=== PATIENT | female | born 1945 | race Caucasian/White ===

== ENCOUNTER 2018-03-18 22:15 | Inpatient (IN) | payer MEDICARE, OTHER ==
[2018-03-18] MEDS ORDERED: SODIUM BICARB 8.4% 50 ML SYR (1 MEQ/ML) ONE (22:18)
[2018-03-18] MEDS ORDERED: AMIODARONE 50 MG/ML 3 ML VIAL IV ONE (22:18)
[2018-03-18] MEDS ORDERED: DEXTROSE 5% IN WATER 50 ML BAG ONE (22:18)
[2018-03-18] MEDS ORDERED: EPINEPHrine 10 ML SYRINGE (0.1 MG/ML) ONE (22:18)
[2018-03-18] MEDS ORDERED: MAGNESIUM SULFATE SYG 4.06 MEQ/ML SYRINGE ONE (22:18)
[2018-03-18 22:55] LABS: ALT 36 U/L (9-52); AST 35 U/L (14-36); Acetaminophen <10.0 ug/mL; Albumin 3.2 g/dL (3.5-5.0); Alkaline Phosphatase 68 U/L (38-126); Anion Gap 7 mmol/L; Blood Urea Nitrogen 51 mg/dL (7-17); Calcium 10.9 mg/dL (8.4-10.2); Carbon Dioxide 36 mmol/L (22-30); Chloride 93 mmol/L (98-107); Glucose 268 mg/dL (74-99); Magnesium 2.2 mg/dL (1.6-2.3); Potassium 4.9 mmol/L (3.5-5.1); Sodium 136 mmol/L (137-145); Total Bilirubin 0.4 mg/dL (0.2-1.3); Total Protein 6.3 g/dL (6.3-8.2)
[2018-03-18 23:00] LABS: INR 0.9 (<1.2); Prothrombin Time 9.4 sec (9.0-12.0)
[2018-03-18 23:05] LABS: Glucose,Whole Blood 305 mg/dL (75-99)
[2018-03-18 23:11] LABS: Creatine Kinase MB 1.3 ng/mL (0.0-2.4)
[2018-03-18 23:12] LABS: Troponin I 0.04 ng/mL (0.000-0.034)
[2018-03-18 23:18] LABS: Partial Thromboplastin Time 18.2 sec (22.0-30.0)
--- NOTE | 2018-03-18 23:19 | ED ---
General Adult HPI - General Stated complaint: FREDIS Time Seen by Provider: 03/18/18 23:07 Source: EMS Mode of arrival: EMS - History of Present Illness Initial comments: Eloise is a 73-year-old female is brought to the ED via EMS for respiratory distress from a skilled nursing. Upon arrival history is limited by patient's respiratory distress and subsequent cardiac arrest. Juan Ramon did arrive at bedside and provided further history. Sister reports that approximately a month ago the patient was admitted to an outside facility she's been treated for pneumonia UTI sepsis she was intubated for 4 days a month ago. She was subsequently discharged from the hospital and spent 10 days in a skilled nursing before decompensating and again returning to [facility] for readmission with persistent pneumonia difficulty breathing and arrhythmias. Sr. is uncertain what arrhythmias but does know the patient's home medications were changed. Patient was discharged from [facility] earlier today and arrived at detention facility at approximately 2 PM this afternoon. Per EMS they were dispatched to the skilled nursing for evaluation of difficulty breathing. They arrived to find the patient in respiratory distress with oxygen saturation the 60s, they placed her on a nonrebreather mask and reports that her oxygen increased to the mid 90s, patient appeared more alert and oriented, they chose not to start CPAP and patient was transported here. Patient did have a [facility] 30 minute transport time. They report that upon arrival when wheeling and the patient began to decompensate. - Related Data Home Medications Medication Instructions Recorded Confirmed Acetaminophen Tab [Tylenol Tab] 650 mg PO Q6H PRN 03/18/18 03/18/18 Arformoterol Tartrate [Brovana] 15 mcg INHALATION RT-BID 03/18/18 03/18/18 Aspirin [Children's Aspirin] 81 mg PO HS 03/18/18 03/18/18 Atorvastatin [Lipitor] 20 mg PO HS 03/18/18 03/18/18 Calcium Carbonate/Vitamin D3 1 tab PO HS 03/18/18 03/18/18 [Calcium 600-Vit D3 400 Caplet] DULoxetine HCL [Cymbalta] 20 mg PO DAILY 03/18/18 03/18/18 Docusate Oral Soln [Colace Oral 100 mg PO BID 03/18/18 03/18/18 Soln] Donepezil Hcl 23mg 23 mg PO DAILY 03/18/18 03/18/18 Ferrous Sulfate 308 mg PO DAILY 03/18/18 03/18/18 Folic Acid 0.8 mg PO HS 03/18/18 03/18/18 Insulin Aspart [NovoLOG See Protocol SQ ACHS 03/18/18 03/18/18 (formulary)] Insulin Detemir [Levemir] 10 unit SQ BID 03/18/18 03/18/18 Ipratropium-Albuterol Nebulize 3 ml INHALATION RT-QID 03/18/18 03/18/18 [Duoneb 0.5 mg-3 mg/3 ml Soln] Lactulose 10 gm PO BID 03/18/18 03/18/18 Loratadine [Claritin] 10 mg PO DAILY 03/18/18 03/18/18 Magnesium Oxide 400 mg PO HS 03/18/18 03/18/18 Metoprolol Tartrate [Lopressor] 25 mg PO BID 03/18/18 03/18/18 Montelukast [Singulair] 10 mg PO HS 03/18/18 03/18/18 Multivitamins, Thera [Multivitamin 1 tab PO HS 03/18/18 03/18/18 (formulary)] Pantoprazole Sodium [Protonix] 40 mg PO DAILY 03/18/18 03/18/18 Rosuvastatin [Crestor] 10 mg PO HS 03/18/18 03/18/18 Vit C/E/Zn/Coppr/Lutein/Zeaxan 1 cap PO BID 03/18/18 03/18/18 [Preservision Areds 2 Softgel] guaiFENesin [Mucinex] 1,200 mg PO BID 03/18/18 03/18/18 Allergies Allergy/AdvReac Type Severity Reaction Status Date / Time clopidogrel [From Plavix] Allergy Unknown Verified 03/18/18 22:41 Review of Systems ROS Statement: Those systems with pertinent positive or pertinent negative responses have been documented in the HPI. ROS Other: All systems not noted in ROS Statement are negative. Limitations: ROS unobtainable due to patients medical condition Past Medical History Past Medical History: Atrial Fibrillation, Pneumonia Additional Past Medical History / Comment(s): Intubated ICU admission for sepsis pneumonia January 2018 Smoking Status: Unknown if ever smoked Course Vital Signs 03/18/18 03/18/18 03/18/18 22:16 23:03 23:06 Temperature 97.8 F Pulse Rate 70 64 Respiratory 30 H 16 Rate Blood Pressure 155/64 110/23 O2 Sat by Pulse 66 L 100 100 Oximetry 03/18/18 03/18/18 03/18/18 23:10 23:16 23:19 Temperature Pulse Rate 62 55 L 52 L Respiratory 16 16 16 Rate Blood Pressure 131/56 63/38 69/34 O2 Sat by Pulse 99 100 100 Oximetry 03/18/18 03/18/18 03/18/18 23:28 23:32 23:35 Temperature Pulse Rate 52 L 59 L 63 Respiratory 16 Rate Blood Pressure 146/95 145/123 154/116 O2 Sat by Pulse 100 100 Oximetry 03/18/18 03/18/18 03/18/18 23:40 23:44 23:50 Temperature Pulse Rate 40 L 46 L 45 L Respiratory 16 16 16 Rate Blood Pressure 78/32 73/45 77/28 O2 Sat by Pulse 100 100 100 Oximetry 03/18/18 03/18/18 03/19/18 23:55 23:59 00:05 Temperature Pulse Rate 46 L 48 L 48 L Respiratory 16 16 16 Rate Blood Pressure 92/48 106/71 70/45 O2 Sat by Pulse 99 100 Oximetry 03/19/18 03/19/18 03/19/18 00:10 00:19 00:31 Temperature Pulse Rate 51 L 55 L Respiratory 16 16 Rate Blood Pressure 57/34 86/56 141/80 O2 Sat by Pulse 100 Oximetry 03/19/18 03/19/18 03/19/18 00:40 01:00 01:25 Temperature Pulse Rate 57 L 59 L Respiratory 16 16 16 Rate Blood Pressure 83/32 86/40 101/45 O2 Sat by Pulse 100 Oximetry 03/19/18 03/19/18 03/19/18 01:35 01:40 01:45 Temperature Pulse Rate 50 L 50 L Respiratory 16 16 16 Rate Blood Pressure 84/33 119/76 108/62 O2 Sat by Pulse 100 100 100 Oximetry 03/19/18 03/19/18 03/19/18 02:25 02:30 02:40 Temperature Pulse Rate 66 73 80 Respiratory 16 13 17 Rate Blood Pressure 110/87 O2 Sat by Pulse 100 100 100 Oximetry 03/19/18 03/19/18 02:50 03:00 Temperature Pulse Rate 71 76 Respiratory 15 16 Rate Blood Pressure 118/47 O2 Sat by Pulse Oximetry Procedures - Central Line Placement Right IJ Consent Obtained: verbal consent Time Out Performed: Yes Patient Placed on Monitor/Pulse Ox: Yes Prep: mask, gown, gloves Central Line Prep: Chlorhexidine scrub Local Anesthesia Used: Lidocaine 1% Ultrasound Used for Placement: Yes Central Line Lumen Inserted: triple Bloods Obtained for Lab: Yes Central Line Position: good blood return, all ports aspirated, flushed, capped, sutured in place with 2-0 silk Dressing Applied: Tegaderm Patient Tolerated Procedure: well Complications: none - Intubation Laryngoscope: Lisset Size: 4 ET Tube Size: 7.5 ET Tube Uncuffed: No Tube Placement Confirmation: visualized tube passing through cords, equal breath sounds bilaterally, no breath sounds over epigastrium Intubation Complications: none Medical Decision Making - Medical Decision Making The patient was seen and evaluated immediately upon arrival to the emergency department Patient was noted to have oxygen saturation in the 60s, was bradycardia to the 20s and appeared whitehead and diaphoretic Decision was made to immediately intubate, patient subsequently lost pulses and CPR was initiated Patient was intubated without complication and oxygen saturations improved ACS protocols were followed, please refer to the code sheet for medications and defibrillation's During the code patient did appear to be in V. fib and torsades. During CPR the patient would open her eyes and move her extremities however with CPR was stopped for pulse checks the patient would become unresponsive. Decision was made to pursue persistent CPR as the patient did appear to be neurologically intact. After approximately 40-45 minutes of CPR we had return of spontaneous circulation. Patient was awake appeared alert and following commands after return of spontaneous circulation Patient with recurrent episodes of hypotension and Levothroid was initiated, a right IJ central line was placed, repeat labs were obtained upon placement of the central line as there is concern that the first set of labs were debrided by IV fluid i infusion Patient care was discussed with the family, at this time they're agreeable to continuing ventilator, IV medications but would not want any further CPR Patient care was discussed with the supervising appraiser Dr. Fowler who accepts the patient to the ICU Admission orders placed - Lab Data Result diagrams: 03/19/18 00:00 03/18/18 22:20 Lab Results 11/20/18 11/20/18 11/20/18 Range/Units 22:20 22:20 22:20 WBC (3.8-10.6) k/uL RBC (3.80-5.40) m/uL Hgb (11.4-16.0) gm/dL Hct (34.0-46.0) % MCV (80.0-100.0) fL MCH (25.0-35.0) pg MCHC (31.0-37.0) g/dL RDW (11.5-15.5) % Plt Count (150-450) k/uL Neutrophils % Neutrophils % (Manual) % Band Neutrophils % % Lymphocytes % Lymphocytes % (Manual) % Monocytes % Monocytes % (Manual) % Eosinophils % Basophils % Metamyelocytes % % Myelocytes % % Neutrophils # Neutrophils # (Manual) (1.3-7.7) k/uL Lymphocytes # Lymphocytes # (Manual) (1.0-4.8) k/uL Monocytes # Monocytes # (Manual) (0-1.0) k/uL Eosinophils # Basophils # Metamyelocytes # (Man) (0) k/uL Myelocytes # (Manual) (0) k/uL Nucleated RBCs (0-0) /100 WBC Manual Slide Review Polychromasia Hypochromasia Poikilocytosis Poikilocytosis (manual PT (9.0-12.0) sec INR (<1.2) APTT (22.0-30.0) sec Sodium 136 L (137-145) mmol/L Potassium 4.9 (3.5-5.1) mmol/L Chloride 93 L (98-107) mmol/L Carbon Dioxide 36 H (22-30) mmol/L Anion Gap 7 mmol/L BUN 51 H (7-17) mg/dL Creatinine 2.39 H (0.52-1.04) mg/dL Est GFR (CKD-EPI)AfAm 22 (>60 ml/min/1.73 sqM) Est GFR (CKD-EPI)NonAf 19 (>60 ml/min/1.73 sqM) Glucose 268 H (74-99) mg/dL POC Glucose (mg/dL) (75-99) mg/dL POC Glu [employer] ID Plasma Lactic Acid Scar (0.7-2.0) mmol/L Calcium 10.9 H (8.4-10.2) mg/dL Magnesium 2.2 (1.6-2.3) mg/dL Total Bilirubin 0.4 (0.2-1.3) mg/dL AST 35 (14-36) U/L ALT 36 (9-52) U/L Alkaline Phosphatase 68 (38-126) U/L Total Creatine Kinase 25 L (30-135) U/L CK-MB (CK-2) 1.3 (0.0-2.4) ng/mL CK-MB (CK-2) Rel Index 5.2 Troponin I 0.040 H* (0.000-0.034) ng/mL NT-Pro-B Natriuret Pep pg/mL Total Protein 6.3 (6.3-8.2) g/dL Albumin 3.2 L (3.5-5.0) g/dL Urine Color Urine Appearance (Clear) Urine pH (5.0-8.0) Ur Specific Webster (1.001-1.035) Urine Protein (Negative) Urine Glucose (UA) (Negative) Urine Ketones (Negative) Urine Blood (Negative) Urine Nitrite (Negative) Urine Bilirubin (Negative) Urine Urobilinogen (<2.0) mg/dL Ur Leukocyte Esterase (Negative) Urine RBC (0-5) /hpf Urine WBC (0-5) /hpf Urine WBC Clumps (None) /hpf Urine Mucus (None) /hpf Urine Yeast (Budding) (None) /hpf Acetaminophen <10.0 ug/mL Acetone, Qual Negative (Negative) Blood Type A Positive Blood Type Confirm Blood Type Recheck CABO Indicated Antibody Screen NEGATIVE Spec Expiration Date 03/21/2018231903/18/18 03/18/18 03/18/18 Range/Units 22:20 22:20 22:45 WBC (3.8-10.6) k/uL RBC (3.80-5.40) m/uL Hgb (11.4-16.0) gm/dL Hct (34.0-46.0) % MCV (80.0-100.0) fL MCH (25.0-35.0) pg MCHC (31.0-37.0) g/dL RDW (11.5-15.5) % Plt Count (150-450) k/uL Neutrophils % Neutrophils % (Manual) % Band Neutrophils % % Lymphocytes % Lymphocytes % (Manual) % Monocytes % Monocytes % (Manual) % Eosinophils % Basophils % Metamyelocytes % % Myelocytes % % Neutrophils # Neutrophils # (Manual) (1.3-7.7) k/uL Lymphocytes # Lymphocytes # (Manual) (1.0-4.8) k/uL Monocytes # Monocytes # (Manual) (0-1.0) k/uL Eosinophils # Basophils # Metamyelocytes # (Man) (0) k/uL Myelocytes # (Manual) (0) k/uL Nucleated RBCs (0-0) /100 WBC Manual Slide Review Polychromasia Hypochromasia Poikilocytosis Poikilocytosis (manual PT 9.4 (9.0-12.0) sec INR 0.9 (<1.2) APTT 18.2 L (22.0-30.0) sec Sodium (137-145) mmol/L Potassium (3.5-5.1) mmol/L Chloride (98-107) mmol/L Carbon Dioxide (22-30) mmol/L Anion Gap mmol/L BUN (7-17) mg/dL Creatinine (0.52-1.04) mg/dL Est GFR (CKD-EPI)AfAm (>60 ml/min/1.73 sqM) Est GFR (CKD-EPI)NonAf (>60 ml/min/1.73 sqM) Glucose (74-99) mg/dL POC Glucose (mg/dL) 305 H (75-99) mg/dL POC Glu [employer] ID Eunice Morillo Plasma Lactic Acid Scar 1.6 (0.7-2.0) mmol/L Calcium (8.4-10.2) mg/dL Magnesium (1.6-2.3) mg/dL Total Bilirubin (0.2-1.3) mg/dL AST (14-36) U/L ALT (9-52) U/L Alkaline Phosphatase (38-126) U/L Total Creatine Kinase (30-135) U/L CK-MB (CK-2) (0.0-2.4) ng/mL CK-MB (CK-2) Rel Index Troponin I (0.000-0.034) ng/mL NT-Pro-B Natriuret Pep pg/mL Total Protein (6.3-8.2) g/dL Albumin (3.5-5.0) g/dL Urine Color Urine Appearance (Clear) Urine pH (5.0-8.0) Ur Specific Webster (1.001-1.035) Urine Protein (Negative) Urine Glucose (UA) (Negative) Urine Ketones (Negative) Urine Blood (Negative) Urine Nitrite (Negative) Urine Bilirubin (Negative) Urine Urobilinogen (<2.0) mg/dL Ur Leukocyte Esterase (Negative) Urine RBC (0-5) /hpf Urine WBC (0-5) /hpf Urine WBC Clumps (None) /hpf Urine Mucus (None) /hpf Urine Yeast (Budding) (None) /hpf Acetaminophen ug/mL Acetone, Qual (Negative) Blood Type Blood Type Confirm Blood Type Recheck Antibody Screen Spec Expiration Date 03/19/18 03/19/18 03/19/18 Range/Units 00:00 00:00 00:00 WBC 13.0 H (3.8-10.6) k/uL RBC 2.81 L (3.80-5.40) m/uL Hgb 8.4 L (11.4-16.0) gm/dL Hct 26.8 L (34.0-46.0) % MCV 95.5 (80.0-100.0) fL MCH 29.8 (25.0-35.0) pg MCHC 31.2 (31.0-37.0) g/dL RDW 15.6 H (11.5-15.5) % Plt Count 439 (150-450) k/uL Neutrophils % Not Reportable Neutrophils % (Manual) 71 % Band Neutrophils % 9 % Lymphocytes % Not Reportable Lymphocytes % (Manual) 12 % Monocytes % Not Reportable Monocytes % (Manual) 1 % Eosinophils % Not Reportable Basophils % Not Reportable Metamyelocytes % 2 % Myelocytes % 6 % Neutrophils # Not Reportable Neutrophils # (Manual) 10.40 H (1.3-7.7) k/uL Lymphocytes # Not Reportable Lymphocytes # (Manual) 1.56 (1.0-4.8) k/uL Monocytes # Not Reportable Monocytes # (Manual) 0.13 (0-1.0) k/uL Eosinophils # Not Reportable Basophils # Not Reportable Metamyelocytes # (Man) 0.26 H (0) k/uL Myelocytes # (Manual) 0.78 H (0) k/uL Nucleated RBCs 0 (0-0) /100 WBC Manual Slide Review Performed Polychromasia Present Hypochromasia Marked Poikilocytosis Slight Poikilocytosis (manual Present PT (9.0-12.0) sec INR (<1.2) APTT (22.0-30.0) sec Sodium (137-145) mmol/L Potassium (3.5-5.1) mmol/L Chloride (98-107) mmol/L Carbon Dioxide (22-30) mmol/L Anion Gap mmol/L BUN (7-17) mg/dL Creatinine (0.52-1.04) mg/dL Est GFR (CKD-EPI)AfAm (>60 ml/min/1.73 sqM) Est GFR (CKD-EPI)NonAf (>60 ml/min/1.73 sqM) Glucose (74-99) mg/dL POC Glucose (mg/dL) (75-99) mg/dL POC Glu [employer] ID Plasma Lactic Acid Scar (0.7-2.0) mmol/L Calcium (8.4-10.2) mg/dL Magnesium (1.6-2.3) mg/dL Total Bilirubin (0.2-1.3) mg/dL AST (14-36) U/L ALT (9-52) U/L Alkaline Phosphatase (38-126) U/L Total Creatine Kinase (30-135) U/L CK-MB (CK-2) (0.0-2.4) ng/mL CK-MB (CK-2) Rel Index Troponin I (0.000-0.034) ng/mL NT-Pro-B Natriuret Pep 1950 pg/mL Total Protein (6.3-8.2) g/dL Albumin (3.5-5.0) g/dL Urine Color Urine Appearance (Clear) Urine pH (5.0-8.0) Ur Specific Webster (1.001-1.035) Urine Protein (Negative) Urine Glucose (UA) (Negative) Urine Ketones (Negative) Urine Blood (Negative) Urine Nitrite (Negative) Urine Bilirubin (Negative) Urine Urobilinogen (<2.0) mg/dL Ur Leukocyte Esterase (Negative) Urine RBC (0-5) /hpf Urine WBC (0-5) /hpf Urine WBC Clumps (None) /hpf Urine Mucus (None) /hpf Urine Yeast (Budding) (None) /hpf Acetaminophen ug/mL Acetone, Qual (Negative) Blood Type Blood Type Confirm A Positive Blood Type Recheck Antibody Screen Spec Expiration Date 03/19/18 Range/Units 00:00 WBC (3.8-10.6) k/uL RBC (3.80-5.40) m/uL Hgb (11.4-16.0) gm/dL Hct (34.0-46.0) % MCV (80.0-100.0) fL MCH (25.0-35.0) pg MCHC (31.0-37.0) g/dL RDW (11.5-15.5) % Plt Count (150-450) k/uL Neutrophils % Neutrophils % (Manual) % Band Neutrophils % % Lymphocytes % Lymphocytes % (Manual) % Monocytes % Monocytes % (Manual) % Eosinophils % Basophils % Metamyelocytes % % Myelocytes % % Neutrophils # Neutrophils # (Manual) (1.3-7.7) k/uL Lymphocytes # Lymphocytes # (Manual) (1.0-4.8) k/uL Monocytes # Monocytes # (Manual) (0-1.0) k/uL Eosinophils # Basophils # Metamyelocytes # (Man) (0) k/uL Myelocytes # (Manual) (0) k/uL Nucleated RBCs (0-0) /100 WBC Manual Slide Review Polychromasia Hypochromasia Poikilocytosis Poikilocytosis (manual PT (9.0-12.0) sec INR (<1.2) APTT (22.0-30.0) sec Sodium (137-145) mmol/L Potassium (3.5-5.1) mmol/L Chloride (98-107) mmol/L Carbon Dioxide (22-30) mmol/L Anion Gap mmol/L BUN (7-17) mg/dL Creatinine (0.52-1.04) mg/dL Est GFR (CKD-EPI)AfAm (>60 ml/min/1.73 sqM) Est GFR (CKD-EPI)NonAf (>60 ml/min/1.73 sqM) Glucose (74-99) mg/dL POC Glucose (mg/dL) (75-99) mg/dL POC Glu [employer] ID Plasma Lactic Acid Scar (0.7-2.0) mmol/L Calcium (8.4-10.2) mg/dL Magnesium (1.6-2.3) mg/dL Total Bilirubin (0.2-1.3) mg/dL AST (14-36) U/L ALT (9-52) U/L Alkaline Phosphatase (38-126) U/L Total Creatine Kinase (30-135) U/L CK-MB (CK-2) (0.0-2.4) ng/mL CK-MB (CK-2) Rel Index Troponin I (0.000-0.034) ng/mL NT-Pro-B Natriuret Pep pg/mL Total Protein (6.3-8.2) g/dL Albumin (3.5-5.0) g/dL Urine Color Yellow Urine Appearance Turbid H (Clear) Urine pH 6.0 (5.0-8.0) Ur Specific Webster 1.015 (1.001-1.035) Urine Protein 2+ H (Negative) Urine Glucose (UA) Negative (Negative) Urine Ketones Negative (Negative) Urine Blood Large H (Negative) Urine Nitrite Negative (Negative) Urine Bilirubin Negative (Negative) Urine Urobilinogen <2.0 (<2.0) mg/dL Ur Leukocyte Esterase Large H (Negative) Urine RBC >182 H (0-5) /hpf Urine WBC >182 H (0-5) /hpf Urine WBC Clumps Many H (None) /hpf Urine Mucus Few H (None) /hpf Urine Yeast (Budding) Many H (None) /hpf Acetaminophen ug/mL Acetone, Qual (Negative) Blood Type Blood Type Confirm Blood Type Recheck Antibody Screen Spec Expiration Date Critical Care Time Critical Care Time: Yes Total Critical Care Time: 75 Critical Care Time: Critical Care time 75min Critical care time was exclusive of separately billable procedures and treating other patients and teaching time Critical care was necessary to treat or prevent imminent or life-threatening deterioration. Critical care was time spent personally by me on the following activities: development of treatment plan with patient or surrogate, discussions with consultants, discussions with primary provider, evaluation of patient's response to treatment, examination of patient, obtaining history from patient or surrogate, ordering and performing treatments and interventions, ordering and review of laboratory studies, ordering and review of radiographic studies, pulse oximetry, re-evaluation of patient's condition and review of old charts. Disposition Clinical Impression: Cardiac arrest, Hypoxia, UTI (urinary tract infection), Chest wall hematoma, No CPR or defibrillation, use all others Disposition: ADMITTED IP TO THIS HOSP Condition: Serious
[2018-03-18] MEDS ORDERED: MIDAZOLAM 1 MG/ML 5 ML VIAL IV PRN (23:36)
[2018-03-18] MEDS: NOREPINEPHRINE 16 MG in SODIUM CHLORIDE 0.9% 250 ML IV SCH (23:45)
[2018-03-19] MEDS ORDERED: NALOXONE 0.4 MG/ML 1 ML VIAL IV PRN (00:05)
--- NOTE | 2018-03-19 00:19 | XR ---
EXAMINATION TYPE: XR chest 1V DATE OF EXAM: 03/18/2018 COMPARISON: NONE HISTORY: Concern for pneumothorax. TECHNIQUE: Single frontal view of the chest is obtained. FINDINGS: There is nasogastric tube. There are chest leads. There is a large amount of soft tissue a ir over the left chest wall. There is an approximate 25% pneumothorax at the left lung base. Trachea is midline. There is also a small right-sided pneumothorax of less than 10% at the costophrenic angle . There is evidence of atelectasis in the left lower lobe. There is possible left lower lobe infiltra te also. I see no heart failure. Thoracic aorta is atheromatous. IMPRESSION: Bilateral pneumothorax and larger on the left side. Cardiomegaly. Extensive soft tissue air.
[2018-03-19] MEDS ORDERED: VANCOMYCIN IV PER PHARMACY 1 EACH MISC MISCELLANE PRN (00:41)
[2018-03-19] MEDS ORDERED: PIPERACILLIN-TAZOBACTAM 3.375 GM in SODIUM CHLORIDE 0.9% 100 ML IVPB STA (00:41)
[2018-03-19] MEDS ORDERED: NOREPINEPHRINE 16 MG in SODIUM CHLORIDE 0.9% 250 ML IV SCH (00:45)
[2018-03-19 00:54] LABS: Appearance,Urine Turbid (Clear); Bilirubin,Urine Negative (Negative); Blood,Urine Large (Negative); Budding Yeast,Urine Many /hpf; Color,Urine Yellow; Glucose,Urine (UA) Negative (Negative); HCT 26.8 % (34.0-46.0); HGB 8.4 gm/dL (11.4-16.0); Ketones,Urine Negative (Negative); Leukocyte Esterase,Urine Large (Negative); MCH 29.8 pg (25.0-35.0); MCHC 31.2 g/dL (31.0-37.0); MCV 95.5 fL (80.0-100.0); Mean Platelet Volume 7.5; Mucus,Urine Few /hpf; Nitrite,Urine Negative (Negative); Platelet Count 439 k/uL (150-450); Protein,Urine 2+ (Negative); RBC 2.81 m/uL (3.80-5.40); RBC,Urine >182 /hpf (0-5); RDW 15.6 % (11.5-15.5); Specific Gravity,Urine 1.015 (1.001-1.035); Urobilinogen,Urine <2.0 mg/dL (<2.0)
[2018-03-19 01:02] LABS: Hypochromasia Marked; Poikilocytosis Slight
--- NOTE | 2018-03-19 01:06 | XR ---
EXAMINATION TYPE: XR chest 1V portable DATE OF EXAM: 03/19/2018 COMPARISON: 03/18/2018 HISTORY: Central line placement TECHNIQUE: Single frontal view of the chest is obtained. FINDINGS: Endotracheal tube is 3.8 cm from the riri. Right jugular catheter has tip in the midsupe rior vena cava. Nasogastric tube appears in good position. There is soft tissue air over the left [address] wall. There is small right side pneumothorax at the lower lateral lung field. This is less than 10 %. There is coarse infiltrate in the left lower lobe. I do not see an definite pneumothorax on the left side. IMPRESSION: Small right side pneumothorax is slightly increased. There appears to be a left sided pneumothorax at the costophrenic angle on previous exam that is not evident on this exam. There is coarse infiltrate left lower lobe unchanged.
[2018-03-19] MEDS ORDERED: VANCOMYCIN 1,500 MG in SODIUM CHLORIDE 0.9% 250 ML IVPB STA (01:13)
[2018-03-19 01:21] LABS: Band Neutrophils % 9 %; Lymphocytes # (M) 1.56 k/uL (1.0-4.8); Metamyelocytes # (M) 0.26 k/uL (0); Metamyelocytes % 2 %; Monocytes # (M) 0.13 k/uL (0-1.0); Myelocytes # (M) 0.78 k/uL (0); Myelocytes % 6 %; Neutrophils % (M) 71 %; Nucleated Red Blood Cells 0 /100 WBC (0-0); Total Cells Counted 200
[2018-03-19 01:22] LABS: Poikilocytosis (M) Present; Polychromasia Present
[2018-03-19 02:16] LABS: Glucose,Whole Blood 418 mg/dL (75-99)
[2018-03-19] MEDS ORDERED: SODIUM CHLORIDE 0.9% 1,000 ML IV ONE ×2 (02:24→02:25)
[2018-03-19] MEDS: SODIUM CHLORIDE 0.9% 1,000 ML IV SCH ×2 (02:40→13:28)
[2018-03-19 03:19] LABS: ABG Base Excess -1.6 mmol/L; ABG HCO3 26 mmol/L (21-25); ABG PCO2 59 mmHg (35-45); ABG PH 7.25 (7.35-7.45); ABG PO2 354 mmHg (83-108); ABG TCO2 27 mmol/L (19-24)
[2018-03-19] MEDS ORDERED: ARTIFICIAL TEARS-HYPROMELLOSE DROPS 15 ML BTL BOTH EYES PRN (03:39)
[2018-03-19 04:02] LABS: HCT 29.7 % (34.0-46.0); Hypochromasia Marked; MCH 29.5 pg (25.0-35.0); MCHC 30.5 g/dL (31.0-37.0); MCV 96.7 fL (80.0-100.0); Magnesium 4.9 mg/dL (1.6-2.3); Mean Platelet Volume 7.3; Phosphorus 7.9 mg/dL (2.5-4.5); Platelet Count 543 k/uL (150-450); Poikilocytosis Slight; Potassium 5.9 mmol/L (3.5-5.1); RBC 3.07 m/uL (3.80-5.40); RDW 15.4 % (11.5-15.5); WBC 14.8 k/uL (3.8-10.6)
[2018-03-19] MEDS: PROPOFOL 1,000 MG in EMPTY BAG 1 BAG IV SCH ×3 (04:16→18:52)
--- NOTE | 2018-03-19 04:37 | XR ---
EXAMINATION TYPE: XR chest 1V DATE OF EXAM: 03/19/2018 COMPARISON: Today HISTORY: Short of breath TECHNIQUE: Single frontal view of the chest is obtained. FINDINGS: There is a very large right-sided pneumothorax probably more than 80%. There is soft tissu e air over the left chest wall. Right jugular catheter has tip in the superior vena cava. There is na sogastric tube. Endotracheal tube is difficult to visualized and the tip is probably 6.5 cm from the riri. I see no definite pneumothorax on the left side. IMPRESSION: There is a large right-sided pneumothorax and the heart is shifted slightly to the left side that suggests some element of tension. This exam was discussed with the patient's nurse at 4:35 AM. Pneumothorax is significantly increased compared to the exam 4 hours ago.
[2018-03-19 04:40] LABS: Creatine Kinase MB 7.9 ng/mL (0.0-2.4)
[2018-03-19 04:41] LABS: Troponin I 0.319 ng/mL (0.000-0.034)
[2018-03-19 04:46] LABS: Partial Thromboplastin Time 21.6 sec (22.0-30.0)
[2018-03-19 05:55] LABS: Band Neutrophils % 12 %; Lymphocytes # (M) 0.59 k/uL (1.0-4.8); Metamyelocytes # (M) 0.59 k/uL (0); Metamyelocytes % 4 %; Monocytes # (M) 0.59 k/uL (0-1.0); Neutrophils % (M) 76 %; Nucleated Red Blood Cells 0 /100 WBC (0-0); Total Cells Counted 100
--- NOTE | 2018-03-19 06:29 | XR ---
EXAMINATION TYPE: XR chest 1V portable DATE OF EXAM: 03/19/2018 COMPARISON: Today HISTORY: Right pneumothorax TECHNIQUE: Single frontal view of the chest is obtained. FINDINGS: There is a right chest tube in good position over the right upper lung field. There is brett arent complete clearing of the right side pneumothorax. There is some patchy infiltrate in the right mid and lower lung field. There is mild infiltrate in the left lower lung field. There is no heart fa ilure. Nasogastric tube is noted. There is right jugular catheter with the tip in the superior vena c jonah. Endotracheal tube is almost 5 cm from the riri. IMPRESSION: Right chest tube is in good position with clearing of the right-sided pneumothorax.
[2018-03-19 07:20] LABS: Glucose,Whole Blood 434 mg/dL (75-99)
[2018-03-19] MEDS ORDERED: INSULIN ASPART 100 UNIT/ML 1 ML 10 ML VIAL SQ SCH ×2 (07:30→12:00)
[2018-03-19] MEDS ORDERED: PIPERACILLIN-TAZOBACTAM 3.375 GM in SODIUM CHLORIDE 0.9% 100 ML IVPB SCH (08:00)
[2018-03-19] MEDS ORDERED: SODIUM CHLORIDE 0.9% 500 ML 500 ML IV ONE (08:24)
[2018-03-19] MEDS ORDERED: INSULIN REGULAR 100 UNIT/ML VIAL IV ONE (08:25)
[2018-03-19] MEDS: PANTOPRAZOLE 40 MG/10 ML VIAL IV SCH (08:33)
[2018-03-19] MEDS ORDERED: ENOXAPARIN 40 MG/0.4 ML SYRINGE SQ SCH (09:00)
[2018-03-19] MEDS ORDERED: INSULIN REGULAR BOLUS (FROM DRIP BAG) IV PRN (09:04)
[2018-03-19] MEDS: INSULIN REGULAR 100 UNIT in SODIUM CHLORIDE 0.9% 100 ML IV SCH ×2 (10:25→22:22)
[2018-03-19 10:26] LABS: Glucose,Whole Blood 336 mg/dL (75-99)
--- NOTE | 2018-03-19 10:43 | P.CNPUL ---
History of Present Illness Consult date: 03/19/18 Requesting physician: Mae Rodriguez Reason for consult: other (Acute hypoxic respiratory failure requiring intubation and mechanical ventilation.) Chief complaint: Respiratory distress and cardiac arrest History of present illness: This is a 73-year-old female with history of multiple medical problems, about a month ago, patient was admitted to an outside facility with pneumonia urinary tract infection and sepsis. Apparently patient was intubated and she was on mechanical ventilation for 4 days. She was eventually discharged from the hospital, and spent 10 days in a retirement. However her condition worsened again, and she returned to [facility] for readmission with persistent pneumonia and difficulty breathing as well as symptoms of arrhythmia/ palpitations. Patient was evaluated again at [facility], and she was discharged yesterday back to correction facility. Patient was discharged about 2 PM, however EMS was dispatched last night to the retirement for evaluation of difficulty breathing. Arrived to find the patient in respiratory distress with O2 saturation in the 60s. Patient was placed on a nonrebreather, her O2 saturation was noted to be in the mid 90s at the time. Patient appeared alert and oriented according to EMS. Patient was brought in and shortly after arrival the patient decompensated, she was noted to be bradycardic, hypotensive , and she was intubated immediately. Then the patient coded, and she was resuscitated as per ACLS protocol. The code and CPR lasted for about 45 minutes until she had spontaneous return of circulation. Patient was kept on mechanical ventilation, and transferred to the ICU. Apparently after the prolonged code, family was approached, and change the CODE STATUS to DO NOT RESUSCITATE and not to resuscitate again if the patient codes again. She was sent to the ICU on mechanical ventilation, and presently she is on tidal volume of 450 assist-control rate of 20 FiO2 of 40% and PEEP of 5. Peak airway pressure is 33, and plateau pressure 21. Patient has a right IJ central line noted placed by the ER physician. Apparently when the patient arrived to the ICU, she was noted to have extensive right-sided pneumothorax. This was actually seen earlier while the patient was in the ER, but for some reason a chest tube was not done in the ER. I reviewed the chest x-ray around 4 AM in the morning, and I called the ER physician Dr. Dunlap, she came back to the ICU and she placed a right sided chest tube as the patient was going into what seems to be a tension pneumothorax. She was requiring more norepinephrine. Chest x-ray following a right-sided chest tube placement showed complete reexpansion of the right lung. The pneumothoraces were felt to be related most likely to broken ribs from CPR. Review of Systems ROS unobtainable: due to endotracheal tube Past Medical History Past Medical History: Atrial Fibrillation, Pneumonia Additional Past Medical History / Comment(s): Intubated ICU admission for sepsis pneumonia January 2018 Last Myocardial Infarction Date:: 2007 History of Any Multi-Drug Resistant Organisms: None Reported Past Surgical History: No Surgical Hx Reported Past Anesthesia/Blood Transfusion Reactions: No Reported Reaction Smoking Status: Unknown if ever smoked Medications and Allergies Home Medications Medication Instructions Recorded Confirmed Type Acetaminophen Tab [Tylenol Tab] 650 mg PO Q6H PRN 03/18/18 03/18/18 History Arformoterol Tartrate [Brovana] 15 mcg INHALATION RT-BID 03/18/18 03/18/18 History Aspirin [Children's Aspirin] 81 mg PO HS 03/18/18 03/18/18 History Atorvastatin [Lipitor] 20 mg PO HS 03/18/18 03/18/18 History Calcium Carbonate/Vitamin D3 1 tab PO HS 03/18/18 03/18/18 History [Calcium 600-Vit D3 400 Caplet] DULoxetine HCL [Cymbalta] 20 mg PO DAILY 03/18/18 03/18/18 History Docusate Oral Soln [Colace Oral 100 mg PO BID 03/18/18 03/18/18 History Soln] Donepezil Hcl 23mg 23 mg PO DAILY 03/18/18 03/18/18 History Ferrous Sulfate 308 mg PO DAILY 03/18/18 03/18/18 History Folic Acid 0.8 mg PO HS 03/18/18 03/18/18 History Insulin Aspart [NovoLOG See Protocol SQ ACHS 03/18/18 03/18/18 History (formulary)] Insulin Detemir [Levemir] 10 unit SQ BID 03/18/18 03/18/18 History Ipratropium-Albuterol Nebulize 3 ml INHALATION RT-QID 03/18/18 03/18/18 History [Duoneb 0.5 mg-3 mg/3 ml Soln] Lactulose 10 gm PO BID 03/18/18 03/18/18 History Loratadine [Claritin] 10 mg PO DAILY 03/18/18 03/18/18 History Magnesium Oxide 400 mg PO HS 03/18/18 03/18/18 History Metoprolol Tartrate [Lopressor] 25 mg PO BID 03/18/18 03/18/18 History Montelukast [Singulair] 10 mg PO HS 03/18/18 03/18/18 History Multivitamins, Thera [Multivitamin 1 tab PO HS 03/18/18 03/18/18 History (formulary)] Pantoprazole Sodium [Protonix] 40 mg PO DAILY 03/18/18 03/18/18 History Rosuvastatin [Crestor] 10 mg PO HS 03/18/18 03/18/18 History Vit C/E/Zn/Coppr/Lutein/Zeaxan 1 cap PO BID 03/18/18 03/18/18 History [Preservision Areds 2 Softgel] guaiFENesin [Mucinex] 1,200 mg PO BID 03/18/18 03/18/18 History Allergies Allergy/AdvReac Type Severity Reaction Status Date / Time clopidogrel [From Plavix] Allergy Unknown Verified 03/18/18 22:41 Physical Exam Vitals: Vital Signs Temp Pulse Resp BP Pulse Ox 03/19/18 07:00 79 20 115/54 100 03/19/18 06:45 70 20 113/49 99 03/19/18 06:30 64 16 92/43 99 03/19/18 06:15 70 16 117/47 03/19/18 06:00 69 16 120/60 100 03/19/18 05:45 74 122/61 100 03/19/18 05:30 70 128/54 100 03/19/18 05:15 72 10 L 120/74 85 L 03/19/18 05:00 75 16 129/42 100 03/19/18 04:45 72 16 130/50 100 03/19/18 04:30 66 21 121/49 100 03/19/18 04:15 63 35 H 81/49 87 L 03/19/18 04:00 62 16 83/46 93 L 03/19/18 03:53 30 H 03/19/18 03:45 66 20 92 L 03/19/18 03:30 70 16 118/47 98 03/19/18 03:15 76 16 118/47 03/19/18 03:00 76 16 118/47 03/19/18 02:50 71 15 03/19/18 02:40 80 17 100 03/19/18 02:30 73 13 110/87 100 03/19/18 02:25 66 16 100 03/19/18 01:45 50 L 16 108/62 100 03/19/18 01:40 50 L 16 119/76 100 03/19/18 01:35 16 84/33 100 03/19/18 01:25 16 101/45 03/19/18 01:00 59 L 16 86/40 100 03/19/18 00:58 96.3 F L 03/19/18 00:40 57 L 16 83/32 03/19/18 00:31 55 L 16 141/80 03/19/18 00:19 51 L 16 86/56 100 03/19/18 00:10 57/34 03/19/18 00:05 48 L 16 70/45 100 03/18/18 23:59 48 L 16 106/71 99 03/18/18 23:55 46 L 16 92/48 03/18/18 23:50 45 L 16 77/28 100 03/18/18 23:44 46 L 16 73/45 100 03/18/18 23:40 40 L 16 78/32 100 03/18/18 23:35 63 16 154/116 100 03/18/18 23:32 59 L 145/123 03/18/18 23:28 52 L 146/95 100 03/18/18 23:19 52 L 16 69/34 100 03/18/18 23:16 55 L 16 63/38 100 03/18/18 23:10 62 16 131/56 99 03/18/18 23:06 64 16 110/23 100 03/18/18 23:03 70 155/64 100 03/18/18 22:16 97.8 F 30 H 66 L Intake and Output 03/18/18 03/19/18 03/19/18 22:59 06:59 14:59 Intake Total 744.372 131.671 Output Total 30 0 Balance 714.372 131.671 Intake: IV 740 80 Piperacillin-Tazobactam 3 100 .375 gm In Sodium Chloride 0.9% 100 ml @ 25 mls/hr IVPB ONCE STA Rx# :[id number] Sodium Chloride 0.9% 1, 390 80 000 ml @ 80 mls/hr IV . [id number] LEN Rx#:[id number] Vancomycin 1,500 mg In 250 Sodium Chloride 0.9% 250 ml @ 125 mls/hr IVPB ONCE STA Rx#:[id number] Intake, IV Titration 4.372 51.671 Amount Norepinephrine 16 mg In 4.372 Sodium Chloride 0.9% 250 ml @ 5 mls/hr IV .Q24H LEN Rx#:[id number] Propofol 1,000 mg In 51.671 Empty Bag 1 bag @ Titrate IV .Q0M LEN Rx#: [id number] Output: Chest Tube Drainage 10 Right Lateral Chest 10 Urine 20 0 Other: Voiding Method Indwelling Catheter Weight 99.79 kg 92.2 kg 92.2 kg Physical Exam: Revealed a 73-year-old female, unresponsive to any stimuli, on mechanical ventilation, in no distress. Head: Atraumatic, normocephalic. Pupils are sluggishly reactive to light. HEENT:[Neck is supple.] [No neck masses.] [No thyromegaly.] [No JVD.] Pupils are sluggishly reactive to light, no icterus. Endotracheal tube and orogastric tube noted to be intact. Chest: [Crackles and rhonchi noted bilaterally,] multiple bruises and areas of ecchymosis noted on the anterior chest wall bilaterally. Right-sided chest tube is noted just over the fourth intercostal space on the right side. Anterior and lateral subcu emphysema is palpable. Cardiac Exam: [Normal S1 and S2, no S3 gallop, no murmur.] Abdomen: [Soft, nontender, no megaly, no rebound, no guarding, normal bowel sounds.] Extremities: Multiple areas of bruises and ecchymosis noted in both upper and lower extremities.] Neurological Exam: Patient is unresponsive to any stimuli. Pupils are sluggishly reactive. Psychiatric: Cannot be assessed. Skin: Multiple areas of bruises and ecchymosis noted on the chest wall and ion upper and lower extremities. Results - Laboratory Findings CBC and BMP: 03/19/18 03:31 03/19/18 03:31 ABG ABG pH 7.25 (7.35-7.45) L 03/19/18 03:10 ABG pCO2 59 mmHg (35-45) H 03/19/18 03:10 ABG pO2 354 mmHg (83-108) H 03/19/18 03:10 ABG O2 Saturation 100.0 % (94-97) H 03/19/18 03:10 PT/INR, D-dimer PT 10.0 sec (9.0-12.0) 03/19/18 03:31 INR 1.0 (<1.2) 03/19/18 03:31 Abnormal lab findings: Abnormal Labs 03/18/18 03/18/18 03/18/18 22:20 22:20 22:20 WBC RBC Hgb Hct MCHC RDW Plt Count Neutrophils # (Manual) Lymphocytes # (Manual) Metamyelocytes # (Man) Myelocytes # (Manual) APTT 18.2 L ABG pH ABG pCO2 ABG pO2 ABG HCO3 ABG Total CO2 ABG O2 Saturation Sodium 136 L Potassium Chloride 93 L Carbon Dioxide 36 H BUN 51 H Creatinine 2.39 H Glucose 268 H POC Glucose (mg/dL) Calcium 10.9 H Phosphorus Magnesium Total Creatine Kinase 25 L CK-MB (CK-2) Troponin I 0.040 H* Albumin 3.2 L Urine Appearance Urine Protein Urine Blood Ur Leukocyte Esterase Urine RBC Urine WBC Urine WBC Clumps Urine Mucus Urine Yeast (Budding) 03/18/18 03/19/18 03/19/18 22:45 00:00 00:00 WBC 13.0 H RBC 2.81 L Hgb 8.4 L Hct 26.8 L MCHC RDW 15.6 H Plt Count Neutrophils # (Manual) 10.40 H Lymphocytes # (Manual) Metamyelocytes # (Man) 0.26 H Myelocytes # (Manual) 0.78 H APTT ABG pH ABG pCO2 ABG pO2 ABG HCO3 ABG Total CO2 ABG O2 Saturation Sodium Potassium Chloride Carbon Dioxide BUN Creatinine Glucose POC Glucose (mg/dL) 305 H Calcium Phosphorus Magnesium Total Creatine Kinase CK-MB (CK-2) Troponin I Albumin Urine Appearance Turbid H Urine Protein 2+ H Urine Blood Large H Ur Leukocyte Esterase Large H Urine RBC >182 H Urine WBC >182 H Urine WBC Clumps Many H Urine Mucus Few H Urine Yeast (Budding) Many H 03/19/18 03/19/1803/19/18 02:04 03:10 03:31 WBC 14.8 H RBC 3.07 L Hgb 9.0 L Hct 29.7 L MCHC 30.5 L RDW Plt Count 543 H Neutrophils # (Manual) 13.00 H Lymphocytes # (Manual) 0.59 L Metamyelocytes # (Man) 0.59 H Myelocytes # (Manual) APTT ABG pH 7.25 L ABG pCO2 59 H ABG pO2 354 H ABG HCO3 26 H ABG Total CO2 27 H ABG O2 Saturation 100.0 H Sodium Potassium Chloride Carbon Dioxide BUN Creatinine Glucose POC Glucose (mg/dL) 418 H Calcium Phosphorus Magnesium Total Creatine Kinase CK-MB (CK-2) Troponin I Albumin Urine Appearance Urine Protein Urine Blood Ur Leukocyte Esterase Urine RBC Urine WBC Urine WBC Clumps Urine Mucus Urine Yeast (Budding) 03/19/18 03/19/18 03/19/18 03:31 03:31 03:31 WBC RBC Hgb Hct MCHC RDW Plt Count Neutrophils # (Manual) Lymphocytes # (Manual) Metamyelocytes # (Man) Myelocytes # (Manual) APTT 21.6 L ABG pH ABG pCO2 ABG pO2 ABG HCO3 ABG Total CO2 ABG O2 Saturation Sodium 135 L Potassium 5.9 H Chloride 97 L Carbon Dioxide BUN 51 H Creatinine 2.47 H Glucose 422 H POC Glucose (mg/dL) Calcium Phosphorus 7.9 H Magnesium 4.9 H Total Creatine Kinase 290 H CK-MB (CK-2) 7.9 H Troponin I 0.319 H* Albumin Urine Appearance Urine Protein Urine Blood Ur Leukocyte Esterase Urine RBC Urine WBC Urine WBC Clumps Urine Mucus Urine Yeast (Budding) 03/19/18 07:08 WBC RBC Hgb Hct MCHC RDW Plt Count Neutrophils # (Manual) Lymphocytes # (Manual) Metamyelocytes # (Man) Myelocytes # (Manual) APTT ABG pH ABG pCO2 ABG pO2 ABG HCO3 ABG Total CO2 ABG O2 Saturation Sodium Potassium Chloride Carbon Dioxide BUN Creatinine Glucose POC Glucose (mg/dL) 434 H Calcium Phosphorus Magnesium Total Creatine Kinase CK-MB (CK-2) Troponin I Albumin Urine Appearance Urine Protein Urine Blood Ur Leukocyte Esterase Urine RBC Urine WBC Urine WBC Clumps Urine Mucus Urine Yeast (Budding) - Diagnostic Findings Chest x-ray: image reviewed (Chest x-ray was reviewed, right-sided chest tube is noted to be in position. Clearing of the right-sided pneumothorax is noted.) Assessment and Plan Assessment: Impression: 1 acute hypoxic respiratory failure and cardiac arrest requiring prolonged CPR in the emergency room department. 2 multiple rib fractures and right sided pneumothorax requiring right-sided chest tube placement. Rib fractures are iatrogenic in nature. 3 recent hospitalization for pneumonia and sepsis, however no clear-cut evidence of pneumonia on the initial chest x-ray done on this admission. 4 right-sided pneumothorax, secondary to rib fractures/iatrogenic. Requiring right-sided chest tube placement. 5 strongly suspect anoxic brain injury considering the prolonged CPR until recovery of spontaneous circulation. Hence neurological consultation will be appropriate. Recommendation: Continue present supportive care measures, continue ventilatory support, continue GI and DVT prophylaxis, empiric antibiotics, bronchodilators, pressors, nutritional support, and we'll continue to follow. Patient again is critically ill, and prognosis is extremely poor and guarded. Patient will be seen by cardiology on consultation. Time with Patient: Greater than 30
[2018-03-19 11:10] LABS: Glucose,Whole Blood 356 mg/dL (75-99)
[2018-03-19] MEDS ORDERED: FUROSEMIDE 10 MG/ML 10 ML VIAL IV STA (11:11)
--- NOTE | 2018-03-19 11:17 | CONS ---
CONSULTATION The history obtained from the chart as well as from the nurse. Patient is currently intubated and no further history is available from the patient. Patient's medical records reviewed. This patient is a 73-year-old female who was admitted at [facility] for about a month ago, patient was intubated. Patient was treated for pneumonia and sepsis. Patient was subsequently in the long-term. Patient developed respiratory distress and hypoxia and so she was brought by EMS. Patient was in acute respiratory distress and patient was intubated in the emergency room. Subsequently, patient developed a cardiac arrest. Patient had recurrent episodes of torsade and VFib and patient was cardioverted and a prolonged CPR was done. EKG did not show any acute ST-segment changes suggestive of acute myocardial infarction. Patient subsequently in the ICU developed a tension pneumothorax and the chest tube was placed in. Patient currently is intubated. He has no urine output and she was on Levophed. HOME MEDICATIONS: Include Lipitor, Brovana, Cymbalta, Levemir, Claritin, Lopressor, Protonix, Crestor, and Mucinex. PHYSICAL EXAMINATION: At present reveals a 73-year-old female who is intubated, does not respond to any commands. Heart rate is 70 per minute, blood pressure is 115/54 mmHg. HEENT examination is negative. HEART: First and second heart sounds are heard. LUNGS: Reveal bilateral diminished air entry. ABDOMEN: Soft. EXTREMITIES: Peripheral pulsations are 1+. EKG shows probably junctional rhythm with intraventricular conduction delay. There is no evidence of any ST-segment elevation to suggest acute myocardial infarction. Patient's blood gases at present shows pH of 7.25, pCO2 is 59, and PO2 is 354. Potassium is 5.9, creatinine is 2.47. Patient's two sets of troponins are 0.040 and 0.319. BNP level is 1950. IMPRESSION: This patient is primarily admitted with acute respiratory distress and had a cardiorespiratory arrest secondary to acute respiratory failure. Patient did subsequently have an episode of ventricular fibrillation. EKG is not suggestive of any acute ST-segment elevation myocardial infarction. Patient has a mild elevation in the troponin. It is due to the myocardial injury, probably secondary to hypoxia and it is not suggestive of any type 1 myocardial infarction. Patient's prognosis remains poor. She has no urine output and only supportive treatment is recommended. MMODL / IJN: [id number] /
[2018-03-19] MEDS: IPRATROPIUM-ALBUTEROL 3 ML NEB INHALATION SCH ×3 (11:30→19:46)
--- NOTE | 2018-03-19 11:39 | P.HPIM ---
History of Present Illness This is a pleasant 73 years old female with past medical history of congestive heart failure and atrial fibrillation. Patient was transferred from senior living where she was therefore 10 days, recently discharged from the hospital for sepsis, pneumonia and UTI. This time EMS were called for difficulty breathing and they found her oxygen saturation was 60, she was placed on non-rebreather and her oxygen went up to mid 90s Patient is currently intubated and cannot provide information which were obtained from the medical staff, medical records, and sister at bedside who is her guardian. As per sister patient has been admitted to [facility] twice in the last 36 days for pneumonia and UTI with sepsis. Each time ascending to rehab, first time for 10 days and then for 16 days. As per sister they have been contacted earlier and they wanted everything to be done. But now with a want to change her CODE STATUS to DO NOT RESUSCITATE. On admission she was saturating is 6% on room air and she was breathing at respiratory rate of 30 minutes. Her blood pressure was 155/64, later on it dropped to 63/38. And she was bradycardic in the 40s and 50s. Leukocytosis at 14.8 K, hemoglobin 9, platelets 543. Sodium 135, potassium 5.9, creatinine 2.4 , sugar was signed between 300-400. Troponin is elevated at 0.04 and 0.319. LFT unremarkable.UA was suggestive of infection. Chest x-ray shows bilateral pneumothorax with larger on the left side, follow-up chest x-ray showing large right-side pneumothorax, getting worse Review of Systems n/a Past Medical History Past Medical History: Atrial Fibrillation, Pneumonia Additional Past Medical History / Comment(s): Intubated ICU admission for sepsis pneumonia January 2018 Last Myocardial Infarction Date:: 2007 History of Any Multi-Drug Resistant Organisms: None Reported Past Surgical History: No Surgical Hx Reported Past Anesthesia/Blood Transfusion Reactions: No Reported Reaction Smoking Status: Unknown if ever smoked Medications and Allergies Home Medications Medication Instructions Recorded Confirmed Type Acetaminophen Tab [Tylenol Tab] 650 mg PO Q6H PRN 03/18/18 03/18/18 History Arformoterol Tartrate [Brovana] 15 mcg INHALATION RT-BID 03/18/18 03/18/18 History Atorvastatin [Lipitor] 20 mg PO HS 03/18/18 03/18/18 History Calcium Carbonate/Vitamin D3 1 tab PO HS 03/18/18 03/18/18 History [Calcium 600-Vit D3 400 Caplet] DULoxetine HCL [Cymbalta] 20 mg PO DAILY 03/18/18 03/18/18 History Docusate Oral Soln [Colace Oral 100 mg PO BID 03/18/18 03/18/18 History Soln] Donepezil Hcl 23mg 23 mg PO DAILY 03/18/18 03/18/18 History Insulin Aspart [NovoLOG See Protocol SQ ACHS 03/18/18 03/18/18 History (formulary)] Insulin Detemir [Levemir] 10 unit SQ BID 03/18/18 03/18/18 History Ipratropium-Albuterol Nebulize 3 ml INHALATION RT-QID 03/18/18 03/18/18 History [Duoneb 0.5 mg-3 mg/3 ml Soln] Loratadine [Claritin] 10 mg PO DAILY 03/18/18 03/18/18 History Metoprolol Tartrate [Lopressor] 25 mg PO BID 03/18/18 03/18/18 History Montelukast [Singulair] 10 mg PO HS 03/18/18 03/18/18 History Multivitamins, Thera [Multivitamin 1 tab PO HS 03/18/18 03/18/18 History (formulary)] Pantoprazole Sodium [Protonix] 40 mg PO DAILY 03/18/18 03/18/18 History RX: Aspirin [Children's Aspirin] 81 mg PO HS 03/18/18 03/18/18 History RX: Ferrous Sulfate 308 mg PO DAILY 03/18/18 03/18/18 History RX: Folic Acid 0.8 mg PO HS 03/18/18 03/18/18 History RX: Lactulose 10 gm PO BID 03/18/18 03/18/18 History RX: Magnesium Oxide 400 mg PO HS 03/18/18 03/18/18 History Rosuvastatin [Crestor] 10 mg PO HS 03/18/18 03/18/18 History Vit C/E/Zn/Coppr/Lutein/Zeaxan 1 cap PO BID 03/18/18 03/18/18 History [Preservision Areds 2 Softgel] guaiFENesin [Mucinex] 1,200 mg PO BID 03/18/18 03/18/18 History Allergies Allergy/AdvReac Type Severity Reaction Status Date / Time clopidogrel [From Plavix] Allergy Unknown Verified 03/18/18 22:41 Physical Exam Vitals: Vital Signs Temp Pulse Resp BP Pulse Ox 03/19/18 10:45 67 39 H 134/48 82 L 03/19/18 10:30 67 20 106/57 98 03/19/18 10:15 64 25 H 120/97 97 03/19/18 10:00 67 35 H 122/48 97 03/19/18 09:45 67 20 125/51 97 03/19/18 09:30 68 20 115/55 97 03/19/18 09:15 72 33 H 119/48 97 03/19/18 09:00 71 7 L 112/47 98 03/19/18 08:45 70 20 106/56 100 03/19/18 08:30 67 20 101/44 100 03/19/18 08:15 71 20 117/56 95 03/19/18 08:00 99.1 F 71 20 118/49 99 03/19/18 07:45 70 20 100/56 99 03/19/18 07:30 71 20 115/52 99 03/19/18 07:15 70 20 113/61 99 03/19/18 07:00 79 20 115/54 100 03/19/18 06:45 70 20 113/49 99 03/19/18 06:30 64 16 92/43 99 03/19/18 06:15 70 16 117/47 03/19/18 06:00 69 16 120/60 100 03/19/18 05:45 74 122/61 100 03/19/18 05:30 70 128/54 100 03/19/18 05:15 72 10 L 120/74 85 L 03/19/18 05:00 75 16 129/42 100 03/19/18 04:45 72 16 130/50 100 03/19/18 04:30 66 21 121/49 100 03/19/18 04:15 63 35 H 81/49 87 L 03/19/18 04:00 62 16 83/46 93 L 03/19/18 03:53 30 H 03/19/18 03:45 66 20 92 L 03/19/18 03:30 70 16 118/47 98 03/19/18 03:15 76 16 118/47 03/19/18 03:00 76 16 118/47 03/19/18 02:50 71 15 03/19/18 02:40 80 17 100 03/19/18 02:30 73 13 110/87 100 03/19/18 02:25 66 16 100 03/19/18 01:45 50 L 16 108/62 100 03/19/18 01:40 50 L 16 119/76 100 03/19/18 01:35 16 84/33 100 03/19/18 01:25 16 101/45 03/19/18 01:00 59 L 16 86/40 100 03/19/18 00:58 96.3 F L 03/19/18 00:40 57 L 16 83/32 03/19/18 00:31 55 L 16 141/80 03/19/18 00:19 51 L 16 86/56 100 03/19/18 00:10 57/34 03/19/18 00:05 48 L 16 70/45 100 03/18/18 23:59 48 L 16 106/71 99 03/18/18 23:55 46 L 16 92/48 03/18/18 23:50 45 L 16 77/28 100 03/18/18 23:44 46 L 16 73/45 100 03/18/18 23:40 40 L 16 78/32 100 03/18/18 23:35 63 16 154/116 100 03/18/18 23:32 59 L 145/123 03/18/18 23:28 52 L 146/95 100 03/18/18 23:19 52 L 16 69/34 100 03/18/18 23:16 55 L 16 63/38 100 03/18/18 23:10 62 16 131/56 99 03/18/18 23:06 64 16 110/23 100 03/18/18 23:03 70 155/64 100 03/18/18 22:16 97.8 F 30 H 66 L Intake and Output 03/18/18 03/19/18 03/19/18 22:59 06:59 14:59 Intake Total 744.372 136.519 Output Total 30 0 Balance 714.372 136.519 Intake: IV 740 80 Piperacillin-Tazobactam 3 100 .375 gm In Sodium Chloride 0.9% 100 ml @ 25 mls/hr IVPB ONCE STA Rx# :[id number] Sodium Chloride 0.9% 1, 390 80 000 ml @ 80 mls/hr IV . [id number] LEN Rx#:[id number] Vancomycin 1,500 mg In 250 Sodium Chloride 0.9% 250 ml @ 125 mls/hr IVPB ONCE STA Rx#:[id number] Intake, IV Titration 4.372 56.519 Amount Insulin Regular 100 unit 4.848 In Sodium Chloride 0.9% 100 ml @ Per Protocol IV .Q0M LEN Rx#:[id number] Norepinephrine 16 mg In 4.372 Sodium Chloride 0.9% 250 ml @ 5 mls/hr IV .Q24H LEN Rx#:[id number] Propofol 1,000 mg In 51.671 Empty Bag 1 bag @ Titrate IV .Q0M LEN Rx#: [id number] Output: Chest Tube Drainage 10 Right Lateral Chest 10 Urine 20 0 Other: Voiding Method Indwelling Catheter Weight 99.79 kg 92.2 kg 92.2 kg -GENERAL: The patient is intubated, not in any acute distress. HEENT: Pupils are round and equally reacting to light. EOMI. No scleral icterus. No conjunctival pallor. Normocephalic, atraumatic. No pharyngeal erythema. No thyromegaly. CARDIOVASCULAR: S1 and S2 present. No murmurs, rubs, or gallops. -PULMONARY: Chest is clear to auscultation, decreased breath sounds bilaterally ABDOMEN: Soft, nontender, nondistended, normoactive bowel sounds. No palpable organomegaly. MUSCULOSKELETAL: No joint swelling or deformity. EXTREMITIES: No cyanosis, clubbing, or pedal edema. NEUROLOGICAL: Gross neurological examination did not reveal any focal deficits. SKIN: No rashes. Results CBC & Chem 7: 03/19/18 03:31 03/19/18 03:31 Labs: Abnormal Lab Results - Last 24 Hours (Table) 03/18/18 03/18/18 03/18/18 Range/Units 22:20 22:20 22:20 WBC (3.8-10.6) k/uL RBC (3.80-5.40) m/uL Hgb (11.4-16.0) gm/dL Hct (34.0-46.0) % MCHC (31.0-37.0) g/dL RDW (11.5-15.5) % Plt Count (150-450) k/uL Neutrophils # (Manual) (1.3-7.7) k/uL Lymphocytes # (Manual) (1.0-4.8) k/uL Metamyelocytes # (Man) (0) k/uL Myelocytes # (Manual) (0) k/uL APTT 18.2 L (22.0-30.0) sec ABG pH (7.35-7.45) ABG pCO2 (35-45) mmHg ABG pO2 (83-108) mmHg ABG HCO3 (21-25) mmol/L ABG Total CO2 (19-24) mmol/L ABG O2 Saturation (94-97) % Sodium 136 L (137-145) mmol/L Potassium (3.5-5.1) mmol/L Chloride 93 L (98-107) mmol/L Carbon Dioxide 36 H (22-30) mmol/L BUN 51 H (7-17) mg/dL Creatinine 2.39 H (0.52-1.04) mg/dL Glucose 268 H (74-99) mg/dL POC Glucose (mg/dL) (75-99) mg/dL Calcium 10.9 H (8.4-10.2) mg/dL Phosphorus (2.5-4.5) mg/dL Magnesium (1.6-2.3) mg/dL Total Creatine Kinase 25 L (30-135) U/L CK-MB (CK-2) (0.0-2.4) ng/mL Troponin I 0.040 H* (0.000-0.034) ng/mL Albumin 3.2 L (3.5-5.0) g/dL Urine Appearance (Clear) Urine Protein (Negative) Urine Blood (Negative) Ur Leukocyte Esterase (Negative) Urine RBC (0-5) /hpf Urine WBC (0-5) /hpf Urine WBC Clumps (None) /hpf Urine Mucus (None) /hpf Urine Yeast (Budding) (None) /hpf 03/18/18 03/19/18 03/19/18 Range/Units 22:45 00:00 00:00 WBC 13.0 H (3.8-10.6) k/uL RBC 2.81 L (3.80-5.40) m/uL Hgb 8.4 L (11.4-16.0) gm/dL Hct 26.8 L (34.0-46.0) % MCHC (31.0-37.0) g/dL RDW 15.6 H (11.5-15.5) % Plt Count (150-450) k/uL Neutrophils # (Manual) 10.40 H (1.3-7.7) k/uL Lymphocytes # (Manual) (1.0-4.8) k/uL Metamyelocytes # (Man) 0.26 H (0) k/uL Myelocytes # (Manual) 0.78 H (0) k/uL APTT (22.0-30.0) sec ABG pH (7.35-7.45) ABG pCO2 (35-45) mmHg ABG pO2 (83-108) mmHg ABG HCO3 (21-25) mmol/L ABG Total CO2 (19-24) mmol/L ABG O2 Saturation (94-97) % Sodium (137-145) mmol/L Potassium (3.5-5.1) mmol/L Chloride (98-107) mmol/L Carbon Dioxide (22-30) mmol/L BUN (7-17) mg/dL Creatinine (0.52-1.04) mg/dL Glucose (74-99) mg/dL POC Glucose (mg/dL) 305 H (75-99) mg/dL Calcium (8.4-10.2) mg/dL Phosphorus (2.5-4.5) mg/dL Magnesium (1.6-2.3) mg/dL Total Creatine Kinase (30-135) U/L CK-MB (CK-2) (0.0-2.4) ng/mL Troponin I (0.000-0.034) ng/mL Albumin (3.5-5.0) g/dL Urine Appearance Turbid H (Clear) Urine Protein 2+ H (Negative) Urine Blood Large H (Negative) Ur Leukocyte Esterase Large H (Negative) Urine RBC >182 H (0-5) /hpf Urine WBC >182 H (0-5) /hpf Urine WBC Clumps Many H (None) /hpf Urine Mucus Few H (None) /hpf Urine Yeast (Budding) Many H (None) /hpf 03/19/18 03/19/18 03/19/18 Range/Units 02:04 03:10 03:31 WBC 14.8 H (3.8-10.6) k/uL RBC 3.07 L (3.80-5.40) m/uL Hgb 9.0 L (11.4-16.0) gm/dL Hct 29.7 L (34.0-46.0) % MCHC 30.5 L (31.0-37.0) g/dL RDW (11.5-15.5) % Plt Count 543 H (150-450) k/uL Neutrophils # (Manual) 13.00 H (1.3-7.7) k/uL Lymphocytes # (Manual) 0.59 L (1.0-4.8) k/uL Metamyelocytes # (Man) 0.59 H (0) k/uL Myelocytes # (Manual) (0) k/uL APTT (22.0-30.0) sec ABG pH 7.25 L (7.35-7.45) ABG pCO2 59 H (35-45) mmHg ABG pO2 354 H (83-108) mmHg ABG HCO3 26 H (21-25) mmol/L ABG Total CO2 27 H (19-24) mmol/L ABG O2 Saturation 100.0 H (94-97) % Sodium (137-145) mmol/L Potassium (3.5-5.1) mmol/L Chloride (98-107) mmol/L Carbon Dioxide (22-30) mmol/L BUN (7-17) mg/dL Creatinine (0.52-1.04) mg/dL Glucose (74-99) mg/dL POC Glucose (mg/dL) 418 H (75-99) mg/dL Calcium (8.4-10.2) mg/dL Phosphorus (2.5-4.5) mg/dL Magnesium (1.6-2.3) mg/dL Total Creatine Kinase (30-135) U/L CK-MB (CK-2) (0.0-2.4) ng/mL Troponin I (0.000-0.034) ng/mL Albumin (3.5-5.0) g/dL Urine Appearance (Clear) Urine Protein (Negative) Urine Blood (Negative) Ur Leukocyte Esterase (Negative) Urine RBC (0-5) /hpf Urine WBC (0-5) /hpf Urine WBC Clumps (None) /hpf Urine Mucus (None) /hpf Urine Yeast (Budding) (None) /hpf 03/19/18 03/19/18 03/19/18 Range/Units 03:31 03:31 03:31 WBC (3.8-10.6) k/uL RBC (3.80-5.40) m/uL Hgb (11.4-16.0) gm/dL Hct (34.0-46.0) % MCHC (31.0-37.0) g/dL RDW (11.5-15.5) % Plt Count (150-450) k/uL Neutrophils # (Manual) (1.3-7.7) k/uL Lymphocytes # (Manual) (1.0-4.8) k/uL Metamyelocytes # (Man) (0) k/uL Myelocytes # (Manual) (0) k/uL APTT 21.6 L (22.0-30.0) sec ABG pH (7.35-7.45) ABG pCO2 (35-45) mmHg ABG pO2 (83-108) mmHg ABG HCO3 (21-25) mmol/L ABG Total CO2 (19-24) mmol/L ABG O2 Saturation (94-97) % Sodium 135 L (137-145) mmol/L Potassium 5.9 H (3.5-5.1) mmol/L Chloride 97 L (98-107) mmol/L Carbon Dioxide (22-30) mmol/L BUN 51 H (7-17) mg/dL Creatinine 2.47 H (0.52-1.04) mg/dL Glucose 422 H (74-99) mg/dL POC Glucose (mg/dL) (75-99) mg/dL Calcium (8.4-10.2) mg/dL Phosphorus 7.9 H (2.5-4.5) mg/dL Magnesium 4.9 H (1.6-2.3) mg/dL Total Creatine Kinase 290 H (30-135) U/L CK-MB (CK-2) 7.9 H (0.0-2.4) ng/mL Troponin I 0.319 H* (0.000-0.034) ng/mL Albumin (3.5-5.0) g/dL Urine Appearance (Clear) Urine Protein (Negative) Urine Blood (Negative) Ur Leukocyte Esterase (Negative) Urine RBC (0-5) /hpf Urine WBC (0-5) /hpf Urine WBC Clumps (None) /hpf Urine Mucus (None) /hpf Urine Yeast (Budding) (None) /hpf 03/19/18 03/19/18 Range/Units 07:08 10:15 WBC (3.8-10.6) k/uL RBC (3.80-5.40) m/uL Hgb (11.4-16.0) gm/dL Hct (34.0-46.0) % MCHC (31.0-37.0) g/dL RDW (11.5-15.5) % Plt Count (150-450) k/uL Neutrophils # (Manual) (1.3-7.7) k/uL Lymphocytes # (Manual) (1.0-4.8) k/uL Metamyelocytes # (Man) (0) k/uL Myelocytes # (Manual) (0) k/uL APTT (22.0-30.0) sec ABG pH (7.35-7.45) ABG pCO2 (35-45) mmHg ABG pO2 (83-108) mmHg ABG HCO3 (21-25) mmol/L ABG Total CO2 (19-24) mmol/L ABG O2 Saturation (94-97) % Sodium (137-145) mmol/L Potassium (3.5-5.1) mmol/L Chloride (98-107) mmol/L Carbon Dioxide (22-30) mmol/L BUN (7-17) mg/dL Creatinine (0.52-1.04) mg/dL Glucose (74-99) mg/dL POC Glucose (mg/dL) 434 H 336 H (75-99) mg/dL Calcium (8.4-10.2) mg/dL Phosphorus (2.5-4.5) mg/dL Magnesium (1.6-2.3) mg/dL Total Creatine Kinase (30-135) U/L CK-MB (CK-2) (0.0-2.4) ng/mL Troponin I (0.000-0.034) ng/mL Albumin (3.5-5.0) g/dL Urine Appearance (Clear) Urine Protein (Negative) Urine Blood (Negative) Ur Leukocyte Esterase (Negative) Urine RBC (0-5) /hpf Urine WBC (0-5) /hpf Urine WBC Clumps (None) /hpf Urine Mucus (None) /hpf Urine Yeast (Budding) (None) /hpf Microbiology - Last 24 Hours (Table) 03/19/18 03:17 Sputum Culture - Preliminary Sputum 03/19/18 00:00 Urine Culture - Preliminary Urine,Voided Thrombosis Risk Factor Assmnt - Choose All That Apply Each Risk Factor Represents 2 Points: Age 61-74 years, Central venous access, Patient confined to bed Thrombosis Risk Factor Assessment Total Risk Factor Score: 6 Thrombosis Risk Factor Assessment Level: High Risk Assessment and Plan Assessment: Status post cardiac arrest and CPR as per ACL protocol Septic shock, secondary to possible pneumonia and UTI Bilateral pneumothorax more on the right side with multiple rib fractures. Status post chest tube Possible anoxic brain injury Plan: This is a 73 years old female who presents because of cardiopulmonary arrest and septic shock, mostly secondary to UTI with possible pneumonia. Pulmonary/ critical care team are following the patient. Cardiology and neurology consult. Continue with antibiotics, IV fluids. Continue pressors as per ICU team. Vent management as per pulmonary and ICU team.Labs and medication were reviewed. Continue same treatment. Continue with symptomatic treatment. Resume home medication. Monitor lytes and vitals. DVT and GI prophylaxis. Further recommendations of the clinical course of the patient DVT prophylaxis: Subcutaneous heparin GI Prophylaxis: Pepcid Prognosis is guarded and very poor
[2018-03-19 12:14] LABS: Glucose,Whole Blood 285 mg/dL (75-99)
--- NOTE | 2018-03-19 12:33 | ECHOF ---
Referral Reason:Assess heart function MEASUREMENTS -------- HEIGHT: 165.1 cm WEIGHT: 92.1 kg BP: 122/48 RVIDd: 1.8 cm (< 3.3) IVSd: 1.2 cm (0.6 - 1.1) LVIDd: 4.6 cm (3.9 - 5.3) LVPWd: 1.2 cm (0.6 - 1.1) IVSs: 1.9 cm LVIDs: 2.6 cm LVPWs: 1.7 cm LA Diam: 3.5 cm (2.7 - 3.8) AV maxP.54 mmHg AV meanP.16 mmHg RAP: 5.00 mmHg RVSP: 25.10 mmHg FINDINGS -------- Undetermined rhythm. This was a technically difficult study with suboptimal views. The left ventricular size is normal. There is borderline concentric left ventricular hypertrophy. Overall left ventricular systolic function is normal with, an EF between 60 - 65 %. The right ventricle is normal in size. The left atrial size is normal. The right atrium is normal in size. Aortic valve is trileaflet and is mildly thickened. Peak/mean gradient across the Aortic Valve is 2 2.54mmHg / 11.16mmHg. The mitral valve is normal. Mild tricuspid regurgitation present. Right ventricular systolic pressure is normal at < 35 mmHg. The pulmonic valve was not well visualized. IVC Not well visulized. There is no pericardial effusion. CONCLUSIONS -------- 1. Undetermined rhythm. 2. This was a technically difficult study with suboptimal views. 3. The left ventricular size is normal. 4. There is borderline concentric left ventricular hypertrophy. 5. Overall left ventricular systolic function is normal with, an EF between 60 - 65 %. 6. The right ventricle is normal in size. 7. The left atrial size is normal. 8. The right atrium is normal in size. 9. Aortic valve is trileaflet and is mildly thickened. 10. Peak/mean gradient across the Aortic Valve is 22.54mmHg / 11.16mmHg. 11. The mitral valve is normal. 12. Mild tricuspid regurgitation present. 13. Right ventricular systolic pressure is normal at < 35 mmHg. 14. The pulmonic valve was not well visualized. 15. IVC Not well visulized. 16. There is no pericardial effusion. MEDICAL BILLING REPRESENTATIVE: Roshni Kohler RDCS
[2018-03-19 13:37] LABS: Glucose,Whole Blood 238 mg/dL (75-99)
[2018-03-19 14:11] LABS: Glucose,Whole Blood 217 mg/dL (75-99)
[2018-03-19] MEDS ORDERED: FAMOTIDINE 20 MG/2 ML VIAL IV SCH ×2 (15:00→21:00)
[2018-03-19 15:24] LABS: Glucose,Whole Blood 202 mg/dL (75-99)
[2018-03-19] MEDS: NOREPINEPHRINE 16 MG in SODIUM CHLORIDE 0.9% 250 ML IV SCH (15:37)
[2018-03-19 16:18] LABS: Hemoglobin A1C 6.2 % (4.0-6.0)
[2018-03-19 16:21] LABS: Glucose,Whole Blood 196 mg/dL (75-99)
[2018-03-19 17:22] LABS: Glucose,Whole Blood 166 mg/dL (75-99)
[2018-03-19 18:06] LABS: Glucose,Whole Blood 175 mg/dL (75-99)
[2018-03-19 19:12] LABS: Glucose,Whole Blood 167 mg/dL (75-99)
[2018-03-19] MEDS ORDERED: FUROSEMIDE 10 MG/ML 10 ML VIAL IV ONE (20:00)
[2018-03-19 20:12] LABS: Glucose,Whole Blood 170 mg/dL (75-99)
[2018-03-19] MEDS: PIPERACILLIN-TAZOBACTAM 3.375 GM in SODIUM CHLORIDE 0.9% 100 ML IVPB SCH (20:57)
[2018-03-19] MEDS: HEPARIN SODIUM,PORCINE 5,000 UNIT/ML 1 ML VIAL SQ SCH (20:57)
[2018-03-19] MEDS: CHLORHEXIDINE GLUCONATE 15 ML CUP MUCOUS MEM SCH (20:58)
[2018-03-19 21:04] LABS: Glucose,Whole Blood 152 mg/dL (75-99)
[2018-03-19 22:27] LABS: Glucose,Whole Blood 165 mg/dL (75-99)
--- NOTE | 2018-03-19 22:31 | CT ---
EXAMINATION TYPE: CT brain wo con DATE OF EXAM: 03/19/2018 COMPARISON: None HISTORY: ams CT DLP: 1095.4 mGycm Automated exposure control for dose reduction was used. FINDINGS: There is cerebral cortical atrophy. There is patchy hypodensity in the periventricular white matter. There is no mass effect nor midline shift. There is no sign of intracranial hemorrhage. The calvarium is intact. IMPRESSION: CEREBRAL ATROPHY AND CHRONIC SMALL VESSEL ISCHEMIA. NO ACUTE INTRACRANIAL ABNORMALITY.
--- NOTE | 2018-03-19 23:17 | CONS ---
CONSULTATION DATE OF CONSULTATION: 03/19/2018 CHIEF COMPLAINT: Respiratory failure and possible anoxic brain injury. HISTORY OF PRESENT ILLNESS: Mrs. Hathaway is a 73-year-old female who is being evaluated by the neurology service per the request of Dr. Fowler for possible anoxic brain injury. At the time of my evaluation, the patient is intubated and sedated, and the history was obtained from the chart and from the nursing staff. The patient was recently treated at another facility for pneumonia and sepsis and had been intubated for several days and was then found to be improved and extubated and transferred to an inpatient rehab facility. The patient then had difficulty breathing and was taken to [facility], where she was again treated for pneumonia. According to the chart, she was discharged yesterday back to the [facility] for [facility]. A few hours later, the patient became very short of breath. EMS was called and she was found to be having oxygen saturation in the 60s. She was placed on a non-rebreather and transferred to [facility] Emergency Room. According to the chart, on the non-rebreather the patient was saturating in the 90s. In the emergency room, the patient coded and had cardiopulmonary arrest. CPR was done for approximately 45 minutes. She was intubated and admitted to the intensive care unit, where she now has a DO NOT RESUSCITATE order on board. According to the nursing staff, the patient was still following simple commands in the intensive care unit. A chest x-ray was done which showed evidence of a pneumothorax and multiple rib fractures felt to be secondary to CPR. She does have a chest tube placed and a repeat chest x-ray showed complete re-expansion of the right lung. No seizure-like activity has been witnessed. Her CBC showed leukocytosis at 13.0 and significant anemia with a hemoglobin of 8.4 and hematocrit of 26%. Her comprehensive metabolic profile showed elevated bicarb at 36 and hyperglycemia at 266. Her cardiac enzymes showed elevated troponin at 0.9. Her urinalysis showed greater than 182 WBCs with large leukocyte esterase and negative nitrites. The patient has been started on antibiotic therapy. At the time of my evaluation, she continues to be intubated and sedated with propofol. PAST MEDICAL HISTORY: 1. Atrial fibrillation. 2. Recurrent pneumonia. 3. Recurrent urinary tract infection. 4. Recent sepsis. SOCIAL HISTORY: Unknown. FAMILY HISTORY: Unknown. HOME MEDICATIONS: Reviewed in the chart. ALLERGIES: PLAVIX. REVIEW OF SYSTEMS: Unable to obtain, as the patient is intubated and sedated. PHYSICAL EXAMINATION: Vital signs show a temperature of 98.9, pulse 81, respiration 23, blood pressure 112/56. GENERAL APPEARANCE: The patient is an obese female who is intubated and sedated. HEENT: Normocephalic, atraumatic. Endotracheal tube is intact. No obvious facial asymmetry is seen. NECK: Supple with no masses felt. CARDIOVASCULAR: Regular rate and rhythm. ABDOMEN: Nondistended. Extremities showed no edema or clubbing. Multiple bruising is seen. NEUROLOGICAL EXAM: The patient is sedated. She does grimace and withdraw from painful stimuli in all 4 extremities. Plantar reflex showed silent toes bilaterally. No ankle clonus is seen. Brainstem reflexes are intact. Mild tremor is noticed in the right upper extremity. No seizure-like activity is seen. No obvious facial asymmetry is noticed on cranial nerve testing. IMPRESSION: 1. Altered mental status. 2. Possible anoxic brain injury. 3. Cardiopulmonary arrest. 4. Pneumothorax secondary to rib fractures from cardiopulmonary resuscitation. 5. Urinary tract infection. RECOMMENDATIONS: The patient's neurological examination is limited at this time, as the patient is sedated. She did withdraw her extremities to painful stimuli and her brainstem reflexes are intact. The patient is likely encephalopathic due to her recent hypoxia, but I do not believe she suffered any severe anoxic brain injury. This will be addressed again once she is off of sedation. I will order a CT scan of the brain and EEG. The patient does have a chest tube due to her pneumothorax. Prognosis is guarded. I will continue to follow with you. Further recommendations to follow. Thank you for allowing me to participate in the care of your patient. If you have any questions, please feel free to contact me. MMODL / IJN: [id number] /
[2018-03-19 23:28] LABS: Glucose,Whole Blood 147 mg/dL (75-99)
[2018-03-20 00:23] LABS: Glucose,Whole Blood 172 mg/dL (75-99)
[2018-03-20] MEDS: IPRATROPIUM-ALBUTEROL 3 ML NEB INHALATION SCH ×7 (00:31→23:06)
[2018-03-20 01:19] LABS: Glucose,Whole Blood 156 mg/dL (75-99)
[2018-03-20 02:39] LABS: Glucose,Whole Blood 155 mg/dL (75-99)
[2018-03-20] MEDS: HYDROmorphone 1 MG/ML 1 ML SYRINGE IVP PRN ×3 (03:05→14:36)
[2018-03-20] MEDS: NOREPINEPHRINE 16 MG in SODIUM CHLORIDE 0.9% 250 ML IV SCH ×2 (03:13→11:15)
[2018-03-20] MEDS: PROPOFOL 1,000 MG in EMPTY BAG 1 BAG IV SCH (03:14)
[2018-03-20 03:24] LABS: Glucose,Whole Blood 149 mg/dL (75-99)
[2018-03-20 04:19] LABS: Glucose,Whole Blood 150 mg/dL (75-99)
[2018-03-20 05:10] LABS: Glucose,Whole Blood 146 mg/dL (75-99)
[2018-03-20 05:41] LABS: Calcium 7.1 mg/dL (8.4-10.2); Phosphorus 3.8 mg/dL (2.5-4.5); Potassium 3.5 mmol/L (3.5-5.1)
[2018-03-20 05:55] LABS: Basophils # (A) 0.1 k/uL (0-0.2); Basophils % (A) 0 %; Eosinophils % (A) 0 %; Hypochromasia Slight; Lymphocytes # (A) 0.6 k/uL (1.0-4.8); Lymphocytes % (A) 4 %; MCH 31.9 pg (25.0-35.0); MCHC 34.2 g/dL (31.0-37.0); MCV 93.3 fL (80.0-100.0); Mean Platelet Volume 6.9; Monocytes # (A) 0.9 k/uL (0-1.0); Monocytes % (A) 6 %; Neutrophils # (A) 13.3 k/uL (1.3-7.7); Neutrophils % (A) 87 %; Platelet Count 330 k/uL (150-450); Poikilocytosis Slight; RBC 2.13 m/uL (3.80-5.40); RDW 15.9 % (11.5-15.5); WBC 15.3 k/uL (3.8-10.6)
[2018-03-20] MEDS ORDERED: VANCOMYCIN 1,750 MG in SODIUM CHLORIDE 0.9% 500 ML 500 ML IVPB ONE (06:00)
[2018-03-20 06:02] LABS: HCT 19.8 % (34.0-46.0); HGB 6.8 gm/dL (11.4-16.0)
[2018-03-20 06:08] LABS: ABG Base Excess -0.9 mmol/L; ABG HCO3 25 mmol/L (21-25); ABG Oxygen Saturation 98.5 % (94-97); ABG PCO2 44 mmHg (35-45); ABG PH 7.36 (7.35-7.45); ABG PO2 103 mmHg (83-108); ABG TCO2 26 mmol/L (19-24)
[2018-03-20 06:44] LABS: Glucose,Whole Blood 145 mg/dL (75-99)
[2018-03-20 07:09] LABS: Glucose,Whole Blood 160 mg/dL (75-99)
--- NOTE | 2018-03-20 07:14 | XR ---
EXAMINATION TYPE: XR chest 1V DATE OF EXAM: 03/20/2018 COMPARISON: 03/19/2018 HISTORY: SOB, Follow Up FINDINGS: Indwelling tubes and catheters are unchanged. No change in left basilar opacities. There is also persistent opacity right upper lobe. No sizable p neumothorax appreciated. Stable appearance of the cardio-mediastinal structures at this time. Pleural effusion unchanged. IMPRESSION: 1. Stable portable chest. Clinical correlation and follow up until resolution is recommended.
--- NOTE | 2018-03-20 07:39 | OP ---
OPERATIVE REPORT OPERATION: Placement of a right radial arterial line. PREOPERATIVE DIAGNOSIS: Acute hypoxic respiratory failure. POSTOPERATIVE DIAGNOSIS: Acute hypoxic respiratory failure. ANESTHESIA: None deployed. PROCEDURE: The patient was placed in a supine position, the right wrist was prepared in a sterile fashion and drapes were applied. The right radial artery was palpated, cannulated, and a guidewire was placed. A Cook catheter was inserted over the guidewire, and the guidewire was removed. Good blood flow and good waveform were noted. The line was secured using 3.0 silk sutures. MMODL / IJN: [id number] /
[2018-03-20 08:29] LABS: Glucose,Whole Blood 177 mg/dL (75-99)
[2018-03-20] MEDS: PIPERACILLIN-TAZOBACTAM 3.375 GM in SODIUM CHLORIDE 0.9% 100 ML IVPB SCH ×2 (08:54→21:35)
[2018-03-20] MEDS: HEPARIN SODIUM,PORCINE 5,000 UNIT/ML 1 ML VIAL SQ SCH (08:55)
[2018-03-20] MEDS: CHLORHEXIDINE GLUCONATE 15 ML CUP MUCOUS MEM SCH ×2 (08:55→21:35)
[2018-03-20] MEDS: PANTOPRAZOLE 40 MG/10 ML VIAL IV SCH (08:55)
[2018-03-20 09:18] LABS: Glucose,Whole Blood 186 mg/dL (75-99)
[2018-03-20 10:18] LABS: Glucose,Whole Blood 187 mg/dL (75-99)
--- NOTE | 2018-03-20 10:25 | P.PN ---
Subjective Progress Note Date: 03/20/18 Principal diagnosis: Acute hypoxic respiratory failure requiring intubation and mechanical ventilation secondary to cardiac arrest This is a 73-year-old female with history of multiple medical problems, about a month ago, patient was admitted to an outside facility with pneumonia urinary tract infection and sepsis. Apparently patient was intubated and she was on mechanical ventilation for 4 days. She was eventually discharged from the hospital, and spent 10 days in a fci. However her condition worsened again, and she returned to [facility] for readmission with persistent pneumonia and difficulty breathing as well as symptoms of arrhythmia/ palpitations. Patient was evaluated again at [facility], and she was discharged yesterday back to [facility]. Patient was discharged about 2 PM, however EMS was dispatched last night to the fci for evaluation of difficulty breathing. Arrived to find the patient in respiratory distress with O2 saturation in the 60s. Patient was placed on a nonrebreather, her O2 saturation was noted to be in the mid 90s at the time. Patient appeared alert and oriented according to EMS. Patient was brought in and shortly after arrival the patient decompensated, she was noted to be bradycardic, hypotensive , and she was intubated immediately. Then the patient coded, and she was resuscitated as per ACLS protocol. The code and CPR lasted for about 45 minutes until she had spontaneous return of circulation. Patient was kept on mechanical ventilation, and transferred to the ICU. Apparently after the prolonged code, family was approached, and change the CODE STATUS to DO NOT RESUSCITATE and not to resuscitate again if the patient codes again. She was sent to the ICU on mechanical ventilation, and presently she is on tidal volume of 450 assist-control rate of 20 FiO2 of 40% and PEEP of 5. Peak airway pressure is 33, and plateau pressure 21. Patient has a right IJ central line noted placed by the ER physician. Apparently when the patient arrived to the ICU, she was noted to have extensive right-sided pneumothorax. This was actually seen earlier while the patient was in the ER, but for some reason a chest tube was not done in the ER. I reviewed the chest x-ray around 4 AM in the morning, and I called the ER physician Dr. Dunlap, she came back to the ICU and she placed a right sided chest tube as the patient was going into what seems to be a tension pneumothorax. She was requiring more norepinephrine. Chest x-ray following a right-sided chest tube placement showed complete reexpansion of the right lung. The pneumothoraces were felt to be related most likely to broken ribs from CPR. Reevaluated today on 03/20/2018, patient remains on mechanical ventilation, her ventilator settings are tidal volume of 450 assist-control rate of 20 FiO2 40% PEEP of 5. Patient remains on propofol 50 mcg/kg/m, levo fed 33 mcg/m, and insulin 4 units per hour. Patient does not follow any instructions, but seems to open eyes, and responded slightly to pain. I plan to hold propofol, and assess mental status fully off propofol. Chest x-ray was reviewed, her right lung is fully expanded, chest tube remains in place, and no evidence of air leak noted. Labs showed low hemoglobin of 6.8, hence I recommended a unit of packed RBCs to be given. Blood pressure is marginal. However the patient is not requiring norepinephrine at this point yet. ABG showed a pO2 of 103 pCO2 of 44 pH of 7.36. No changes were made in her present ventilator settings. Nutrition-jansen, patient remains on nutritional support via enteral feeding. Urinalysis showed evidence of pyuria and bacteriuria. Patient is empirically on Zosyn. Objective - Vital Signs Vital signs: Vital Signs Temp 98.9 F 03/19/18 16:00 Pulse 88 03/20/18 08:34 Resp 23 03/20/18 07:00 BP 142/56 03/20/18 07:00 Pulse Ox 98 03/20/18 07:00 Intake & Output 03/19/18 03/20/18 03/20/18 18:59 06:59 18:59 Intake Total 0428.111 4253.895 95.235 Output Total 150 440 45 Balance 1441.193 945.895 50.235 Weight 92.2 kg 93.8 kg Intake: IV 1140 1030 80 Piperacillin-Tazobactam 3 100 150 .375 gm In Sodium Chloride 0.9% 100 ml @ 25 mls/hr IVPB ONCE STA Rx# :[id number] Sodium Chloride 0.9% 1, 1040 880 80 000 ml @ 80 mls/hr IV . [id number] [facility] Rx#:[id number] Intake, IV Titration 451.193 355.895 15.235 Amount Insulin Regular 100 unit 52.710 57.476 15.235 In Sodium Chloride 0.9% 100 ml @ Per Protocol IV .Q0M [facility] Rx#:[id number] Norepinephrine 16 mg In 246.812 139.75 Sodium Chloride 0.9% 250 ml @ 5 mls/hr IV .Q24H [facility] Rx#:[id number] Propofol 1,000 mg In 151.671 158.669 Empty Bag 1 bag @ Titrate IV .Q0M [facility] Rx#: [id number] Output: Chest Tube Drainage 20 Right Lateral Chest 20 Urine 130 440 45 Other: Voiding Method Indwelling Catheter Indwelling Catheter # Bowel Movements 3 ABP, PAP, CO, CI - Last Documented Arterial Blood Pressure 150/50 - Exam Physical Exam: Revealed a 73-year-old female, opens eyes to deep painful stimuli , no purposeful movement noted. Head: Atraumatic, normocephalic. HEENT:[Neck is supple.] [No neck masses.] [No thyromegaly.] [No JVD.] Pupils are sluggishly reactive to light, no icterus. Endotracheal tube and orogastric tube noted to be intact. Chest: [Crackles and rhonchi noted bilaterally,] multiple bruises and areas of ecchymosis noted on the anterior chest wall bilaterally. Right-sided chest tube is noted just over the fourth intercostal space on the right side. Anterior and lateral subcu emphysema is palpable. No evidence of air leak was noted Cardiac Exam: [Normal S1 and S2, no S3 gallop, no murmur.] Abdomen: [Soft, nontender, no megaly, no rebound, no guarding, normal bowel sounds.] Extremities: Multiple areas of bruises and ecchymosis noted in both upper and lower extremities.] Neurological Exam: Patient is withdrawing to pain, and opens eyes to painful stimuli. Psychiatric: Cannot be assessed. Skin: Multiple areas of bruises and ecchymosis noted on the chest wall and ion upper and lower extremities. - Labs CBC & Chem 7: 03/20/18 04:55 03/20/18 04:55 Labs: Abnormal Lab Results - Last 24 Hours (Table) 03/18/18 03/19/18 03/19/18 Range/Units 22:20 00:00 10:15 WBC (3.8-10.6) k/uL RBC (3.80-5.40) m/uL Hgb (11.4-16.0) gm/dL Hct (34.0-46.0) % RDW (11.5-15.5) % Neutrophils # (1.3-7.7) k/uL Lymphocytes # (1.0-4.8) k/uL ABG Total CO2 (19-24) mmol/L ABG O2 Saturation (94-97) % Chloride (98-107) mmol/L Carbon Dioxide (22-30) mmol/L BUN (7-17) mg/dL Creatinine (0.52-1.04) mg/dL Glucose (74-99) mg/dL POC Glucose (mg/dL) 336 H (75-99) mg/dL Hemoglobin A1c 6.2 H (4.0-6.0) % Calcium (8.4-10.2) mg/dL Magnesium (1.6-2.3) mg/dL Troponin I (0.000-0.034) ng/mL Crossmatch See Detail 03/19/18 03/19/18 03/19/18 Range/Units 10:32 10:58 12:03 WBC (3.8-10.6) k/uL RBC (3.80-5.40) m/uL Hgb (11.4-16.0) gm/dL Hct (34.0-46.0) % RDW (11.5-15.5) % Neutrophils # (1.3-7.7) k/uL Lymphocytes # (1.0-4.8) k/uL ABG Total CO2 (19-24) mmol/L ABG O2 Saturation (94-97) % Chloride (98-107) mmol/L Carbon Dioxide (22-30) mmol/L BUN (7-17) mg/dL Creatinine (0.52-1.04) mg/dL Glucose (74-99) mg/dL POC Glucose (mg/dL) 356 H 285 H (75-99) mg/dL Hemoglobin A1c (4.0-6.0) % Calcium (8.4-10.2) mg/dL Magnesium (1.6-2.3) mg/dL Troponin I 0.932 H* (0.000-0.034) ng/mL Crossmatch 03/19/18 03/19/18 03/19/18 Range/Units 13:25 14:00 15:13 WBC (3.8-10.6) k/uL RBC (3.80-5.40) m/uL Hgb (11.4-16.0) gm/dL Hct (34.0-46.0) % RDW (11.5-15.5) % Neutrophils # (1.3-7.7) k/uL Lymphocytes # (1.0-4.8) k/uL ABG Total CO2 (19-24) mmol/L ABG O2 Saturation (94-97) % Chloride (98-107) mmol/L Carbon Dioxide (22-30) mmol/L BUN (7-17) mg/dL Creatinine (0.52-1.04) mg/dL Glucose (74-99) mg/dL POC Glucose (mg/dL) 238 H 217 H 202 H (75-99) mg/dL Hemoglobin A1c (4.0-6.0) % Calcium (8.4-10.2) mg/dL Magnesium (1.6-2.3) mg/dL Troponin I (0.000-0.034) ng/mL Crossmatch 03/19/18 03/19/18 03/19/18 Range/Units 16:09 17:11 17:55 WBC (3.8-10.6) k/uL RBC (3.80-5.40) m/uL Hgb (11.4-16.0) gm/dL Hct (34.0-46.0) % RDW (11.5-15.5) % Neutrophils # (1.3-7.7) k/uL Lymphocytes # (1.0-4.8) k/uL ABG Total CO2 (19-24) mmol/L ABG O2 Saturation (94-97) % Chloride (98-107) mmol/L Carbon Dioxide (22-30) mmol/L BUN (7-17) mg/dL Creatinine (0.52-1.04) mg/dL Glucose (74-99) mg/dL POC Glucose (mg/dL) 196 H 166 H 175 H (75-99) mg/dL Hemoglobin A1c (4.0-6.0) % Calcium (8.4-10.2) mg/dL Magnesium (1.6-2.3) mg/dL Troponin I (0.000-0.034) ng/mL Crossmatch 03/19/18 03/19/18 03/19/18 Range/Units 19:00 20:00 20:52 WBC (3.8-10.6) k/uL RBC (3.80-5.40) m/uL Hgb (11.4-16.0) gm/dL Hct (34.0-46.0) % RDW (11.5-15.5) % Neutrophils # (1.3-7.7) k/uL Lymphocytes # (1.0-4.8) k/uL ABG Total CO2 (19-24) mmol/L ABG O2 Saturation (94-97) % Chloride (98-107) mmol/L Carbon Dioxide (22-30) mmol/L BUN (7-17) mg/dL Creatinine (0.52-1.04) mg/dL Glucose (74-99) mg/dL POC Glucose (mg/dL) 167 H 170 H 152 H (75-99) mg/dL Hemoglobin A1c (4.0-6.0) % Calcium (8.4-10.2) mg/dL Magnesium (1.6-2.3) mg/dL Troponin I (0.000-0.034) ng/mL Crossmatch 03/19/18 03/19/18 03/20/18 Range/Units 22:16 23:17 00:11 WBC (3.8-10.6) k/uL RBC (3.80-5.40) m/uL Hgb (11.4-16.0) gm/dL Hct (34.0-46.0) % RDW (11.5-15.5) % Neutrophils # (1.3-7.7) k/uL Lymphocytes # (1.0-4.8) k/uL ABG Total CO2 (19-24) mmol/L ABG O2 Saturation (94-97) % Chloride (98-107) mmol/L Carbon Dioxide (22-30) mmol/L BUN (7-17) mg/dL Creatinine (0.52-1.04) mg/dL Glucose (74-99) mg/dL POC Glucose (mg/dL) 165 H 147 H 172 H (75-99) mg/dL Hemoglobin A1c (4.0-6.0) % Calcium (8.4-10.2) mg/dL Magnesium (1.6-2.3) mg/dL Troponin I (0.000-0.034) ng/mL Crossmatch 03/20/18 03/20/18 03/20/18 Range/Units 01:07 02:27 03:12 WBC (3.8-10.6) k/uL RBC (3.80-5.40) m/uL Hgb (11.4-16.0) gm/dL Hct (34.0-46.0) % RDW (11.5-15.5) % Neutrophils # (1.3-7.7) k/uL Lymphocytes # (1.0-4.8) k/uL ABG Total CO2 (19-24) mmol/L ABG O2 Saturation (94-97) % Chloride (98-107) mmol/L Carbon Dioxide (22-30) mmol/L BUN (7-17) mg/dL Creatinine (0.52-1.04) mg/dL Glucose (74-99) mg/dL POC Glucose (mg/dL) 156 H 155 H 149 H (75-99) mg/dL Hemoglobin A1c (4.0-6.0) % Calcium (8.4-10.2) mg/dL Magnesium (1.6-2.3) mg/dL Troponin I (0.000-0.034) ng/mL Crossmatch 03/20/18 03/20/18 03/20/18 Range/Units 04:06 04:55 04:55 WBC 15.3 H (3.8-10.6) k/uL RBC 2.13 L (3.80-5.40) m/uL Hgb 6.8 L* D (11.4-16.0) gm/dL Hct 19.8 L* (34.0-46.0) % RDW 15.9 H (11.5-15.5) % Neutrophils # 13.3 H (1.3-7.7) k/uL Lymphocytes # 0.6 L (1.0-4.8) k/uL ABG Total CO2 (19-24) mmol/L ABG O2 Saturation (94-97) % Chloride 112 H (98-107) mmol/L Carbon Dioxide 21 L (22-30) mmol/L BUN 49 H (7-17) mg/dL Creatinine 2.76 H (0.52-1.04) mg/dL Glucose 112 H (74-99) mg/dL POC Glucose (mg/dL) 150 H (75-99) mg/dL Hemoglobin A1c (4.0-6.0) % Calcium 7.1 L (8.4-10.2) mg/dL Magnesium 3.0 H (1.6-2.3) mg/dL Troponin I (0.000-0.034) ng/mL Crossmatch 03/20/18 03/20/18 03/20/18 Range/Units 04:57 06:05 06:32 WBC (3.8-10.6) k/uL RBC (3.80-5.40) m/uL Hgb (11.4-16.0) gm/dL Hct (34.0-46.0) % RDW (11.5-15.5) % Neutrophils # (1.3-7.7) k/uL Lymphocytes # (1.0-4.8) k/uL ABG Total CO2 26 H (19-24) mmol/L ABG O2 Saturation 98.5 H (94-97) % Chloride (98-107) mmol/L Carbon Dioxide (22-30) mmol/L BUN (7-17) mg/dL Creatinine (0.52-1.04) mg/dL Glucose (74-99) mg/dL POC Glucose (mg/dL) 146 H 145 H (75-99) mg/dL Hemoglobin A1c (4.0-6.0) % Calcium (8.4-10.2) mg/dL Magnesium (1.6-2.3) mg/dL Troponin I (0.000-0.034) ng/mL Crossmatch 03/20/18 03/20/18 03/20/18 Range/Units 06:57 08:18 09:07 WBC (3.8-10.6) k/uL RBC (3.80-5.40) m/uL Hgb (11.4-16.0) gm/dL Hct (34.0-46.0) % RDW (11.5-15.5) % Neutrophils # (1.3-7.7) k/uL Lymphocytes # (1.0-4.8) k/uL ABG Total CO2 (19-24) mmol/L ABG O2 Saturation (94-97) % Chloride (98-107) mmol/L Carbon Dioxide (22-30) mmol/L BUN (7-17) mg/dL Creatinine (0.52-1.04) mg/dL Glucose (74-99) mg/dL POC Glucose (mg/dL) 160 H 177 H 186 H (75-99) mg/dL Hemoglobin A1c (4.0-6.0) % Calcium (8.4-10.2) mg/dL Magnesium (1.6-2.3) mg/dL Troponin I (0.000-0.034) ng/mL Crossmatch Microbiology - Last 24 Hours (Table) 03/19/18 03:31 Blood Culture - Preliminary Blood No Growth after 24 hours 03/19/18 00:34 Blood Culture Gram Stain - Preliminary Blood 03/19/18 00:34 Blood Culture - Final Blood 03/19/18 03:17 Gram Stain - Preliminary Sputum Sputum Culture - Preliminary 03/19/18 00:00 Urine Culture - Preliminary Urine,Voided Assessment and Plan Assessment: Impression: 1 acute hypoxic respiratory failure and cardiac arrest requiring prolonged CPR in the emergency room department. 2 multiple rib fractures and right sided pneumothorax requiring right-sided chest tube placement. Rib fractures are iatrogenic in nature. 3 recent hospitalization for pneumonia and sepsis, however no clear-cut evidence of pneumonia on the initial chest x-ray done on this admission. Chest x-ray is showing left basilar atelectasis. And patchy opacity at the site of the tube insertion which was not present on presentation. 4 right-sided pneumothorax, secondary to rib fractures/iatrogenic. Requiring right-sided chest tube placement. 5 strongly suspect anoxic brain injury considering the prolonged CPR until recovery of spontaneous circulation. Hence neurological consultation will be appropriate. Recommendation: Continue ventilatory support, nutritional support, insulin, hold propofol and assess mental status on a daily basis, this will be done today. Continue empiric antibiotics, all cultures remain negative so far. Continue to monitor chest tube, may consider removing it in the next 2-3 days. No plans to do any form of weaning today, and we'll continue to follow closely in the ICU. Continue GI and DVT prophylaxis. Prognosis is relatively guarded, my major concern is the possibility of anoxic brain injury. Patient remains critically ill. Critical care time is 33 minutes Time with Patient: Greater than 30
--- NOTE | 2018-03-20 11:21 | CONS ---
CONSULTATION REASON FOR CONSULT: Renal failure. HISTORY OF PRESENT ILLNESS: Patient is a 73-year-old female who was admitted on March 18 from rehab where patient was for about a day. She was recently discharged from [facility]. She was at the snf for about 1 day and was brought to the ER with respiratory distress. The patient did have a cardiac arrest. She is currently on the vent. She was significantly hypotensive and maintained on large doses of Levophed and vasopressin. Serum creatinine was 2.39 on March 26 and is 2.76 today. We do not have any previous labs for comparison. The patient's urine output was minimal initially. However, it seems to have picked up now to about 40-45 mL an hour. The patient did receive 1 dose of IV Lasix. Hemoglobin this morning was noted to be 6.8 g/dL. There is no active bleeding noted at this time. Blood cultures did come back for gram-positive cocci. The patient is maintained on vancomycin and Zosyn. PAST MEDICAL HISTORY: Significant for recent hospitalization at [facility] with pneumonia and urinary tract infection and sepsis. Patient also has underlying atrial fibrillation, type 2 diabetes and gastroesophageal reflux disease. PAST SURGICAL HISTORY: None reported. MEDICATIONS: Prior to admission included aspirin, Lipitor, iron, insulin, lactulose, Claritin, Lopressor, Singulair, Protonix, Crestor, Mucinex, magnesium. ALLERGIES: INCLUDE PLAVIX. Type of reaction not known. REVIEW OF SYSTEMS: As per HPI. Other system review is significant for cardiac arrest. No active GI bleed noted. No fever is noted at this time. PHYSICAL EXAMINATION: Patient is currently awake. Her sedation has just been discontinued. She remains on the vent. Blood pressure was 142/56, heart rate 86 per minute. She is afebrile. Examination of the heart S1, S2. Examination of the lungs bilateral breath sounds are heard. Abdomen is soft, obese. Examination of lower extremities shows chronic skin changes. Edema 1+ bilaterally. [employer] exam cannot be performed in detail. LAB: Shows hemoglobin 6.8 this morning. White cell count 15.3, sodium 140, potassium 3.5, chloride 112, CO2 is 21, BUN 49, serum creatinine 2.76, magnesium 3.0, phosphorus 3.8. UA shows 2+ protein, WBCs more than 182 with WBC clumps and yeast. C diff toxin is negative. ASSESSMENT: 1. Acute kidney injury secondary to hypotension hypoperfusion, acute tubular necrosis initially oliguric, currently nonoliguric. 2. Sepsis and septic shock with blood cultures growing gram-positive cocci. Patient is maintained on vancomycin and Zosyn, which we will continue. 3. Rule out chronic kidney disease. Previous labs not available for comparison. 4. Status post cardiac arrest, currently on the ventilator, the patient is awake. 5. Urinary tract infection. Urine culture is pending. 6. Right-sided pneumothorax secondary to rib fractures, status post cardiac arrest, currently with chest tube. 7. Anemia with no active bleeding noted. Patient is being transfused packed RBCs. Check stool for occult blood. PLAN: Continue IV fluids. Follow up on the blood cultures to decide need for vancomycin given the renal failure. Avoid any other nephrotoxic agents. Repeat labs in a.m. MMODL / ANTONIETTAN: [id number] /
[2018-03-20 11:22] LABS: Glucose,Whole Blood 199 mg/dL (75-99)
[2018-03-20 12:06] LABS: Glucose,Whole Blood 191 mg/dL (75-99)
--- NOTE | 2018-03-20 12:12 | PN ---
PROGRESS NOTE Mrs. Hathaway is a 73-year-old female who was admitted with progressive dyspnea and had a cardiac arrest requiring CPR. She remains intubated on propofol. She has no further episode of tachycardia. She had a chest tube placed because of a tension pneumothorax. Hemodynamically, she is in sinus mechanism. She had no episode of malignant arrhythmia. She continues to be at this time on subcu heparin, insulin, ipratropium, norepinephrine. She had an echocardiogram that revealed a preserved systolic function. PHYSICAL EXAMINATION: Blood pressure 111/40 with a heart in the 80s. LUNGS: Clear anteriorly. HEART: Regular rhythm S1, S2. No S3. No gallop appreciated. ABDOMEN: Soft. Positive bowel sounds. EXTREMITIES: No edema. LAB DATA: Lab data revealed a hemoglobin of 6.8, white blood cell of 15.3. Her BUN and creatinine 49 and 2.76, which has worsened since admission. IMPRESSION: 1. Status post cardiac arrest with hypotension requiring Levophed. 2. Tension pneumothorax status post chest tube placement. 3. Recent pneumonia. 4. Probable anoxic encephalopathy. RECOMMENDATION: From the cardiac standpoint, we will continue supportive care her. At this time, there is no active cardiac issues. Depending on her progress further recommendation will be made. MMODL / IJN: [id number] /
--- NOTE | 2018-03-20 12:42 | P.PN ---
Subjective This is a pleasant 73 years old female with past medical history of congestive heart failure and atrial fibrillation. Patient was transferred from senior living where she was therefore 10 days, recently discharged from the hospital for sepsis, pneumonia and UTI. This time EMS were called for difficulty breathing and they found her oxygen saturation was 60, she was placed on non-rebreather and her oxygen went up to mid 90s Patient is currently intubated and cannot provide information which were obtained from the medical staff, medical records, and sister at bedside who is her guardian. As per sister patient has been admitted to [facility] twice in the last 36 days for pneumonia and UTI with sepsis. Each time ascending to rehab, first time for 10 days and then for 16 days. As per sister they have been contacted earlier and they wanted everything to be done. But now with a want to change her CODE STATUS to DO NOT RESUSCITATE. On admission she was saturating is 6% on room air and she was breathing at respiratory rate of 30 minutes. Her blood pressure was 155/64, later on it dropped to 63/38. And she was bradycardic in the 40s and 50s. Leukocytosis at 14.8 K, hemoglobin 9, platelets 543. Sodium 135, potassium 5.9, creatinine 2.4 , sugar was signed between 300-400. Troponin is elevated at 0.04 and 0.319. LFT unremarkable.UA was suggestive of infection. Chest x-ray shows bilateral pneumothorax with larger on the left side, follow-up chest x-ray showing large right-side pneumothorax, getting worse 03/20/2018 Patient remains intubated in the ICU. Her sugar looks controlled however her hemoglobin this morning dropped to 6.8, she's getting 1 unit of blood transfusion. Heparin was put on hold. Check FOBT Creatinine 2.7. Rest of electrolytes are controlled. Critical care team for the patient's and decrease in the sedation. Nephrology and cardiology are following the patient is on IV fluids and Zosyn and vancomycin is on hold and check in the level Objective - Vital Signs Vital signs: Vital Signs Temp 97.9 F 03/20/18 10:59 Pulse 87 03/20/18 11:27 Resp 20 03/20/18 10:59 BP 111/43 03/20/18 10:59 Pulse Ox 100 03/20/18 10:59 Intake & Output 03/19/18 03/20/1803/20/18 18:59 06:59 18:59 Intake Total 8972.675 1708.895 255.555 Output Total 150 440 45 Balance 1441.193 945.895 210.555 Weight 92.2 kg 93.8 kg Intake: IV 1140 1030 80 Piperacillin-Tazobactam 3 100 150 .375 gm In Sodium Chloride 0.9% 100 ml @ 25 mls/hr IVPB ONCE STA Rx# :[id number] Sodium Chloride 0.9% 1, 1040 880 80 000 ml @ 80 mls/hr IV . [id number] [facility] Rx#:[id number] Intake, IV Titration 451.193 355.895 175.555 Amount Insulin Regular 100 unit 52.710 57.476 22.451 In Sodium Chloride 0.9% 100 ml @ Per Protocol IV .Q0M [facility] Rx#:[id number] Norepinephrine 16 mg In 246.812 139.75 153.104 Sodium Chloride 0.9% 250 ml @ 5 mls/hr IV .Q24H [facility] Rx#:[id number] Propofol 1,000 mg In 151.671 158.669 Empty Bag 1 bag @ Titrate IV .Q0M [facility] Rx#: [id number] Blood Product 0 Rc As-3 Unit 0 [id number] Output: Chest Tube Drainage 20 Right Lateral Chest 20 Urine 130 440 45 Other: Voiding Method Indwelling Catheter Indwelling Catheter # Bowel Movements 3 ABP, PAP, CO, CI - Last Documented Arterial Blood Pressure 150/50 - Exam -GENERAL: The patient is intubated, not in any acute distress. HEENT: Pupils are round and equally reacting to light. EOMI. No scleral icterus. No conjunctival pallor. Normocephalic, atraumatic. No pharyngeal erythema. No thyromegaly. CARDIOVASCULAR: S1 and S2 present. No murmurs, rubs, or gallops. -PULMONARY: Chest is clear to auscultation, decreased breath sounds bilaterally ABDOMEN: Soft, nontender, nondistended, normoactive bowel sounds. No palpable organomegaly. MUSCULOSKELETAL: No joint swelling or deformity. EXTREMITIES: No cyanosis, clubbing, or pedal edema. NEUROLOGICAL: Gross neurological examination did not reveal any focal deficits. SKIN: No rashes. - Labs CBC & Chem 7: 03/20/18 04:55 11/22/18 04:55 Labs: Abnormal Lab Results - Last 24 Hours (Table) 03/18/18 03/19/18 03/19/18 Range/Units 22:20 00:00 13:25 WBC (3.8-10.6) k/uL RBC (3.80-5.40) m/uL Hgb (11.4-16.0) gm/dL Hct (34.0-46.0) % RDW (11.5-15.5) % Neutrophils # (1.3-7.7) k/uL Lymphocytes # (1.0-4.8) k/uL ABG Total CO2 (19-24) mmol/L ABG O2 Saturation (94-97) % Chloride (98-107) mmol/L Carbon Dioxide (22-30) mmol/L BUN (7-17) mg/dL Creatinine (0.52-1.04) mg/dL Glucose (74-99) mg/dL POC Glucose (mg/dL) 238 H (75-99) mg/dL Hemoglobin A1c 6.2 H (4.0-6.0) % Calcium (8.4-10.2) mg/dL Magnesium (1.6-2.3) mg/dL Crossmatch See Detail 03/19/18 03/19/18 03/19/18 Range/Units 14:00 15:13 16:09 WBC (3.8-10.6) k/uL RBC (3.80-5.40) m/uL Hgb (11.4-16.0) gm/dL Hct (34.0-46.0) % RDW (11.5-15.5) % Neutrophils # (1.3-7.7) k/uL Lymphocytes # (1.0-4.8) k/uL ABG Total CO2 (19-24) mmol/L ABG O2 Saturation (94-97) % Chloride (98-107) mmol/L Carbon Dioxide (22-30) mmol/L BUN (7-17) mg/dL Creatinine (0.52-1.04) mg/dL Glucose (74-99) mg/dL POC Glucose (mg/dL) 217 H 202 H 196 H (75-99) mg/dL Hemoglobin A1c (4.0-6.0) % Calcium (8.4-10.2) mg/dL Magnesium (1.6-2.3) mg/dL Crossmatch 03/19/18 03/19/18 03/19/18 Range/Units 17:11 17:55 19:00 WBC (3.8-10.6) k/uL RBC (3.80-5.40) m/uL Hgb (11.4-16.0) gm/dL Hct (34.0-46.0) % RDW (11.5-15.5) % Neutrophils # (1.3-7.7) k/uL Lymphocytes # (1.0-4.8) k/uL ABG Total CO2 (19-24) mmol/L ABG O2 Saturation (94-97) % Chloride (98-107) mmol/L Carbon Dioxide (22-30) mmol/L BUN (7-17) mg/dL Creatinine (0.52-1.04) mg/dL Glucose (74-99) mg/dL POC Glucose (mg/dL) 166 H 175 H 167 H (75-99) mg/dL Hemoglobin A1c (4.0-6.0) % Calcium (8.4-10.2) mg/dL Magnesium (1.6-2.3) mg/dL Crossmatch 03/19/18 03/19/18 03/19/18 Range/Units 20:00 20:52 22:16 WBC (3.8-10.6) k/uL RBC (3.80-5.40) m/uL Hgb (11.4-16.0) gm/dL Hct (34.0-46.0) % RDW (11.5-15.5) % Neutrophils # (1.3-7.7) k/uL Lymphocytes # (1.0-4.8) k/uL ABG Total CO2 (19-24) mmol/L ABG O2 Saturation (94-97) % Chloride (98-107) mmol/L Carbon Dioxide (22-30) mmol/L BUN (7-17) mg/dL Creatinine (0.52-1.04) mg/dL Glucose (74-99) mg/dL POC Glucose (mg/dL) 170 H 152 H 165 H (75-99) mg/dL Hemoglobin A1c (4.0-6.0) % Calcium (8.4-10.2) mg/dL Magnesium (1.6-2.3) mg/dL Crossmatch 03/19/18 03/20/18 03/20/18 Range/Units 23:17 00:11 01:07 WBC (3.8-10.6) k/uL RBC (3.80-5.40) m/uL Hgb (11.4-16.0) gm/dL Hct (34.0-46.0) % RDW (11.5-15.5) % Neutrophils # (1.3-7.7) k/uL Lymphocytes # (1.0-4.8) k/uL ABG Total CO2 (19-24) mmol/L ABG O2 Saturation (94-97) % Chloride (98-107) mmol/L Carbon Dioxide (22-30) mmol/L BUN (7-17) mg/dL Creatinine (0.52-1.04) mg/dL Glucose (74-99) mg/dL POC Glucose (mg/dL) 147 H 172 H 156 H (75-99) mg/dL Hemoglobin A1c (4.0-6.0) % Calcium (8.4-10.2) mg/dL Magnesium (1.6-2.3) mg/dL Crossmatch 03/20/18 03/20/18 03/20/18 Range/Units 02:27 03:12 04:06 WBC (3.8-10.6) k/uL RBC (3.80-5.40) m/uL Hgb (11.4-16.0) gm/dL Hct (34.0-46.0) % RDW (11.5-15.5) % Neutrophils # (1.3-7.7) k/uL Lymphocytes # (1.0-4.8) k/uL ABG Total CO2 (19-24) mmol/L ABG O2 Saturation (94-97) % Chloride (98-107) mmol/L Carbon Dioxide (22-30) mmol/L BUN (7-17) mg/dL Creatinine (0.52-1.04) mg/dL Glucose (74-99) mg/dL POC Glucose (mg/dL) 155 H 149 H 150 H (75-99) mg/dL Hemoglobin A1c (4.0-6.0) % Calcium (8.4-10.2) mg/dL Magnesium (1.6-2.3) mg/dL Crossmatch 03/20/18 03/20/18 03/20/18 Range/Units 04:55 04:55 04:57 WBC 15.3 H (3.8-10.6) k/uL RBC 2.13 L (3.80-5.40) m/uL Hgb 6.8 L* D (11.4-16.0) gm/dL Hct 19.8 L* (34.0-46.0) % RDW 15.9 H (11.5-15.5) % Neutrophils # 13.3 H (1.3-7.7) k/uL Lymphocytes # 0.6 L (1.0-4.8) k/uL ABG Total CO2 (19-24) mmol/L ABG O2 Saturation (94-97) % Chloride 112 H (98-107) mmol/L Carbon Dioxide 21 L (22-30) mmol/L BUN 49 H (7-17) mg/dL Creatinine 2.76 H (0.52-1.04) mg/dL Glucose 112 H (74-99) mg/dL POC Glucose (mg/dL) 146 H (75-99) mg/dL Hemoglobin A1c (4.0-6.0) % Calcium 7.1 L (8.4-10.2) mg/dL Magnesium 3.0 H (1.6-2.3) mg/dL Crossmatch 03/20/18 03/20/18 03/20/18 Range/Units 06:05 06:32 06:57 WBC (3.8-10.6) k/uL RBC (3.80-5.40) m/uL Hgb (11.4-16.0) gm/dL Hct (34.0-46.0) % RDW (11.5-15.5) % Neutrophils # (1.3-7.7) k/uL Lymphocytes # (1.0-4.8) k/uL ABG Total CO2 26 H (19-24) mmol/L ABG O2 Saturation 98.5 H (94-97) % Chloride (98-107) mmol/L Carbon Dioxide (22-30) mmol/L BUN (7-17) mg/dL Creatinine (0.52-1.04) mg/dL Glucose (74-99) mg/dL POC Glucose (mg/dL) 145 H 160 H (75-99) mg/dL Hemoglobin A1c (4.0-6.0) % Calcium (8.4-10.2) mg/dL Magnesium (1.6-2.3) mg/dL Crossmatch 03/20/18 03/20/18 03/20/18 Range/Units 08:18 09:07 10:07 WBC (3.8-10.6) k/uL RBC (3.80-5.40) m/uL Hgb (11.4-16.0) gm/dL Hct (34.0-46.0) % RDW (11.5-15.5) % Neutrophils # (1.3-7.7) k/uL Lymphocytes # (1.0-4.8) k/uL ABG Total CO2 (19-24) mmol/L ABG O2 Saturation (94-97) % Chloride (98-107) mmol/L Carbon Dioxide (22-30) mmol/L BUN (7-17) mg/dL Creatinine (0.52-1.04) mg/dL Glucose (74-99) mg/dL POC Glucose (mg/dL) 177 H 186 H 187 H (75-99) mg/dL Hemoglobin A1c (4.0-6.0) % Calcium (8.4-10.2) mg/dL Magnesium (1.6-2.3) mg/dL Crossmatch 03/20/18 03/20/18 Range/Units 11:12 11:53 WBC (3.8-10.6) k/uL RBC (3.80-5.40) m/uL Hgb (11.4-16.0) gm/dL Hct (34.0-46.0) % RDW (11.5-15.5) % Neutrophils # (1.3-7.7) k/uL Lymphocytes # (1.0-4.8) k/uL ABG Total CO2 (19-24) mmol/L ABG O2 Saturation (94-97) % Chloride (98-107) mmol/L Carbon Dioxide (22-30) mmol/L BUN (7-17) mg/dL Creatinine (0.52-1.04) mg/dL Glucose (74-99) mg/dL POC Glucose (mg/dL) 199 H 191 H (75-99) mg/dL Hemoglobin A1c (4.0-6.0) % Calcium (8.4-10.2) mg/dL Magnesium (1.6-2.3) mg/dL Crossmatch Microbiology - Last 24 Hours (Table) 03/19/18 00:34 Blood Culture Gram Stain - Preliminary Blood 03/19/18 03:31 Blood Culture - Preliminary Blood No Growth after 24 hours 03/19/18 00:34 Blood Culture - Final Blood 03/19/18 03:17 Gram Stain - Preliminary Sputum Sputum Culture - Preliminary 03/19/18 00:00 Urine Culture - Preliminary Urine,Voided Assessment and Plan Assessment: Status post cardiac arrest and CPR as per ACL protocol Septic shock, secondary to possible pneumonia and UTI Bilateral pneumothorax more on the right side with multiple rib fractures. Status post chest tube Possible anoxic brain injury Plan: This is a 73 years old female who presents because of cardiopulmonary arrest and septic shock, mostly secondary to UTI with possible pneumonia. Pulmonary/ critical care team are following the patient. Cardiology and neurology consult. Continue with antibiotics, IV fluids. Continue pressors as per ICU team. Vent management as per pulmonary and ICU team.Labs and medication were reviewed. Continue same treatment. Continue with symptomatic treatment. Resume home medication. Monitor lytes and vitals. DVT and GI prophylaxis. Further recommendations of the clinical course of the patient DVT prophylaxis: Subcutaneous heparin GI Prophylaxis: Pepcid Prognosis is guarded and very poor
[2018-03-20 13:27] LABS: Glucose,Whole Blood 182 mg/dL (75-99)
--- NOTE | 2018-03-20 13:27 | P.PN ---
Subjective Progress Note Date: 03/20/18 Principal diagnosis: respiratory failure, possible anoxic brain injury Neurology is following on a 73-year-old female possible anoxic brain injury. Patient is currently in ICU on a ventilator. At time of my evaluation, patient was off propofol. Patient was previously treated at another facility for pneumonia and sepsis and had been intubated for several days and then was found to be improved, extubated and transferred to an inpatient rehabilitation facility. Patient had difficulty breathing, was transferred to [facility], treated for pneumonia again. Patient was then again discharged back to skilled nursing for further rehabilitation. Patient then became short of breath. EMS was called and patient was found to have decreased oxygen saturation in the 60s. Patient was placed on portable oxygen and transferred to the emergency room. Patient coded in the emergency room and resuscitative efforts were conducted for approximately 45 minutes. she was intubated and brought to the ICU. Patient is currently a DNR. Chest x-ray revealed pneumothorax and multiple rib fractures secondary to CPR. Patient does have chest tube placed with repeat chest x-ray showing complete reexpansion of the right lung. No seizure-like activity was witnessed. On contact today, patient is in ICU, on a ventilator with propofol turned off prior to provider examining the patient. Patient was in no acute distress. Objective - Vital Signs Vital signs: Vital Signs Temp 97.9 F 03/20/18 10:59 Pulse 87 03/20/18 11:27 Resp 20 03/20/18 10:59 BP 111/43 03/20/18 10:59 Pulse Ox 100 03/20/18 10:59 Intake & Output 03/19/18 03/20/18 03/20/18 18:59 06:59 18:59 Intake Total 8822.747 5663.895 296.713 Output Total 150 440 45 Balance 1441.193 945.895 251.713 Weight 92.2 kg 93.8 kg Intake: IV 1140 1030 80 Piperacillin-Tazobactam 3 100 150 .375 gm In Sodium Chloride 0.9% 100 ml @ 25 mls/hr IVPB ONCE STA Rx# :[id number] Sodium Chloride 0.9% 1, 1040 880 80 000 ml @ 80 mls/hr IV . [id number] [facility] Rx#:[id number] Intake, IV Titration 451.193 355.895 216.713 Amount Insulin Regular 100 unit 52.710 57.476 31.522 In Sodium Chloride 0.9% 100 ml @ Per Protocol IV .Q0M L[facility] Rx#:[id number] Norepinephrine 16 mg In 246.812 139.75 185.191 Sodium Chloride 0.9% 250 ml @ 5 mls/hr IV .Q24H L[facility] Rx#:[id number] Propofol 1,000 mg In 151.671 158.669 Empty Bag 1 bag @ Titrate IV .Q0M LEN Rx#: [id number] Blood Product 0 Rc As-3 Unit 0 [id number] Output: Chest Tube Drainage 20 Right Lateral Chest 20 Urine 130 440 45 Other: Voiding Method Indwelling Catheter Indwelling Catheter # Bowel Movements 3 ABP, PAP, CO, CI - Last Documented Arterial Blood Pressure 150/50 - Exam General appearance: opens eyes to sound, no acute distress Head: Atraumatic, normocephalic, normal inspection Eyes: opens eyes Ear, nose and throat: Normal exam, mucous membranes moist Neck: Normal inspection, absent tenderness, lymphadenopathy. Respiratory: on mechanical ventilator Cardiovascular: telemetry monitoring GI/abdominal: No guarding Extremities: slight movement of all 4 extremities; left greater than right Neurological: Full assessment unable to be completed no seizure activity noted on physical exam Strength: Left upper and lower extremities 1+/5, did follow verbal command to squeeze hand and push down with foot and attempted to move left leg slightly Right upper and lower extremities - able to slightly move hand but no getter filler strength and no movement of right foot or leg Sensation: Winced to painful stimuli Psychological: Mood and Affect appropriate for setting - Labs CBC & Chem 7: 03/20/18 04:55 03/20/18 04:55 Labs: Abnormal Lab Results - Last 24 Hours (Table) 03/18/18 03/19/18 03/19/18 Range/Units 22:20 00:00 13:25 WBC (3.8-10.6) k/uL RBC (3.80-5.40) m/uL Hgb (11.4-16.0) gm/dL Hct (34.0-46.0) % RDW (11.5-15.5) % Neutrophils # (1.3-7.7) k/uL Lymphocytes # (1.0-4.8) k/uL ABG Total CO2 (19-24) mmol/L ABG O2 Saturation (94-97) % Chloride (98-107) mmol/L Carbon Dioxide (22-30) mmol/L BUN (7-17) mg/dL Creatinine (0.52-1.04) mg/dL Glucose (74-99) mg/dL POC Glucose (mg/dL) 238 H (75-99) mg/dL Hemoglobin A1c 6.2 H (4.0-6.0) % Calcium (8.4-10.2) mg/dL Magnesium (1.6-2.3) mg/dL Crossmatch See Detail 03/19/18 03/19/18 03/19/18 Range/Units 14:00 15:13 16:09 WBC (3.8-10.6) k/uL RBC (3.80-5.40) m/uL Hgb (11.4-16.0) gm/dL Hct (34.0-46.0) % RDW (11.5-15.5) % Neutrophils # (1.3-7.7) k/uL Lymphocytes # (1.0-4.8) k/uL ABG Total CO2 (19-24) mmol/L ABG O2 Saturation (94-97) % Chloride (98-107) mmol/L Carbon Dioxide (22-30) mmol/L BUN (7-17) mg/dL Creatinine (0.52-1.04) mg/dL Glucose (74-99) mg/dL POC Glucose (mg/dL) 217 H 202 H 196 H (75-99) mg/dL Hemoglobin A1c (4.0-6.0) % Calcium (8.4-10.2) mg/dL Magnesium (1.6-2.3) mg/dL Crossmatch 03/19/18 03/19/18 03/19/18 Range/Units 17:11 17:55 19:00 WBC (3.8-10.6) k/uL RBC (3.80-5.40) m/uL Hgb (11.4-16.0) gm/dL Hct (34.0-46.0) % RDW (11.5-15.5) % Neutrophils # (1.3-7.7) k/uL Lymphocytes # (1.0-4.8) k/uL ABG Total CO2 (19-24) mmol/L ABG O2 Saturation (94-97) % Chloride (98-107) mmol/L Carbon Dioxide (22-30) mmol/L BUN (7-17) mg/dL Creatinine (0.52-1.04) mg/dL Glucose (74-99) mg/dL POC Glucose (mg/dL) 166 H 175 H 167 H (75-99) mg/dL Hemoglobin A1c (4.0-6.0) % Calcium (8.4-10.2) mg/dL Magnesium (1.6-2.3) mg/dL Crossmatch 03/19/18 03/19/18 03/19/18 Range/Units 20:00 20:52 22:16 WBC (3.8-10.6) k/uL RBC (3.80-5.40) m/uL Hgb (11.4-16.0) gm/dL Hct (34.0-46.0) % RDW (11.5-15.5) % Neutrophils # (1.3-7.7) k/uL Lymphocytes # (1.0-4.8) k/uL ABG Total CO2 (19-24) mmol/L ABG O2 Saturation (94-97) % Chloride (98-107) mmol/L Carbon Dioxide (22-30) mmol/L BUN (7-17) mg/dL Creatinine (0.52-1.04) mg/dL Glucose (74-99) mg/dL POC Glucose (mg/dL) 170 H 152 H 165 H (75-99) mg/dL Hemoglobin A1c (4.0-6.0) % Calcium (8.4-10.2) mg/dL Magnesium (1.6-2.3) mg/dL Crossmatch 03/19/18 03/20/18 03/20/18 Range/Units 23:17 00:11 01:07 WBC (3.8-10.6) k/uL RBC (3.80-5.40) m/uL Hgb (11.4-16.0) gm/dL Hct (34.0-46.0) % RDW (11.5-15.5) % Neutrophils # (1.3-7.7) k/uL Lymphocytes # (1.0-4.8) k/uL ABG Total CO2 (19-24) mmol/L ABG O2 Saturation (94-97) % Chloride (98-107) mmol/L Carbon Dioxide (22-30) mmol/L BUN (7-17) mg/dL Creatinine (0.52-1.04) mg/dL Glucose (74-99) mg/dL POC Glucose (mg/dL) 147 H 172 H 156 H (75-99) mg/dL Hemoglobin A1c (4.0-6.0) % Calcium (8.4-10.2) mg/dL Magnesium (1.6-2.3) mg/dL Crossmatch 03/20/18 03/20/18 03/20/18 Range/Units 02:27 03:12 04:06 WBC (3.8-10.6) k/uL RBC (3.80-5.40) m/uL Hgb (11.4-16.0) gm/dL Hct (34.0-46.0) % RDW (11.5-15.5) % Neutrophils # (1.3-7.7) k/uL Lymphocytes # (1.0-4.8) k/uL ABG Total CO2 (19-24) mmol/L ABG O2 Saturation (94-97) % Chloride (98-107) mmol/L Carbon Dioxide (22-30) mmol/L BUN (7-17) mg/dL Creatinine (0.52-1.04) mg/dL Glucose (74-99) mg/dL POC Glucose (mg/dL) 155 H 149 H 150 H (75-99) mg/dL Hemoglobin A1c (4.0-6.0) % Calcium (8.4-10.2) mg/dL Magnesium (1.6-2.3) mg/dL Crossmatch 03/20/18 03/20/18 03/20/18 Range/Units 04:55 04:55 04:57 WBC 15.3 H (3.8-10.6) k/uL RBC 2.13 L (3.80-5.40) m/uL Hgb 6.8 L* D (11.4-16.0) gm/dL Hct 19.8 L* (34.0-46.0) % RDW 15.9 H (11.5-15.5) % Neutrophils # 13.3 H (1.3-7.7) k/uL Lymphocytes # 0.6 L (1.0-4.8) k/uL ABG Total CO2 (19-24) mmol/L ABG O2 Saturation (94-97) % Chloride 112 H (98-107) mmol/L Carbon Dioxide 21 L (22-30) mmol/L BUN 49 H (7-17) mg/dL Creatinine 2.76 H (0.52-1.04) mg/dL Glucose 112 H (74-99) mg/dL POC Glucose (mg/dL) 146 H (75-99) mg/dL Hemoglobin A1c (4.0-6.0) % Calcium 7.1 L (8.4-10.2) mg/dL Magnesium 3.0 H (1.6-2.3) mg/dL Crossmatch 03/20/18 03/20/18 03/20/18 Range/Units 06:05 06:32 06:57 WBC (3.8-10.6) k/uL RBC (3.80-5.40) m/uL Hgb (11.4-16.0) gm/dL Hct (34.0-46.0) % RDW (11.5-15.5) % Neutrophils # (1.3-7.7) k/uL Lymphocytes # (1.0-4.8) k/uL ABG Total CO2 26 H (19-24) mmol/L ABG O2 Saturation 98.5 H (94-97) % Chloride (98-107) mmol/L Carbon Dioxide (22-30) mmol/L BUN (7-17) mg/dL Creatinine (0.52-1.04) mg/dL Glucose (74-99) mg/dL POC Glucose (mg/dL) 145 H 160 H (75-99) mg/dL Hemoglobin A1c (4.0-6.0) % Calcium (8.4-10.2) mg/dL Magnesium (1.6-2.3) mg/dL Crossmatch 03/20/18 03/20/18 03/20/18 Range/Units 08:18 09:07 10:07 WBC (3.8-10.6) k/uL RBC (3.80-5.40) m/uL Hgb (11.4-16.0) gm/dL Hct (34.0-46.0) % RDW (11.5-15.5) % Neutrophils # (1.3-7.7) k/uL Lymphocytes # (1.0-4.8) k/uL ABG Total CO2 (19-24) mmol/L ABG O2 Saturation (94-97) % Chloride (98-107) mmol/L Carbon Dioxide (22-30) mmol/L BUN (7-17) mg/dL Creatinine (0.52-1.04) mg/dL Glucose (74-99) mg/dL POC Glucose (mg/dL) 177 H 186 H 187 H (75-99) mg/dL Hemoglobin A1c (4.0-6.0) % Calcium (8.4-10.2) mg/dL Magnesium (1.6-2.3) mg/dL Crossmatch 03/20/18 03/20/18 Range/Units 11:12 11:53 WBC (3.8-10.6) k/uL RBC (3.80-5.40) m/uL Hgb (11.4-16.0) gm/dL Hct (34.0-46.0) % RDW (11.5-15.5) % Neutrophils # (1.3-7.7) k/uL Lymphocytes # (1.0-4.8) k/uL ABG Total CO2 (19-24) mmol/L ABG O2 Saturation (94-97) % Chloride (98-107) mmol/L Carbon Dioxide (22-30) mmol/L BUN (7-17) mg/dL Creatinine (0.52-1.04) mg/dL Glucose (74-99) mg/dL POC Glucose (mg/dL) 199 H 191 H (75-99) mg/dL Hemoglobin A1c (4.0-6.0) % Calcium (8.4-10.2) mg/dL Magnesium (1.6-2.3) mg/dL Crossmatch Microbiology - Last 24 Hours (Table) 03/19/18 00:34 Blood Culture Gram Stain - Preliminary Blood 03/19/18 03:31 Blood Culture - Preliminary Blood No Growth after 24 hours 03/19/18 00:34 Blood Culture - Final Blood 03/19/18 03:17 Gram Stain - Preliminary Sputum Sputum Culture - Preliminary 03/19/18 00:00 Urine Culture - Preliminary Urine,Voided Assessment and Plan (1) Cardiac arrest Current Visit: Yes Status: Acute Code(s): I46.9 - CARDIAC ARREST, CAUSE UNSPECIFIED SNOMED Code(s): 370305260 (2) Hypoxia Current Visit: Yes Status: Acute Code(s): R09.02 - HYPOXEMIA SNOMED Code(s ): 043438303 (3) UTI (urinary tract infection) Current Visit: Yes Status: Acute Code(s): N39.0 - URINARY TRACT INFECTION, SITE NOT SPECIFIED SNOMED Code(s): 12706782 Plan: Patient's current status does appear to be multifactorial in etiology. Patient does have complicated medical history including significant history of infectious process and prolonged CPR with possible anoxic brain injury. As previously noted, patient does appear to be likely encephalopathic as well. EEG has been ordered. CT of the brain noted no acute process, other notations included chronic small vessel ischemic disease. At this time, continue to correct any underlying correctable etiology, continue with bacterial/sepsis management, continue neurological checks as implemented. Notify neurology with any new neurological deficits or status changes. Neurology we will continue to follow provide updates as needed or warranted. Further recommendations to follow. I have discussed the plan of care with the physician prior to implementation and he agrees with the plan as implemented.
[2018-03-20] MEDS: SODIUM CHLORIDE 0.9% 1,000 ML IV SCH ×2 (14:16)
[2018-03-20 14:21] LABS: Glucose,Whole Blood 188 mg/dL (75-99)
[2018-03-20 15:15] LABS: Glucose,Whole Blood 179 mg/dL (75-99)
[2018-03-20] MEDS ORDERED: Potassium Replacement Protocol 1 EACH MISC MISCELLANE PRN (15:54)
[2018-03-20 16:10] LABS: Glucose,Whole Blood 157 mg/dL (75-99)
[2018-03-20] MEDS: POTASSIUM BICARBONATE/CIT AC 20 MEQ TABLET.EFF NG-TUBE SCH ×2 (16:19→18:22)
[2018-03-20 17:30] LABS: Glucose,Whole Blood 131 mg/dL (75-99)
[2018-03-20 18:19] LABS: Glucose,Whole Blood 147 mg/dL (75-99)
[2018-03-20] MEDS: INSULIN REGULAR 100 UNIT in SODIUM CHLORIDE 0.9% 100 ML IV SCH (18:24)
[2018-03-20 19:20] LABS: Glucose,Whole Blood 160 mg/dL (75-99)
[2018-03-20 20:17] LABS: Glucose,Whole Blood 153 mg/dL (75-99)
[2018-03-20 21:14] LABS: Glucose,Whole Blood 137 mg/dL (75-99)
[2018-03-20 22:17] LABS: Glucose,Whole Blood 133 mg/dL (75-99)
[2018-03-20 23:12] LABS: Glucose,Whole Blood 189 mg/dL (75-99)
[2018-03-21] MEDS: HYDROmorphone 1 MG/ML 1 ML SYRINGE IVP PRN ×2 (00:01→04:34)
[2018-03-21 00:20] LABS: Glucose,Whole Blood 190 mg/dL (75-99)
[2018-03-21 00:27] LABS: Anisocytosis Slight; HCT 20.5 % (34.0-46.0); Hypochromasia Slight; MCH 29.5 pg (25.0-35.0); MCHC 31.9 g/dL (31.0-37.0); MCV 92.5 fL (80.0-100.0); Mean Platelet Volume 7.7; Platelet Count 255 k/uL (150-450); Poikilocytosis Moderate; RBC 2.22 m/uL (3.80-5.40); RDW 16.5 % (11.5-15.5); WBC 13.4 k/uL (3.8-10.6)
[2018-03-21 00:35] LABS: HGB 6.6 gm/dL (11.4-16.0)
[2018-03-21 01:14] LABS: Glucose,Whole Blood 187 mg/dL (75-99)
[2018-03-21] MEDS: SODIUM CHLORIDE 0.9% 1,000 ML IV SCH ×2 (02:12→18:18)
[2018-03-21 02:19] LABS: Glucose,Whole Blood 167 mg/dL (75-99)
[2018-03-21 03:13] LABS: Glucose,Whole Blood 161 mg/dL (75-99)
[2018-03-21] MEDS: IPRATROPIUM-ALBUTEROL 3 ML NEB INHALATION SCH ×6 (03:18→23:42)
[2018-03-21 04:18] LABS: Glucose,Whole Blood 141 mg/dL (75-99)
[2018-03-21 05:22] LABS: Glucose,Whole Blood 126 mg/dL (75-99)
[2018-03-21 05:29] LABS: Anisocytosis Slight; Basophils % (A) 0 %; Eosinophils % (A) 0 %; HCT 21.6 % (34.0-46.0); HGB 7.2 gm/dL (11.4-16.0); Hypochromasia Slight; Lymphocytes # (A) 0.5 k/uL (1.0-4.8); Lymphocytes % (A) 4 %; MCHC 33.2 g/dL (31.0-37.0); MCV 90.3 fL (80.0-100.0); Mean Platelet Volume 7.9; Monocytes # (A) 0.6 k/uL (0-1.0); Monocytes % (A) 5 %; Neutrophils # (A) 11.7 k/uL (1.3-7.7); Neutrophils % (A) 90 %; Platelet Count 221 k/uL (150-450); Poikilocytosis Slight; RBC 2.39 m/uL (3.80-5.40)
[2018-03-21 05:32] LABS: Magnesium 2.4 mg/dL (1.6-2.3); Phosphorus 3.4 mg/dL (2.5-4.5); Potassium 3.4 mmol/L (3.5-5.1)
[2018-03-21 05:37] LABS: Vancomycin,Random 20.9 ug/mL
[2018-03-21 06:16] LABS: Glucose,Whole Blood 131 mg/dL (75-99)
[2018-03-21] MEDS: NOREPINEPHRINE 16 MG in SODIUM CHLORIDE 0.9% 250 ML IV SCH (06:16)
[2018-03-21] MEDS ORDERED: Potassium Replacement Protocol 1 EACH MISC MISCELLANE PRN (06:59)
[2018-03-21 07:29] LABS: Glucose,Whole Blood 157 mg/dL (75-99)
[2018-03-21] MEDS ORDERED: CALCIUM GLUCONATE 1,000 MG in SODIUM CHLORIDE 0.9% 100 ML IVPB ONE (07:30)
--- NOTE | 2018-03-21 07:32 | XR ---
EXAMINATION TYPE: XR chest 1V DATE OF EXAM: 03/21/2018 COMPARISON: Prior chest x-ray 03/20/2018 HISTORY: Chest tube TECHNIQUE: Single frontal view of the chest is obtained. FINDINGS: Endotracheal tube and NG tube are overlying appropriate positions, right jugular central v enous catheter and right-sided chest tube remain in place. Airspace disease present at the left lung base, right upper lobe. No evident pneumothorax. Patient is rotated. IMPRESSION: Findings are similar to prior exam. Correlate for pneumonia.
[2018-03-21 07:37] LABS: ABG Base Excess -3.2 mmol/L; ABG HCO3 24 mmol/L (21-25); ABG PCO2 50 mmHg (35-45); ABG PH 7.28 (7.35-7.45); ABG PO2 111 mmHg (83-108); ABG TCO2 25 mmol/L (19-24)
[2018-03-21 08:12] LABS: Glucose,Whole Blood 143 mg/dL (75-99)
[2018-03-21 09:31] LABS: Glucose,Whole Blood 145 mg/dL (75-99)
[2018-03-21] MEDS: POTASSIUM BICARBONATE/CIT AC 20 MEQ TABLET.EFF NG-TUBE SCH ×2 (09:50→11:24)
[2018-03-21] MEDS: CHLORHEXIDINE GLUCONATE 15 ML CUP MUCOUS MEM SCH ×2 (09:50→22:06)
[2018-03-21] MEDS: PANTOPRAZOLE 40 MG/10 ML VIAL IV SCH (09:50)
[2018-03-21] MEDS: PIPERACILLIN-TAZOBACTAM 3.375 GM in SODIUM CHLORIDE 0.9% 100 ML IVPB SCH ×2 (09:58→22:06)
[2018-03-21] MEDS ORDERED: VANCOMYCIN 1,500 MG in SODIUM CHLORIDE 0.9% 250 ML IVPB ONE (10:00)
[2018-03-21 10:21] LABS: Glucose,Whole Blood 139 mg/dL (75-99)
[2018-03-21 11:31] LABS: Glucose,Whole Blood 151 mg/dL (75-99)
[2018-03-21 12:20] LABS: Glucose,Whole Blood 189 mg/dL (75-99)
--- NOTE | 2018-03-21 12:28 | PN ---
PROGRESS NOTE Mrs. Hathaway is a 73-year-old female who presented with a cardiopulmonary arrest and had a tension pneumothorax. She is intubated and sedated. She has been evaluated by the Neurology team. She is undergoing workup for anoxic encephalopathy. She has no evidence of ventricular tachycardia. She is on no pressors at this time. PHYSICAL EXAMINATION: Blood pressure 140/50 with a heart rate in the 70s. LUNGS: Clear. Heart: Regular rate and rhythm, S1, S2. No S3 with no gallop with a systolic murmur. ABDOMEN: Soft. Positive bowel sounds. No organomegaly EXTREMITIES: With no significant edema. LAB DATA: Revealed BUN and creatinine 43 and 2.68. Potassium is 3.4. Hemoglobin of 7.2. Her calcium is 6. IMPRESSION: 1. Cardiopulmonary arrest with anoxic encephalopathy. Workup in progress to see the severity. 2. Rib fracture with pneumothorax. 3. Recent pneumonia. 4. Renal failure. RECOMMENDATIONS: We will continue supportive care. Prognosis remains guarded in view of the neurological status. We will await the results of the EEG. Continue to follow the renal function. At this time, there is no active cardiac issues. MMODL / IJN: [id number] /
--- NOTE | 2018-03-21 12:36 | P.PN ---
Subjective Progress Note Date: 03/21/18 Principal diagnosis: Acute hypoxic respiratory failure requiring intubation and mechanical ventilation secondary to cardiac arrest This is a 73-year-old female with history of multiple medical problems, about a month ago, patient was admitted to an outside facility with pneumonia urinary tract infection and sepsis. Apparently patient was intubated and she was on mechanical ventilation for 4 days. She was eventually discharged from the hospital, and spent 10 days in a [place] [facility] [place]. However her condition worsened again, and she returned to [facility] for readmission with persistent pneumonia and difficulty breathing as well as symptoms of arrhythmia/ palpitations. Patient was evaluated again at [facility], and she was discharged yesterday back to long term facility. Patient was discharged about 2 PM, however EMS was dispatched last night to the [place] [facility] for evaluation of difficulty breathing. Arrived to find the patient in respiratory distress with O2 saturation in the 60s. Patient was placed on a nonrebreather, her O2 saturation was noted to be in the mid 90s at the time. Patient appeared alert and oriented according to EMS. Patient was brought in and shortly after arrival the patient decompensated, she was noted to be bradycardic, hypotensive , and she was intubated immediately. Then the patient coded, and she was resuscitated as per ACLS protocol. The code and CPR lasted for about 45 minutes until she had spontaneous return of circulation. Patient was kept on mechanical ventilation, and transferred to the ICU. Apparently after the prolonged code, family was approached, and change the CODE STATUS to DO NOT RESUSCITATE and not to resuscitate again if the patient codes again. She was sent to the ICU on mechanical ventilation, and presently she is on tidal volume of 450 assist-control rate of 20 FiO2 of 40% and PEEP of 5. Peak airway pressure is 33, and plateau pressure 21. Patient has a right IJ central line noted placed by the ER physician. Apparently when the patient arrived to the ICU, she was noted to have extensive right-sided pneumothorax. This was actually seen earlier while the patient was in the ER, but for some reason a chest tube was not done in the ER. I reviewed the chest x-ray around 4 AM in the morning, and I called the ER physician Dr. Dunlap, she came back to the ICU and she placed a right sided chest tube as the patient was going into what seems to be a tension pneumothorax. She was requiring more norepinephrine. Chest x-ray following a right-sided chest tube placement showed complete reexpansion of the right lung. The pneumothoraces were felt to be related most likely to broken ribs from CPR. Reevaluated today on 03/20/2018, patient remains on mechanical ventilation, her ventilator settings are tidal volume of 450 assist-control rate of 20 FiO2 40% PEEP of 5. Patient remains on propofol 50 mcg/kg/m, levo fed 33 mcg/m, and insulin 4 units per hour. Patient does not follow any instructions, but seems to open eyes, and responded slightly to pain. I plan to hold propofol, and assess mental status fully off propofol. Chest x-ray was reviewed, her right lung is fully expanded, chest tube remains in place, and no evidence of air leak noted. Labs showed low hemoglobin of 6.8, hence I recommended a unit of packed RBCs to be given. Blood pressure is marginal. However the patient is not requiring norepinephrine at this point yet. ABG showed a pO2 of 103 pCO2 of 44 pH of 7.36. No changes were made in her present ventilator settings. Nutrition-jansen, patient remains on nutritional support via enteral feeding. Urinalysis showed evidence of pyuria and bacteriuria. Patient is empirically on Zosyn. Reevaluated today on 03/21/2018, remains on mechanical ventilation, and ventilator settings are tidal volume of 400 assist control rate of 26 FiO2 of 40 % and PEEP of 5. Peak airway pressure is noted to be in the high 30s, and plateau pressure is 30. Patient is off propofol this morning, she is arousable , follows simple instructions like wiggling her toes, squeezing hands, this is the best I have seen her in the last 24 hours. However the patient remains tachypneic, tachycardic, and did not tolerate well a short trial of pressure support and CPAP. Her respiratory rate was up in the 30s, and the patient was noted to have some respiratory distress. Then I decided to keep her back on assist control mode of mechanical ventilation, and I recommended restarting her propofol. Labs today were noted to be abnormal, hemoglobin is 6.6 hence the patient will receive another unit of packed RBCs today. Patient had received 2 units of packed RBCs since admission. Repeat hemoglobin after unit the blood was 7.2. ABG earlier today showed a pO2 of 111 pCO2 of 50 pH of 7.28, and this was actually on assist control mode of mechanical ventilation, off propofol, her basic metabolic profile showed low potassium of 3.4 being corrected, her BUN is about the same 43 creatinine is actually better compared to yesterday 2.68 and it was 2.76 yesterday. Chest x-ray continues to show opacity in the right upper lobe, and adequate placement of tubes including endotracheal tube, nasogastric tube, and right-sided chest tube. Questionable atelectasis at the left base. The area in the right upper lobe is actually more consistent with pulmonary contusion from CPR, because it was not present prior to chest tube placement. Objective - Vital Signs Vital signs: Vital Signs Temp 99.1 F 03/21/18 12:00 Pulse 67 03/21/18 12:00 Resp 27 H 03/21/18 12:00 BP 98/49 03/21/18 12:00 Pulse Ox 96 03/21/18 12:00 Intake & Output 03/20/18 03/21/18 03/21/18 18:59 06:59 18:59 Intake Total 2127.869 4422.243 5459.635 Output Total 690 995 305 Balance 1437.869 905.791 766.635 Weight 98.6 kg 98.6 kg Intake: IV 1060 1060 180 Piperacillin-Tazobactam 3 100 100 .375 gm In Sodium Chloride 0.9% 100 ml @ 25 mls/hr IVPB Q12HR [facility] Rx #:[id number] Sodium Chloride 0.9% 1, 960 960 180 000 ml @ 80 mls/hr IV . [id number] [facility] Rx#:[id number] Intake, IV Titration 317.869 210.791 541.635 Amount Calcium Gluconate 1,000 100 mg In Sodium Chloride 0.9 % 100 ml @ 100 mls/hr IVPB ONCE ONE Rx#: [id number] Insulin Regular 100 unit 66.189 64.523 14.393 In Sodium Chloride 0.9% 100 ml @ Per Protocol IV .Q0M [facility] Rx#:[id number] Norepinephrine 16 mg In 251.680 146.268 27.242 Sodium Chloride 0.9% 250 ml @ 5 mls/hr IV .Q24H [facility] Rx#:[id number] Piperacillin-Tazobactam 3 100 .375 gm In Sodium Chloride 0.9% 100 ml @ 25 mls/hr IVPB Q12HR [facility] Rx #:[id number] Propofol 1,000 mg In 50 Empty Bag 1 bag @ Titrate IV .Q0M [facility] Rx#: [id number] Vancomycin 1,500 mg In 250 Sodium Chloride 0.9% 250 ml @ 125 mls/hr IVPB ONCE ONE Rx#:[id number] Tube Feeding 380 240 40 Blood Product 310 360 310 Rc As-3 Unit 310 [id number] Rc As-3 Unit 0 310 [id number] Other 60 30 Output: Chest Tube Drainage 10 Right Lateral Chest 10 Urine 680 995 305 Other: Voiding Method Indwelling Catheter Indwelling Catheter ABP, PAP, CO, CI - Last Documented Arterial Blood Pressure 140/54 - Exam Physical Exam: Revealed a 73-year-old female, opens eyes to deep painful stimuli , no purposeful movement noted. Head: Atraumatic, normocephalic. HEENT:[Neck is supple.] [No neck masses.] [No thyromegaly.] [No JVD.] Pupils are sluggishly reactive to light, no icterus. Endotracheal tube and orogastric tube noted to be intact. Chest: [Crackles and rhonchi noted bilaterally,] multiple bruises and areas of ecchymosis noted on the anterior chest wall bilaterally. Right-sided chest tube is noted just over the fourth intercostal space on the right side. Cardiac Exam: [Normal S1 and S2, no S3 gallop, no murmur.] Abdomen: [Soft, nontender, no megaly, no rebound, no guarding, normal bowel sounds.] Extremities: Multiple areas of bruises and ecchymosis noted in both upper and lower extremities.] Neurological Exam: Patient is withdrawing to pain, and opens eyes to painful stimuli. Psychiatric: Cannot be assessed. Skin: Unchanged bruises and ecchymosis over the anterior chest wall. - Labs CBC & Chem 7: 03/21/18 05:05 03/21/18 05:05 Labs: Abnormal Lab Results - Last 24 Hours (Table) 03/18/18 03/20/18 03/20/18 Range/Units 22:20 13:15 14:10 WBC (3.8-10.6) k/uL RBC (3.80-5.40) m/uL Hgb (11.4-16.0) gm/dL Hct (34.0-46.0) % RDW (11.5-15.5) % Neutrophils # (1.3-7.7) k/uL Lymphocytes # (1.0-4.8) k/uL ABG pH (7.35-7.45) ABG pCO2 (35-45) mmHg ABG pO2 (83-108) mmHg ABG Total CO2 (19-24) mmol/L ABG O2 Saturation (94-97) % Potassium (3.5-5.1) mmol/L Chloride (98-107) mmol/L Carbon Dioxide (22-30) mmol/L BUN (7-17) mg/dL Creatinine (0.52-1.04) mg/dL POC Glucose (mg/dL) 182 H 188 H (75-99) mg/dL Calcium (8.4-10.2) mg/dL Magnesium (1.6-2.3) mg/dL Crossmatch See Detail 03/20/18 03/20/18 03/20/18 Range/Units 15:03 15:58 17:19 WBC (3.8-10.6) k/uL RBC (3.80-5.40) m/uL Hgb (11.4-16.0) gm/dL Hct (34.0-46.0) % RDW (11.5-15.5) % Neutrophils # (1.3-7.7) k/uL Lymphocytes # (1.0-4.8) k/uL ABG pH (7.35-7.45) ABG pCO2 (35-45) mmHg ABG pO2 (83-108) mmHg ABG Total CO2 (19-24) mmol/L ABG O2 Saturation (94-97) % Potassium (3.5-5.1) mmol/L Chloride (98-107) mmol/L Carbon Dioxide (22-30) mmol/L BUN (7-17) mg/dL Creatinine (0.52-1.04) mg/dL POC Glucose (mg/dL) 179 H 157 H 131 H (75-99) mg/dL Calcium (8.4-10.2) mg/dL Magnesium (1.6-2.3) mg/dL Crossmatch 03/20/18 03/20/18 03/20/18 Range/Units 18:06 19:08 20:05 WBC (3.8-10.6) k/uL RBC (3.80-5.40) m/uL Hgb (11.4-16.0) gm/dL Hct (34.0-46.0) % RDW (11.5-15.5) % Neutrophils # (1.3-7.7) k/uL Lymphocytes # (1.0-4.8) k/uL ABG pH (7.35-7.45) ABG pCO2 (35-45) mmHg ABG pO2 (83-108) mmHg ABG Total CO2 (19-24) mmol/L ABG O2 Saturation (94-97) % Potassium (3.5-5.1) mmol/L Chloride (98-107) mmol/L Carbon Dioxide (22-30) mmol/L BUN (7-17) mg/dL Creatinine (0.52-1.04) mg/dL POC Glucose (mg/dL) 147 H 160 H 153 H (75-99) mg/dL Calcium (8.4-10.2) mg/dL Magnesium (1.6-2.3) mg/dL Crossmatch 03/20/18 03/20/18 03/20/18 Range/Units 21:02 22:05 22:59 WBC (3.8-10.6) k/uL RBC (3.80-5.40) m/uL Hgb (11.4-16.0) gm/dL Hct (34.0-46.0) % RDW (11.5-15.5) % Neutrophils # (1.3-7.7) k/uL Lymphocytes # (1.0-4.8) k/uL ABG pH (7.35-7.45) ABG pCO2 (35-45) mmHg ABG pO2 (83-108) mmHg ABG Total CO2 (19-24) mmol/L ABG O2 Saturation (94-97) % Potassium (3.5-5.1) mmol/L Chloride (98-107) mmol/L Carbon Dioxide (22-30) mmol/L BUN (7-17) mg/dL Creatinine (0.52-1.04) mg/dL POC Glucose (mg/dL) 137 H 133 H 189 H (75-99) mg/dL Calcium (8.4-10.2) mg/dL Magnesium (1.6-2.3) mg/dL Crossmatch 03/21/18 03/21/18 03/21/18 Range/Units 00:08 00:10 01:02 WBC 13.4 H (3.8-10.6) k/uL RBC 2.22 L (3.80-5.40) m/uL Hgb 6.6 L* (11.4-16.0) gm/dL Hct 20.5 L (34.0-46.0) % RDW 16.5 H (11.5-15.5) % Neutrophils # (1.3-7.7) k/uL Lymphocytes # (1.0-4.8) k/uL ABG pH (7.35-7.45) ABG pCO2 (35-45) mmHg ABG pO2 (83-108) mmHg ABG Total CO2 (19-24) mmol/L ABG O2 Saturation (94-97) % Potassium (3.5-5.1) mmol/L Chloride (98-107) mmol/L Carbon Dioxide (22-30) mmol/L BUN (7-17) mg/dL Creatinine (0.52-1.04) mg/dL POC Glucose (mg/dL) 190 H 187 H (75-99) mg/dL Calcium (8.4-10.2) mg/dL Magnesium (1.6-2.3) mg/dL Crossmatch 03/21/18 03/21/18 03/21/18 Range/Units 02:08 03:02 04:07 WBC (3.8-10.6) k/uL RBC (3.80-5.40) m/uL Hgb (11.4-16.0) gm/dL Hct (34.0-46.0) % RDW (11.5-15.5) % Neutrophils # (1.3-7.7) k/uL Lymphocytes # (1.0-4.8) k/uL ABG pH (7.35-7.45) ABG pCO2 (35-45) mmHg ABG pO2 (83-108) mmHg ABG Total CO2 (19-24) mmol/L ABG O2 Saturation (94-97) % Potassium (3.5-5.1) mmol/L Chloride (98-107) mmol/L Carbon Dioxide (22-30) mmol/L BUN (7-17) mg/dL Creatinine (0.52-1.04) mg/dL POC Glucose (mg/dL) 167 H 161 H 141 H (75-99) mg/dL Calcium (8.4-10.2) mg/dL Magnesium (1.6-2.3) mg/dL Crossmatch 03/21/18 03/21/18 03/21/18 Range/Units 05:05 05:05 05:11 WBC 13.0 H (3.8-10.6) k/uL RBC 2.39 L (3.80-5.40) m/uL Hgb 7.2 L (11.4-16.0) gm/dL Hct 21.6 L (34.0-46.0) % RDW 17.0 H (11.5-15.5) % Neutrophils # 11.7 H (1.3-7.7) k/uL Lymphocytes # 0.5 L (1.0-4.8) k/uL ABG pH (7.35-7.45) ABG pCO2 (35-45) mmHg ABG pO2 (83-108) mmHg ABG Total CO2 (19-24) mmol/L ABG O2 Saturation (94-97) % Potassium 3.4 L (3.5-5.1) mmol/L Chloride 118 H (98-107) mmol/L Carbon Dioxide 20 L (22-30) mmol/L BUN 43 H (7-17) mg/dL Creatinine 2.68 H (0.52-1.04) mg/dL POC Glucose (mg/dL) 126 H (75-99) mg/dL Calcium 6.0 L* (8.4-10.2) mg/dL Magnesium 2.4 H (1.6-2.3) mg/dL Crossmatch 03/21/18 03/21/18 03/21/18 Range/Units 06:05 07:17 07:27 WBC (3.8-10.6) k/uL RBC (3.80-5.40) m/uL Hgb (11.4-16.0) gm/dL Hct (34.0-46.0) % RDW (11.5-15.5) % Neutrophils # (1.3-7.7) k/uL Lymphocytes # (1.0-4.8) k/uL ABG pH 7.28 L (7.35-7.45) ABG pCO2 50 H (35-45) mmHg ABG pO2 111 H (83-108) mmHg ABG Total CO2 25 H (19-24) mmol/L ABG O2 Saturation 99.0 H (94-97) % Potassium (3.5-5.1) mmol/L Chloride (98-107) mmol/L Carbon Dioxide (22-30) mmol/L BUN (7-17) mg/dL Creatinine (0.52-1.04) mg/dL POC Glucose (mg/dL) 131 H 157 H (75-99) mg/dL Calcium (8.4-10.2) mg/dL Magnesium (1.6-2.3) mg/dL Crossmatch 03/21/18 03/21/18 03/21/18 Range/Units 08:00 09:19 10:09 WBC (3.8-10.6) k/uL RBC (3.80-5.40) m/uL Hgb (11.4-16.0) gm/dL Hct (34.0-46.0) % RDW (11.5-15.5) % Neutrophils # (1.3-7.7) k/uL Lymphocytes # (1.0-4.8) k/uL ABG pH (7.35-7.45) ABG pCO2 (35-45) mmHg ABG pO2 (83-108) mmHg ABG Total CO2 (19-24) mmol/L ABG O2 Saturation (94-97) % Potassium (3.5-5.1) mmol/L Chloride (98-107) mmol/L Carbon Dioxide (22-30) mmol/L BUN (7-17) mg/dL Creatinine (0.52-1.04) mg/dL POC Glucose (mg/dL) 143 H 145 H 139 H (75-99) mg/dL Calcium (8.4-10.2) mg/dL Magnesium (1.6-2.3) mg/dL Crossmatch 03/21/18 03/21/18 Range/Units 11:20 12:09 WBC (3.8-10.6) k/uL RBC (3.80-5.40) m/uL Hgb (11.4-16.0) gm/dL Hct (34.0-46.0) % RDW (11.5-15.5) % Neutrophils # (1.3-7.7) k/uL Lymphocytes # (1.0-4.8) k/uL ABG pH (7.35-7.45) ABG pCO2 (35-45) mmHg ABG pO2 (83-108) mmHg ABG Total CO2 (19-24) mmol/L ABG O2 Saturation (94-97) % Potassium (3.5-5.1) mmol/L Chloride (98-107) mmol/L Carbon Dioxide (22-30) mmol/L BUN (7-17) mg/dL Creatinine (0.52-1.04) mg/dL POC Glucose (mg/dL) 151 H 189 H (75-99) mg/dL Calcium (8.4-10.2) mg/dL Magnesium (1.6-2.3) mg/dL Crossmatch Microbiology - Last 24 Hours (Table) 03/19/18 00:00 Urine Culture - Final Urine,Voided Vibha albicans Klebsiella pneumoniae 03/19/18 03:17 Gram Stain - Final Sputum Sputum Culture - Final 03/19/18 03:31 Blood Culture - Preliminary Blood No Growth after 48 hours 03/19/18 00:34 Blood Culture Gram Stain - Preliminary Blood Assessment and Plan Assessment: Impression: 1 acute hypoxic respiratory failure and cardiac arrest requiring prolonged CPR in the emergency room department. 2 multiple rib fractures and right sided pneumothorax requiring right-sided chest tube placement. Rib fractures are iatrogenic in nature. 3 recent hospitalization for pneumonia and sepsis, however no clear-cut evidence of pneumonia on the initial chest x-ray done on this admission. Chest x-ray is showing left basilar atelectasis. And patchy opacity at the site of the tube insertion which was not present on presentation. 4 right-sided pneumothorax, secondary to rib fractures/iatrogenic. Requiring right-sided chest tube placement. 5 strongly suspect anoxic brain injury considering the prolonged CPR until recovery of spontaneous circulation. Mental status seems to be improving today , however it is not quite back to normal. Patient seems to be more appropriate , following simple instructions, especially wiggling toes and squeezing hands, closing eyes, Recommendation: Continue ventilatory support, nutritional support, insulin, hold propofol and assess mental status on a daily basis, this was done today, and the patient seems to be a bit more appropriate compared to previous examination findings.. Continue empiric antibiotics, all cultures remain negative so far. Continue to monitor chest tube, placed off suction.. Continue GI and DVT prophylaxis. Prognosis is relatively guarded, my major concern is the possibility of anoxic brain injury. Patient remains critically ill. Critical care time is 35 minutes. Time with Patient: Greater than 30
--- NOTE | 2018-03-21 12:52 | PN ---
PROGRESS NOTE The patient is seen for followup for acute kidney injury. She remains on the vent. Urine output is slightly better. The Levophed is also decreasing. The patient is status post cardiac arrest and has sepsis with urinary tract infection with urine culture growing Klebsiella pneumoniae and Vibha. PHYSICAL EXAMINATION: On examination, patient remains on the vent. Blood pressure was 116/50, heart rate 74 per minute. She is afebrile. EXAMINATION OF THE HEART: S1, S2. EXAMINATION OF THE LUNGS: Bilateral breath sounds are heard. Abdomen is soft, nontender. Examination of lower extremities shows no significant edema. MEDIA LIAISON OFFICER exam cannot be assessed. LABS: Labs how sodium of a 142, potassium 3.4, chloride 118, CO2 is 20, BUN 43, serum creatinine 2.68. ASSESSMENT: 1. Acute kidney injury, acute tubular necrosis, nonoliguric secondary to hypotension, sepsis and cardiac arrest. 2. Status post cardiac arrest. 3. Right pneumothorax after cardiac arrest iatrogenic, currently with chest tube. 4. Hypokalemia. Will replace. 5. Urinary tract infection with urine culture growing Klebsiella pneumoniae. PLAN: Continue IV fluids. Continue to wean down Levophed. Continue antibiotics. Repeat labs in a.m. MMODL / IJN: [id number] /
[2018-03-21 13:19] LABS: Glucose,Whole Blood 195 mg/dL (75-99)
[2018-03-21 14:18] LABS: Glucose,Whole Blood 184 mg/dL (75-99)
[2018-03-21 15:48] LABS: Glucose,Whole Blood 173 mg/dL (75-99)
--- NOTE | 2018-03-21 15:48 | P.PN ---
Subjective This is a pleasant 73 years old female with past medical history of congestive heart failure and atrial fibrillation. Patient was transferred from residential where she was therefore 10 days, recently discharged from the hospital for sepsis, pneumonia and UTI. This time EMS were called for difficulty breathing and they found her oxygen saturation was 60, she was placed on non-rebreather and her oxygen went up to mid 90s Patient is currently intubated and cannot provide information which were obtained from the medical staff, medical records, and sister at bedside who is her guardian. As per sister patient has been admitted to [facility] twice in the last 36 days for pneumonia and UTI with sepsis. Each time ascending to rehab, first time for 10 days and then for 16 days. As per sister they have been contacted earlier and they wanted everything to be done. But now with a want to change her CODE STATUS to DO NOT RESUSCITATE. On admission she was saturating is 6% on room air and she was breathing at respiratory rate of 30 minutes. Her blood pressure was 155/64, later on it dropped to 63/38. And she was bradycardic in the 40s and 50s. Leukocytosis at 14.8 K, hemoglobin 9, platelets 543. Sodium 135, potassium 5.9, creatinine 2.4 , sugar was signed between 300-400. Troponin is elevated at 0.04 and 0.319. LFT unremarkable.UA was suggestive of infection. Chest x-ray shows bilateral pneumothorax with larger on the left side, follow-up chest x-ray showing large right-side pneumothorax, getting worse 03/20/2018 Patient remains intubated in the ICU. Her sugar looks controlled however her hemoglobin this morning dropped to 6.8, she's getting 1 unit of blood transfusion. Heparin was put on hold. Check FOBT Creatinine 2.7. Rest of electrolytes are controlled. Critical care team for the patient's and decrease in the sedation. Nephrology and cardiology are following the patient is on IV fluids and Zosyn and vancomycin is on hold and check in the level 03/21/2018 Patient remains intubated in the ICU. She felt breathing trial today when they decreased her sedation. Has 2 units of blood transfusion for her acute anemia, her hemoglobin was low this morning at 6.6 occult blood in the stool is pending. Blood pressure 109/48, breathing rate at 26. A febrile telemetry somewhat low at 6.0. Calcium gluconate is a provided by the critical care team. Cardiology team evaluated the patient, they recommended continue with supportive care. EEG is pending my review of systems : n/a Medications are reviewed Objective - Vital Signs Vital signs: Vital Signs Temp 99.1 F 03/21/18 12:00 Pulse 68 03/21/18 15:00 Resp 26 H 03/21/18 15:00 BP 109/48 03/21/18 15:00 Pulse Ox 97 03/21/18 15:00 Intake & Output 03/20/18 03/21/18 03/21/18 18:59 06:59 18:59 Intake Total 2127.869 7057.277 7492.635 Output Total 690 995 440 Balance 1437.869 905.791 807.635 Weight 98.6 kg 98.6 kg Intake: IV 1060 1060 240 Piperacillin-Tazobactam 3 100 100 .375 gm In Sodium Chloride 0.9% 100 ml @ 25 mls/hr IVPB Q12HR LEN Rx #:[id number] Sodium Chloride 0.9% 1, 960 960 240 000 ml @ 80 mls/hr IV . [id number] LEN Rx#:[id number] Intake, IV Titration 317.869 210.791 577.635 Amount Calcium Gluconate 1,000 100 mg In Sodium Chloride 0.9 % 100 ml @ 100 mls/hr IVPB ONCE ONE Rx#: [id number] Insulin Regular 100 unit 66.189 64.523 14.393 In Sodium Chloride 0.9% 100 ml @ Per Protocol IV .Q0M LEN Rx#:[id number] Norepinephrine 16 mg In 251.680 146.268 27.242 Sodium Chloride 0.9% 250 ml @ 5 mls/hr IV .Q24H LEN Rx#:[id number] Piperacillin-Tazobactam 3 100 .375 gm In Sodium Chloride 0.9% 100 ml @ 25 mls/hr IVPB Q12HR LEN Rx #:[id number] Propofol 1,000 mg In 86 Empty Bag 1 bag @ Titrate IV .Q0M LEN Rx#: [id number] Vancomycin 1,500 mg In 250 Sodium Chloride 0.9% 250 ml @ 125 mls/hr IVPB ONCE ONE Rx#:[id number] Tube Feeding 380 240 120 Blood Product 310 360 310 As-3 Unit 310 [id number] As-3 Unit 0 310 [id number] Other 60 30 Output: Chest Tube Drainage 10 Right Lateral Chest 10 Urine 680 995 440 Other: Voiding Method Indwelling Catheter Indwelling Catheter Indwelling Catheter ABP, PAP, CO, CI - Last Documented Arterial Blood Pressure 143/51 - Exam -GENERAL: The patient is intubated, not in any acute distress. HEENT: Pupils are round and equally reacting to light. EOMI. No scleral icterus. No conjunctival pallor. Normocephalic, atraumatic. No pharyngeal erythema. No thyromegaly. CARDIOVASCULAR: S1 and S2 present. No murmurs, rubs, or gallops. -PULMONARY: Chest is clear to auscultation, decreased breath sounds bilaterally ABDOMEN: Soft, nontender, nondistended, normoactive bowel sounds. No palpable organomegaly. MUSCULOSKELETAL: No joint swelling or deformity. EXTREMITIES: No cyanosis, clubbing, or pedal edema. NEUROLOGICAL: Gross neurological examination did not reveal any focal deficits. SKIN: No rashes. - Labs CBC & Chem 7: 03/21/18 05:05 03/21/18 05:05 Labs: Abnormal Lab Results - Last 24 Hours (Table) 03/18/18 03/20/18 03/20/18 Range/Units 22:20 15:58 17:19 WBC (3.8-10.6) k/uL RBC (3.80-5.40) m/uL Hgb (11.4-16.0) gm/dL Hct (34.0-46.0) % RDW (11.5-15.5) % Neutrophils # (1.3-7.7) k/uL Lymphocytes # (1.0-4.8) k/uL ABG pH (7.35-7.45) ABG pCO2 (35-45) mmHg ABG pO2 (83-108) mmHg ABG Total CO2 (19-24) mmol/L ABG O2 Saturation (94-97) % Potassium (3.5-5.1) mmol/L Chloride (98-107) mmol/L Carbon Dioxide (22-30) mmol/L BUN (7-17) mg/dL Creatinine (0.52-1.04) mg/dL POC Glucose (mg/dL) 157 H 131 H (75-99) mg/dL Calcium (8.4-10.2) mg/dL Magnesium (1.6-2.3) mg/dL Stool Occult Blood (Negative) Crossmatch See Detail 03/20/18 03/20/18 03/20/18 Range/Units 18:06 19:08 20:05 WBC (3.8-10.6) k/uL RBC (3.80-5.40) m/uL Hgb (11.4-16.0) gm/dL Hct (34.0-46.0) % RDW (11.5-15.5) % Neutrophils # (1.3-7.7) k/uL Lymphocytes # (1.0-4.8) k/uL ABG pH (7.35-7.45) ABG pCO2 (35-45) mmHg ABG pO2 (83-108) mmHg ABG Total CO2 (19-24) mmol/L ABG O2 Saturation (94-97) % Potassium (3.5-5.1) mmol/L Chloride (98-107) mmol/L Carbon Dioxide (22-30) mmol/L BUN (7-17) mg/dL Creatinine (0.52-1.04) mg/dL POC Glucose (mg/dL) 147 H 160 H 153 H (75-99) mg/dL Calcium (8.4-10.2) mg/dL Magnesium (1.6-2.3) mg/dL Stool Occult Blood (Negative) Crossmatch 03/20/18 03/20/18 03/20/18 Range/Units 21:02 22:05 22:59 WBC (3.8-10.6) k/uL RBC (3.80-5.40) m/uL Hgb (11.4-16.0) gm/dL Hct (34.0-46.0) % RDW (11.5-15.5) % Neutrophils # (1.3-7.7) k/uL Lymphocytes # (1.0-4.8) k/uL ABG pH (7.35-7.45) ABG pCO2 (35-45) mmHg ABG pO2 (83-108) mmHg ABG Total CO2 (19-24) mmol/L ABG O2 Saturation (94-97) % Potassium (3.5-5.1) mmol/L Chloride (98-107) mmol/L Carbon Dioxide (22-30) mmol/L BUN (7-17) mg/dL Creatinine (0.52-1.04) mg/dL POC Glucose (mg/dL) 137 H 133 H 189 H (75-99) mg/dL Calcium (8.4-10.2) mg/dL Magnesium (1.6-2.3) mg/dL Stool Occult Blood (Negative) Crossmatch 03/21/18 03/21/18 03/21/18 Range/Units 00:08 00:10 01:02 WBC 13.4 H (3.8-10.6) k/uL RBC 2.22 L (3.80-5.40) m/uL Hgb 6.6 L* (11.4-16.0) gm/dL Hct 20.5 L (34.0-46.0) % RDW 16.5 H (11.5-15.5) % Neutrophils # (1.3-7.7) k/uL Lymphocytes # (1.0-4.8) k/uL ABG pH (7.35-7.45) ABG pCO2 (35-45) mmHg ABG pO2 (83-108) mmHg ABG Total CO2 (19-24) mmol/L ABG O2 Saturation (94-97) % Potassium (3.5-5.1) mmol/L Chloride (98-107) mmol/L Carbon Dioxide (22-30) mmol/L BUN (7-17) mg/dL Creatinine (0.52-1.04) mg/dL POC Glucose (mg/dL) 190 H 187 H (75-99) mg/dL Calcium (8.4-10.2) mg/dL Magnesium (1.6-2.3) mg/dL Stool Occult Blood (Negative) Crossmatch 03/21/18 03/21/18 03/21/18 Range/Units 02:08 03:02 04:07 WBC (3.8-10.6) k/uL RBC (3.80-5.40) m/uL Hgb (11.4-16.0) gm/dL Hct (34.0-46.0) % RDW (11.5-15.5) % Neutrophils # (1.3-7.7) k/uL Lymphocytes # (1.0-4.8) k/uL ABG pH (7.35-7.45) ABG pCO2 (35-45) mmHg ABG pO2 (83-108) mmHg ABG Total CO2 (19-24) mmol/L ABG O2 Saturation (94-97) % Potassium (3.5-5.1) mmol/L Chloride (98-107) mmol/L Carbon Dioxide (22-30) mmol/L BUN (7-17) mg/dL Creatinine (0.52-1.04) mg/dL POC Glucose (mg/dL) 167 H 161 H 141 H (75-99) mg/dL Calcium (8.4-10.2) mg/dL Magnesium (1.6-2.3) mg/dL Stool Occult Blood (Negative) Crossmatch 03/21/18 03/21/18 03/21/18 Range/Units 05:05 05:05 05:11 WBC 13.0 H (3.8-10.6) k/uL RBC 2.39 L (3.80-5.40) m/uL Hgb 7.2 L (11.4-16.0) gm/dL Hct 21.6 L (34.0-46.0) % RDW 17.0 H (11.5-15.5) % Neutrophils # 11.7 H (1.3-7.7) k/uL Lymphocytes # 0.5 L (1.0-4.8) k/uL ABG pH (7.35-7.45) ABG pCO2 (35-45) mmHg ABG pO2 (83-108) mmHg ABG Total CO2 (19-24) mmol/L ABG O2 Saturation (94-97) % Potassium 3.4 L (3.5-5.1) mmol/L Chloride 118 H (98-107) mmol/L Carbon Dioxide 20 L (22-30) mmol/L BUN 43 H (7-17) mg/dL Creatinine 2.68 H (0.52-1.04) mg/dL POC Glucose (mg/dL) 126 H (75-99) mg/dL Calcium 6.0 L* (8.4-10.2) mg/dL Magnesium 2.4 H (1.6-2.3) mg/dL Stool Occult Blood (Negative) Crossmatch 03/21/18 03/21/18 03/21/18 Range/Units 06:05 07:17 07:27 WBC (3.8-10.6) k/uL RBC (3.80-5.40) m/uL Hgb (11.4-16.0) gm/dL Hct (34.0-46.0) % RDW (11.5-15.5) % Neutrophils # (1.3-7.7) k/uL Lymphocytes # (1.0-4.8) k/uL ABG pH 7.28 L (7.35-7.45) ABG pCO2 50 H (35-45) mmHg ABG pO2 111 H (83-108) mmHg ABG Total CO2 25 H (19-24) mmol/L ABG O2 Saturation 99.0 H (94-97) % Potassium (3.5-5.1) mmol/L Chloride (98-107) mmol/L Carbon Dioxide (22-30) mmol/L BUN (7-17) mg/dL Creatinine (0.52-1.04) mg/dL POC Glucose (mg/dL) 131 H 157 H (75-99) mg/dL Calcium (8.4-10.2) mg/dL Magnesium (1.6-2.3) mg/dL Stool Occult Blood (Negative) Crossmatch 03/21/18 03/21/18 03/21/18 Range/Units 08:00 09:19 10:09 WBC (3.8-10.6) k/uL RBC (3.80-5.40) m/uL Hgb (11.4-16.0) gm/dL Hct (34.0-46.0) % RDW (11.5-15.5) % Neutrophils # (1.3-7.7) k/uL Lymphocytes # (1.0-4.8) k/uL ABG pH (7.35-7.45) ABG pCO2 (35-45) mmHg ABG pO2 (83-108) mmHg ABG Total CO2 (19-24) mmol/L ABG O2 Saturation (94-97) % Potassium (3.5-5.1) mmol/L Chloride (98-107) mmol/L Carbon Dioxide (22-30) mmol/L BUN (7-17) mg/dL Creatinine (0.52-1.04) mg/dL POC Glucose (mg/dL) 143 H 145 H 139 H (75-99) mg/dL Calcium (8.4-10.2) mg/dL Magnesium (1.6-2.3) mg/dL Stool Occult Blood (Negative) Crossmatch 03/21/18 03/21/18 03/21/18 Range/Units 11:20 12:09 12:30 WBC (3.8-10.6) k/uL RBC (3.80-5.40) m/uL Hgb (11.4-16.0) gm/dL Hct (34.0-46.0) % RDW (11.5-15.5) % Neutrophils # (1.3-7.7) k/uL Lymphocytes # (1.0-4.8) k/uL ABG pH (7.35-7.45) ABG pCO2 (35-45) mmHg ABG pO2 (83-108) mmHg ABG Total CO2 (19-24) mmol/L ABG O2 Saturation (94-97) % Potassium (3.5-5.1) mmol/L Chloride (98-107) mmol/L Carbon Dioxide (22-30) mmol/L BUN (7-17) mg/dL Creatinine (0.52-1.04) mg/dL POC Glucose (mg/dL) 151 H 189 H (75-99) mg/dL Calcium (8.4-10.2) mg/dL Magnesium (1.6-2.3) mg/dL Stool Occult Blood Positive H (Negative) Crossmatch 03/21/18 03/21/18 Range/Units 13:07 14:07 WBC (3.8-10.6) k/uL RBC (3.80-5.40) m/uL Hgb (11.4-16.0) gm/dL Hct (34.0-46.0) % RDW (11.5-15.5) % Neutrophils # (1.3-7.7) k/uL Lymphocytes # (1.0-4.8) k/uL ABG pH (7.35-7.45) ABG pCO2 (35-45) mmHg ABG pO2 (83-108) mmHg ABG Total CO2 (19-24) mmol/L ABG O2 Saturation (94-97) % Potassium (3.5-5.1) mmol/L Chloride (98-107) mmol/L Carbon Dioxide (22-30) mmol/L BUN (7-17) mg/dL Creatinine (0.52-1.04) mg/dL POC Glucose (mg/dL) 195 H 184 H (75-99) mg/dL Calcium (8.4-10.2) mg/dL Magnesium (1.6-2.3) mg/dL Stool Occult Blood (Negative) Crossmatch Microbiology - Last 24 Hours (Table) 03/19/18 00:34 Blood Culture Gram Stain - Final Blood Blood Culture - Final Coagulase Negative Staph 03/19/18 00:00 Urine Culture - Final Urine,Voided Vibha albicans Klebsiella pneumoniae 03/19/18 03:17 Gram Stain - Final Sputum Sputum Culture - Final 03/19/18 03:31 Blood Culture - Preliminary Blood No Growth after 48 hours Assessment and Plan Assessment: Status post cardiac arrest and CPR as per ACL protocol Septic shock, secondary to possible pneumonia and UTI Bilateral pneumothorax more on the right side with multiple rib fractures. Status post chest tube Acute kidney injury Possible anoxic brain injury Hypocalcemia Severe anemia and 80 blood transfusion. Plan: This is a 73 years old female who presents because of cardiopulmonary arrest and septic shock, mostly secondary to UTI with possible pneumonia, low hemoglobin. Pulmonary/critical care team are following the patient. Cardiology and neurology consult. Continue with antibiotics, IV fluids. Continue pressors as per ICU team. Vent management as per pulmonary and ICU team.Labs and medication were reviewed. Continue same treatment. Continue with symptomatic treatment. Resume home medication. Monitor lytes and vitals. DVT and GI prophylaxis. Further recommendations of the clinical course of the patient DVT prophylaxis: Subcutaneous heparin GI Prophylaxis: Pepcid Prognosis is guarded and very poor
[2018-03-21] MEDS: PROPOFOL 1,000 MG in EMPTY BAG 1 BAG IV SCH (16:09)
[2018-03-21 16:16] LABS: Anisocytosis Slight; HCT 21.1 % (34.0-46.0); Hypochromasia Slight; MCH 29.4 pg (25.0-35.0); MCHC 33.1 g/dL (31.0-37.0); MCV 88.6 fL (80.0-100.0); Mean Platelet Volume 7.5; Platelet Count 211 k/uL (150-450); Poikilocytosis Moderate; RBC 2.38 m/uL (3.80-5.40); RDW 17.6 % (11.5-15.5); WBC 14.1 k/uL (3.8-10.6)
[2018-03-21 16:26] LABS: Glucose,Whole Blood 151 mg/dL (75-99)
[2018-03-21 17:24] LABS: Glucose,Whole Blood 151 mg/dL (75-99)
[2018-03-21 18:12] LABS: Glucose,Whole Blood 175 mg/dL (75-99)
--- NOTE | 2018-03-21 19:23 | CT ---
EXAMINATION TYPE: CT brain wo con DATE OF EXAM: 03/21/2018 HISTORY: Altered mental status CT DLP: 1192.4 mGycm. Automated Exposure Control for Dose Reduction was Utilized. TECHNIQUE: CT scan of the head is performed without contrast. COMPARISON: CT Brain dated 2 days ago. FINDINGS: There is no acute intracranial hemorrhage or midline shift identified. There is diffuse v entricular and sulcal prominence consistent with diffuse age-related cerebral atrophy. There is low- attenuation in the periventricular white matter consistent with chronic small vessel ischemic change. There is new area of low attenuation in the high right parietal region near axial image 67 consisten t with evolving acute infarct The globes are intact and the visualized sinuses are clear. There is partial visualization of endotracheal and orogastric tubes on localizer. IMPRESSION: No acute intracranial hemorrhage or midline shift. There is mild to moderate diffuse ag e-related cerebral atrophy and moderate to advanced chronic small vessel ischemic change redemonstrat ed. There is now visualization of evolving acute infarct high right parietal region noted.
[2018-03-21 19:30] LABS: Glucose,Whole Blood 171 mg/dL (75-99)
[2018-03-21 20:17] LABS: Glucose,Whole Blood 164 mg/dL (75-99)
[2018-03-21 21:14] LABS: Glucose,Whole Blood 162 mg/dL (75-99)
[2018-03-21] MEDS: ASPIRIN 325 MG TAB PO SCH (22:06)
[2018-03-21 22:18] LABS: Glucose,Whole Blood 160 mg/dL (75-99)
[2018-03-21] MEDS: INSULIN REGULAR 100 UNIT in SODIUM CHLORIDE 0.9% 100 ML IV SCH (22:21)
[2018-03-21 23:13] LABS: Glucose,Whole Blood 154 mg/dL (75-99)
[2018-03-22 00:16] LABS: Glucose,Whole Blood 164 mg/dL (75-99)
[2018-03-22 01:18] LABS: Anisocytosis Slight; HCT 20.6 % (34.0-46.0); Hypochromasia Slight; MCH 30.3 pg (25.0-35.0); MCHC 32.9 g/dL (31.0-37.0); MCV 92.2 fL (80.0-100.0); Mean Platelet Volume 7.8; Platelet Count 211 k/uL (150-450); Poikilocytosis Slight; RBC 2.24 m/uL (3.80-5.40); RDW 17.8 % (11.5-15.5); WBC 12.8 k/uL (3.8-10.6)
[2018-03-22 01:20] LABS: HGB 6.8 gm/dL (11.4-16.0)
[2018-03-22 02:24] LABS: Glucose,Whole Blood 162 mg/dL (75-99)
[2018-03-22] MEDS: PROPOFOL 1,000 MG in EMPTY BAG 1 BAG IV SCH ×3 (02:57→16:24)
[2018-03-22] MEDS: SODIUM CHLORIDE 0.9% 1,000 ML IV SCH ×2 (02:58→16:24)
[2018-03-22] MEDS: IPRATROPIUM-ALBUTEROL 3 ML NEB INHALATION SCH ×6 (04:09→23:11)
[2018-03-22 04:19] LABS: Glucose,Whole Blood 139 mg/dL (75-99)
[2018-03-22 05:18] LABS: Glucose,Whole Blood 131 mg/dL (75-99)
[2018-03-22 05:40] LABS: Anisocytosis Slight; Basophils % (A) 0 %; Eosinophils # (A) 0.1 k/uL (0-0.7); Eosinophils % (A) 1 %; HCT 21.6 % (34.0-46.0); Hypochromasia Slight; Lymphocytes # (A) 0.7 k/uL (1.0-4.8); Lymphocytes % (A) 5 %; MCH 29.1 pg (25.0-35.0); MCHC 32.6 g/dL (31.0-37.0); MCV 89.3 fL (80.0-100.0); Mean Platelet Volume 7.4; Monocytes # (A) 0.6 k/uL (0-1.0); Monocytes % (A) 5 %; Neutrophils # (A) 10.9 k/uL (1.3-7.7); Neutrophils % (A) 87 %; Platelet Count 213 k/uL (150-450); Poikilocytosis Slight; RBC 2.42 m/uL (3.80-5.40); RDW 17.6 % (11.5-15.5); WBC 12.6 k/uL (3.8-10.6)
[2018-03-22 05:59] LABS: Calcium 7.5 mg/dL (8.4-10.2); Magnesium 2.5 mg/dL (1.6-2.3); Phosphorus 3.7 mg/dL (2.5-4.5)
[2018-03-22 06:19] LABS: Glucose,Whole Blood 109 mg/dL (75-99)
--- NOTE | 2018-03-22 07:43 | XR ---
EXAMINATION TYPE: XR chest 1V DATE OF EXAM: 03/22/2018 CLINICAL HISTORY: Difficulty breathing progress study. TECHNIQUE: Single AP portable semiupright view of the chest is obtained. COMPARISON: Chest x-ray from one day earlier and older studies. FINDINGS: An endotracheal tube, orogastric tube, right apical chest tube, and right internal jugular central venous catheter are all stable in appearance. There is persistent cardiomegaly with atherosclerotic thoracic aorta. Reticular interstitial opacitie s bilaterally remain present with patchy right suprahilar infiltrate again seen. Improved aeration le ft lung base noted. No large pleural effusion or pneumothorax is present bilaterally. Osseous structu res are intact. IMPRESSION: No sizable pneumothorax with right-sided chest tube in place. There is cardiomegaly and c hronic parenchymal change with persistent right suprahilar acute infiltrate felt stable. There is per sistent but improving left basilar infiltrate noted.
[2018-03-22 07:57] LABS: ABG Base Excess -1.6 mmol/L; ABG HCO3 24 mmol/L (21-25); ABG Oxygen Saturation 99.6 % (94-97); ABG PCO2 46 mmHg (35-45); ABG PH 7.33 (7.35-7.45); ABG PO2 107 mmHg (83-108); ABG TCO2 26 mmol/L (19-24)
[2018-03-22 08:23] LABS: Glucose,Whole Blood 125 mg/dL (75-99)
--- NOTE | 2018-03-22 09:02 | PN ---
PROGRESS NOTE Mrs. Hathaway is a 73-year-old female who remains intubated, sedated, came in and presented to the hospital with cardiopulmonary arrest and had a tension pneumothorax. Her CT scan shows evidence of cerebrovascular accident. She has been followed by the Neurology Service. She has been evaluated by Dr. Fowler regarding her issue with intubation and the long-term treatment. The patient is NO CODE at this time. She continues to be at this time on vancomycin, Piperacillin, and Protonix. PHYSICAL EXAMINATION: Blood pressure running in the 140s to 150s with a heart rate in the 60s. LUNGS: Clear anteriorly. Heart S1, S2. No S3 with a systolic murmur. ABDOMEN: Soft. Positive bowel sounds. No organomegaly. EXTREMITIES: No edema. LAB DATA: Lab data revealed a BUN and creatinine 52 and 3.29, hemoglobin of 7. IMPRESSION: 1. Cardiac arrest with respiratory failure. 2. Cerebrovascular accident by CT scan. 3. Rib fracture with right-sided pneumothorax. 4. Anemia. 5. Anoxic encephalopathy. 6. Prior history of pneumonia. 7. Renal failure. RECOMMENDATION: From the cardiac standpoint, we will continue supportive care. Unfortunately, prognosis is quite poor. We will see on as needed basis. Please feel free to call us for any questions. MMODL / IJN: [id number] /
[2018-03-22] MEDS: CHLORHEXIDINE GLUCONATE 15 ML CUP MUCOUS MEM SCH ×2 (09:28→20:46)
[2018-03-22] MEDS: ASPIRIN 325 MG TAB PO SCH (09:28)
[2018-03-22] MEDS: PIPERACILLIN-TAZOBACTAM 3.375 GM in SODIUM CHLORIDE 0.9% 100 ML IVPB SCH ×2 (09:29→20:45)
[2018-03-22] MEDS: PANTOPRAZOLE 40 MG/10 ML VIAL IV SCH (09:29)
[2018-03-22 09:32] LABS: Glucose,Whole Blood 179 mg/dL (75-99)
[2018-03-22 10:19] LABS: Glucose,Whole Blood 193 mg/dL (75-99)
--- NOTE | 2018-03-22 10:50 | EEG ---
ELECTROENCEPHALOGRAM REPORT DATE OF SERVICE: 03/20/2018 REASON FOR TESTING: Altered mental status, anoxic brain injury. DESCRIPTION OF THE PROCEDURE: This EEG was performed using a 21 channel digital electroencephalograph, following international 10-20 system. DESCRIPTION OF THE RECORDING: From the beginning of the tracing, and with the patient's eyes closed, the background rhythm was mostly consisting of 5 to 6 Hz theta frequency in the posterior occipital leads. Occasional slowing into the delta range is seen. Photic stimulation was performed with no driving response seen. No pathological waves were elicited. Hyperventilation was not performed. Rare phase reversals are seen. No epileptiform discharges were noticed. Her EKG lead showed an irregularly irregular rhythm with a normal rate. INTERPRETATION: This EEG is abnormal due to the presence of generalized slowing of the background rhythm, mostly in the theta range and occasionally into the delta range. This is consistent with moderate encephalopathy. Rare phase reversals are also notice, which could be consistent with a reduced seizure threshold. No obvious epileptiform activity is seen. Of note, her EKG lead showed an irregularly irregular rhythm with a normal rate. Clinical correlation is recommended. MMODL / IJN: [id number] /
--- NOTE | 2018-03-22 11:16 | P.PN ---
Subjective Progress Note Date: 03/22/18 Principal diagnosis: Acute hypoxic respiratory failure requiring intubation and mechanical ventilation secondary to cardiac arrest This is a 73-year-old female with history of multiple medical problems, about a month ago, patient was admitted to an outside facility with pneumonia urinary tract infection and sepsis. Apparently patient was intubated and she was on mechanical ventilation for 4 days. She was eventually discharged from the hospital, and spent 10 days in a long term. However her condition worsened again, and she returned to [facility] for readmission with persistent pneumonia and difficulty breathing as well as symptoms of arrhythmia/ palpitations. Patient was evaluated again at [facility], and she was discharged yesterday back to alf facility. Patient was discharged about 2 PM, however EMS was dispatched last night to the long term for evaluation of difficulty breathing. Arrived to find the patient in respiratory distress with O2 saturation in the 60s. Patient was placed on a nonrebreather, her O2 saturation was noted to be in the mid 90s at the time. Patient appeared alert and oriented according to EMS. Patient was brought in and shortly after arrival the patient decompensated, she was noted to be bradycardic, hypotensive , and she was intubated immediately. Then the patient coded, and she was resuscitated as per ACLS protocol. The code and CPR lasted for about 45 minutes until she had spontaneous return of circulation. Patient was kept on mechanical ventilation, and transferred to the ICU. Apparently after the prolonged code, family was approached, and change the CODE STATUS to DO NOT RESUSCITATE and not to resuscitate again if the patient codes again. She was sent to the ICU on mechanical ventilation, and presently she is on tidal volume of 450 assist-control rate of 20 FiO2 of 40% and PEEP of 5. Peak airway pressure is 33, and plateau pressure 21. Patient has a right IJ central line noted placed by the ER physician. Apparently when the patient arrived to the ICU, she was noted to have extensive right-sided pneumothorax. This was actually seen earlier while the patient was in the ER, but for some reason a chest tube was not done in the ER. I reviewed the chest x-ray around 4 AM in the morning, and I called the ER physician Dr. Dunlap, she came back to the ICU and she placed a right sided chest tube as the patient was going into what seems to be a tension pneumothorax. She was requiring more norepinephrine. Chest x-ray following a right-sided chest tube placement showed complete reexpansion of the right lung. The pneumothoraces were felt to be related most likely to broken ribs from CPR. Reevaluated today on 03/20/2018, patient remains on mechanical ventilation, her ventilator settings are tidal volume of 450 assist-control rate of 20 FiO2 40% PEEP of 5. Patient remains on propofol 50 mcg/kg/m, levo fed 33 mcg/m, and insulin 4 units per hour. Patient does not follow any instructions, but seems to open eyes, and responded slightly to pain. I plan to hold propofol, and assess mental status fully off propofol. Chest x-ray was reviewed, her right lung is fully expanded, chest tube remains in place, and no evidence of air leak noted. Labs showed low hemoglobin of 6.8, hence I recommended a unit of packed RBCs to be given. Blood pressure is marginal. However the patient is not requiring norepinephrine at this point yet. ABG showed a pO2 of 103 pCO2 of 44 pH of 7.36. No changes were made in her present ventilator settings. Nutrition-jansen, patient remains on nutritional support via enteral feeding. Urinalysis showed evidence of pyuria and bacteriuria. Patient is empirically on Zosyn. Reevaluated today on 03/21/2018, remains on mechanical ventilation, and ventilator settings are tidal volume of 400 assist control rate of 26 FiO2 of 40 % and PEEP of 5. Peak airway pressure is noted to be in the high 30s, and plateau pressure is 30. Patient is off propofol this morning, she is arousable , follows simple instructions like wiggling her toes, squeezing hands, this is the best I have seen her in the last 24 hours. However the patient remains tachypneic, tachycardic, and did not tolerate well a short trial of pressure support and CPAP. Her respiratory rate was up in the 30s, and the patient was noted to have some respiratory distress. Then I decided to keep her back on assist control mode of mechanical ventilation, and I recommended restarting her propofol. Labs today were noted to be abnormal, hemoglobin is 6.6 hence the patient will receive another unit of packed RBCs today. Patient had received 2 units of packed RBCs since admission. Repeat hemoglobin after unit the blood was 7.2. ABG earlier today showed a pO2 of 111 pCO2 of 50 pH of 7.28, and this was actually on assist control mode of mechanical ventilation, off propofol, her basic metabolic profile showed low potassium of 3.4 being corrected, her BUN is about the same 43 creatinine is actually better compared to yesterday 2.68 and it was 2.76 yesterday. Chest x-ray continues to show opacity in the right upper lobe, and adequate placement of tubes including endotracheal tube, nasogastric tube, and right-sided chest tube. Questionable atelectasis at the left base. The area in the right upper lobe is actually more consistent with pulmonary contusion from CPR, because it was not present prior to chest tube placement. Reevaluated today on 03/18/2018, patient remains on mechanical ventilation, tidal volume is 420, assist control rate 26 FiO2 40% and PEEP of 5. CT of the brain showed a new evolving acute right parietal infarct. Patient remains on propofol, she is also on a small dose of levo fed to maintain a mean arterial pressure above 65. Patient opens eyes to deep painful stimuli, grimaces with deep painful stimuli, but she does not follow any simple instructions. Family is at bedside, and updated on her overall clinical neurological picture. Labs were reviewed hemoglobin is 6.8 again today, WBC count is 12.8 GI consultation was initiated since the patient is requiring so far 2 units of packed RBCs were given. ABG showed a pO2 of 107 pCO2 of 46 pH of 7.33 hence the tidal volume was increased from 400-420. Renal functioning is becoming worse BUN is 52 creatinine 3.29. Objective - Vital Signs Vital signs: Vital Signs Temp 99.0 F 03/22/18 08:00 Pulse 56 L 03/22/18 11:00 Resp 26 H 03/22/18 11:00 BP 115/51 03/22/18 11:00 Pulse Ox 99 03/22/18 11:00 Intake & Output 03/21/18 03/22/18 03/22/18 18:59 06:59 18:59 Intake Total 0691.722 2944.965 554.579 Output Total 630 680 180 Balance 979.666 3135.965 374.579 Weight 98.6 kg 99.1 kg Intake: IV 300 1025 265 Piperacillin-Tazobactam 3 125 25 .375 gm In Sodium Chloride 0.9% 100 ml @ 25 mls/hr IVPB Q12HR PENDING SALE TO [facility] Rx #:[id number] Sodium Chloride 0.9% 1, 300 900 240 000 ml @ 80 mls/hr IV . [id number] LEN Rx#:[id number] Intake, IV Titration 599.719 283.965 39.579 Amount Calcium Gluconate 1,000 100 mg In Sodium Chloride 0.9 % 100 ml @ 100 mls/hr IVPB ONCE ONE Rx#: [id number] Insulin Regular 100 unit 36.477 16.532 1.625 In Sodium Chloride 0.9% 100 ml @ Per Protocol IV .Q0M LEN Rx#:[id number] Norepinephrine 16 mg In 27.242 93.948 11.439 Sodium Chloride 0.9% 250 ml @ 5 mls/hr IV .Q24H [facility] Rx#:[id number] Piperacillin-Tazobactam 3 100 .375 gm In Sodium Chloride 0.9% 100 ml @ 25 mls/hr IVPB Q12HR [facility] Rx #:[id number] Propofol 1,000 mg In 86 173.485 26.515 Empty Bag 1 bag @ Titrate IV .Q0M LEN Rx#: [id number] Vancomycin 1,500 mg In 250 Sodium Chloride 0.9% 250 ml @ 125 mls/hr IVPB ONCE ONE Rx#:[id number] Tube Feeding 160 440 160 Blood Product 310 Rc As-3 Unit 310 [id number] Other 90 90 Output: Chest Tube Drainage 55 Right Lateral Chest 55 Urine 630 625 180 Other: Voiding Method Indwelling Catheter Indwelling Catheter # Bowel Movements 1 1 ABP, PAP, CO, CI - Last Documented Arterial Blood Pressure 100/38 - Exam Physical Exam: Revealed a 73-year-old female, opens eyes to deep painful stimuli , no purposeful movement noted. Head: Atraumatic, normocephalic. HEENT:[Neck is supple.] [No neck masses.] [No thyromegaly.] [No JVD.] Pupils are sluggishly reactive to light, no icterus. Endotracheal tube and orogastric tube noted to be intact. Chest: [Crackles and rhonchi noted bilaterally,] multiple bruises and areas of ecchymosis noted on the anterior chest wall bilaterally. Right-sided chest tube is noted just over the fourth intercostal space on the right side. The chest tube was put on water seal. Cardiac Exam: [Normal S1 and S2, no S3 gallop, no murmur.] Abdomen: [Soft, nontender, no megaly, no rebound, no guarding, normal bowel sounds.] Extremities: Multiple areas of bruises and ecchymosis noted in both upper and lower extremities.] Neurological Exam: Patient is withdrawing to pain, and opens eyes to painful stimuli. He grimaces with painful stimuli, but does not follow any purposeful instructions. Psychiatric: Cannot be assessed. Skin: Areas of ecchymosis on the chest wall and upper extremities. - Labs CBC & Chem 7: 03/22/18 05:08 03/22/18 05:08 Labs: Abnormal Lab Results - Last 24 Hours (Table) 03/21/18 03/21/18 03/21/18 Range/Units 11:20 12:09 12:30 WBC (3.8-10.6) k/uL RBC (3.80-5.40) m/uL Hgb (11.4-16.0) gm/dL Hct (34.0-46.0) % RDW (11.5-15.5) % Neutrophils # (1.3-7.7) k/uL Lymphocytes # (1.0-4.8) k/uL ABG pH (7.35-7.45) ABG pCO2 (35-45) mmHg ABG Total CO2 (19-24) mmol/L ABG O2 Saturation (94-97) % Chloride (98-107) mmol/L BUN (7-17) mg/dL Creatinine (0.52-1.04) mg/dL Glucose (74-99) mg/dL POC Glucose (mg/dL) 151 H 189 H (75-99) mg/dL Calcium (8.4-10.2) mg/dL Magnesium (1.6-2.3) mg/dL Stool Occult Blood Positive H (Negative) 03/21/18 03/21/18 03/21/18 Range/Units 13:07 14:07 15:36 WBC (3.8-10.6) k/uL RBC (3.80-5.40) m/uL Hgb (11.4-16.0) gm/dL Hct (34.0-46.0) % RDW (11.5-15.5) % Neutrophils # (1.3-7.7) k/uL Lymphocytes # (1.0-4.8) k/uL ABG pH (7.35-7.45) ABG pCO2 (35-45) mmHg ABG Total CO2 (19-24) mmol/L ABG O2 Saturation (94-97) % Chloride (98-107) mmol/L BUN (7-17) mg/dL Creatinine (0.52-1.04) mg/dL Glucose (74-99) mg/dL POC Glucose (mg/dL) 195 H 184 H 173 H (75-99) mg/dL Calcium (8.4-10.2) mg/dL Magnesium (1.6-2.3) mg/dL Stool Occult Blood (Negative) 03/21/18 03/21/18 03/21/18 Range/Units 15:52 16:14 17:13 WBC 14.1 H (3.8-10.6) k/uL RBC 2.38 L (3.80-5.40) m/uL Hgb 7.0 L (11.4-16.0) gm/dL Hct 21.1 L (34.0-46.0) % RDW 17.6 H (11.5-15.5) % Neutrophils # (1.3-7.7) k/uL Lymphocytes # (1.0-4.8) k/uL ABG pH (7.35-7.45) ABG pCO2 (35-45) mmHg ABG Total CO2 (19-24) mmol/L ABG O2 Saturation (94-97) % Chloride (98-107) mmol/L BUN (7-17) mg/dL Creatinine (0.52-1.04) mg/dL Glucose (74-99) mg/dL POC Glucose (mg/dL) 151 H 151 H (75-99) mg/dL Calcium (8.4-10.2) mg/dL Magnesium (1.6-2.3) mg/dL Stool Occult Blood (Negative) 03/21/18 03/21/18 03/21/18 Range/Units 18:01 19:09 20:06 WBC (3.8-10.6) k/uL RBC (3.80-5.40) m/uL Hgb (11.4-16.0) gm/dL Hct (34.0-46.0) % RDW (11.5-15.5) % Neutrophils # (1.3-7.7) k/uL Lymphocytes # (1.0-4.8) k/uL ABG pH (7.35-7.45) ABG pCO2 (35-45) mmHg ABG Total CO2 (19-24) mmol/L ABG O2 Saturation (94-97) % Chloride (98-107) mmol/L BUN (7-17) mg/dL Creatinine (0.52-1.04) mg/dL Glucose (74-99) mg/dL POC Glucose (mg/dL) 175 H 171 H 164 H (75-99) mg/dL Calcium (8.4-10.2) mg/dL Magnesium (1.6-2.3) mg/dL Stool Occult Blood (Negative) 03/21/18 03/21/18 03/21/18 Range/Units 21:02 22:06 23:01 WBC (3.8-10.6) k/uL RBC (3.80-5.40) m/uL Hgb (11.4-16.0) gm/dL Hct (34.0-46.0) % RDW (11.5-15.5) % Neutrophils # (1.3-7.7) k/uL Lymphocytes # (1.0-4.8) k/uL ABG pH (7.35-7.45) ABG pCO2 (35-45) mmHg ABG Total CO2 (19-24) mmol/L ABG O2 Saturation (94-97) % Chloride (98-107) mmol/L BUN (7-17) mg/dL Creatinine (0.52-1.04) mg/dL Glucose (74-99) mg/dL POC Glucose (mg/dL) 162 H 160 H 154 H (75-99) mg/dL Calcium (8.4-10.2) mg/dL Magnesium (1.6-2.3) mg/dL Stool Occult Blood (Negative) 03/22/18 03/22/18 03/22/18 Range/Units 00:04 01:06 02:13 WBC 12.8 H (3.8-10.6) k/uL RBC 2.24 L (3.80-5.40) m/uL Hgb 6.8 L* (11.4-16.0) gm/dL Hct 20.6 L (34.0-46.0) % RDW 17.8 H (11.5-15.5) % Neutrophils # (1.3-7.7) k/uL Lymphocytes # (1.0-4.8) k/uL ABG pH (7.35-7.45) ABG pCO2 (35-45) mmHg ABG Total CO2 (19-24) mmol/L ABG O2 Saturation (94-97) % Chloride (98-107) mmol/L BUN (7-17) mg/dL Creatinine (0.52-1.04) mg/dL Glucose (74-99) mg/dL POC Glucose (mg/dL) 164 H 162 H (75-99) mg/dL Calcium (8.4-10.2) mg/dL Magnesium (1.6-2.3) mg/dL Stool Occult Blood (Negative) 03/22/18 03/22/18 03/22/18 Range/Units 04:08 05:06 05:08 WBC 12.6 H (3.8-10.6) k/uL RBC 2.42 L (3.80-5.40) m/uL Hgb 7.0 L (11.4-16.0) gm/dL Hct 21.6 L (34.0-46.0) % RDW 17.6 H (11.5-15.5) % Neutrophils # 10.9 H (1.3-7.7) k/uL Lymphocytes # 0.7 L (1.0-4.8) k/uL ABG pH (7.35-7.45) ABG pCO2 (35-45) mmHg ABG Total CO2 (19-24) mmol/L ABG O2 Saturation (94-97) % Chloride (98-107) mmol/L BUN (7-17) mg/dL Creatinine (0.52-1.04) mg/dL Glucose (74-99) mg/dL POC Glucose (mg/dL) 139 H 131 H (75-99) mg/dL Calcium (8.4-10.2) mg/dL Magnesium (1.6-2.3) mg/dL Stool Occult Blood (Negative) 03/22/18 03/22/18 03/22/18 Range/Units 05:08 06:08 07:54 WBC (3.8-10.6) k/uL RBC (3.80-5.40) m/uL Hgb (11.4-16.0) gm/dL Hct (34.0-46.0) % RDW (11.5-15.5) % Neutrophils # (1.3-7.7) k/uL Lymphocytes # (1.0-4.8) k/uL ABG pH 7.33 L (7.35-7.45) ABG pCO2 46 H (35-45) mmHg ABG Total CO2 26 H (19-24) mmol/L ABG O2 Saturation 99.6 H (94-97) % Chloride 112 H (98-107) mmol/L BUN 52 H (7-17) mg/dL Creatinine 3.29 H (0.52-1.04) mg/dL Glucose 114 H (74-99) mg/dL POC Glucose (mg/dL) 109 H (75-99) mg/dL Calcium 7.5 L (8.4-10.2) mg/dL Magnesium 2.5 H (1.6-2.3) mg/dL Stool Occult Blood (Negative) 03/22/18 03/22/18 03/22/18 Range/Units 08:12 09:20 10:07 WBC (3.8-10.6) k/uL RBC (3.80-5.40) m/uL Hgb (11.4-16.0) gm/dL Hct (34.0-46.0) % RDW (11.5-15.5) % Neutrophils # (1.3-7.7) k/uL Lymphocytes # (1.0-4.8) k/uL ABG pH (7.35-7.45) ABG pCO2 (35-45) mmHg ABG Total CO2 (19-24) mmol/L ABG O2 Saturation (94-97) % Chloride (98-107) mmol/L BUN (7-17) mg/dL Creatinine (0.52-1.04) mg/dL Glucose (74-99) mg/dL POC Glucose (mg/dL) 125 H 179 H 193 H (75-99) mg/dL Calcium (8.4-10.2) mg/dL Magnesium (1.6-2.3) mg/dL Stool Occult Blood (Negative) Microbiology - Last 24 Hours (Table) 03/19/18 03:31 Blood Culture - Preliminary Blood No Growth after 72 hours 03/19/18 00:34 Blood Culture Gram Stain - Final Blood Blood Culture - Final Coagulase Negative Staph 03/19/18 00:00 Urine Culture - Final Urine,Voided Vibha albicans Klebsiella pneumoniae 03/19/18 03:17 Gram Stain - Final Sputum Sputum Culture - Final Assessment and Plan Assessment: Impression: 1 acute hypoxic respiratory failure and cardiac arrest requiring prolonged CPR in the emergency room department. 2 multiple rib fractures and right sided pneumothorax requiring right-sided chest tube placement. Rib fractures are iatrogenic in nature. 3 recent hospitalization for pneumonia and sepsis, however no clear-cut evidence of pneumonia on the initial chest x-ray done on this admission. Chest x-ray is showing left basilar atelectasis. And patchy opacity at the site of the tube insertion which was not present on presentation. 4 right-sided pneumothorax, secondary to rib fractures/iatrogenic. Requiring right-sided chest tube placement. 5 strongly suspect anoxic brain injury considering the prolonged CPR until recovery of spontaneous circulation. Mental status seems to be improving today , however it is not quite back to normal. Patient seems to be more appropriate , following simple instructions, especially wiggling toes and squeezing hands, closing eyes, [address] of the brain suggestive of evolving CVA, infarct. Recommendation: Continue ventilatory support, nutritional support, insulin, I had a long discussion with family at bedside/sister and her , made aware of the poor prognostic picture and the poor neurological situation, the sister will likely decide for comfort care measures, and she will be given more time to think about it. May consider terminal weaning and comfort care measures later today or possibly in a.m. Critical care time is 34 minutes Time with Patient: Greater than 30
[2018-03-22 11:38] LABS: Glucose,Whole Blood 173 mg/dL (75-99)
--- NOTE | 2018-03-22 12:04 | P.PN ---
Subjective Progress Note Date: 03/22/18 Seen and examined for the follow-up of acute kidney injury. Currently off levo fed. But still on the ventilator. She has loose watery diarrhea. Urine cultures growing Klebsiella and Vibha. 1300 ML's of urine output in the last 24 hours. Objective - Vital Signs Vital signs: Vital Signs Temp 99.0 F 03/22/18 08:00 Pulse 55 L 03/22/18 11:14 Resp 26 H 03/22/18 11:00 BP 115/51 03/22/18 11:00 Pulse Ox 99 03/22/18 11:00 Intake & Output 03/21/18 03/22/18 03/22/18 18:59 06:59 18:59 Intake Total 4613.327 8857.965 744.446 Output Total 630 680 230 Balance 554.491 0113.965 514.446 Weight 98.6 kg 99.1 kg Intake: IV 300 1025 370 Piperacillin-Tazobactam 3 125 50 .375 gm In Sodium Chloride 0.9% 100 ml @ 25 mls/hr IVPB Q12HR [facility] Rx #:[id number] Sodium Chloride 0.9% 1, 300 900 320 000 ml @ 80 mls/hr IV . [id number] [facility] Rx#:[id number] Intake, IV Titration 599.719 283.965 44.446 Amount Calcium Gluconate 1,000 100 mg In Sodium Chloride 0.9 % 100 ml @ 100 mls/hr IVPB ONCE ONE Rx#: [id number] Insulin Regular 100 unit 36.477 16.532 6.492 In Sodium Chloride 0.9% 100 ml @ Per Protocol IV .Q0M [facility] Rx#:[id number] Norepinephrine 16 mg In 27.242 93.948 11.439 Sodium Chloride 0.9% 250 ml @ 5 mls/hr IV .Q24H [facility] Rx#:[id number] Piperacillin-Tazobactam 3 100 .375 gm In Sodium Chloride 0.9% 100 ml @ 25 mls/hr IVPB Q12HR [facility] Rx #:[id number] Propofol 1,000 mg In 86 173.485 26.515 Empty Bag 1 bag @ Titrate IV .Q0M [facility] Rx#: [id number] Vancomycin 1,500 mg In 250 Sodium Chloride 0.9% 250 ml @ 125 mls/hr IVPB ONCE ONE Rx#:[id number] Tube Feeding 160 440 240 Blood Product 310 Rc As-3 Unit 310 [id number] Other 90 90 Output: Chest Tube Drainage 55 Right Lateral Chest 55 Urine 630 625 230 Other: Voiding Method Indwelling Catheter Indwelling Catheter Indwelling Catheter # Bowel Movements 1 1 ABP, PAP, CO, CI - Last Documented Arterial Blood Pressure 100/38 - Exam Intubated and sedated S1-S2 heard Edema - Labs CBC & Chem 7: 03/22/18 05:08 03/22/18 05:08 Labs: Abnormal Lab Results - Last 24 Hours (Table) 03/21/18 03/21/18 03/21/18 Range/Units 12:09 12:30 13:07 WBC (3.8-10.6) k/uL RBC (3.80-5.40) m/uL Hgb (11.4-16.0) gm/dL Hct (34.0-46.0) % RDW (11.5-15.5) % Neutrophils # (1.3-7.7) k/uL Lymphocytes # (1.0-4.8) k/uL ABG pH (7.35-7.45) ABG pCO2 (35-45) mmHg ABG Total CO2 (19-24) mmol/L ABG O2 Saturation (94-97) % Chloride (98-107) mmol/L BUN (7-17) mg/dL Creatinine (0.52-1.04) mg/dL Glucose (74-99) mg/dL POC Glucose (mg/dL) 189 H 195 H (75-99) mg/dL Calcium (8.4-10.2) mg/dL Magnesium (1.6-2.3) mg/dL Stool Occult Blood Positive H (Negative) 03/21/18 03/21/18 03/21/18 Range/Units 14:07 15:36 15:52 WBC 14.1 H (3.8-10.6) k/uL RBC 2.38 L (3.80-5.40) m/uL Hgb 7.0 L (11.4-16.0) gm/dL Hct 21.1 L (34.0-46.0) % RDW 17.6 H (11.5-15.5) % Neutrophils # (1.3-7.7) k/uL Lymphocytes # (1.0-4.8) k/uL ABG pH (7.35-7.45) ABG pCO2 (35-45) mmHg ABG Total CO2 (19-24) mmol/L ABG O2 Saturation (94-97) % Chloride (98-107) mmol/L BUN (7-17) mg/dL Creatinine (0.52-1.04) mg/dL Glucose (74-99) mg/dL POC Glucose (mg/dL) 184 H 173 H (75-99) mg/dL Calcium (8.4-10.2) mg/dL Magnesium (1.6-2.3) mg/dL Stool Occult Blood (Negative) 03/21/18 03/21/18 03/21/18 Range/Units 16:14 17:13 18:01 WBC (3.8-10.6) k/uL RBC (3.80-5.40) m/uL Hgb (11.4-16.0) gm/dL Hct (34.0-46.0) % RDW (11.5-15.5) % Neutrophils # (1.3-7.7) k/uL Lymphocytes # (1.0-4.8) k/uL ABG pH (7.35-7.45) ABG pCO2 (35-45) mmHg ABG Total CO2 (19-24) mmol/L ABG O2 Saturation (94-97) % Chloride (98-107) mmol/L BUN (7-17) mg/dL Creatinine (0.52-1.04) mg/dL Glucose (74-99) mg/dL POC Glucose (mg/dL) 151 H 151 H 175 H (75-99) mg/dL Calcium (8.4-10.2) mg/dL Magnesium (1.6-2.3) mg/dL Stool Occult Blood (Negative) 03/21/18 03/21/18 03/21/18 Range/Units 19:09 20:06 21:02 WBC (3.8-10.6) k/uL RBC (3.80-5.40) m/uL Hgb (11.4-16.0) gm/dL Hct (34.0-46.0) % RDW (11.5-15.5) % Neutrophils # (1.3-7.7) k/uL Lymphocytes # (1.0-4.8) k/uL ABG pH (7.35-7.45) ABG pCO2 (35-45) mmHg ABG Total CO2 (19-24) mmol/L ABG O2 Saturation (94-97) % Chloride (98-107) mmol/L BUN (7-17) mg/dL Creatinine (0.52-1.04) mg/dL Glucose (74-99) mg/dL POC Glucose (mg/dL) 171 H 164 H 162 H (75-99) mg/dL Calcium (8.4-10.2) mg/dL Magnesium (1.6-2.3) mg/dL Stool Occult Blood (Negative) 03/21/18 03/21/18 03/22/18 Range/Units 22:06 23:01 00:04 WBC (3.8-10.6) k/uL RBC (3.80-5.40) m/uL Hgb (11.4-16.0) gm/dL Hct (34.0-46.0) % RDW (11.5-15.5) % Neutrophils # (1.3-7.7) k/uL Lymphocytes # (1.0-4.8) k/uL ABG pH (7.35-7.45) ABG pCO2 (35-45) mmHg ABG Total CO2 (19-24) mmol/L ABG O2 Saturation (94-97) % Chloride (98-107) mmol/L BUN (7-17) mg/dL Creatinine (0.52-1.04) mg/dL Glucose (74-99) mg/dL POC Glucose (mg/dL) 160 H 154 H 164 H (75-99) mg/dL Calcium (8.4-10.2) mg/dL Magnesium (1.6-2.3) mg/dL Stool Occult Blood (Negative) 03/22/18 03/22/18 03/22/18 Range/Units 01:06 02:13 04:08 WBC 12.8 H (3.8-10.6) k/uL RBC 2.24 L (3.80-5.40) m/uL Hgb 6.8 L* (11.4-16.0) gm/dL Hct 20.6 L (34.0-46.0) % RDW 17.8 H (11.5-15.5) % Neutrophils # (1.3-7.7) k/uL Lymphocytes # (1.0-4.8) k/uL ABG pH (7.35-7.45) ABG pCO2 (35-45) mmHg ABG Total CO2 (19-24) mmol/L ABG O2 Saturation (94-97) % Chloride (98-107) mmol/L BUN (7-17) mg/dL Creatinine (0.52-1.04) mg/dL Glucose (74-99) mg/dL POC Glucose (mg/dL) 162 H 139 H (75-99) mg/dL Calcium (8.4-10.2) mg/dL Magnesium (1.6-2.3) mg/dL Stool Occult Blood (Negative) 03/22/18 03/22/18 03/22/18 Range/Units 05:06 05:08 05:08 WBC 12.6 H (3.8-10.6) k/uL RBC 2.42 L (3.80-5.40) m/uL Hgb 7.0 L (11.4-16.0) gm/dL Hct 21.6 L (34.0-46.0) % RDW 17.6 H (11.5-15.5) % Neutrophils # 10.9 H (1.3-7.7) k/uL Lymphocytes # 0.7 L (1.0-4.8) k/uL ABG pH (7.35-7.45) ABG pCO2 (35-45) mmHg ABG Total CO2 (19-24) mmol/L ABG O2 Saturation (94-97) % Chloride 112 H (98-107) mmol/L BUN 52 H (7-17) mg/dL Creatinine 3.29 H (0.52-1.04) mg/dL Glucose 114 H (74-99) mg/dL POC Glucose (mg/dL) 131 H (75-99) mg/dL Calcium 7.5 L (8.4-10.2) mg/dL Magnesium 2.5 H (1.6-2.3) mg/dL Stool Occult Blood (Negative) 1103/22/18 03/22/18 Range/Units 06:08 07:54 08:12 WBC (3.8-10.6) k/uL RBC (3.80-5.40) m/uL Hgb (11.4-16.0) gm/dL Hct (34.0-46.0) % RDW (11.5-15.5) % Neutrophils # (1.3-7.7) k/uL Lymphocytes # (1.0-4.8) k/uL ABG pH 7.33 L (7.35-7.45) ABG pCO2 46 H (35-45) mmHg ABG Total CO2 26 H (19-24) mmol/L ABG O2 Saturation 99.6 H (94-97) % Chloride (98-107) mmol/L BUN (7-17) mg/dL Creatinine (0.52-1.04) mg/dL Glucose (74-99) mg/dL POC Glucose (mg/dL) 109 H 125 H (75-99) mg/dL Calcium (8.4-10.2) mg/dL Magnesium (1.6-2.3) mg/dL Stool Occult Blood (Negative) 03/22/18 03/22/18 03/22/18 Range/Units 09:20 10:07 11:12 WBC (3.8-10.6) k/uL RBC (3.80-5.40) m/uL Hgb (11.4-16.0) gm/dL Hct (34.0-46.0) % RDW (11.5-15.5) % Neutrophils # (1.3-7.7) k/uL Lymphocytes # (1.0-4.8) k/uL ABG pH (7.35-7.45) ABG pCO2 (35-45) mmHg ABG Total CO2 (19-24) mmol/L ABG O2 Saturation (94-97) % Chloride (98-107) mmol/L BUN (7-17) mg/dL Creatinine (0.52-1.04) mg/dL Glucose (74-99) mg/dL POC Glucose (mg/dL) 179 H 193 H 173 H (75-99) mg/dL Calcium (8.4-10.2) mg/dL Magnesium (1.6-2.3) mg/dL Stool Occult Blood (Negative) Microbiology - Last 24 Hours (Table) 03/19/18 03:31 Blood Culture - Preliminary Blood No Growth after 72 hours 03/19/18 00:34 Blood Culture Gram Stain - Final Blood Blood Culture - Final Coagulase Negative Staph 03/19/18 00:00 Urine Culture - Final Urine,Voided Vibha albicans Klebsiella pneumoniae 03/19/18 03:17 Gram Stain - Final Sputum Sputum Culture - Final Assessment and Plan Assessment: #1 nonoliguric acute kidney injury secondary to hemodynamic ATN. #2 status post cardiopulmonary arrest #3 vent dependent respiratory failure #4 diarrhea #5 urinary tract infection with Klebsiella #6 metabolic alkalosis #7 shock resolved currently off Levophed Plan: #1 renal function continued to worsen. Vanco trough level noted maintain trough level less than 20. #2 if renal function continued to worsen might need dialysis.. #3 continue with maintenance IV fluids for now #4 labs in the morning
[2018-03-22 12:23] LABS: Glucose,Whole Blood 155 mg/dL (75-99)
[2018-03-22 13:23] LABS: Glucose,Whole Blood 154 mg/dL (75-99)
[2018-03-22 15:22] LABS: Glucose,Whole Blood 166 mg/dL (75-99)
--- NOTE | 2018-03-22 15:24 | P.PN ---
Subjective Principal diagnosis: respiratory failure, possible anoxic brain injury Neurology is following on a 73-year-old female possible anoxic brain injury. Patient is currently in ICU on a ventilator. At time of my evaluation, patient was off propofol. Patient was previously treated at another facility for pneumonia and sepsis and had been intubated for several days and then was found to be improved, extubated and transferred to an inpatient rehabilitation facility. Patient had difficulty breathing, was transferred to [facility], treated for pneumonia again. Patient was then again discharged back to custodial for further rehabilitation. Patient then became short of breath. EMS was called and patient was found to have decreased oxygen saturation in the 60s. Patient was placed on portable oxygen and transferred to the emergency room. Patient coded in the emergency room and resuscitative efforts were conducted for approximately 45 minutes. she was intubated and brought to the ICU. Patient is currently a DNR. Chest x-ray revealed pneumothorax and multiple rib fractures secondary to CPR. Patient does have chest tube placed with repeat chest x-ray showing complete reexpansion of the right lung. No seizure-like activity was witnessed. 03.22.18: On contact today, patient is in ICU, on a ventilator with propofol turned off prior to provider examining the patient. Patient was in no acute distress. patient did have updated CT of the brain on 03/21/18 which noted no acute intracranial hemorrhage or midline shift. There is mild to moderate diffuse age -related cerebral atrophy and moderate to advanced chronic small vessel ischemic changes redemonstrated. There is now visualized of evolving acute infarct high right parietal region noted. EEG results were also noted to include moderate encephalopathy. Family is requesting updated status for possible consideration for comfort care. Objective - Vital Signs Vital signs: Vital Signs Temp 99.3 F 03/22/18 12:00 Pulse 55 L 03/22/18 14:00 Resp 26 H 03/22/18 14:00 BP 95/39 03/22/18 12:00 Pulse Ox 98 03/22/18 14:00 Intake & Output 03/21/18 03/22/18 03/22/18 18:59 06:59 18:59 Intake Total 5206.718 1036.965 1163.736 Output Total 630 680 295 Balance 458.926 6257.965 868.736 Weight 98.6 kg 99.1 kg Intake: IV 300 1025 580 Piperacillin-Tazobactam 3 125 100 .375 gm In Sodium Chloride 0.9% 100 ml @ 25 mls/hr IVPB Q12HR [facility] Rx #:[id number] Sodium Chloride 0.9% 1, 300 900 480 000 ml @ 80 mls/hr IV . [id number] [facility] Rx#:[id number] Intake, IV Titration 599.719 283.965 63.736 Amount Calcium Gluconate 1,000 100 mg In Sodium Chloride 0.9 % 100 ml @ 100 mls/hr IVPB ONCE ONE Rx#: [id number] Insulin Regular 100 unit 36.477 16.532 9.042 In Sodium Chloride 0.9% 100 ml @ Per Protocol IV .Q0M [facility] Rx#:[id number] Norepinephrine 16 mg In 27.242 93.948 11.439 Sodium Chloride 0.9% 250 ml @ 5 mls/hr IV .Q24H [facility] Rx#:[id number] Piperacillin-Tazobactam 3 100 .375 gm In Sodium Chloride 0.9% 100 ml @ 25 mls/hr IVPB Q12HR [facility] Rx #:[id number] Propofol 1,000 mg In 86 173.485 43.255 Empty Bag 1 bag @ Titrate IV .Q0M [facility] Rx#: [id number] Vancomycin 1,500 mg In 250 Sodium Chloride 0.9% 250 ml @ 125 mls/hr IVPB ONCE ONE Rx#:[id number] Tube Feeding 160 440 400 Blood Product 310 Rc As-3 Unit 310 [id number] Other 90 120 Output: Chest Tube Drainage 55 Right Lateral Chest 55 Urine 630 625 295 Other: Voiding Method Indwelling Catheter Indwelling Catheter Indwelling Catheter # Bowel Movements 1 1 ABP, PAP, CO, CI - Last Documented Arterial Blood Pressure 104/38 - Exam General appearance: opens eyes to sound intermittently but not consistently, no acute distress Head: Atraumatic, normocephalic, normal inspection Eyes: opens eyes to sound intermittently Ear, nose and throat: Normal exam, mucous membranes moist Neck: Normal inspection, absent tenderness, lymphadenopathy. Respiratory: on mechanical ventilator Cardiovascular: telemetry monitoring GI/abdominal: No guarding Extremities: slight movement of all 4 extremities; left greater than right Neurological: Full assessment unable to be completed no seizure activity noted on physical exam Strength: 03/22/18 left upper and lower extremities: Patient moves spontaneously but not on command and no longer squeezes hand or to press his foot on command as on Right upper and lower extremities: Patient moves spontaneously but unable to determine if purposeful no wrapping checker strength and no movement of right leg or foot. 03/21/18 Left upper and lower extremities 1+/5, did follow verbal command to squeeze hand and push down with foot and attempted to move left leg slightly Right upper and lower extremities - able to slightly move hand but no wrapping checker strength and no movement of right foot or leg Sensation: Winced to painful stimuli Psychological: Mood and Affect appropriate for setting - Labs CBC & Chem 7: 03/22/18 05:08 03/22/18 05:08 Labs: Abnormal Lab Results - Last 24 Hours (Table) 03/21/18 03/21/18 03/21/18 Range/Units 15:36 15:52 16:14 WBC 14.1 H (3.8-10.6) k/uL RBC 2.38 L (3.80-5.40) m/uL Hgb 7.0 L (11.4-16.0) gm/dL Hct 21.1 L (34.0-46.0) % RDW 17.6 H (11.5-15.5) % Neutrophils # (1.3-7.7) k/uL Lymphocytes # (1.0-4.8) k/uL ABG pH (7.35-7.45) ABG pCO2 (35-45) mmHg ABG Total CO2 (19-24) mmol/L ABG O2 Saturation (94-97) % Chloride (98-107) mmol/L BUN (7-17) mg/dL Creatinine (0.52-1.04) mg/dL Glucose (74-99) mg/dL POC Glucose (mg/dL) 173 H 151 H (75-99) mg/dL Calcium (8.4-10.2) mg/dL Magnesium (1.6-2.3) mg/dL 03/21/18 03/21/18 03/21/18 Range/Units 17:13 18:01 19:09 WBC (3.8-10.6) k/uL RBC (3.80-5.40) m/uL Hgb (11.4-16.0) gm/dL Hct (34.0-46.0) % RDW (11.5-15.5) % Neutrophils # (1.3-7.7) k/uL Lymphocytes # (1.0-4.8) k/uL ABG pH (7.35-7.45) ABG pCO2 (35-45) mmHg ABG Total CO2 (19-24) mmol/L ABG O2 Saturation (94-97) % Chloride (98-107) mmol/L BUN (7-17) mg/dL Creatinine (0.52-1.04) mg/dL Glucose (74-99) mg/dL POC Glucose (mg/dL) 151 H 175 H 171 H (75-99) mg/dL Calcium (8.4-10.2) mg/dL Magnesium (1.6-2.3) mg/dL 03/21/18 03/21/18 03/21/18 Range/Units 20:06 21:02 22:06 WBC (3.8-10.6) k/uL RBC (3.80-5.40) m/uL Hgb (11.4-16.0) gm/dL Hct (34.0-46.0) % RDW (11.5-15.5) % Neutrophils # (1.3-7.7) k/uL Lymphocytes # (1.0-4.8) k/uL ABG pH (7.35-7.45) ABG pCO2 (35-45) mmHg ABG Total CO2 (19-24) mmol/L ABG O2 Saturation (94-97) % Chloride (98-107) mmol/L BUN (7-17) mg/dL Creatinine (0.52-1.04) mg/dL Glucose (74-99) mg/dL POC Glucose (mg/dL) 164 H 162 H 160 H (75-99) mg/dL Calcium (8.4-10.2) mg/dL Magnesium (1.6-2.3) mg/dL 03/21/18 03/22/18 03/22/18 Range/Units 23:01 00:04 01:06 WBC 12.8 H (3.8-10.6) k/uL RBC 2.24 L (3.80-5.40) m/uL Hgb 6.8 L* (11.4-16.0) gm/dL Hct 20.6 L (34.0-46.0) % RDW 17.8 H (11.5-15.5) % Neutrophils # (1.3-7.7) k/uL Lymphocytes # (1.0-4.8) k/uL ABG pH (7.35-7.45) ABG pCO2 (35-45) mmHg ABG Total CO2 (19-24) mmol/L ABG O2 Saturation (94-97) % Chloride (98-107) mmol/L BUN (7-17) mg/dL Creatinine (0.52-1.04) mg/dL Glucose (74-99) mg/dL POC Glucose (mg/dL) 154 H 164 H (75-99) mg/dL Calcium (8.4-10.2) mg/dL Magnesium (1.6-2.3) mg/dL 03/22/18 03/22/18 03/22/18 Range/Units 02:13 04:08 05:06 WBC (3.8-10.6) k/uL RBC (3.80-5.40) m/uL Hgb (11.4-16.0) gm/dL Hct (34.0-46.0) % RDW (11.5-15.5) % Neutrophils # (1.3-7.7) k/uL Lymphocytes # (1.0-4.8) k/uL ABG pH (7.35-7.45) ABG pCO2 (35-45) mmHg ABG Total CO2 (19-24) mmol/L ABG O2 Saturation (94-97) % Chloride (98-107) mmol/L BUN (7-17) mg/dL Creatinine (0.52-1.04) mg/dL Glucose (74-99) mg/dL POC Glucose (mg/dL) 162 H 139 H 131 H (75-99) mg/dL Calcium (8.4-10.2) mg/dL Magnesium (1.6-2.3) mg/dL 03/22/18 03/22/18 03/22/18 Range/Units 05:08 05:08 06:08 WBC 12.6 H (3.8-10.6) k/uL RBC 2.42 L (3.80-5.40) m/uL Hgb 7.0 L (11.4-16.0) gm/dL Hct 21.6 L (34.0-46.0) % RDW 17.6 H (11.5-15.5) % Neutrophils # 10.9 H (1.3-7.7) k/uL Lymphocytes # 0.7 L (1.0-4.8) k/uL ABG pH (7.35-7.45) ABG pCO2 (35-45) mmHg ABG Total CO2 (19-24) mmol/L ABG O2 Saturation (94-97) % Chloride 112 H (98-107) mmol/L BUN 52 H (7-17) mg/dL Creatinine 3.29 H (0.52-1.04) mg/dL Glucose 114 H (74-99) mg/dL POC Glucose (mg/dL) 109 H (75-99) mg/dL Calcium 7.5 L (8.4-10.2) mg/dL Magnesium 2.5 H (1.6-2.3) mg/dL 03/22/18 03/22/18 03/22/18 Range/Units 07:54 08:12 09:20 WBC (3.8-10.6) k/uL RBC (3.80-5.40) m/uL Hgb (11.4-16.0) gm/dL Hct (34.0-46.0) % RDW (11.5-15.5) % Neutrophils # (1.3-7.7) k/uL Lymphocytes # (1.0-4.8) k/uL ABG pH 7.33 L (7.35-7.45) ABG pCO2 46 H (35-45) mmHg ABG Total CO2 26 H (19-24) mmol/L ABG O2 Saturation 99.6 H (94-97) % Chloride (98-107) mmol/L BUN (7-17) mg/dL Creatinine (0.52-1.04) mg/dL Glucose (74-99) mg/dL POC Glucose (mg/dL) 125 H 179 H (75-99) mg/dL Calcium (8.4-10.2) mg/dL Magnesium (1.6-2.3) mg/dL 03/22/18 03/22/18 03/22/18 Range/Units 10:07 11:12 12:12 WBC (3.8-10.6) k/uL RBC (3.80-5.40) m/uL Hgb (11.4-16.0) gm/dL Hct (34.0-46.0) % RDW (11.5-15.5) % Neutrophils # (1.3-7.7) k/uL Lymphocytes # (1.0-4.8) k/uL ABG pH (7.35-7.45) ABG pCO2 (35-45) mmHg ABG Total CO2 (19-24) mmol/L ABG O2 Saturation (94-97) % Chloride (98-107) mmol/L BUN (7-17) mg/dL Creatinine (0.52-1.04) mg/dL Glucose (74-99) mg/dL POC Glucose (mg/dL) 193 H 173 H 155 H (75-99) mg/dL Calcium (8.4-10.2) mg/dL Magnesium (1.6-2.3) mg/dL 03/22/18 Range/Units 13:10 WBC (3.8-10.6) k/uL RBC (3.80-5.40) m/uL Hgb (11.4-16.0) gm/dL Hct (34.0-46.0) % RDW (11.5-15.5) % Neutrophils # (1.3-7.7) k/uL Lymphocytes # (1.0-4.8) k/uL ABG pH (7.35-7.45) ABG pCO2 (35-45) mmHg ABG Total CO2 (19-24) mmol/L ABG O2 Saturation (94-97) % Chloride (98-107) mmol/L BUN (7-17) mg/dL Creatinine (0.52-1.04) mg/dL Glucose (74-99) mg/dL POC Glucose (mg/dL) 154 H (75-99) mg/dL Calcium (8.4-10.2) mg/dL Magnesium (1.6-2.3) mg/dL Microbiology - Last 24 Hours (Table) 03/19/18 03:31 Blood Culture - Preliminary Blood No Growth after 72 hours 03/19/18 00:34 Blood Culture Gram Stain - Final Blood Blood Culture - Final Coagulase Negative Staph Assessment and Plan (1) Cardiac arrest Current Visit: Yes Status: Acute Code(s): I46.9 - CARDIAC ARREST, CAUSE UNSPECIFIED SNOMED Code(s): 281180772 (2) Hypoxia Current Visit: Yes Status: Acute Code(s): R09.02 - HYPOXEMIA SNOMED Code(s ): 626449301 (3) UTI (urinary tract infection) Current Visit: Yes Status: Acute Code(s): N39.0 - URINARY TRACT INFECTION, SITE NOT SPECIFIED SNOMED Code(s): 36460386 Plan: Patient's current status does appear to be multifactorial in etiology. Patient does have complicated medical history including significant history of infectious process and prolonged CPR with possible anoxic brain injury. EEG moderate encephalopathy. CT of the brain notes new evolving acute infarct. At this time, continue to correct any underlying correctable etiology, continue with bacterial/sepsis management, continue neurological checks as implemented. Patient's current status is grim given her multitude of comorbidities, significant downtime with resuscitative efforts, noted CT changes and no acute infarct, lack of improvement with regard to physical exam findings. Had discussion with family members related to comfort care and long-term prognosis. Family will advise museum educator on final determination once out of town family members are consult did. Neurology we will continue to follow on an as-needed basis. I have discussed the plan of care with the physician prior to implementation and he agrees with the plan as implemented.
[2018-03-22 17:09] LABS: Glucose,Whole Blood 166 mg/dL (75-99)
--- NOTE | 2018-03-22 17:47 | P.PN ---
Subjective This is a pleasant 73 years old female with past medical history of congestive heart failure and atrial fibrillation. Patient was transferred from longterm where she was therefore 10 days, recently discharged from the hospital for sepsis, pneumonia and UTI. This time EMS were called for difficulty breathing and they found her oxygen saturation was 60, she was placed on non-rebreather and her oxygen went up to mid 90s Patient is currently intubated and cannot provide information which were obtained from the medical staff, medical records, and sister at bedside who is her guardian. As per sister patient has been admitted to [facility] twice in the last 36 days for pneumonia and UTI with sepsis. Each time ascending to rehab, first time for 10 days and then for 16 days. As per sister they have been contacted earlier and they wanted everything to be done. But now with a want to change her CODE STATUS to DO NOT RESUSCITATE. On admission she was saturating is 6% on room air and she was breathing at respiratory rate of 30 minutes. Her blood pressure was 155/64, later on it dropped to 63/38. And she was bradycardic in the 40s and 50s. Leukocytosis at 14.8 K, hemoglobin 9, platelets 543. Sodium 135, potassium 5.9, creatinine 2.4 , sugar was signed between 300-400. Troponin is elevated at 0.04 and 0.319. LFT unremarkable.UA was suggestive of infection. Chest x-ray shows bilateral pneumothorax with larger on the left side, follow-up chest x-ray showing large right-side pneumothorax, getting worse 03/20/2018 Patient remains intubated in the ICU. Her sugar looks controlled however her hemoglobin this morning dropped to 6.8, she's getting 1 unit of blood transfusion. Heparin was put on hold. Check FOBT Creatinine 2.7. Rest of electrolytes are controlled. Critical care team for the patient's and decrease in the sedation. Nephrology and cardiology are following the patient is on IV fluids and Zosyn and vancomycin is on hold and check in the level 03/21/2018 Patient remains intubated in the ICU. She felt breathing trial today when they decreased her sedation. Has 2 units of blood transfusion for her acute anemia, her hemoglobin was low this morning at 6.6 occult blood in the stool is pending. Blood pressure 109/48, breathing rate at 26. A febrile telemetry somewhat low at 6.0. Calcium gluconate is a provided by the critical care team. Cardiology team evaluated the patient, they recommended continue with supportive care. EEG is pending 03/22/2018 Patient is seen and examined in the ICU today, intubated and sedated. No weaning trial today. She status post blood transfusion. Repeat hemoglobin is 7.0. She is on insulin drip, long-acting insulin was started. Also she has elevated creatinine at 3.29. Repeat calcium is improving at 7.5, magnesium 2.5 phosphorus 3.7. Blood culture is positive for staph while urine cultures positive for Klebsiella and leonela. Patient remains on Zosyn and got dose of vancomycin yesterday. C. diff is negative creatinine prognosis is poor. my review of systems : n/a Medications are reviewed Objective - Vital Signs Vital signs: Vital Signs Temp 98.8 F 03/22/18 16:00 Pulse 56 L 03/22/18 17:00 Resp 26 H 03/22/18 17:00 BP 93/42 03/22/18 16:00 Pulse Ox 98 03/22/18 17:00 Intake & Output 03/21/18 03/22/18 03/22/18 18:59 06:59 18:59 Intake Total 3125.476 3065.965 1831.427 Output Total 630 680 445 Balance 675.209 1203.965 1386.427 Weight 98.6 kg 99.1 kg Intake: IV 300 1025 900 Piperacillin-Tazobactam 3 125 100 .375 gm In Sodium Chloride 0.9% 100 ml @ 25 mls/hr IVPB Q12HR [facility] Rx #:[id number] Sodium Chloride 0.9% 1, 300 900 800 000 ml @ 80 mls/hr IV . [id number] [facility] Rx#:[id number] Intake, IV Titration 599.719 283.965 141.427 Amount Calcium Gluconate 1,000 100 mg In Sodium Chloride 0.9 % 100 ml @ 100 mls/hr IVPB ONCE ONE Rx#: [id number] Insulin Regular 100 unit 36.477 16.532 9.042 In Sodium Chloride 0.9% 100 ml @ Per Protocol IV .Q0M [facility] Rx#:[id number] Norepinephrine 16 mg In 27.242 93.948 11.439 Sodium Chloride 0.9% 250 ml @ 5 mls/hr IV .Q24H [facility] Rx#:[id number] Piperacillin-Tazobactam 3 100 .375 gm In Sodium Chloride 0.9% 100 ml @ 25 mls/hr IVPB Q12HR [facility] Rx #:[id number] Propofol 1,000 mg In 86 173.485 120.946 Empty Bag 1 bag @ Titrate IV .Q0M [facility] Rx#: [id number] Vancomycin 1,500 mg In 250 Sodium Chloride 0.9% 250 ml @ 125 mls/hr IVPB ONCE ONE Rx#:[id number] Tube Feeding 160 440 640 Blood Product 310 Rc As-3 Unit 310 [id number] Other 90 150 Output: Chest Tube Drainage 55 20 Right Lateral Chest 55 20 Urine 630 625 425 Other: Voiding Method Indwelling Catheter Indwelling Catheter Indwelling Catheter # Bowel Movements 1 1 ABP, PAP, CO, CI - Last Documented Arterial Blood Pressure 134/48 - Exam -GENERAL: The patient is intubated, not in any acute distress. HEENT: Pupils are round and equally reacting to light. EOMI. No scleral icterus. No conjunctival pallor. Normocephalic, atraumatic. No pharyngeal erythema. No thyromegaly. CARDIOVASCULAR: S1 and S2 present. No murmurs, rubs, or gallops. -PULMONARY: Chest is clear to auscultation, decreased breath sounds bilaterally ABDOMEN: Soft, nontender, nondistended, normoactive bowel sounds. No palpable organomegaly. MUSCULOSKELETAL: No joint swelling or deformity. EXTREMITIES: No cyanosis, clubbing, or pedal edema. NEUROLOGICAL: Gross neurological examination did not reveal any focal deficits. SKIN: No rashes. - Labs CBC & Chem 7: 03/22/18 05:08 03/22/18 05:08 Labs: Abnormal Lab Results - Last 24 Hours (Table) 03/21/18 03/21/18 03/21/18 Range/Units 18:01 19:09 20:06 WBC (3.8-10.6) k/uL RBC (3.80-5.40) m/uL Hgb (11.4-16.0) gm/dL Hct (34.0-46.0) % RDW (11.5-15.5) % Neutrophils # (1.3-7.7) k/uL Lymphocytes # (1.0-4.8) k/uL ABG pH (7.35-7.45) ABG pCO2 (35-45) mmHg ABG Total CO2 (19-24) mmol/L ABG O2 Saturation (94-97) % Chloride (98-107) mmol/L BUN (7-17) mg/dL Creatinine (0.52-1.04) mg/dL Glucose (74-99) mg/dL POC Glucose (mg/dL) 175 H 171 H 164 H (75-99) mg/dL Calcium (8.4-10.2) mg/dL Magnesium (1.6-2.3) mg/dL 03/21/18 03/21/18 03/21/18 Range/Units 21:02 22:06 23:01 WBC (3.8-10.6) k/uL RBC (3.80-5.40) m/uL Hgb (11.4-16.0) gm/dL Hct (34.0-46.0) % RDW (11.5-15.5) % Neutrophils # (1.3-7.7) k/uL Lymphocytes # (1.0-4.8) k/uL ABG pH (7.35-7.45) ABG pCO2 (35-45) mmHg ABG Total CO2 (19-24) mmol/L ABG O2 Saturation (94-97) % Chloride (98-107) mmol/L BUN (7-17) mg/dL Creatinine (0.52-1.04) mg/dL Glucose (74-99) mg/dL POC Glucose (mg/dL) 162 H 160 H 154 H (75-99) mg/dL Calcium (8.4-10.2) mg/dL Magnesium (1.6-2.3) mg/dL 03/22/18 03/22/18 03/22/18 Range/Units 00:04 01:06 02:13 WBC 12.8 H (3.8-10.6) k/uL RBC 2.24 L (3.80-5.40) m/uL Hgb 6.8 L* (11.4-16.0) gm/dL Hct 20.6 L (34.0-46.0) % RDW 17.8 H (11.5-15.5) % Neutrophils # (1.3-7.7) k/uL Lymphocytes # (1.0-4.8) k/uL ABG pH (7.35-7.45) ABG pCO2 (35-45) mmHg ABG Total CO2 (19-24) mmol/L ABG O2 Saturation (94-97) % Chloride (98-107) mmol/L BUN (7-17) mg/dL Creatinine (0.52-1.04) mg/dL Glucose (74-99) mg/dL POC Glucose (mg/dL) 164 H 162 H (75-99) mg/dL Calcium (8.4-10.2) mg/dL Magnesium (1.6-2.3) mg/dL 03/22/18 03/22/18 03/22/18 Range/Units 04:08 05:06 05:08 WBC 12.6 H (3.8-10.6) k/uL RBC 2.42 L (3.80-5.40) m/uL Hgb 7.0 L (11.4-16.0) gm/dL Hct 21.6 L (34.0-46.0) % RDW 17.6 H (11.5-15.5) % Neutrophils # 10.9 H (1.3-7.7) k/uL Lymphocytes # 0.7 L (1.0-4.8) k/uL ABG pH (7.35-7.45) ABG pCO2 (35-45) mmHg ABG Total CO2 (19-24) mmol/L ABG O2 Saturation (94-97) % Chloride (98-107) mmol/L BUN (7-17) mg/dL Creatinine (0.52-1.04) mg/dL Glucose (74-99) mg/dL POC Glucose (mg/dL) 139 H 131 H (75-99) mg/dL Calcium (8.4-10.2) mg/dL Magnesium (1.6-2.3) mg/dL 03/22/18 03/22/18 03/22/18 Range/Units 05:08 06:08 07:54 WBC (3.8-10.6) k/uL RBC (3.80-5.40) m/uL Hgb (11.4-16.0) gm/dL Hct (34.0-46.0) % RDW (11.5-15.5) % Neutrophils # (1.3-7.7) k/uL Lymphocytes # (1.0-4.8) k/uL ABG pH 7.33 L (7.35-7.45) ABG pCO2 46 H (35-45) mmHg ABG Total CO2 26 H (19-24) mmol/L ABG O2 Saturation 99.6 H (94-97) % Chloride 112 H (98-107) mmol/L BUN 52 H (7-17) mg/dL Creatinine 3.29 H (0.52-1.04) mg/dL Glucose 114 H (74-99) mg/dL POC Glucose (mg/dL) 109 H (75-99) mg/dL Calcium 7.5 L (8.4-10.2) mg/dL Magnesium 2.5 H (1.6-2.3) mg/dL 03/22/18 03/22/18 03/22/18 Range/Units 08:12 09:20 10:07 WBC (3.8-10.6) k/uL RBC (3.80-5.40) m/uL Hgb (11.4-16.0) gm/dL Hct (34.0-46.0) % RDW (11.5-15.5) % Neutrophils # (1.3-7.7) k/uL Lymphocytes # (1.0-4.8) k/uL ABG pH (7.35-7.45) ABG pCO2 (35-45) mmHg ABG Total CO2 (19-24) mmol/L ABG O2 Saturation (94-97) % Chloride (98-107) mmol/L BUN (7-17) mg/dL Creatinine (0.52-1.04) mg/dL Glucose (74-99) mg/dL POC Glucose (mg/dL) 125 H 179 H 193 H (75-99) mg/dL Calcium (8.4-10.2) mg/dL Magnesium (1.6-2.3) mg/dL 03/22/18 03/22/18 03/22/18 Range/Units 11:12 12:12 13:10 WBC (3.8-10.6) k/uL RBC (3.80-5.40) m/uL Hgb (11.4-16.0) gm/dL Hct (34.0-46.0) % RDW (11.5-15.5) % Neutrophils # (1.3-7.7) k/uL Lymphocytes # (1.0-4.8) k/uL ABG pH (7.35-7.45) ABG pCO2 (35-45) mmHg ABG Total CO2 (19-24) mmol/L ABG O2 Saturation (94-97) % Chloride (98-107) mmol/L BUN (7-17) mg/dL Creatinine (0.52-1.04) mg/dL Glucose (74-99) mg/dL POC Glucose (mg/dL) 173 H 155 H 154 H (75-99) mg/dL Calcium (8.4-10.2) mg/dL Magnesium (1.6-2.3) mg/dL 03/22/18 03/22/18 Range/Units 15:11 16:58 WBC (3.8-10.6) k/uL RBC (3.80-5.40) m/uL Hgb (11.4-16.0) gm/dL Hct (34.0-46.0) % RDW (11.5-15.5) % Neutrophils # (1.3-7.7) k/uL Lymphocytes # (1.0-4.8) k/uL ABG pH (7.35-7.45) ABG pCO2 (35-45) mmHg ABG Total CO2 (19-24) mmol/L ABG O2 Saturation (94-97) % Chloride (98-107) mmol/L BUN (7-17) mg/dL Creatinine (0.52-1.04) mg/dL Glucose (74-99) mg/dL POC Glucose (mg/dL) 166 H 166 H (75-99) mg/dL Calcium (8.4-10.2) mg/dL Magnesium (1.6-2.3) mg/dL Microbiology - Last 24 Hours (Table) 03/19/18 03:31 Blood Culture - Preliminary Blood No Growth after 72 hours Assessment and Plan Assessment: Status post cardiac arrest and CPR as per ACL protocol Septic shock, secondary to possible pneumonia and UTI Bilateral pneumothorax more on the right side with multiple rib fractures. Status post chest tube Acute kidney injury Possible anoxic brain injury Hypocalcemia Severe anemia and 80 blood transfusion. Plan: This is a 73 years old female who presents because of cardiopulmonary arrest and septic shock, mostly secondary to UTI with possible pneumonia, low hemoglobin. Pulmonary/critical care team are following the patient. Cardiology and neurology consult. Continue with antibiotics, IV fluids. Continue pressors as per ICU team. Vent management as per pulmonary and ICU team.Labs and medication were reviewed. Continue same treatment. Continue with symptomatic treatment. Resume home medication. Monitor lytes and vitals. DVT and GI prophylaxis. Further recommendations of the clinical course of the patient DVT prophylaxis: Subcutaneous heparin GI Prophylaxis: Pepcid Prognosis is guarded and very poor
[2018-03-22] MEDS: INSULIN DETEMIR 100 UNIT/ML 10 ML VIAL SQ SCH (18:14)
[2018-03-22] MEDS: INSULIN ASPART 100 UNIT/ML 1 ML 10 ML VIAL SQ SCH (18:15)
[2018-03-22 18:22] LABS: Glucose,Whole Blood 167 mg/dL (75-99)
[2018-03-22 23:58] LABS: Glucose,Whole Blood 193 mg/dL (75-99)
[2018-03-23] MEDS: INSULIN ASPART 100 UNIT/ML 1 ML 10 ML VIAL SQ SCH ×4 (01:03→17:15)
[2018-03-23] MEDS: IPRATROPIUM-ALBUTEROL 3 ML NEB INHALATION SCH ×6 (04:07→23:55)
[2018-03-23 05:17] LABS: Anisocytosis Slight; Basophils % (A) 0 %; Eosinophils # (A) 0.1 k/uL (0-0.7); Eosinophils % (A) 1 %; Hypochromasia Slight; Lymphocytes # (A) 0.5 k/uL (1.0-4.8); Lymphocytes % (A) 7 %; MCH 29.3 pg (25.0-35.0); MCV 91.7 fL (80.0-100.0); Mean Platelet Volume 7.7; Monocytes # (A) 0.4 k/uL (0-1.0); Monocytes % (A) 5 %; Neutrophils # (A) 6.4 k/uL (1.3-7.7); Neutrophils % (A) 84 %; Platelet Count 174 k/uL (150-450); Poikilocytosis Slight; RBC 2.15 m/uL (3.80-5.40); RDW 17.5 % (11.5-15.5); WBC 7.6 k/uL (3.8-10.6)
[2018-03-23 05:27] LABS: Calcium 7.4 mg/dL (8.4-10.2); Magnesium 2.3 mg/dL (1.6-2.3); Potassium 3.6 mmol/L (3.5-5.1)
[2018-03-23 05:32] LABS: Vancomycin,Random 26.6 ug/mL
[2018-03-23 05:41] LABS: HCT 19.7 % (34.0-46.0); HGB 6.3 gm/dL (11.4-16.0)
[2018-03-23] MEDS: SODIUM CHLORIDE 0.9% 1,000 ML IV SCH ×2 (05:51→09:35)
[2018-03-23 06:13] LABS: Anisocytosis Slight; Basophils % (A) 0 %; Eosinophils # (A) 0.1 k/uL (0-0.7); Eosinophils % (A) 1 %; Hypochromasia Moderate; Lymphocytes # (A) 0.5 k/uL (1.0-4.8); Lymphocytes % (A) 7 %; MCH 29.5 pg (25.0-35.0); MCHC 32.1 g/dL (31.0-37.0); MCV 91.9 fL (80.0-100.0); Mean Platelet Volume 7.8; Monocytes # (A) 0.4 k/uL (0-1.0); Monocytes % (A) 6 %; Neutrophils # (A) 6.6 k/uL (1.3-7.7); Neutrophils % (A) 85 %; Platelet Count 165 k/uL (150-450); Poikilocytosis Slight; RBC 2.15 m/uL (3.80-5.40); RDW 17.9 % (11.5-15.5); WBC 7.8 k/uL (3.8-10.6)
[2018-03-23 06:17] LABS: HCT 19.7 % (34.0-46.0); HGB 6.3 gm/dL (11.4-16.0)
[2018-03-23 06:26] LABS: Glucose,Whole Blood 132 mg/dL (75-99)
[2018-03-23 06:27] LABS: Potassium 3.6 mmol/L (3.5-5.1)
[2018-03-23 06:28] LABS: Calcium 7.3 mg/dL (8.4-10.2); Magnesium 2.2 mg/dL (1.6-2.3)
--- NOTE | 2018-03-23 07:27 | XR ---
EXAMINATION TYPE: XR chest 1V DATE OF EXAM: 03/23/2018 COMPARISON: 03/22/2018 HISTORY: SOB, Follow Up FINDINGS: Right-sided chest tube is unchanged in position. Endotracheal tube and right IJ central venous line u nchanged in position. NG tube has been removed. Preceding infiltrate right upper lobe. Scattered basilar infiltrates persist. No evidence for sizable pneumothorax. Subcutaneous air persists. Stable appearance of the cardio-mediastinal structures at this time. IMPRESSION: 1. No change in right upper lobe chest tube. Suggestion of increasing right upper lobe infiltrate. Co ntinued progress studies are advised.
[2018-03-23 07:41] LABS: ABG Base Excess -2.2 mmol/L; ABG HCO3 24 mmol/L (21-25); ABG Oxygen Saturation 99.3 % (94-97); ABG PCO2 45 mmHg (35-45); ABG PH 7.33 (7.35-7.45); ABG PO2 124 mmHg (83-108); ABG TCO2 25 mmol/L (19-24)
[2018-03-23] MEDS: PIPERACILLIN-TAZOBACTAM 3.375 GM in SODIUM CHLORIDE 0.9% 100 ML IVPB SCH ×2 (08:05→21:21)
[2018-03-23] MEDS: PROPOFOL 1,000 MG in EMPTY BAG 1 BAG IV SCH ×3 (08:05→18:50)
[2018-03-23] MEDS: CHLORHEXIDINE GLUCONATE 15 ML CUP MUCOUS MEM SCH ×2 (08:05→21:21)
[2018-03-23] MEDS: PANTOPRAZOLE 40 MG/10 ML VIAL IV SCH (08:05)
--- NOTE | 2018-03-23 09:51 | PN ---
PROGRESS NOTE Mrs. Hathaway is a 73-year-old female who presented with cardiopulmonary arrest and had a tension pneumothorax. A CT scan revealed evidence of a cerebrovascular accident. She remains intubated. Hemodynamically she is stable. There is no evidence of tachycardia or bradycardia. Her CODE STATUS is being discussed with the family by Dr. Fowler. Her urine output has been stable. She continues to be on her vancomycin and Zosyn. She is also on insulin. PHYSICAL EXAMINATION: Blood pressure 135/40 with a heart rate in the 50s. LUNGS: Clear anteriorly. HEART: Regular rate and rhythm S1, S2. No S3. No gallop appreciated. ABDOMEN: Soft. Positive bowel sounds. Extremities: LINDA wrapping in place. IMPRESSION: 1. Cerebrovascular accident by CT scan. 2. Cardiac arrest with respiratory failure. 3. Rib fracture right-sided pneumothorax. 4. Anemia. 5. Renal failure. RECOMMENDATIONS: Her renal function has been stable with a creatinine of 3.12. Today her hemoglobin is down to 6.3. From the cardiac standpoint, there is no active issue at this time. Awaiting the family decision regarding code status. We will see her on as needed basis. Please feel free to call us for any questions. MMODL / IJN: [id number] /
[2018-03-23] MEDS ORDERED: POTASSIUM BICARBONATE/CIT AC 20 MEQ TABLET.EFF PO ONE (11:29)
[2018-03-23 11:31] LABS: Glucose,Whole Blood 107 mg/dL (75-99)
--- NOTE | 2018-03-23 12:28 | P.PN ---
Subjective Progress Note Date: 03/23/18 Seen and examined for the follow-up of acute kidney injury. still on the ventilator. She has loose watery diarrhea. Urine cultures growing Klebsiella and Vibha. 1300 ML's of urine output in the last 24 hours. No previous renal function to compare. Objective - Vital Signs Vital signs: Vital Signs Temp 98.6 F 03/23/18 12:24 Pulse 54 L 03/23/18 12:24 Resp 26 H 03/23/18 12:24 BP 123/41 03/23/18 12:24 Pulse Ox 100 03/23/18 12:24 Intake & Output 03/22/18 03/23/18 03/23/18 18:59 06:59 18:59 Intake Total 8312.025 2401.902 1199.931 Output Total 480 570 190 Balance 6541.214 3546.902 1009.931 Weight 98.9 kg Intake: IV 980 1060 500 Piperacillin-Tazobactam 3 100 100 100 .375 gm In Sodium Chloride 0.9% 100 ml @ 25 mls/hr IVPB Q12HR [facility] Rx #:[id number] Sodium Chloride 0.9% 1, 880 960 400 000 ml @ 80 mls/hr IV . [id number] [facility] Rx#:[id number] Intake, IV Titration 141.427 59.902 79.931 Amount Insulin Regular 100 unit 9.042 In Sodium Chloride 0.9% 100 ml @ Per Protocol IV .Q0M [facility] Rx#:[id number] Norepinephrine 16 mg In 11.439 Sodium Chloride 0.9% 250 ml @ 5 mls/hr IV .Q24H [facility] Rx#:[id number] Propofol 1,000 mg In 120.946 59.902 79.931 Empty Bag 1 bag @ Titrate IV .Q0M [facility] Rx#: [id number] Tube Feeding 680 600 280 Blood Product 310 Rc As-1 Unit 310 [id number] Other 150 90 30 Output: Chest Tube Drainage 20 10 Right Lateral Chest 20 10 Urine 460 560 190 Other: Voiding Method Indwelling Catheter Indwelling Catheter Indwelling Catheter ABP, PAP, CO, CI - Last Documented Arterial Blood Pressure 119/42 - Exam Intubated and sedated S1-S2 heard Edema - Labs CBC & Chem 7: 03/23/18 05:50 03/23/18 05:50 Labs: Abnormal Lab Results - Last 24 Hours (Table) 03/22/18 03/22/18 03/22/18 Range/Units 05:08 13:10 15:11 RBC (3.80-5.40) m/uL Hgb (11.4-16.0) gm/dL Hct (34.0-46.0) % RDW (11.5-15.5) % Lymphocytes # (1.0-4.8) k/uL ABG pH (7.35-7.45) ABG pO2 (83-108) mmHg ABG Total CO2 (19-24) mmol/L ABG O2 Saturation (94-97) % Chloride (98-107) mmol/L BUN (7-17) mg/dL Creatinine (0.52-1.04) mg/dL Glucose (74-99) mg/dL POC Glucose (mg/dL) 154 H 166 H (75-99) mg/dL Calcium (8.4-10.2) mg/dL Crossmatch See Detail 03/22/18 03/22/18 03/22/18 Range/Units 16:58 18:10 23:45 RBC (3.80-5.40) m/uL Hgb (11.4-16.0) gm/dL Hct (34.0-46.0) % RDW (11.5-15.5) % Lymphocytes # (1.0-4.8) k/uL ABG pH (7.35-7.45) ABG pO2 (83-108) mmHg ABG Total CO2 (19-24) mmol/L ABG O2 Saturation (94-97) % Chloride (98-107) mmol/L BUN (7-17) mg/dL Creatinine (0.52-1.04) mg/dL Glucose (74-99) mg/dL POC Glucose (mg/dL) 166 H 167 H 193 H (75-99) mg/dL Calcium (8.4-10.2) mg/dL Crossmatch 03/23/18 03/23/18 03/23/18 Range/Units 05:00 05:00 05:50 RBC 2.15 L (3.80-5.40) m/uL Hgb 6.3 L* (11.4-16.0) gm/dL Hct 19.7 L* (34.0-46.0) % RDW 17.5 H (11.5-15.5) % Lymphocytes # 0.5 L (1.0-4.8) k/uL ABG pH (7.35-7.45) ABG pO2 (83-108) mmHg ABG Total CO2 (19-24) mmol/L ABG O2 Saturation (94-97) % Chloride 114 H 115 H (98-107) mmol/L BUN 53 H 52 H (7-17) mg/dL Creatinine 3.17 H 3.12 H (0.52-1.04) mg/dL Glucose 128 H 121 H (74-99) mg/dL POC Glucose (mg/dL) (75-99) mg/dL Calcium 7.4 L 7.3 L (8.4-10.2) mg/dL Crossmatch 03/23/18 03/23/18 03/23/18 Range/Units 05:50 06:15 07:38 RBC 2.15 L (3.80-5.40) m/uL Hgb 6.3 L* (11.4-16.0) gm/dL Hct 19.7 L* (34.0-46.0) % RDW 17.9 H (11.5-15.5) % Lymphocytes # 0.5 L (1.0-4.8) k/uL ABG pH 7.33 L (7.35-7.45) ABG pO2 124 H (83-108) mmHg ABG Total CO2 25 H (19-24) mmol/L ABG O2 Saturation 99.3 H (94-97) % Chloride (98-107) mmol/L BUN (7-17) mg/dL Creatinine (0.52-1.04) mg/dL Glucose (74-99) mg/dL POC Glucose (mg/dL) 132 H (75-99) mg/dL Calcium (8.4-10.2) mg/dL Crossmatch 03/23/18 Range/Units 11:20 RBC (3.80-5.40) m/uL Hgb (11.4-16.0) gm/dL Hct (34.0-46.0) % RDW (11.5-15.5) % Lymphocytes # (1.0-4.8) k/uL ABG pH (7.35-7.45) ABG pO2 (83-108) mmHg ABG Total CO2 (19-24) mmol/L ABG O2 Saturation (94-97) % Chloride (98-107) mmol/L BUN (7-17) mg/dL Creatinine (0.52-1.04) mg/dL Glucose (74-99) mg/dL POC Glucose (mg/dL) 107 H (75-99) mg/dL Calcium (8.4-10.2) mg/dL Crossmatch Microbiology - Last 24 Hours (Table) 03/19/18 03:31 Blood Culture - Preliminary Blood No Growth after 96 hours Assessment and Plan Assessment: #1 nonoliguric acute kidney injury secondary to hemodynamic ATN. #2 status post cardiopulmonary arrest #3 vent dependent respiratory failure #4 diarrhea #5 urinary tract infection with Klebsiella #6 metabolic alkalosis #7 shock resolved currently off Levophed #8 anemia status post blood transfusion. Plan: #1 renal function stable compared to yesterday. Vanco trough level noted maintain trough level less than 20. #2 if renal function continued to worsen might need dialysis. 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 #4 labs in the morning #5 agree with transfusion maintain hemoglobin more than 8.
--- NOTE | 2018-03-23 13:56 | P.PN ---
Subjective Progress Note Date: 03/23/18 Principal diagnosis: Acute hypoxic respiratory failure requiring intubation and mechanical ventilation secondary to cardiac arrest This is a 73-year-old female with history of multiple medical problems, about a month ago, patient was admitted to an outside facility with pneumonia urinary tract infection and sepsis. Apparently patient was intubated and she was on mechanical ventilation for 4 days. She was eventually discharged from the hospital, and [facility] 10 [facility] a [facility]. However her condition worsened again, and she returned to [facility] for readmission with persistent pneumonia and difficulty breathing as well as symptoms of arrhythmia/ palpitations. Patient was evaluated again at [facility], and she was discharged yesterday back to shelter facility. Patient was discharged about 2 PM, however EMS was dispatched last night to the penitentiary for evaluation of difficulty breathing. Arrived to find the patient in respiratory distress with O2 saturation in the 60s. Patient was placed on a nonrebreather, her O2 saturation was noted to be in the mid 90s at the time. Patient appeared alert and oriented according to EMS. Patient was brought in and shortly after arrival the patient decompensated, she was noted to be bradycardic, hypotensive , and she was intubated immediately. Then the patient coded, and she was resuscitated as per ACLS protocol. The code and CPR lasted for about 45 minutes until she had spontaneous return of circulation. Patient was kept on mechanical ventilation, and transferred to the ICU. Apparently after the prolonged code, family was approached, and change the CODE STATUS to DO NOT RESUSCITATE and not to resuscitate again if the patient codes again. She was sent to the ICU on mechanical ventilation, and presently she is on tidal volume of 450 assist-control rate of 20 FiO2 of 40% and PEEP of 5. Peak airway pressure is 33, and plateau pressure 21. Patient has a right IJ central line noted placed by the ER physician. Apparently when the patient arrived to the ICU, she was noted to have extensive right-sided pneumothorax. This was actually seen earlier while the patient was in the ER, but for some reason a chest tube was not done in the ER. I reviewed the chest x-ray around 4 AM in the morning, and I called the ER physician Dr. Dunlap, she came back to the ICU and she placed a right sided chest tube as the patient was going into what seems to be a tension pneumothorax. She was requiring more norepinephrine. Chest x-ray following a right-sided chest tube placement showed complete reexpansion of the right lung. The pneumothoraces were felt to be related most likely to broken ribs from CPR. Reevaluated today on 03/20/2018, patient remains on mechanical ventilation, her ventilator settings are tidal volume of 450 assist-control rate of 20 FiO2 40% PEEP of 5. Patient remains on propofol 50 mcg/kg/m, levo fed 33 mcg/m, and insulin 4 units per hour. Patient does not follow any instructions, but seems to open eyes, and responded slightly to pain. I plan to hold propofol, and assess mental status fully off propofol. Chest x-ray was reviewed, her right lung is fully expanded, chest tube remains in place, and no evidence of air leak noted. Labs showed low hemoglobin of 6.8, hence I recommended a unit of packed RBCs to be given. Blood pressure is marginal. However the patient is not requiring norepinephrine at this point yet. ABG showed a pO2 of 103 pCO2 of 44 pH of 7.36. No changes were made in her present ventilator settings. Nutrition-jansen, patient remains on nutritional support via enteral feeding. Urinalysis showed evidence of pyuria and bacteriuria. Patient is empirically on Zosyn. Reevaluated today on 03/21/2018, remains on mechanical ventilation, and ventilator settings are tidal volume of 400 assist control rate of 26 FiO2 of 40 % and PEEP of 5. Peak airway pressure is noted to be in the high 30s, and plateau pressure is 30. Patient is off propofol this morning, she is arousable , follows simple instructions like wiggling her toes, squeezing hands, this is the best I have seen her in the last 24 hours. However the patient remains tachypneic, tachycardic, and did not tolerate well a short trial of pressure support and CPAP. Her respiratory rate was up in the 30s, and the patient was noted to have some respiratory distress. Then I decided to keep her back on assist control mode of mechanical ventilation, and I recommended restarting her propofol. Labs today were noted to be abnormal, hemoglobin is 6.6 hence the patient will receive another unit of packed RBCs today. Patient had received 2 units of packed RBCs since admission. Repeat hemoglobin after unit the blood was 7.2. ABG earlier today showed a pO2 of 111 pCO2 of 50 pH of 7.28, and this was actually on assist control mode of mechanical ventilation, off propofol, her basic metabolic profile showed low potassium of 3.4 being corrected, her BUN is about the same 43 creatinine is actually better compared to yesterday 2.68 and it was 2.76 yesterday. Chest x-ray continues to show opacity in the right upper lobe, and adequate placement of tubes including endotracheal tube, nasogastric tube, and right-sided chest tube. Questionable atelectasis at the left base. The area in the right upper lobe is actually more consistent with pulmonary contusion from CPR, because it was not present prior to chest tube placement. Reevaluated today on 03/22/2018, patient remains on mechanical ventilation, tidal volume is 420, assist control rate 26 FiO2 40% and PEEP of 5. CT of the brain showed a new evolving acute right parietal infarct. Patient remains on propofol, she is also on a small dose of levo fed to maintain a mean arterial pressure above 65. Patient opens eyes to deep painful stimuli, grimaces with deep painful stimuli, but she does not follow any simple instructions. Family is at bedside, and updated on her overall clinical neurological picture. Labs were reviewed hemoglobin is 6.8 again today, WBC count is 12.8 GI consultation was initiated since the patient is requiring so far 2 units of packed RBCs were given. ABG showed a pO2 of 107 pCO2 of 46 pH of 7.33 hence the tidal volume was increased from 400-420. Renal functioning is becoming worse BUN is 52 creatinine 3.29. Reevaluated today on 03/23/2018, patient remains on mechanical ventilation, ventilator settings are tidal volume of 420 assist control rate of 26 FiO2 40% and PEEP of 5. Patient is off levo fed, she is arousable, follows simple instructions, mostly opening eyes, squeezing hands, and wiggling toes. However when the patient was given a very short pressure support trial of 12 with CPAP, she was noted to struggle to breathe, hence placed back on assist control mode of mechanical ventilation. Her family yesterday was updated on her condition, and they are yet to decide on comfort care measures. And this is basically her sister. In the meantime we are continuing supportive care measures, CODE STATUS remains DO NOT RESUSCITATE. I am going to address with the family the issue of extubation and not to reintubate if extubated. Clearly today the patient is not even anywhere near ready for extubation. Labs including ABG, CBC , electrolytes and renal profile were all reviewed, and I have decided to give the patient a unit of packed RBCs since her hemoglobin is 6.3 today. GI was consulted patient did have positive Hemoccult stools upon presentation. Her urine was negative for Klebsiella pneumoniae and her blood was contaminated with coagulase-negative staph. Patient is still on Zosyn and vancomycin since admission. Objective - Vital Signs Vital signs: Vital Signs Temp 98.6 F 03/23/18 12:24 Pulse 55 L 03/23/18 13:00 Resp 26 H 03/23/18 13:00 BP 123/41 03/23/18 12:24 Pulse Ox 99 03/23/18 13:00 Intake & Output 03/22/18 03/23/18 03/23/18 18:59 06:59 18:59 Intake Total 4469.977 5905.902 1839.931 Output Total 480 570 270 Balance 0985.249 6490.902 1569.931 Weight 98.9 kg Intake: IV 980 1060 660 Piperacillin-Tazobactam 3 100 100 100 .375 gm In Sodium Chloride 0.9% 100 ml @ 25 mls/hr IVPB Q12HR [facility] Rx #:[id number] Sodium Chloride 0.9% 1, 880 960 560 000 ml @ 80 mls/hr IV . [id number] [facility] Rx#:[id number] Intake, IV Titration 141.427 59.902 79.931 Amount Insulin Regular 100 unit 9.042 In Sodium Chloride 0.9% 100 ml @ Per Protocol IV .Q0M [facility] Rx#:[id number] Norepinephrine 16 mg In 11.439 Sodium Chloride 0.9% 250 ml @ 5 mls/hr IV .Q24H [facility] Rx#:[id number] Propofol 1,000 mg In 120.946 59.902 79.931 Empty Bag 1 bag @ Titrate IV .Q0M [facility] Rx#: [id number] Tube Feeding 680 600 360 Blood Product 620 Rc As-1 Unit 310 [id number] Other 150 90 120 Output: Chest Tube Drainage 20 10 Right Lateral Chest 20 10 Urine 460 560 270 Other: Voiding Method Indwelling Catheter Indwelling Catheter Indwelling Catheter ABP, PAP, CO, CI - Last Documented Arterial Blood Pressure 102/40 - Exam Physical Exam: Revealed a 73-year-old female, opens eyes following very simple instructions today. Head: Atraumatic, normocephalic. HEENT:[Neck is supple.] [No neck masses.] [No thyromegaly.] [No JVD.] Pupils are sluggishly reactive to light, no icterus. Endotracheal tube and orogastric tube noted to be intact. Chest: [Crackles and rhonchi noted bilaterally,] multiple bruises and areas of ecchymosis noted on the anterior chest wall bilaterally. Right-sided chest tube is noted just over the fourth intercostal space on the right side. The chest tube is off suction for now, however continues to have helped small tiny early noted today. And it is not quite ready to be removed yet. Cardiac Exam: [Normal S1 and S2, no S3 gallop, no murmur.] Abdomen: [Soft, nontender, no megaly, no rebound, no guarding, normal bowel sounds.] Extremities: Multiple areas of bruises and ecchymosis noted in both upper and lower extremities.] Neurological Exam: Patient is opening eyes, and following very simple instructions like squeezing hands and wiggling toes. Psychiatric: Cannot be assessed. Skin: Areas of ecchymosis on the chest wall and upper extremities. - Labs CBC & Chem 7: 03/23/18 05:50 03/23/18 05:50 Labs: Abnormal Lab Results - Last 24 Hours (Table) 03/22/18 03/22/18 03/22/18 Range/Units 05:08 15:11 16:58 RBC (3.80-5.40) m/uL Hgb (11.4-16.0) gm/dL Hct (34.0-46.0) % RDW (11.5-15.5) % Lymphocytes # (1.0-4.8) k/uL ABG pH (7.35-7.45) ABG pO2 (83-108) mmHg ABG Total CO2 (19-24) mmol/L ABG O2 Saturation (94-97) % Chloride (98-107) mmol/L BUN (7-17) mg/dL Creatinine (0.52-1.04) mg/dL Glucose (74-99) mg/dL POC Glucose (mg/dL) 166 H 166 H (75-99) mg/dL Calcium (8.4-10.2) mg/dL Crossmatch See Detail 03/22/18 03/22/18 03/23/18 Range/Units 18:10 23:45 05:00 RBC 2.15 L (3.80-5.40) m/uL Hgb 6.3 L* (11.4-16.0) gm/dL Hct 19.7 L* (34.0-46.0) % RDW 17.5 H (11.5-15.5) % Lymphocytes # 0.5 L (1.0-4.8) k/uL ABG pH (7.35-7.45) ABG pO2 (83-108) mmHg ABG Total CO2 (19-24) mmol/L ABG O2 Saturation (94-97) % Chloride (98-107) mmol/L BUN (7-17) mg/dL Creatinine (0.52-1.04) mg/dL Glucose (74-99) mg/dL POC Glucose (mg/dL) 167 H 193 H (75-99) mg/dL Calcium (8.4-10.2) mg/dL Crossmatch 03/23/18 03/23/18 03/23/18 Range/Units 05:00 05:50 05:50 RBC 2.15 L (3.80-5.40) m/uL Hgb 6.3 L* (11.4-16.0) gm/dL Hct 19.7 L* (34.0-46.0) % RDW 17.9 H (11.5-15.5) % Lymphocytes # 0.5 L (1.0-4.8) k/uL ABG pH (7.35-7.45) ABG pO2 (83-108) mmHg ABG Total CO2 (19-24) mmol/L ABG O2 Saturation (94-97) % Chloride 114 H 115 H (98-107) mmol/L BUN 53 H 52 H (7-17) mg/dL Creatinine 3.17 H 3.12 H (0.52-1.04) mg/dL Glucose 128 H 121 H (74-99) mg/dL POC Glucose (mg/dL) (75-99) mg/dL Calcium 7.4 L 7.3 L (8.4-10.2) mg/dL Crossmatch 03/23/18 03/23/18 03/23/18 Range/Units 06:15 07:38 11:20 RBC (3.80-5.40) m/uL Hgb (11.4-16.0) gm/dL Hct (34.0-46.0) % RDW (11.5-15.5) % Lymphocytes # (1.0-4.8) k/uL ABG pH 7.33 L (7.35-7.45) ABG pO2 124 H (83-108) mmHg ABG Total CO2 25 H (19-24) mmol/L ABG O2 Saturation 99.3 H (94-97) % Chloride (98-107) mmol/L BUN (7-17) mg/dL Creatinine (0.52-1.04) mg/dL Glucose (74-99) mg/dL POC Glucose (mg/dL) 132 H 107 H (75-99) mg/dL Calcium (8.4-10.2) mg/dL Crossmatch Microbiology - Last 24 Hours (Table) 03/19/18 03:31 Blood Culture - Preliminary Blood No Growth after 96 hours Assessment and Plan Assessment: Impression: 1 acute hypoxic respiratory failure and cardiac arrest requiring prolonged CPR in the emergency room department. 2 multiple rib fractures and right sided pneumothorax requiring right-sided chest tube placement. Rib fractures are iatrogenic in nature. Chest tube remains in place, it is off suction, noted to have a small tiny early Intermittently. 3 recent hospitalization for pneumonia and sepsis, however no clear-cut evidence of pneumonia on the initial chest x-ray done on this admission. Chest x-ray is showing left basilar atelectasis. And patchy opacity at the site of the tube insertion which was not present on presentation. Strongly doubt pneumonia on this presentation. 4 right-sided pneumothorax, secondary to rib fractures/iatrogenic. Requiring right-sided chest tube placement. 5 strongly suspect anoxic brain injury considering the prolonged CPR until recovery of spontaneous circulation. Mental status seems to be improving today , however it is not quite back to normal. Patient seems to be more appropriate , following simple instructions, especially wiggling toes and squeezing hands, closing eyes, [address] of the brain suggestive of evolving CVA, infarct. 7 acute urinary tract infection secondary to Klebsiella pneumonia. Recommendation: Continue ventilatory support, nutritional support, insulin, GI and DVT prophylaxis, antibiotics, yet to hear from the family regarding possibly comfort care measures. Prognosis remains extremely poor and guarded, we'll continue to follow. Critical care time is 35 minutes attempted a short trial of pressure support and CPAP, but the patient is not ready. And this was not tolerated. Time with Patient: Greater than 30
[2018-03-23 14:38] LABS: Anisocytosis Slight; HCT 21.4 % (34.0-46.0); HGB 7.1 gm/dL (11.4-16.0); Hypochromasia Slight; MCHC 33.4 g/dL (31.0-37.0); MCV 89.7 fL (80.0-100.0); Platelet Count 166 k/uL (150-450); Poikilocytosis Slight; RBC 2.38 m/uL (3.80-5.40); RDW 17.7 % (11.5-15.5); WBC 6.9 k/uL (3.8-10.6)
--- NOTE | 2018-03-23 16:14 | P.PN ---
Subjective This is a pleasant 73 years old female with past medical history of congestive heart failure and atrial fibrillation. Patient was transferred from skilled nursing where she was therefore 10 days, recently discharged from the hospital for sepsis, pneumonia and UTI. This time EMS were called for difficulty breathing and they found her oxygen saturation was 60, she was placed on non-rebreather and her oxygen went up to mid 90s Patient is currently intubated and cannot provide information which were obtained from the medical staff, medical records, and sister at bedside who is her guardian. As per sister patient has been admitted to [facility] twice in the last 36 days for pneumonia and UTI with sepsis. Each time ascending to rehab, first time for 10 days and then for 16 days. As per sister they have been contacted earlier and they wanted everything to be done. But now with a want to change her CODE STATUS to DO NOT RESUSCITATE. On admission she was saturating is 6% on room air and she was breathing at respiratory rate of 30 minutes. Her blood pressure was 155/64, later on it dropped to 63/38. And she was bradycardic in the 40s and 50s. Leukocytosis at 14.8 K, hemoglobin 9, platelets 543. Sodium 135, potassium 5.9, creatinine 2.4 , sugar was signed between 300-400. Troponin is elevated at 0.04 and 0.319. LFT unremarkable.UA was suggestive of infection. Chest x-ray shows bilateral pneumothorax with larger on the left side, follow-up chest x-ray showing large right-side pneumothorax, getting worse 03/20/2018 Patient remains intubated in the ICU. Her sugar looks controlled however her hemoglobin this morning dropped to 6.8, she's getting 1 unit of blood transfusion. Heparin was put on hold. Check FOBT Creatinine 2.7. Rest of electrolytes are controlled. Critical care team for the patient's and decrease in the sedation. Nephrology and cardiology are following the patient is on IV fluids and Zosyn and vancomycin is on hold and check in the level 03/21/2018 Patient remains intubated in the ICU. She felt breathing trial today when they decreased her sedation. Has 2 units of blood transfusion for her acute anemia, her hemoglobin was low this morning at 6.6 occult blood in the stool is pending. Blood pressure 109/48, breathing rate at 26. A febrile telemetry somewhat low at 6.0. Calcium gluconate is a provided by the critical care team. Cardiology team evaluated the patient, they recommended continue with supportive care. EEG is pending 03/22/2018 Patient is seen and examined in the ICU today, intubated and sedated. No weaning trial today. She status post blood transfusion. Repeat hemoglobin is 7.0. She is on insulin drip, long-acting insulin was started. Also she has elevated creatinine at 3.29. Repeat calcium is improving at 7.5, magnesium 2.5 phosphorus 3.7. Blood culture is positive for staph while urine cultures positive for Klebsiella and leonela. Patient remains on Zosyn and got dose of vancomycin yesterday. C. diff is negative creatinine prognosis is poor. 03/23/2018 Patient still intubated in the ICU. The sedation holiday has been tried today, patient couldn't move her left hand elevated. Patient is temperature is 98.8. Heart rate in the 50s. Respiratory rate is 26. Blood pressure 102/40. Her hemoglobin is low at 6.3, went up to 7.1. Patient status post blood transfusion she has positive culture with staph in the blood and leonela albicans and Klebsiella in the urine. She remains on broad-spectrum antibiotics. She is an IV fluids. Nephrology team are seeing the patient. If renal function worsens might need hemodialysis as per nephrology team. Critical team input is appreciated. my review of systems : n/a Medications are reviewed Objective - Vital Signs Vital signs: Vital Signs Temp 98.6 F 03/23/18 12:24 Pulse 56 L 03/23/18 15:35 Resp 26 H 03/23/18 15:00 BP 108/55 03/23/18 15:00 Pulse Ox 98 03/23/18 15:00 Intake & Output 03/22/18 03/23/18 03/23/18 18:59 06:59 18:59 Intake Total 7254.735 8420.902 2158.278 Output Total 480 570 380 Balance 0089.654 9607.902 1778.278 Weight 98.9 kg Intake: IV 980 1060 820 Piperacillin-Tazobactam 3 100 100 100 .375 gm In Sodium Chloride 0.9% 100 ml @ 25 mls/hr IVPB Q12HR [facility] Rx #:[id number] Sodium Chloride 0.9% 1, 880 960 720 000 ml @ 80 mls/hr IV . [id number] [facility] Rx#:[id number] Intake, IV Titration 141.427 59.902 118.278 Amount Insulin Regular 100 unit 9.042 In Sodium Chloride 0.9% 100 ml @ Per Protocol IV .Q0M [facility] Rx#:[id number] Norepinephrine 16 mg In 11.439 Sodium Chloride 0.9% 250 ml @ 5 mls/hr IV .Q24H [facility] Rx#:[id number] Propofol 1,000 mg In 120.946 59.902 118.278 Empty Bag 1 bag @ Titrate IV .Q0M [facility] Rx#: [id number] Tube Feeding 680 600 480 Blood Product 620 Rc As-1 Unit 310 [id number] Other 150 90 120 Output: Chest Tube Drainage 20 10 Right Lateral Chest 20 10 Urine 460 560 380 Other: Voiding Method Indwelling Catheter Indwelling Catheter Indwelling Catheter ABP, PAP, CO, CI - Last Documented Arterial Blood Pressure 104/41 - Exam -GENERAL: The patient is intubated, not in any acute distress. HEENT: Pupils are round and equally reacting to light. EOMI. No scleral icterus. No conjunctival pallor. Normocephalic, atraumatic. No pharyngeal erythema. No thyromegaly. CARDIOVASCULAR: S1 and S2 present. No murmurs, rubs, or gallops. -PULMONARY: Chest is clear to auscultation, decreased breath sounds bilaterally ABDOMEN: Soft, nontender, nondistended, normoactive bowel sounds. No palpable organomegaly. MUSCULOSKELETAL: No joint swelling or deformity. EXTREMITIES: No cyanosis, clubbing, or pedal edema. NEUROLOGICAL: Gross neurological examination did not reveal any focal deficits. SKIN: No rashes. - Labs CBC & Chem 7: 03/23/18 14:25 03/23/18 05:50 Labs: Abnormal Lab Results - Last 24 Hours (Table) 03/22/18 03/22/18 03/22/18 Range/Units 05:08 16:58 18:10 RBC (3.80-5.40) m/uL Hgb (11.4-16.0) gm/dL Hct (34.0-46.0) % RDW (11.5-15.5) % Lymphocytes # (1.0-4.8) k/uL ABG pH (7.35-7.45) ABG pO2 (83-108) mmHg ABG Total CO2 (19-24) mmol/L ABG O2 Saturation (94-97) % Chloride (98-107) mmol/L BUN (7-17) mg/dL Creatinine (0.52-1.04) mg/dL Glucose (74-99) mg/dL POC Glucose (mg/dL) 166 H 167 H (75-99) mg/dL Calcium (8.4-10.2) mg/dL Crossmatch See Detail 03/22/18 03/23/18 03/23/18 Range/Units 23:45 05:00 05:00 RBC 2.15 L (3.80-5.40) m/uL Hgb 6.3 L* (11.4-16.0) gm/dL Hct 19.7 L* (34.0-46.0) % RDW 17.5 H (11.5-15.5) % Lymphocytes # 0.5 L (1.0-4.8) k/uL ABG pH (7.35-7.45) ABG pO2 (83-108) mmHg ABG Total CO2 (19-24) mmol/L ABG O2 Saturation (94-97) % Chloride 114 H (98-107) mmol/L BUN 53 H (7-17) mg/dL Creatinine 3.17 H (0.52-1.04) mg/dL Glucose 128 H (74-99) mg/dL POC Glucose (mg/dL) 193 H (75-99) mg/dL Calcium 7.4 L (8.4-10.2) mg/dL Crossmatch 03/23/18 03/23/18 03/23/18 Range/Units 05:50 05:50 06:15 RBC 2.15 L (3.80-5.40) m/uL Hgb 6.3 L* (11.4-16.0) gm/dL Hct 19.7 L* (34.0-46.0) % RDW 17.9 H (11.5-15.5) % Lymphocytes # 0.5 L (1.0-4.8) k/uL ABG pH (7.35-7.45) ABG pO2 (83-108) mmHg ABG Total CO2 (19-24) mmol/L ABG O2 Saturation (94-97) % Chloride 115 H (98-107) mmol/L BUN 52 H (7-17) mg/dL Creatinine 3.12 H (0.52-1.04) mg/dL Glucose 121 H (74-99) mg/dL POC Glucose (mg/dL) 132 H (75-99) mg/dL Calcium 7.3 L (8.4-10.2) mg/dL Crossmatch 03/23/18 03/23/18 03/23/18 Range/Units 07:38 11:20 14:25 RBC 2.38 L (3.80-5.40) m/uL Hgb 7.1 L (11.4-16.0) gm/dL Hct 21.4 L (34.0-46.0) % RDW 17.7 H (11.5-15.5) % Lymphocytes # (1.0-4.8) k/uL ABG pH 7.33 L (7.35-7.45) ABG pO2 124 H (83-108) mmHg ABG Total CO2 25 H (19-24) mmol/L ABG O2 Saturation 99.3 H (94-97) % Chloride (98-107) mmol/L BUN (7-17) mg/dL Creatinine (0.52-1.04) mg/dL Glucose (74-99) mg/dL POC Glucose (mg/dL) 107 H (75-99) mg/dL Calcium (8.4-10.2) mg/dL Crossmatch Microbiology - Last 24 Hours (Table) 03/19/18 03:31 Blood Culture - Preliminary Blood No Growth after 96 hours Assessment and Plan Assessment: Status post cardiac arrest and CPR as per ACL protocol Septic shock, secondary to possible pneumonia and UTI Bilateral pneumothorax more on the right side with multiple rib fractures. Status post chest tube Acute kidney injury Possible anoxic brain injury Hypocalcemia Severe anemia and 80 blood transfusion. Plan: This is a 73 years old female who presents because of cardiopulmonary arrest and septic shock, mostly secondary to UTI with possible pneumonia, low hemoglobin. Pulmonary/critical care team are following the patient. Cardiology and neurology consult. Continue with antibiotics, IV fluids. Continue pressors as per ICU team. Vent management as per pulmonary and ICU team.Labs and medication were reviewed. Continue same treatment. Continue with symptomatic treatment. Resume home medication. Monitor lytes and vitals. DVT and GI prophylaxis. Further recommendations of the clinical course of the patient DVT prophylaxis: Subcutaneous heparin GI Prophylaxis: Pepcid Prognosis is guarded and very poor
[2018-03-23 17:21] LABS: Glucose,Whole Blood 132 mg/dL (75-99)
[2018-03-23 20:51] LABS: Anisocytosis Slight; HCT 21.6 % (34.0-46.0); HGB 7.1 gm/dL (11.4-16.0); Hypochromasia Slight; MCH 29.4 pg (25.0-35.0); MCHC 32.7 g/dL (31.0-37.0); Mean Platelet Volume 7.8; Platelet Count 165 k/uL (150-450); Poikilocytosis Slight; RDW 17.9 % (11.5-15.5); WBC 6.6 k/uL (3.8-10.6)
[2018-03-23] MEDS: INSULIN DETEMIR 100 UNIT/ML 10 ML VIAL SQ SCH (21:21)
[2018-03-24 00:28] LABS: Glucose,Whole Blood 140 mg/dL (75-99)
[2018-03-24] MEDS: INSULIN ASPART 100 UNIT/ML 1 ML 10 ML VIAL SQ SCH ×5 (01:00→23:40)
--- NOTE | 2018-03-24 01:30 | P.CONS ---
History of Present Illness - Reason for Consult Consult date: 03/22/18 Low Hb; Positive stool occult blood. - History of Present Illness The patient is a 73-year-old female who is managed in the intensive care unit for cardiopulmonary arrest and respiratory failure for which she is requiring mechanical ventilation. The patient, apparently, had prolonged CPR and had right rib fractures and right pneumothorax that required placement of a chest tube and is suspected to have had an anoxic brain injury. We are asked to see her because of occult blood positive stools and low hemoglobin. The patient was hospitalized for an respiratory illness prior to transferred to rehab and according to her records, she had a gastrostomy feeding tube placed around 10 days ago. There was no mention at that time of the placement of her gastrostomy feeding tube of any ulcer disease and her gastrostomy feeding tube was not determining any bloody returns. She is not having any bloody bowel movements. The patient is intubated and on mechanical ventilation and all the information was gathered from her chart and speaking to her providers and nursing staff. She has required transfusions and her hemoglobin is around 7.1. Review of Systems ROS unobtainable: due to endotracheal tube Past Medical History Past Medical History: Atrial Fibrillation, Pneumonia Additional Past Medical History / Comment(s): Intubated ICU admission for sepsis pneumonia January 2018 Last Myocardial Infarction Date:: 2007 History of Any Multi-Drug Resistant Organisms: None Reported Past Surgical History: No Surgical Hx Reported Past Anesthesia/Blood Transfusion Reactions: No Reported Reaction Smoking Status: Unknown if ever smoked Medications and Allergies Home Medications Medication Instructions Recorded Confirmed Type Acetaminophen Tab [Tylenol Tab] 650 mg PO Q6H PRN 03/18/18 03/18/18 History Arformoterol Tartrate [Brovana] 15 mcg INHALATION RT-BID 03/18/18 03/18/18 History Aspirin [Children's Aspirin] 81 mg PO HS 03/18/18 03/18/18 History Atorvastatin [Lipitor] 20 mg PO HS 03/18/18 03/18/18 History Calcium Carbonate/Vitamin D3 1 tab PO HS 03/18/18 03/18/18 History [Calcium 600-Vit D3 400 Caplet] DULoxetine HCL [Cymbalta] 20 mg PO DAILY 03/18/18 03/18/18 History Docusate Oral Soln [Colace Oral 100 mg PO BID 03/18/18 03/18/18 History Soln] Donepezil Hcl 23mg 23 mg PO DAILY 03/18/18 03/18/18 History Ferrous Sulfate 308 mg PO DAILY 03/18/18 03/18/18 History Folic Acid 0.8 mg PO HS 03/18/18 03/18/18 History Insulin Aspart [NovoLOG See Protocol SQ ACHS 03/18/18 03/18/18 History (formulary)] Insulin Detemir [Levemir] 10 unit SQ BID 03/18/18 03/18/18 History Ipratropium-Albuterol Nebulize 3 ml INHALATION RT-QID 03/18/18 03/18/18 History [Duoneb 0.5 mg-3 mg/3 ml Soln] Lactulose 10 gm PO BID 03/18/18 03/18/18 History Loratadine [Claritin] 10 mg PO DAILY 03/18/18 03/18/18 History Magnesium Oxide 400 mg PO HS 03/18/18 03/18/18 History Metoprolol Tartrate [Lopressor] 25 mg PO BID 03/18/18 03/18/18 History Montelukast [Singulair] 10 mg PO HS 03/18/18 03/18/18 History Multivitamins, Thera [Multivitamin 1 tab PO HS 03/18/18 03/18/18 History (formulary)] Pantoprazole Sodium [Protonix] 40 mg PO DAILY 03/18/18 03/18/18 History Rosuvastatin [Crestor] 10 mg PO HS 03/18/18 03/18/18 History Vit C/E/Zn/Coppr/Lutein/Zeaxan 1 cap PO BID 03/18/18 03/18/18 History [Preservision Areds 2 Softgel] guaiFENesin [Mucinex] 1,200 mg PO BID 03/18/18 03/18/18 History Allergies Allergy/AdvReac Type Severity Reaction Status Date / Time clopidogrel [From Plavix] Allergy Unknown Verified 03/18/18 22:41 Physical Exam Vitals: Vital Signs Temp Pulse Resp BP Pulse Ox 03/22/18 13:00 56 L 26 H 99 03/22/18 12:00 99.3 F 56 L 26 H 95/39 100 03/22/18 11:14 55 L 03/22/18 11:00 56 L 26 H 115/51 99 03/22/18 10:00 73 26 H 127/64 100 03/22/18 09:00 61 28 H 98 03/22/18 08:00 99.0 F 54 L 26 H 98 03/22/18 07:31 56 L 03/22/18 07:19 55 L 03/22/18 07:00 55 L 26 H 98 03/22/18 06:00 59 L 26 H 94/60 97 03/22/18 05:00 57 L 20 98/61 93 L 03/22/18 04:21 56 L 03/22/18 04:10 56 L 03/22/18 04:00 98.4 F 58 L 26 H 113/51 98 03/22/18 03:00 61 26 H 105/51 98 03/22/18 02:00 60 26 H 98/45 100 03/22/18 01:00 65 26 H 114/46 99 03/22/18 00:00 98.7 F 56 L 27 H 92/42 99 03/21/18 23:53 56 L 03/21/18 23:42 56 L 03/21/18 23:00 60 26 H 102/47 97 03/21/18 22:00 58 L 26 H 108/43 97 03/21/18 21:00 65 26 H 117/54 97 03/21/18 20:16 67 03/21/18 20:10 67 03/21/18 20:00 99.1 F 68 26 H 114/51 98 03/21/18 19:00 70 26 H 93/61 96 03/21/18 18:00 67 26 H 125/82 98 03/21/18 17:00 67 26 H 117/53 97 03/21/18 16:24 67 03/21/18 16:13 67 03/21/18 16:00 98.5 F 68 26 H 114/50 97 03/21/18 15:00 68 26 H 109/48 97 03/21/18 14:00 68 26 H 106/45 97 Intake and Output 03/21/18 03/22/18 03/22/18 22:59 06:59 14:59 Intake Total 107.365 2851.017 1154.524 Output Total 460 460 295 Balance 348.032 725.017 859.524 Intake: IV 390 715 580 Piperacillin-Tazobactam 3 50 75 100 .375 gm In Sodium Chloride 0.9% 100 ml @ 25 mls/hr IVPB Q12HR LEN Rx #:[id number] Sodium Chloride 0.9% 1, 340 640 480 000 ml @ 80 mls/hr IV . [id number] LEN Rx#:[id number] Intake, IV Titration 228.032 90.017 54.524 Amount Insulin Regular 100 unit 22.084 16.532 9.042 In Sodium Chloride 0.9% 100 ml @ Per Protocol IV .Q0M LEN Rx#:[id number] Norepinephrine 16 mg In 93.948 11.439 Sodium Chloride 0.9% 250 ml @ 5 mls/hr IV .Q24H LEN Rx#:[id number] Propofol 1,000 mg In 112.0 73.485 34.043 Empty Bag 1 bag @ Titrate IV .Q0M LEN Rx#: [id number] Tube Feeding 160 320 400 Other 30 60 120 Output: Chest Tube Drainage 55 Right Lateral Chest 55 Urine 460 405 295 Other: Voiding Method Indwelling Catheter Indwelling Catheter Indwelling Catheter # Bowel Movements 1 Weight 99.1 kg ABP, PAP, CO, CI - Last 8 Hours Arterial Blood Pressure 104/38 Arterial Blood Pressure 97/36 Arterial Blood Pressure 100/38 Arterial Blood Pressure 164/53 Arterial Blood Pressure 142/50 Arterial Blood Pressure 138/54 Arterial Blood Pressure 136/44 Arterial Blood Pressure 154/49 General: Appears stated age opens eyes to deep painful stimuli, no purposeful movement noted. Head: Atraumatic, normocephalic. HEENT: Conjunctivae pink, sclerae not icterus. Endotracheal tube and orogastric tube noted to be intact. Chest: Multiple bruises and areas of ecchymosis noted on the anterior chest wall bilaterally. Right-sided chest tube is noted just over the fourth intercostal space on the right side. The chest tube was put on water seal. Cardiac Exam: Irregular rhythm. No murmurs or gallops or friction rubs. Abdomen: Soft, no masses or organomegalies. Feeding tube site not infected. Extremities: Multiple areas of bruises and ecchymosis noted in both upper and lower extremities. Neurological Exam: Patient is withdrawing to pain, and opens eyes to painful stimuli. Psychiatric: Cannot be assessed. Skin: Areas of ecchymosis on the chest wall and upper extremities. Results CBC & Chem 7: 03/23/18 20:30 03/23/18 05:50 Labs: Abnormal Lab Results - Last 24 Hours (Table) 03/21/18 03/21/18 03/21/18 Range/Units 12:30 14:07 15:36 WBC (3.8-10.6) k/uL RBC (3.80-5.40) m/uL Hgb (11.4-16.0) gm/dL Hct (34.0-46.0) % RDW (11.5-15.5) % Neutrophils # (1.3-7.7) k/uL Lymphocytes # (1.0-4.8) k/uL ABG pH (7.35-7.45) ABG pCO2 (35-45) mmHg ABG Total CO2 (19-24) mmol/L ABG O2 Saturation (94-97) % Chloride (98-107) mmol/L BUN (7-17) mg/dL Creatinine (0.52-1.04) mg/dL Glucose (74-99) mg/dL POC Glucose (mg/dL) 184 H 173 H (75-99) mg/dL Calcium (8.4-10.2) mg/dL Magnesium (1.6-2.3) mg/dL Stool Occult Blood Positive H (Negative) 03/21/18 03/21/18 03/21/18 Range/Units 15:52 16:14 17:13 WBC 14.1 H (3.8-10.6) k/uL RBC 2.38 L (3.80-5.40) m/uL Hgb 7.0 L (11.4-16.0) gm/dL Hct 21.1 L (34.0-46.0) % RDW 17.6 H (11.5-15.5) % Neutrophils # (1.3-7.7) k/uL Lymphocytes # (1.0-4.8) k/uL ABG pH (7.35-7.45) ABG pCO2 (35-45) mmHg ABG Total CO2 (19-24) mmol/L ABG O2 Saturation (94-97) % Chloride (98-107) mmol/L BUN (7-17) mg/dL Creatinine (0.52-1.04) mg/dL Glucose (74-99) mg/dL POC Glucose (mg/dL) 151 H 151 H (75-99) mg/dL Calcium (8.4-10.2) mg/dL Magnesium (1.6-2.3) mg/dL Stool Occult Blood (Negative) 03/21/18 03/21/18 03/21/18 Range/Units 18:01 19:09 20:06 WBC (3.8-10.6) k/uL RBC (3.80-5.40) m/uL Hgb (11.4-16.0) gm/dL Hct (34.0-46.0) % RDW (11.5-15.5) % Neutrophils # (1.3-7.7) k/uL Lymphocytes # (1.0-4.8) k/uL ABG pH (7.35-7.45) ABG pCO2 (35-45) mmHg ABG Total CO2 (19-24) mmol/L ABG O2 Saturation (94-97) % Chloride (98-107) mmol/L BUN (7-17) mg/dL Creatinine (0.52-1.04) mg/dL Glucose (74-99) mg/dL POC Glucose (mg/dL) 175 H 171 H 164 H (75-99) mg/dL Calcium (8.4-10.2) mg/dL Magnesium (1.6-2.3) mg/dL Stool Occult Blood (Negative) 03/21/18 03/21/18 03/21/18 Range/Units 21:02 22:06 23:01 WBC (3.8-10.6) k/uL RBC (3.80-5.40) m/uL Hgb (11.4-16.0) gm/dL Hct (34.0-46.0) % RDW (11.5-15.5) % Neutrophils # (1.3-7.7) k/uL Lymphocytes # (1.0-4.8) k/uL ABG pH (7.35-7.45) ABG pCO2 (35-45) mmHg ABG Total CO2 (19-24) mmol/L ABG O2 Saturation (94-97) % Chloride (98-107) mmol/L BUN (7-17) mg/dL Creatinine (0.52-1.04) mg/dL Glucose (74-99) mg/dL POC Glucose (mg/dL) 162 H 160 H 154 H (75-99) mg/dL Calcium (8.4-10.2) mg/dL Magnesium (1.6-2.3) mg/dL Stool Occult Blood (Negative) 03/22/18 03/22/18 03/22/18 Range/Units 00:04 01:06 02:13 WBC 12.8 H (3.8-10.6) k/uL RBC 2.24 L (3.80-5.40) m/uL Hgb 6.8 L* (11.4-16.0) gm/dL Hct 20.6 L (34.0-46.0) % RDW 17.8 H (11.5-15.5) % Neutrophils # (1.3-7.7) k/uL Lymphocytes # (1.0-4.8) k/uL ABG pH (7.35-7.45) ABG pCO2 (35-45) mmHg ABG Total CO2 (19-24) mmol/L ABG O2 Saturation (94-97) % Chloride (98-107) mmol/L BUN (7-17) mg/dL Creatinine (0.52-1.04) mg/dL Glucose (74-99) mg/dL POC Glucose (mg/dL) 164 H 162 H (75-99) mg/dL Calcium (8.4-10.2) mg/dL Magnesium (1.6-2.3) mg/dL Stool Occult Blood (Negative) 03/22/18 03/22/18 03/22/18 Range/Units 04:08 05:06 05:08 WBC 12.6 H (3.8-10.6) k/uL RBC 2.42 L (3.80-5.40) m/uL Hgb 7.0 L (11.4-16.0) gm/dL Hct 21.6 L (34.0-46.0) % RDW 17.6 H (11.5-15.5) % Neutrophils # 10.9 H (1.3-7.7) k/uL Lymphocytes # 0.7 L (1.0-4.8) k/uL ABG pH (7.35-7.45) ABG pCO2 (35-45) mmHg ABG Total CO2 (19-24) mmol/L ABG O2 Saturation (94-97) % Chloride (98-107) mmol/L BUN (7-17) mg/dL Creatinine (0.52-1.04) mg/dL Glucose (74-99) mg/dL POC Glucose (mg/dL) 139 H 131 H (75-99) mg/dL Calcium (8.4-10.2) mg/dL Magnesium (1.6-2.3) mg/dL Stool Occult Blood (Negative) 03/22/18 03/22/18 03/22/18 Range/Units 05:08 06:08 07:54 WBC (3.8-10.6) k/uL RBC (3.80-5.40) m/uL Hgb (11.4-16.0) gm/dL Hct (34.0-46.0) % RDW (11.5-15.5) % Neutrophils # (1.3-7.7) k/uL Lymphocytes # (1.0-4.8) k/uL ABG pH 7.33 L (7.35-7.45) ABG pCO2 46 H (35-45) mmHg ABG Total CO2 26 H (19-24) mmol/L ABG O2 Saturation 99.6 H (94-97) % Chloride 112 H (98-107) mmol/L BUN 52 H (7-17) mg/dL Creatinine 3.29 H (0.52-1.04) mg/dL Glucose 114 H (74-99) mg/dL POC Glucose (mg/dL) 109 H (75-99) mg/dL Calcium 7.5 L (8.4-10.2) mg/dL Magnesium 2.5 H (1.6-2.3) mg/dL Stool Occult Blood (Negative) 03/22/18 03/22/18 03/22/18 Range/Units 08:12 09:20 10:07 WBC (3.8-10.6) k/uL RBC (3.80-5.40) m/uL Hgb (11.4-16.0) gm/dL Hct (34.0-46.0) % RDW (11.5-15.5) % Neutrophils # (1.3-7.7) k/uL Lymphocytes # (1.0-4.8) k/uL ABG pH (7.35-7.45) ABG pCO2 (35-45) mmHg ABG Total CO2 (19-24) mmol/L ABG O2 Saturation (94-97) % Chloride (98-107) mmol/L BUN (7-17) mg/dL Creatinine (0.52-1.04) mg/dL Glucose (74-99) mg/dL POC Glucose (mg/dL) 125 H 179 H 193 H (75-99) mg/dL Calcium (8.4-10.2) mg/dL Magnesium (1.6-2.3) mg/dL Stool Occult Blood (Negative) 03/22/18 03/22/18 03/22/18 Range/Units 11:12 12:12 13:10 WBC (3.8-10.6) k/uL RBC (3.80-5.40) m/uL Hgb (11.4-16.0) gm/dL Hct (34.0-46.0) % RDW (11.5-15.5) % Neutrophils # (1.3-7.7) k/uL Lymphocytes # (1.0-4.8) k/uL ABG pH (7.35-7.45) ABG pCO2 (35-45) mmHg ABG Total CO2 (19-24) mmol/L ABG O2 Saturation (94-97) % Chloride (98-107) mmol/L BUN (7-17) mg/dL Creatinine (0.52-1.04) mg/dL Glucose (74-99) mg/dL POC Glucose (mg/dL) 173 H 155 H 154 H (75-99) mg/dL Calcium (8.4-10.2) mg/dL Magnesium (1.6-2.3) mg/dL Stool Occult Blood (Negative) Microbiology - Last 24 Hours (Table) 03/19/18 03:31 Blood Culture - Preliminary Blood No Growth after 72 hours 03/19/18 00:34 Blood Culture Gram Stain - Final Blood Blood Culture - Final Coagulase Negative Staph 03/19/18 00:00 Urine Culture - Final Urine,Voided Vibha albicans Klebsiella pneumoniae Assessment and Plan Assessment: Anemia and positive occult blood could be related to a GI source of bleeding. I would be interested in reviewing the endoscopy report from 10 days prior to when she had the gastrostomy feeding tube placed to ascertain the absence of ulcer disease or other significant pathology at that time. Certainly gastritis could have developed since considering the overall condition of the patient. Ischemic injury to the bowel wall should be kept in mind. Plan: Agree with your current management. Will continue acid suppressive therapy empirically. No indication for any endoscopic workup or intervention at this time. We will follow with you with interest.
[2018-03-24] MEDS: IPRATROPIUM-ALBUTEROL 3 ML NEB INHALATION SCH ×6 (03:23→23:12)
[2018-03-24 03:25] LABS: Glucose,Whole Blood 136 mg/dL (75-99)
[2018-03-24] MEDS: NOREPINEPHRINE 16 MG in SODIUM CHLORIDE 0.9% 250 ML IV SCH (04:24)
[2018-03-24 04:31] LABS: ABG Base Excess -2.4 mmol/L; ABG HCO3 23 mmol/L (21-25); ABG Oxygen Saturation 99.3 % (94-97); ABG PCO2 44 mmHg (35-45); ABG PH 7.34 (7.35-7.45); ABG PO2 121 mmHg (83-108); ABG TCO2 25 mmol/L (19-24)
[2018-03-24 05:38] LABS: Anisocytosis Slight; Basophils % (A) 0 %; Eosinophils # (A) 0.1 k/uL (0-0.7); Eosinophils % (A) 1 %; HCT 21.5 % (34.0-46.0); HGB 7.2 gm/dL (11.4-16.0); Hypochromasia Slight; Lymphocytes # (A) 0.5 k/uL (1.0-4.8); Lymphocytes % (A) 8 %; MCH 30.2 pg (25.0-35.0); MCHC 33.5 g/dL (31.0-37.0); Mean Platelet Volume 7.5; Monocytes # (A) 0.4 k/uL (0-1.0); Monocytes % (A) 7 %; Neutrophils # (A) 5.2 k/uL (1.3-7.7); Neutrophils % (A) 81 %; Platelet Count 167 k/uL (150-450); Poikilocytosis Slight; RBC 2.39 m/uL (3.80-5.40); WBC 6.4 k/uL (3.8-10.6)
[2018-03-24 05:51] LABS: Calcium 7.6 mg/dL (8.4-10.2); Phosphorus 4.3 mg/dL (2.5-4.5); Potassium 3.7 mmol/L (3.5-5.1)
[2018-03-24 05:56] LABS: Vancomycin,Random 21.2 ug/mL
[2018-03-24] MEDS: SODIUM CHLORIDE 0.9% 1,000 ML IV SCH ×2 (06:19→08:53)
[2018-03-24] MEDS: PROPOFOL 1,000 MG in EMPTY BAG 1 BAG IV SCH ×3 (08:15→20:50)
--- NOTE | 2018-03-24 08:31 | P.PN ---
Subjective Progress Note Date: 03/24/18 This is a 73-year-old female was admitted with cardiopulmonary arrest and also tension pneumothorax. She is also diagnosed to have a CVA. Patient remains intubated and probably secondary. Pupils are slightly reactive. She's not responding to verbal or painful stimuli. She is maintaining sinus rhythm. Blood pressure is well maintained. Urine output seemed to be good. Her creatinine has shown some improvement. Overall, her prognosis appears to be critical. No acute cardiac issues at this time. We'll follow her as needed. Objective - Vital Signs Vital signs: Vital Signs Temp 98.2 F 03/23/18 20:00 Pulse 57 L 03/24/18 08:00 Resp 26 H 03/24/18 08:00 BP 108/48 03/24/18 08:00 Pulse Ox 100 03/24/18 08:00 Intake & Output 03/23/18 03/24/18 03/24/18 18:59 06:59 18:59 Intake Total 2602.660 1670 240 Output Total 560 630 90 Balance 2042.660 1040 150 Weight 101.3 kg Intake: IV 1060 1060 160 Piperacillin-Tazobactam 3 100 100 .375 gm In Sodium Chloride 0.9% 100 ml @ 25 mls/hr IVPB Q12HR LEN Rx #:[id number] Sodium Chloride 0.9% 1, 960 960 160 000 ml @ 80 mls/hr IV . [id number] LEN Rx#:[id number] Intake, IV Titration 172.660 Amount Propofol 1,000 mg In 172.660 Empty Bag 1 bag @ Titrate IV .Q0M LEN Rx#: [id number] Tube Feeding 600 600 80 Blood Product 620 Rc As-1 Unit 310 [id number] Other 150 10 Output: Urine 560 630 90 Other: Voiding Method Indwelling Catheter Indwelling Catheter # Bowel Movements 1,000 ABP, PAP, CO, CI - Last Documented Arterial Blood Pressure 120/40 - Exam GENERAL EXAM: Patient is intubated and sedated HEENT: Normocephalic. Normal reaction of pupils, equal size NECK: No masses, no nuchal rigidity. CHEST: No chest wall deformity. LUNGS: Equal air entry with no crackles or wheeze. HEART: S1 and S2 normal w ABDOMEN: Soft SKIN: No rashes CENTRAL NERVOUS SYSTEM: Unresponsive EXTREMITIES: No cyanosis, clubbing or edema. - Labs CBC & Chem 7: 03/24/18 05:00 03/24/18 05:00 Labs: Abnormal Lab Results - Last 24 Hours (Table) 03/22/18 03/23/18 03/23/18 Range/Units 05:08 11:20 14:25 RBC 2.38 L (3.80-5.40) m/uL Hgb 7.1 L (11.4-16.0) gm/dL Hct 21.4 L (34.0-46.0) % RDW 17.7 H (11.5-15.5) % Lymphocytes # (1.0-4.8) k/uL ABG pH (7.35-7.45) ABG pO2 (83-108) mmHg ABG Total CO2 (19-24) mmol/L ABG O2 Saturation (94-97) % Chloride (98-107) mmol/L BUN (7-17) mg/dL Creatinine (0.52-1.04) mg/dL Glucose (74-99) mg/dL POC Glucose (mg/dL) 107 H (75-99) mg/dL Calcium (8.4-10.2) mg/dL Crossmatch See Detail 03/23/18 03/23/18 03/24/18 Range/Units 17:10 20:30 00:15 RBC 2.40 L (3.80-5.40) m/uL Hgb 7.1 L (11.4-16.0) gm/dL Hct 21.6 L (34.0-46.0) % RDW 17.9 H (11.5-15.5) % Lymphocytes # (1.0-4.8) k/uL ABG pH (7.35-7.45) ABG pO2 (83-108) mmHg ABG Total CO2 (19-24) mmol/L ABG O2 Saturation (94-97) % Chloride (98-107) mmol/L BUN (7-17) mg/dL Creatinine (0.52-1.04) mg/dL Glucose (74-99) mg/dL POC Glucose (mg/dL) 132 H 140 H (75-99) mg/dL Calcium (8.4-10.2) mg/dL Crossmatch 03/24/18 03/24/1818 Range/Units 02:56 04:24 05:00 RBC 2.39 L (3.80-5.40) m/uL Hgb 7.2 L (11.4-16.0) gm/dL Hct 21.5 L (34.0-46.0) % RDW 18.0 H (11.5-15.5) % Lymphocytes # 0.5 L (1.0-4.8) k/uL ABG pH 7.34 L (7.35-7.45) ABG pO2 121 H (83-108) mmHg ABG Total CO2 25 H (19-24) mmol/L ABG O2 Saturation 99.3 H (94-97) % Chloride (98-107) mmol/L BUN (7-17) mg/dL Creatinine (0.52-1.04) mg/dL Glucose (74-99) mg/dL POC Glucose (mg/dL) 136 H (75-99) mg/dL Calcium (8.4-10.2) mg/dL Crossmatch 03/24/18 Range/Units 05:00 RBC (3.80-5.40) m/uL Hgb (11.4-16.0) gm/dL Hct (34.0-46.0) % RDW (11.5-15.5) % Lymphocytes # (1.0-4.8) k/uL ABG pH (7.35-7.45) ABG pO2 (83-108) mmHg ABG Total CO2 (19-24) mmol/L ABG O2 Saturation (94-97) % Chloride 117 H (98-107) mmol/L BUN 50 H (7-17) mg/dL Creatinine 2.87 H (0.52-1.04) mg/dL Glucose 115 H (74-99) mg/dL POC Glucose (mg/dL) (75-99) mg/dL Calcium 7.6 L (8.4-10.2) mg/dL Crossmatch Microbiology - Last 24 Hours (Table) 03/19/18 03:31 Blood Culture - Preliminary Blood No Growth after 120 hours Assessment and Plan (1) Anemia Current Visit: Yes Status: Acute Code(s): D64.9 - ANEMIA, UNSPECIFIED SNOMED Code(s): 949701833 (2) Cardiac arrest Current Visit: Yes Status: Acute Code(s): I46.9 - CARDIAC ARREST, CAUSE UNSPECIFIED SNOMED Code(s): 681543517 (3) Renal failure Current Visit: Yes Status: Acute Code(s): N19 - UNSPECIFIED KIDNEY FAILURE SNOMED Code(s): 55304680 (4) CVA (cerebral vascular accident) Current Visit: Yes Status: Acute Code(s): I63.9 - CEREBRAL INFARCTION, UNSPECIFIED SNOMED Code(s): 823271036 Plan: Continue current supportive care and medical therapy. No acute cardiac issues at this time. We'll be seeing her on when necessary basis
[2018-03-24] MEDS: PANTOPRAZOLE 40 MG/10 ML VIAL IV SCH (08:53)
[2018-03-24] MEDS: CHLORHEXIDINE GLUCONATE 15 ML CUP MUCOUS MEM SCH ×2 (08:53→20:26)
--- NOTE | 2018-03-24 08:53 | XR ---
EXAMINATION TYPE: XR chest 1V DATE OF EXAM: 03/24/2018 COMPARISON: 03/23/2018 HISTORY: Shortness of breath TECHNIQUE: Single frontal view of the chest is obtained. FINDINGS: Right-sided chest tube is unchanged in position. Endotracheal tube and right IJ central ve nous line unchanged in position. Preceding infiltrate right upper lobe. Scattered basilar infiltrates persist. No evidence for sizable pneumothorax. Subcutaneous air persists. Stable appearance of the c ardio-mediastinal structures. IMPRESSION: 1. Stable bilateral consolidation. Chest tube remains in position with no definite sizable pneumothor ax.
[2018-03-24] MEDS: PIPERACILLIN-TAZOBACTAM 3.375 GM in SODIUM CHLORIDE 0.9% 100 ML IVPB SCH ×2 (08:54→20:26)
--- NOTE | 2018-03-24 09:16 | P.PN ---
Subjective Patient is seen in follow-up for acute kidney injury. Renal function is better today with creatinine of 2.87. She continues to have loose bowel movements but better compared to yesterday. She is off all vasopressors. Currently intubated and sedated. She has failed a weaning trial. She is maintained on tube feeds. Urine output about 40-60 mL per hour. Vital signs are stable. General: The patient appeared well nourished and normally developed. HEENT: Head exam is unremarkable. Neck is without jugular venous distension. Intubated. LUNGS: Breath sounds decreased. HEART: Rate and Rhythm are regular. First and second heart sounds normal. No murmurs, rubs or gallops. ABDOMEN: Abdominal exam reveals normal bowel sounds. Non-tender and non- distended. No evidence of peritonitis. EXTREMITITES: No clubbing, cyanosis, or edema. Objective - Vital Signs Vital signs: Vital Signs Temp 98.2 F 03/23/18 20:00 Pulse 57 L 03/24/18 08:00 Resp 26 H 03/24/18 08:00 BP 108/48 03/24/18 08:00 Pulse Ox 100 03/24/18 08:00 Intake & Output 03/23/18 03/24/18 03/24/18 18:59 06:59 18:59 Intake Total 2602.660 1670 340 Output Total 560 630 90 Balance 2042.660 1040 250 Weight 101.3 kg Intake: IV 1060 1060 160 Piperacillin-Tazobactam 3 100 100 .375 gm In Sodium Chloride 0.9% 100 ml @ 25 mls/hr IVPB Q12HR LEN Rx #:[id number] Sodium Chloride 0.9% 1, 960 960 160 000 ml @ 80 mls/hr IV . [id number] LEN Rx#:[id number] Intake, IV Titration 172.660 100 Amount Propofol 1,000 mg In 172.660 100 Empty Bag 1 bag @ Titrate IV .Q0M LEN Rx#: [id number] Tube Feeding 600 600 80 Blood Product 620 Rc As-1 Unit 310 [id number] Other 150 10 Output: Urine 560 630 90 Other: Voiding Method Indwelling Catheter Indwelling Catheter # Bowel Movements 1,000 ABP, PAP, CO, CI - Last Documented Arterial Blood Pressure 120/40 - Labs CBC & Chem 7: 03/24/18 05:00 03/24/18 05:00 Labs: Abnormal Lab Results - Last 24 Hours (Table) 03/22/18 03/23/18 03/23/18 Range/Units 05:08 11:20 14:25 RBC 2.38 L (3.80-5.40) m/uL Hgb 7.1 L (11.4-16.0) gm/dL Hct 21.4 L (34.0-46.0) % RDW 17.7 H (11.5-15.5) % Lymphocytes # (1.0-4.8) k/uL ABG pH (7.35-7.45) ABG pO2 (83-108) mmHg ABG Total CO2 (19-24) mmol/L ABG O2 Saturation (94-97) % Chloride (98-107) mmol/L BUN (7-17) mg/dL Creatinine (0.52-1.04) mg/dL Glucose (74-99) mg/dL POC Glucose (mg/dL) 107 H (75-99) mg/dL Calcium (8.4-10.2) mg/dL Crossmatch See Detail 03/23/18 03/23/18 03/24/18 Range/Units 17:10 20:30 00:15 RBC 2.40 L (3.80-5.40) m/uL Hgb 7.1 L (11.4-16.0) gm/dL Hct 21.6 L (34.0-46.0) % RDW 17.9 H (11.5-15.5) % Lymphocytes # (1.0-4.8) k/uL ABG pH (7.35-7.45) ABG pO2 (83-108) mmHg ABG Total CO2 (19-24) mmol/L ABG O2 Saturation (94-97) % Chloride (98-107) mmol/L BUN (7-17) mg/dL Creatinine (0.52-1.04) mg/dL Glucose (74-99) mg/dL POC Glucose (mg/dL) 132 H 140 H (75-99) mg/dL Calcium (8.4-10.2) mg/dL Crossmatch 03/24/18 03/24/18 03/24/18 Range/Units 02:56 04:24 05:00 RBC 2.39 L (3.80-5.40) m/uL Hgb 7.2 L (11.4-16.0) gm/dL Hct 21.5 L (34.0-46.0) % RDW 18.0 H (11.5-15.5) % Lymphocytes # 0.5 L (1.0-4.8) k/uL ABG pH 7.34 L (7.35-7.45) ABG pO2 121 H (83-108) mmHg ABG Total CO2 25 H (19-24) mmol/L ABG O2 Saturation 99.3 H (94-97) % Chloride (98-107) mmol/L BUN (7-17) mg/dL Creatinine (0.52-1.04) mg/dL Glucose (74-99) mg/dL POC Glucose (mg/dL) 136 H (75-99) mg/dL Calcium (8.4-10.2) mg/dL Crossmatch 03/24/18 Range/Units 05:00 RBC (3.80-5.40) m/uL Hgb (11.4-16.0) gm/dL Hct (34.0-46.0) % RDW (11.5-15.5) % Lymphocytes # (1.0-4.8) k/uL ABG pH (7.35-7.45) ABG pO2 (83-108) mmHg ABG Total CO2 (19-24) mmol/L ABG O2 Saturation (94-97) % Chloride 117 H (98-107) mmol/L BUN 50 H (7-17) mg/dL Creatinine 2.87 H (0.52-1.04) mg/dL Glucose 115 H (74-99) mg/dL POC Glucose (mg/dL) (75-99) mg/dL Calcium 7.6 L (8.4-10.2) mg/dL Crossmatch Microbiology - Last 24 Hours (Table) 03/19/18 03:31 Blood Culture - Preliminary Blood No Growth after 120 hours Assessment and Plan Plan: Assessment: 1. Acute kidney injury secondary to ATN secondary to cardiopulmonary arrest. Creatinine improved at 2.87 today. Unknown baseline. 2. UTI. Urine culture positive for Klebsiella and Vibha maintained on antibiotics. 3. Status post cardiopulmonary arrest. 4. Diarrhea. Better. C. diff negative. 5. Anemia status post blood transfusion. Hemoglobin 7.2 today. 6. Hypotension currently off vasopressors. Plan: Maintain normal saline at 80 mL an hour. Maintain tube feeds. Avoid nephrotoxins. Check iron studies.
--- NOTE | 2018-03-24 09:50 | P.PN ---
Subjective Progress Note Date: 03/24/18 Principal diagnosis: Cardiopulmonary arrest with prolonged resuscitation, UTI, chest wall hematoma Progress note dated 03/24/2018 This is a 73-year-old female who was admitted back on March 19. He was intubated on the same day. She had an [id number] cardiac arrest with cardiopulmonary resuscitation and eventual return of spontaneous circulation. According to the EMS sheets and other documentation, her resuscitation phase lasted for 30-45 minutes. This suggests likelihood of significant anoxic brain injury. In addition, she was found to have a UTI and his chest wall hematoma. In addition, on the , which was the day of admission, the patient was found to have a right pneumothorax and a right chest tube was placed. She was placed on some PSV and CPAP yesterday and lasted just a few minutes. She failed miserably on her spontaneous breathing trial. The patient is a DO NOT RESUSCITATE and apparently the family is contemplating comfort measures. She had diffuse anasarca. Currently, she is on the volume assist control mode with a rate of 26, tidal volume 420, FiO2 at 40% to be turned down to 35% and a PEEP of 5. Arterial blood gases show a PaO2 of 121 a PaCO2 of 44 and a pH is 7.44. The blood gases show a very mild metabolic acidosis. She remains on propofol at 30 mics per kilogram per minute a saline IV at 80 mL an hour and vital high protein at 40 with a goal of 40. Chest x-ray shows a right-sided chest tube, some subcutaneous emphysema on the right side, and diffuse bilateral infiltrates. Full problem list includes acute hypoxemic respiratory failure secondary to cardiopulmonary arrest, multiple rib fractures with a right-sided pneumothorax and right-sided chest tube placement, chest wall hematoma, recent hospitalization for pneumonia and sepsis, possible anoxic brain injury, abnormal CT of the brain suggesting evolving CVA/infarct, and acute urinary tract infection secondary to Klebsiella pneumoniae. Objective - Vital Signs Vital signs: Vital Signs Temp 98.6 F 03/24/18 09:00 Pulse 56 L 03/24/18 09:00 Resp 26 H 03/24/18 09:00 BP 106/45 03/24/18 09:00 Pulse Ox 100 03/24/18 09:00 Intake & Output 03/23/18 03/24/18 03/24/18 18:59 06:59 18:59 Intake Total 2602.660 1670 590 Output Total 560 630 190 Balance 2042.660 1040 400 Weight 101.3 kg Intake: IV 1060 1060 340 Piperacillin-Tazobactam 3 100 100 100 .375 gm In Sodium Chloride 0.9% 100 ml @ 25 mls/hr IVPB Q12HR [facility] Rx #:[id number] Sodium Chloride 0.9% 1, 960 960 240 000 ml @ 80 mls/hr IV . [id number] [facility] Rx#:[id number] Intake, IV Titration 172.660 100 Amount Propofol 1,000 mg In 172.660 100 Empty Bag 1 bag @ Titrate IV .Q0M [facility] Rx#: [id number] Tube Feeding 600 600 120 Blood Product 620 Rc As-1 Unit 310 [id number] Other 150 10 30 Output: Urine 560 630 190 Other: Voiding Method Indwelling Catheter Indwelling Catheter # Bowel Movements 1,000 ABP, PAP, CO, CI - Last Documented Arterial Blood Pressure 121/38 - Exam No acute distress, sedated on propofol, was orally placed endotracheal tube and NG tube noted. In addition, there is a right-sided chest tube noted. HEENT examination is grossly unremarkable. Mucous membranes are moist. Neck supple. Full range of motion. No adenopathy thyromegaly or neck vein distention. Cardiovascular examination reveals regular rhythm rate. S1-S2 normal. No S3 or S4. No discernible murmur noted. Heart sounds are very distant. Lungs reveal coarse bilateral inspiratory and expiratory rhonchi. This a few scattered crackles. No wheezes. Breath sounds equal bilaterally. Abdomen is soft, without noted bowel sounds. No masses or tenderness appreciated.. Extremities reveal diffuse anasarca. It is significant. No cyanosis or clubbing. Skin is without rash or lesion. Neurologic examination could not be adequately assessed given the patient's level of sedation. - Labs CBC & Chem 7: 03/24/18 05:00 03/24/18 05:00 Labs: Abnormal Lab Results - Last 24 Hours (Table) 03/22/18 03/23/18 03/23/18 Range/Units 05:08 11:20 14:25 RBC 2.38 L (3.80-5.40) m/uL Hgb 7.1 L (11.4-16.0) gm/dL Hct 21.4 L (34.0-46.0) % RDW 17.7 H (11.5-15.5) % Lymphocytes # (1.0-4.8) k/uL ABG pH (7.35-7.45) ABG pO2 (83-108) mmHg ABG Total CO2 (19-24) mmol/L ABG O2 Saturation (94-97) % Chloride (98-107) mmol/L BUN (7-17) mg/dL Creatinine (0.52-1.04) mg/dL Glucose (74-99) mg/dL POC Glucose (mg/dL) 107 H (75-99) mg/dL Calcium (8.4-10.2) mg/dL Crossmatch See Detail 03/23/18 03/23/18 03/24/18 Range/Units 17:10 20:30 00:15 RBC 2.40 L (3.80-5.40) m/uL Hgb 7.1 L (11.4-16.0) gm/dL Hct 21.6 L (34.0-46.0) % RDW 17.9 H (11.5-15.5) % Lymphocytes # (1.0-4.8) k/uL ABG pH (7.35-7.45) ABG pO2 (83-108) mmHg ABG Total CO2 (19-24) mmol/L ABG O2 Saturation (94-97) % Chloride (98-107) mmol/L BUN (7-17) mg/dL Creatinine (0.52-1.04) mg/dL Glucose (74-99) mg/dL POC Glucose (mg/dL) 132 H 140 H (75-99) mg/dL Calcium (8.4-10.2) mg/dL Crossmatch 03/24/18 03/24/18 03/24/18 Range/Units 02:56 04:24 05:00 RBC 2.39 L (3.80-5.40) m/uL Hgb 7.2 L (11.4-16.0) gm/dL Hct 21.5 L (34.0-46.0) % RDW 18.0 H (11.5-15.5) % Lymphocytes # 0.5 L (1.0-4.8) k/uL ABG pH 7.34 L (7.35-7.45) ABG pO2 121 H (83-108) mmHg ABG Total CO2 25 H (19-24) mmol/L ABG O2 Saturation 99.3 H (94-97) % Chloride (98-107) mmol/L BUN (7-17) mg/dL Creatinine (0.52-1.04) mg/dL Glucose (74-99) mg/dL POC Glucose (mg/dL) 136 H (75-99) mg/dL Calcium (8.4-10.2) mg/dL Crossmatch 03/24/18 Range/Units 05:00 RBC (3.80-5.40) m/uL Hgb (11.4-16.0) gm/dL Hct (34.0-46.0) % RDW (11.5-15.5) % Lymphocytes # (1.0-4.8) k/uL ABG pH (7.35-7.45) ABG pO2 (83-108) mmHg ABG Total CO2 (19-24) mmol/L ABG O2 Saturation (94-97) % Chloride 117 H (98-107) mmol/L BUN 50 H (7-17) mg/dL Creatinine 2.87 H (0.52-1.04) mg/dL Glucose 115 H (74-99) mg/dL POC Glucose (mg/dL) (75-99) mg/dL Calcium 7.6 L (8.4-10.2) mg/dL Crossmatch Microbiology - Last 24 Hours (Table) 03/19/18 03:31 Blood Culture - Preliminary Blood No Growth after 120 hours Assessment and Plan Assessment: Assessment Acute hypoxemic respiratory failure secondary to cardiopulmonary arrest, with cardiopulmonary resuscitation and eventual return of spontaneous circulation after a very prolonged to 40-45 minute resuscitation phase. Klebsiella pneumoniae UTI Chest wall hematoma Multiple right rib fractures Right pneumothorax, status post chest tube placement Probable anoxic brain injury Recent hospitalization for pneumonia and sepsis Brain CT suggesting evolving CVA/infarct Plan: Plan dated 03/24/2018 The patient remains on the mechanical ventilator and yesterday during her daily interuption of sedation as well as her spontaneous breathing trial, she did very poorly lasting only a few minutes on PSV/CPAP. Her chest x-ray shows a right-sided chest tube and diffuse bilateral infiltrates. Overall prognosis is very poor given the fact that she had an [id number] cardiac arrest with prolonged resuscitation lasting more than 40 minutes. Likelihood of anoxic brain injury is very high. In addition, white count 6.4, hemogram 7.2, hematocrit 21.5, and platelet count normal at 167, 000. Also, sodium and potassium were normal. Chloride 117, CO2 22, anion gap 6, BUN 50 with a creatinine of 2.87. These electrolytes are consistent with a hyperchloremic non -anion gap metabolic acidosis in part related to saline administration and renal failure. Urine sampling was positive for Klebsiella pneumoniae and blood cultures were positive for coag-negative staph, likely a contaminant. Chest x- ray and medications are all reviewed. We will continue to talk to the family about withdrawal of life support and comfort measures. Critical care time 35 minutes Time with Patient: Greater than 30
[2018-03-24] MEDS ORDERED: POTASSIUM BICARBONATE/CIT AC 20 MEQ TABLET.EFF NG-TUBE SCH (12:00)
[2018-03-24 12:09] LABS: Glucose,Whole Blood 128 mg/dL (75-99)
[2018-03-24 12:28] LABS: Glucose,Whole Blood 121 mg/dL (75-99)
[2018-03-24] MEDS ORDERED: VANCOMYCIN 1,500 MG in SODIUM CHLORIDE 0.9% 250 ML IVPB ONE (16:00)
[2018-03-24 16:41] LABS: Iron Saturation 10.16 (12.00-45.00)
[2018-03-24 18:26] LABS: Glucose,Whole Blood 125 mg/dL (75-99)
--- NOTE | 2018-03-24 19:50 | P.PN ---
Subjective This is a pleasant 73 years old female with past medical history of congestive heart failure and atrial fibrillation. Patient was transferred from [facility] where she was therefore 10 days, recently discharged from the hospital for sepsis, pneumonia and UTI. This time EMS were called for difficulty breathing and they found her oxygen saturation was 60, she was placed on non-rebreather and her oxygen went up to mid 90s Patient is currently intubated and cannot provide information which were obtained from the medical staff, medical records, and sister at bedside who is her guardian. As per sister patient has been admitted to [facility] twice in the last 36 days for pneumonia and UTI with sepsis. Each time ascending to rehab, first time for 10 days and then for 16 days. As per sister they have been contacted earlier and they wanted everything to be done. But now with a want to change her CODE STATUS to DO NOT RESUSCITATE. On admission she was saturating is 6% on room air and she was breathing at respiratory rate of 30 minutes. Her blood pressure was 155/64, later on it dropped to 63/38. And she was bradycardic in the 40s and 50s. Leukocytosis at 14.8 K, hemoglobin 9, platelets 543. Sodium 135, potassium 5.9, creatinine 2.4 , sugar was signed between 300-400. Troponin is elevated at 0.04 and 0.319. LFT unremarkable.UA was suggestive of infection. Chest x-ray shows bilateral pneumothorax with larger on the left side, follow-up chest x-ray showing large right-side pneumothorax, getting worse 03/20/2018 Patient remains intubated in the ICU. Her sugar looks controlled however her hemoglobin this morning dropped to 6.8, she's getting 1 unit of blood transfusion. Heparin was put on hold. Check FOBT Creatinine 2.7. Rest of electrolytes are controlled. Critical care team for the patient's and decrease in the sedation. Nephrology and cardiology are following the patient is on IV fluids and Zosyn and vancomycin is on hold and check in the level 03/21/2018 Patient remains intubated in the ICU. She felt breathing trial today when they decreased her sedation. Has 2 units of blood transfusion for her acute anemia, her hemoglobin was low this morning at 6.6 occult blood in the stool is pending. Blood pressure 109/48, breathing rate at 26. A febrile telemetry somewhat low at 6.0. Calcium gluconate is a provided by the critical care team. Cardiology team evaluated the patient, they recommended continue with supportive care. EEG is pending 03/22/2018 Patient is seen and examined in the ICU today, intubated and sedated. No weaning trial today. She status post blood transfusion. Repeat hemoglobin is 7.0. She is on insulin drip, long-acting insulin was started. Also she has elevated creatinine at 3.29. Repeat calcium is improving at 7.5, magnesium 2.5 phosphorus 3.7. Blood culture is positive for staph while urine cultures positive for Klebsiella and leonela. Patient remains on Zosyn and got dose of vancomycin yesterday. C. diff is negative creatinine prognosis is poor. 03/23/2018 Patient still intubated in the ICU. The sedation holiday has been tried today, patient couldn't move her left hand elevated. Patient is temperature is 98.8. Heart rate in the 50s. Respiratory rate is 26. Blood pressure 102/40. Her hemoglobin is low at 6.3, went up to 7.1. Patient status post blood transfusion she has positive culture with staph in the blood and leonela albicans and Klebsiella in the urine. She remains on broad-spectrum antibiotics. She is an IV fluids. Nephrology team are seeing the patient. If renal function worsens might need hemodialysis as per nephrology team. Critical team input is appreciated. 03/24/2018 pt is still in the ICU intubated and she is managed mainly by the ICU critical care team. pt failed weaning trial , CXR shows bilateral consolidation which are stable. given the poor prognosis in view of prolonged resuscitation time during her arrest outside the hospital , critical care team want to address plan care with the family . pt is off vasopressors currently. my review of systems : n/a Medications are reviewed Objective - Vital Signs Vital signs: Vital Signs Temp 98.1 F 03/24/18 16:00 Pulse 57 L 03/24/18 19:00 Resp 30 H 03/24/18 19:00 BP 108/49 03/24/18 19:00 Pulse Ox 100 03/24/18 19:00 Intake & Output 03/24/18 03/24/18 03/25/18 06:59 18:59 06:59 Intake Total 1670 2072.870 120 Output Total 630 1125 120 Balance 1040 947.870 0 Weight 101.3 kg Intake: IV 1060 1310 80 Piperacillin-Tazobactam 3 100 100 .375 gm In Sodium Chloride 0.9% 100 ml @ 25 mls/hr IVPB Q12HR [facility] Rx #:[id number] Sodium Chloride 0.9% 1, 960 960 80 000 ml @ 80 mls/hr IV . [id number] [facility] Rx#:[id number] Vancomycin 1,500 mg In 250 Sodium Chloride 0.9% 250 ml @ 125 mls/hr IVPB [facility] Rx#:[id number] Intake, IV Titration 192.870 Amount Propofol 1,000 mg In 192.870 Empty Bag 1 bag @ Titrate IV .Q0M [facility] Rx#: [id number] Tube Feeding 600 480 40 Other 10 90 Output: Chest Tube Drainage 40 Right Lateral Chest 40 Urine 630 585 120 Stool 500 Other: Voiding Method Indwelling Catheter Indwelling Catheter ABP, PAP, CO, CI - Last Documented Arterial Blood Pressure 108/38 - Exam -GENERAL: The patient is intubated, not in any acute distress. HEENT: Pupils are round and equally reacting to light. EOMI. No scleral icterus. No conjunctival pallor. Normocephalic, atraumatic. No pharyngeal erythema. No thyromegaly. CARDIOVASCULAR: S1 and S2 present. No murmurs, rubs, or gallops. -PULMONARY: Chest is clear to auscultation, decreased breath sounds bilaterally ABDOMEN: Soft, nontender, nondistended, normoactive bowel sounds. No palpable organomegaly. MUSCULOSKELETAL: No joint swelling or deformity. EXTREMITIES: No cyanosis, clubbing, or pedal edema. NEUROLOGICAL: Gross neurological examination did not reveal any focal deficits. SKIN: No rashes. - Labs CBC & Chem 7: 03/24/18 05:00 03/24/18 17:17 Labs: Abnormal Lab Results - Last 24 Hours (Table) 03/23/18 03/24/18 03/24/18 Range/Units 20:30 00:15 02:56 RBC 2.40 L (3.80-5.40) m/uL Hgb 7.1 L (11.4-16.0) gm/dL Hct 21.6 L (34.0-46.0) % RDW 17.9 H (11.5-15.5) % Lymphocytes # (1.0-4.8) k/uL ABG pH (7.35-7.45) ABG pO2 (83-108) mmHg ABG Total CO2 (19-24) mmol/L ABG O2 Saturation (94-97) % Chloride (98-107) mmol/L BUN (7-17) mg/dL Creatinine (0.52-1.04) mg/dL Glucose (74-99) mg/dL POC Glucose (mg/dL) 140 H 136 H (75-99) mg/dL Calcium (8.4-10.2) mg/dL Iron (50-170) ug/dL TIBC (228-460) ug/dL Iron Saturation (12.00-45.00) Ferritin (10.0-291.0) ng/mL 03/24/18 03/24/18 03/24/18 Range/Units 04:24 05:00 05:00 RBC 2.39 L (3.80-5.40) m/uL Hgb 7.2 L (11.4-16.0) gm/dL Hct 21.5 L (34.0-46.0) % RDW 18.0 H (11.5-15.5) % Lymphocytes # 0.5 L (1.0-4.8) k/uL ABG pH 7.34 L (7.35-7.45) ABG pO2 121 H (83-108) mmHg ABG Total CO2 25 H (19-24) mmol/L ABG O2 Saturation 99.3 H (94-97) % Chloride 117 H (98-107) mmol/L BUN 50 H (7-17) mg/dL Creatinine 2.87 H (0.52-1.04) mg/dL Glucose 115 H (74-99) mg/dL POC Glucose (mg/dL) (75-99) mg/dL Calcium 7.6 L (8.4-10.2) mg/dL Iron (50-170) ug/dL TIBC (228-460) ug/dL Iron Saturation (12.00-45.00) Ferritin (10.0-291.0) ng/mL 03/24/18 03/24/18 03/24/18 Range/Units 05:00 11:57 12:17 RBC (3.80-5.40) m/uL Hgb (11.4-16.0) gm/dL Hct (34.0-46.0) % RDW (11.5-15.5) % Lymphocytes # (1.0-4.8) k/uL ABG pH (7.35-7.45) ABG pO2 (83-108) mmHg ABG Total CO2 (19-24) mmol/L ABG O2 Saturation (94-97) % Chloride (98-107) mmol/L BUN (7-17) mg/dL Creatinine (0.52-1.04) mg/dL Glucose (74-99) mg/dL POC Glucose (mg/dL) 128 H 121 H (75-99) mg/dL Calcium (8.4-10.2) mg/dL Iron 19 L (50-170) ug/dL TIBC 187 L (228-460) ug/dL Iron Saturation 10.16 L (12.00-45.00) Ferritin 802.4 H (10.0-291.0) ng/mL 03/24/18 Range/Units 18:14 RBC (3.80-5.40) m/uL Hgb (11.4-16.0) gm/dL Hct (34.0-46.0) % RDW (11.5-15.5) % Lymphocytes # (1.0-4.8) k/uL ABG pH (7.35-7.45) ABG pO2 (83-108) mmHg ABG Total CO2 (19-24) mmol/L ABG O2 Saturation (94-97) % Chloride (98-107) mmol/L BUN (7-17) mg/dL Creatinine (0.52-1.04) mg/dL Glucose (74-99) mg/dL POC Glucose (mg/dL) 125 H (75-99) mg/dL Calcium (8.4-10.2) mg/dL Iron (50-170) ug/dL TIBC (228-460) ug/dL Iron Saturation (12.00-45.00) Ferritin (10.0-291.0) ng/mL Microbiology - Last 24 Hours (Table) 03/19/18 03:31 Blood Culture - Preliminary Blood No Growth after 120 hours Assessment and Plan Assessment: Status post cardiac arrest and CPR as per ACL protocol Septic shock, secondary to possible pneumonia and UTI, off pressors currently acute respiratory failure needing intubation acute blood loss anemia with positive FOBT . s/p blood transfusion Bilateral pneumothorax more on the right side with multiple rib fractures. Status post chest tube atrial fibrillation , rate controlled Acute kidney injury Possible anoxic brain injury Hypocalcemia Plan: This is a 73 years old female who presents because of cardiopulmonary arrest and septic shock, mostly secondary to UTI with possible pneumonia, low hemoglobin. Pulmonary/critical care team are following the patient. Cardiology and neurology consult. Continue with antibiotics, IV fluids. Continue pressors as per ICU team. Vent management as per pulmonary and ICU team.Labs and medication were reviewed. Continue same treatment. Continue with symptomatic treatment. Resume home medication. Monitor lytes and vitals. DVT and GI prophylaxis. Further recommendations of the clinical course of the patient DVT prophylaxis: Subcutaneous heparin GI Prophylaxis: Pepcid Prognosis is guarded and very poor
[2018-03-24] MEDS: INSULIN DETEMIR 100 UNIT/ML 10 ML VIAL SQ SCH (20:32)
[2018-03-24 20:36] LABS: Glucose,Whole Blood 116 mg/dL (75-99)
[2018-03-24] MEDS: HYDROmorphone 1 MG/ML 1 ML SYRINGE IVP PRN (20:43)
[2018-03-24 23:53] LABS: Glucose,Whole Blood 135 mg/dL (75-99)
[2018-03-25] MEDS: IPRATROPIUM-ALBUTEROL 3 ML NEB INHALATION SCH ×6 (02:58→23:03)
[2018-03-25 04:11] LABS: Calcium 7.5 mg/dL (8.4-10.2); Magnesium 1.7 mg/dL (1.6-2.3)
[2018-03-25 04:23] LABS: Anisocytosis Slight; Basophils % (A) 1 %; Eosinophils # (A) 0.1 k/uL (0-0.7); Eosinophils % (A) 2 %; HCT 21.8 % (34.0-46.0); Hypochromasia Marked; Lymphocytes # (A) 0.7 k/uL (1.0-4.8); Lymphocytes % (A) 9 %; MCH 29.1 pg (25.0-35.0); MCHC 31.2 g/dL (31.0-37.0); MCV 93.4 fL (80.0-100.0); Mean Platelet Volume 7.9; Monocytes # (A) 0.5 k/uL (0-1.0); Monocytes % (A) 7 %; Neutrophils # (A) 5.4 k/uL (1.3-7.7); Neutrophils % (A) 78 %; Platelet Count 183 k/uL (150-450); Poikilocytosis Slight; RBC 2.34 m/uL (3.80-5.40); RDW 17.9 % (11.5-15.5)
[2018-03-25] MEDS ORDERED: Magnesium Replacement Protocol 1 EACH MISC MISCELLANE PRN (04:26)
[2018-03-25] MEDS: NOREPINEPHRINE 16 MG in SODIUM CHLORIDE 0.9% 250 ML IV SCH (04:37)
[2018-03-25 04:40] LABS: HGB 6.8 gm/dL (11.4-16.0)
[2018-03-25 04:49] LABS: ABG Base Excess -3.9 mmol/L; ABG HCO3 23 mmol/L (21-25); ABG Oxygen Saturation 97.8 % (94-97); ABG PCO2 45 mmHg (35-45); ABG PO2 88 mmHg (83-108); ABG TCO2 24 mmol/L (19-24)
[2018-03-25] MEDS: MAGNESIUM SULFATE-D5W PMX 1 GM in DEXTROSE/WATER 1 100ML.BAG IVPB SCH ×2 (05:07→05:58)
[2018-03-25] MEDS: PROPOFOL 1,000 MG in EMPTY BAG 1 BAG IV SCH ×4 (05:08→21:38)
[2018-03-25 05:24] LABS: Glucose,Whole Blood 136 mg/dL (75-99)
[2018-03-25] MEDS: INSULIN ASPART 100 UNIT/ML 1 ML 10 ML VIAL SQ SCH ×3 (05:58→17:17)
[2018-03-25] MEDS: SODIUM CHLORIDE 0.9% 1,000 ML IV SCH ×2 (05:59→19:50)
--- NOTE | 2018-03-25 08:21 | XR ---
EXAMINATION TYPE: XR chest 1V DATE OF EXAM: 03/25/2018 COMPARISON: 03/24/2018 HISTORY: Shortness of breath TECHNIQUE: Single frontal view of the chest is obtained. FINDINGS: Right-sided chest tube is unchanged in position. Endotracheal tube and right IJ central ve nous line unchanged in position. Vague infiltrate right upper lobe. Scattered basilar infiltrates per sist. No evidence for sizable pneumothorax. Subcutaneous air persists. Stable appearance of the cardi o -mediastinal structures. IMPRESSION: 1. Stable bilateral consolidation. Underlying venous congestion in the differential diagnosis. Chest tube remains in position with no definite sizable pneumothorax.
[2018-03-25] MEDS: CHLORHEXIDINE GLUCONATE 15 ML CUP MUCOUS MEM SCH ×2 (08:30→19:54)
[2018-03-25] MEDS: PIPERACILLIN-TAZOBACTAM 3.375 GM in SODIUM CHLORIDE 0.9% 100 ML IVPB SCH ×2 (08:31→19:54)
[2018-03-25] MEDS: PANTOPRAZOLE 40 MG/10 ML VIAL IV SCH (08:31)
--- NOTE | 2018-03-25 10:21 | P.PN ---
Subjective Progress Note Date: 03/25/18 Principal diagnosis: Cardiopulmonary arrest with prolonged resuscitation, UTI, chest wall hematoma Progress note dated 03/24/2018 This is a 73-year-old female who was admitted back on March 19. He was intubated on the same day. She had an [id number] cardiac arrest with cardiopulmonary resuscitation and eventual return of spontaneous circulation. According to the EMS sheets and other documentation, her resuscitation phase lasted for 30-45 minutes. This suggests likelihood of significant anoxic brain injury. In addition, she was found to have a UTI and his chest wall hematoma. In addition, on the , which was the day of admission, the patient was found to have a right pneumothorax and a right chest tube was placed. She was placed on some PSV and CPAP yesterday and lasted just a few minutes. She failed miserably on her spontaneous breathing trial. The patient is a DO NOT RESUSCITATE and apparently the family is contemplating comfort measures. She had diffuse anasarca. Currently, she is on the volume assist control mode with a rate of 26, tidal volume 420, FiO2 at 40% to be turned down to 35% and a PEEP of 5. Arterial blood gases show a PaO2 of 121 a PaCO2 of 44 and a pH is 7.44. The blood gases show a very mild metabolic acidosis. She remains on propofol at 30 mics per kilogram per minute a saline IV at 80 mL an hour and vital high protein at 40 with a goal of 40. Chest x-ray shows a right-sided chest tube, some subcutaneous emphysema on the right side, and diffuse bilateral infiltrates. Full problem list includes acute hypoxemic respiratory failure secondary to cardiopulmonary arrest, multiple rib fractures with a right-sided pneumothorax and right-sided chest tube placement, chest wall hematoma, recent hospitalization for pneumonia and sepsis, possible anoxic brain injury, abnormal CT of the brain suggesting evolving CVA/infarct, and acute urinary tract infection secondary to Klebsiella pneumoniae. Progress note dated 03/25/2018 73-year-old female who was admitted back on March 19. The patient had an out -of-hospital cardiopulmonary arrest with prolonged cardiopulmonary resuscitation and eventual return of spontaneous circulation. Her resuscitation phase lasted for 40-45 minutes. We believe that the patient has sustained a significant anoxic brain injury. In addition, she had multiple right rib fractures right chest tube placement for right pneumothorax UTI and chest wall hematoma. The patient's family chooses to move towards comfort measures. Apparently they'll take place today. The patient is currently a DO NOT RESUSCITATE patient. She has done very poorly with her daily eruption of sedation and spontaneous breathing trials. In addition to the above, she has a history of pneumonia, sepsis, and Klebsiella pneumoniae urinary tract infection. CT of the brain suggesting evolving CVA/infarct. I did have a conversation with the yesterday. He is in agreement. Currently, the patient's on the volume assist control mode with a rate of 30, tidal volume 350 , FiO2 35% and PEEP of 5. The patient arterial blood gases show a PaO2 of 88 a PaCO2 of 45 and a pH of 7.3. This is consistent with a mild respiratory and metabolic acidosis. The patient has a saline IV at 80 mL an hour and propofol at 20 mics per kilogram per minute. The patient is receiving tube feeds with vital high protein at 40 with a goal of 40 mL now her. The patient has done poorly with daily eruption of sedation and spontaneous breathing trials. This was shared with the patient's family. Objective - Vital Signs Vital signs: Vital Signs Temp 98.1 F 03/25/18 08:00 Pulse 57 L 03/25/18 10:00 Resp 30 H 03/25/18 10:00 BP 105/45 03/25/18 07:00 Pulse Ox 97 03/25/18 10:00 Intake & Output 03/24/18 03/25/18 03/25/18 18:59 06:59 18:59 Intake Total 2072.870 1360 658.365 Output Total 1125 1245 250 Balance 947.870 115 408.365 Weight 106.5 kg Intake: IV 1310 1000 370 Magnesium Sulfate-D5w Pmx 100 1 gm In Dextrose/Water 1 100ml.bag @ 100 mls/hr IVPB Q1H [facility] Rx#: [id number] Piperacillin-Tazobactam 3 100 100 50 .375 gm In Sodium Chloride 0.9% 100 ml @ 25 mls/hr IVPB Q12HR [facility] Rx #:[id number] Sodium Chloride 0.9% 1, 960 800 320 000 ml @ 80 mls/hr IV . [id number] [facility] Rx#:[id number] Vancomycin 1,500 mg In 250 Sodium Chloride 0.9% 250 ml @ 125 mls/hr IVPB ONCE [facility] Rx#:[id number] Intake, IV Titration 192.870 200 58.365 Amount Propofol 1,000 mg In 192.870 200 58.365 Empty Bag 1 bag @ Titrate IV .Q0M [facility] Rx#: [id number] Tube Feeding 480 160 200 Other 90 30 Output: Chest Tube Drainage 40 0 10 Right Lateral Chest 40 0 10 Urine 585 945 240 Stool 500 300 Other: Voiding Method Indwelling Catheter Indwelling Catheter Indwelling Catheter ABP, PAP, CO, CI - Last Documented Arterial Blood Pressure 119/49 - Exam No acute distress, sedated on propofol, was orally placed endotracheal tube and NG tube noted. In addition, there is a right-sided chest tube noted. The patient is a bit dyssynchronous with the ventilator while off sedation. HEENT examination is grossly unremarkable. Mucous membranes are moist. Endotracheal tube is noted. Neck supple. Full range of motion. No adenopathy thyromegaly or neck vein distention. Cardiovascular examination reveals regular rhythm rate. S1-S2 normal. No S3 or S4. No discernible murmur noted. Heart sounds are very distant. Lungs reveal coarse bilateral inspiratory and expiratory rhonchi. This a few scattered crackles. No wheezes. Breath sounds equal bilaterally. Lung sounds today are not much different from yesterday. Abdomen is soft, without noted bowel sounds. No masses or tenderness appreciated.. Extremities reveal diffuse anasarca. It is significant. No cyanosis or clubbing. Skin is without rash or lesion. Neurologic examination could not be adequately assessed given the patient's level of sedation. - Labs CBC & Chem 7: 03/25/18 03:40 03/25/18 03:40 Labs: Abnormal Lab Results - Last 24 Hours (Table) 03/24/18 03/24/18 03/24/18 Range/Units 05:00 11:57 12:17 RBC (3.80-5.40) m/uL Hgb (11.4-16.0) gm/dL Hct (34.0-46.0) % RDW (11.5-15.5) % Lymphocytes # (1.0-4.8) k/uL ABG pH (7.35-7.45) ABG O2 Saturation (94-97) % Sodium (137-145) mmol/L Chloride (98-107) mmol/L BUN (7-17) mg/dL Creatinine (0.52-1.04) mg/dL Glucose (74-99) mg/dL POC Glucose (mg/dL) 128 H 121 H (75-99) mg/dL Calcium (8.4-10.2) mg/dL Iron 19 L (50-170) ug/dL TIBC 187 L (228-460) ug/dL Iron Saturation 10.16 L (12.00-45.00) Ferritin 802.4 H (10.0-291.0) ng/mL 03/24/18 03/24/18 03/24/18 Range/Units 18:14 20:24 23:43 RBC (3.80-5.40) m/uL Hgb (11.4-16.0) gm/dL Hct (34.0-46.0) % RDW (11.5-15.5) % Lymphocytes # (1.0-4.8) k/uL ABG pH (7.35-7.45) ABG O2 Saturation (94-97) % Sodium (137-145) mmol/L Chloride (98-107) mmol/L BUN (7-17) mg/dL Creatinine (0.52-1.04) mg/dL Glucose (74-99) mg/dL POC Glucose (mg/dL) 125 H 116 H 135 H (75-99) mg/dL Calcium (8.4-10.2) mg/dL Iron (50-170) ug/dL TIBC (228-460) ug/dL Iron Saturation (12.00-45.00) Ferritin (10.0-291.0) ng/mL 03/25/18 03/25/18 03/25/18 Range/Units 03:40 03:40 04:45 RBC 2.34 L (3.80-5.40) m/uL Hgb 6.8 L* (11.4-16.0) gm/dL Hct 21.8 L (34.0-46.0) % RDW 17.9 H (11.5-15.5) % Lymphocytes # 0.7 L (1.0-4.8) k/uL ABG pH 7.30 L (7.35-7.45) ABG O2 Saturation 97.8 H (94-97) % Sodium 148 H (137-145) mmol/L Chloride 119 H (98-107) mmol/L BUN 49 H (7-17) mg/dL Creatinine 2.60 H (0.52-1.04) mg/dL Glucose 119 H (74-99) mg/dL POC Glucose (mg/dL) (75-99) mg/dL Calcium 7.5 L (8.4-10.2) mg/dL Iron (50-170) ug/dL TIBC (228-460) ug/dL Iron Saturation (12.00-45.00) Ferritin (10.0-291.0) ng/mL 03/25/18 Range/Units 05:11 RBC (3.80-5.40) m/uL Hgb (11.4-16.0) gm/dL Hct (34.0-46.0) % RDW (11.5-15.5) % Lymphocytes # (1.0-4.8) k/uL ABG pH (7.35-7.45) ABG O2 Saturation (94-97) % Sodium (137-145) mmol/L Chloride (98-107) mmol/L BUN (7-17) mg/dL Creatinine (0.52-1.04) mg/dL Glucose (74-99) mg/dL POC Glucose (mg/dL) 136 H (75-99) mg/dL Calcium (8.4-10.2) mg/dL Iron (50-170) ug/dL TIBC (228-460) ug/dL Iron Saturation (12.00-45.00) Ferritin (10.0-291.0) ng/mL Microbiology - Last 24 Hours (Table) 03/19/18 03:31 Blood Culture - Final Blood No Growth after 144 hours Assessment and Plan Assessment: Assessment Acute hypoxemic respiratory failure secondary to cardiopulmonary arrest, with cardiopulmonary resuscitation and eventual return of spontaneous circulation after a very prolonged to 40-45 minute resuscitation phase. Status post intubation for respiratory failure on March 19. Klebsiella pneumoniae UTI Chest wall hematoma Multiple right rib fractures Right pneumothorax, status post chest tube placement Probable anoxic brain injury Recent hospitalization for pneumonia and sepsis Brain CT suggesting evolving CVA/infarct Plan: Plan dated 03/24/2018 The patient remains on the mechanical ventilator and yesterday during her daily interuption of sedation as well as her spontaneous breathing trial, she did very poorly lasting only a few minutes on PSV/CPAP. Her chest x-ray shows a right-sided chest tube and diffuse bilateral infiltrates. Overall prognosis is very poor given the fact that she had an [id number] cardiac arrest with prolonged resuscitation lasting more than 40 minutes. Likelihood of anoxic brain injury is very high. In addition, white count 6.4, hemogram 7.2, hematocrit 21.5, and platelet count normal at 167, 000. Also, sodium and potassium were normal. Chloride 117, CO2 22, anion gap 6, BUN 50 with a creatinine of 2.87. These electrolytes are consistent with a hyperchloremic non -anion gap metabolic acidosis in part related to saline administration and renal failure. Urine sampling was positive for Klebsiella pneumoniae and blood cultures were positive for coag-negative staph, likely a contaminant. Chest x- ray and medications are all reviewed. We will continue to talk to the family about withdrawal of life support and comfort measures. Critical care time 35 minutes Plan dated 03/25/2018 Was taken off sedation, the patient is poorly responsive unresponsive and is very dyssynchronous from mechanical ventilator. Hence, she's placed back on sedation. The plan today was to meet with the family again in family's likely going to move towards comfort measures. She remains on mechanical ventilator. She remains on saline IV and propofol for sedation. Her blood gases have been evaluated. Blood cultures on the were positive for coag-negative Staphylococcus, and urine sampling on March 19 was positive for Klebsiella pneumoniae. In addition, white count is 7, hemoglobin 6.8, hematocrit 21.8 and platelet count 183,000. Sodium 138, potassium 4, chloride is 119, CO2 25 and anion gap is 4. BUN is 49 with a creatinine of 2.60 respectively. Additional recommendations and suggestions are forthcoming. Prognosis is poor. We'll continue to make recommendations. Plan family meeting today. Critical care time 36 minutes. Time with Patient: Greater than 30
--- NOTE | 2018-03-25 11:54 | P.PN ---
Subjective Patient is seen in follow-up for acute kidney injury. Renal function is better today with creatinine of 2.6. She continues to have loose bowel movements. She is off all vasopressors. Currently intubated and sedated. She has failed a weaning trial. She is maintained on tube feeds. Urine output about 40-60 mL per hour. Sodium level is up to 148. Patient is receiving tube feeding. Family is leaning towards comfort measures. Vital signs are stable. General: The patient appeared well nourished and normally developed. HEENT: Head exam is unremarkable. Neck is without jugular venous distension. Intubated. LUNGS: Breath sounds decreased. HEART: Rate and Rhythm are regular. First and second heart sounds normal. No murmurs, rubs or gallops. ABDOMEN: Abdominal exam reveals normal bowel sounds. Non-tender and non- distended. No evidence of peritonitis. EXTREMITITES: No clubbing, cyanosis, or edema. Objective - Vital Signs Vital signs: Vital Signs Temp 98.1 F 03/25/18 08:00 Pulse 56 L 03/25/18 11:40 Resp 30 H 03/25/18 11:00 BP 100/47 03/25/18 11:00 Pulse Ox 97 03/25/18 11:00 Intake & Output 03/24/18 03/25/18 03/25/18 18:59 06:59 18:59 Intake Total 2072.870 1360 883.365 Output Total 1125 1245 295 Balance 947.870 115 588.365 Weight 106.5 kg 106.5 kg Intake: IV 1310 1000 475 Magnesium Sulfate-D5w Pmx 100 1 gm In Dextrose/Water 1 100ml.bag @ 100 mls/hr IVPB Q1H [facility] Rx#: [id number] Piperacillin-Tazobactam 3 100 100 75 .375 gm In Sodium Chloride 0.9% 100 ml @ 25 mls/hr IVPB Q12HR [facility] Rx #:[id number] Sodium Chloride 0.9% 1, 960 800 400 000 ml @ 80 mls/hr IV . [id number] [facility] Rx#:[id number] Vancomycin 1,500 mg In 250 Sodium Chloride 0.9% 250 ml @ 125 mls/hr IVPB ONCE [facility] Rx#:[id number] Intake, IV Titration 192.870 200 58.365 Amount Propofol 1,000 mg In 192.870 200 58.365 Empty Bag 1 bag @ Titrate IV .Q0M [facility] Rx#: [id number] Tube Feeding 480 160 320 Other 90 30 Output: Chest Tube Drainage 40 0 10 Right Lateral Chest 40 0 10 Urine 585 945 285 Stool 500 300 Other: Voiding Method Indwelling Catheter Indwelling Catheter Indwelling Catheter ABP, PAP, CO, CI - Last Documented Arterial Blood Pressure 121/48 - Labs CBC & Chem 7: 03/25/18 03:40 03/25/18 03:40 Labs: Abnormal Lab Results - Last 24 Hours (Table) 03/24/18 03/24/18 03/24/18 Range/Units 05:00 11:57 12:17 RBC (3.80-5.40) m/uL Hgb (11.4-16.0) gm/dL Hct (34.0-46.0) % RDW (11.5-15.5) % Lymphocytes # (1.0-4.8) k/uL ABG pH (7.35-7.45) ABG O2 Saturation (94-97) % Sodium (137-145) mmol/L Chloride (98-107) mmol/L BUN (7-17) mg/dL Creatinine (0.52-1.04) mg/dL Glucose (74-99) mg/dL POC Glucose (mg/dL) 128 H 121 H (75-99) mg/dL Calcium (8.4-10.2) mg/dL Iron 19 L (50-170) ug/dL TIBC 187 L (228-460) ug/dL Iron Saturation 10.16 L (12.00-45.00) Ferritin 802.4 H (10.0-291.0) ng/mL 03/24/18 03/24/18 03/24/18 Range/Units 18:14 20:24 23:43 RBC (3.80-5.40) m/uL Hgb (11.4-16.0) gm/dL Hct (34.0-46.0) % RDW (11.5-15.5) % Lymphocytes # (1.0-4.8) k/uL ABG pH (7.35-7.45) ABG O2 Saturation (94-97) % Sodium (137-145) mmol/L Chloride (98-107) mmol/L BUN (7-17) mg/dL Creatinine (0.52-1.04) mg/dL Glucose (74-99) mg/dL POC Glucose (mg/dL) 125 H 116 H 135 H (75-99) mg/dL Calcium (8.4-10.2) mg/dL Iron (50-170) ug/dL TIBC (228-460) ug/dL Iron Saturation (12.00-45.00) Ferritin (10.0-291.0) ng/mL 03/25/18 03/25/18 03/25/18 Range/Units 03:40 03:40 04:45 RBC 2.34 L (3.80-5.40) m/uL Hgb 6.8 L* (11.4-16.0) gm/dL Hct 21.8 L (34.0-46.0) % RDW 17.9 H (11.5-15.5) % Lymphocytes # 0.7 L (1.0-4.8) k/uL ABG pH 7.30 L (7.35-7.45) ABG O2 Saturation 97.8 H (94-97) % Sodium 148 H (137-145) mmol/L Chloride 119 H (98-107) mmol/L BUN 49 H (7-17) mg/dL Creatinine 2.60 H (0.52-1.04) mg/dL Glucose 119 H (74-99) mg/dL POC Glucose (mg/dL) (75-99) mg/dL Calcium 7.5 L (8.4-10.2) mg/dL Iron (50-170) ug/dL TIBC (228-460) ug/dL Iron Saturation (12.00-45.00) Ferritin (10.0-291.0) ng/mL 03/25/18 Range/Units 05:11 RBC (3.80-5.40) m/uL Hgb (11.4-16.0) gm/dL Hct (34.0-46.0) % RDW (11.5-15.5) % Lymphocytes # (1.0-4.8) k/uL ABG pH (7.35-7.45) ABG O2 Saturation (94-97) % Sodium (137-145) mmol/L Chloride (98-107) mmol/L BUN (7-17) mg/dL Creatinine (0.52-1.04) mg/dL Glucose (74-99) mg/dL POC Glucose (mg/dL) 136 H (75-99) mg/dL Calcium (8.4-10.2) mg/dL Iron (50-170) ug/dL TIBC (228-460) ug/dL Iron Saturation (12.00-45.00) Ferritin (10.0-291.0) ng/mL Microbiology - Last 24 Hours (Table) 03/19/18 03:31 Blood Culture - Final Blood No Growth after 144 hours Assessment and Plan Plan: Assessment: 1. Acute kidney injury secondary to ATN secondary to cardiopulmonary arrest. Creatinine improved at 2.6 today. Unknown baseline. 2. UTI. Urine culture positive for Klebsiella and Vibha maintained on antibiotics. 3. Status post cardiopulmonary arrest. 4. Diarrhea. Better. C. diff negative. 5. Anemia status post blood transfusion. Hemoglobin 6.8 today. Iron deficiency noted. 6. Hypotension currently off vasopressors. 7. Hypernatremia secondary to lack of oral water intake. Plan: Maintain normal saline at 80 mL an hour. Maintain tube feeds. Increase free water flushes to 300 mL every 4 hours. Avoid nephrotoxins. IV Ferrlecit 125 mg 2 doses. Family is leaning toward comfort measures.
[2018-03-25 12:32] LABS: Glucose,Whole Blood 128 mg/dL (75-99)
[2018-03-25] MEDS: SODIUM FERRIC GLUCONAT-SUCROSE 125 MG in SODIUM CHLORIDE 0.9% 100 ML IVPB SCH (13:05)
[2018-03-25 17:20] LABS: Glucose,Whole Blood 122 mg/dL (75-99)
[2018-03-25] MEDS: INSULIN DETEMIR 100 UNIT/ML 10 ML VIAL SQ SCH (20:04)
--- NOTE | 2018-03-25 20:46 | P.PN ---
Subjective This is a pleasant 73 years old female with past medical history of congestive heart failure and atrial fibrillation. Patient was transferred from jail where she was therefore 10 days, recently discharged from the hospital for sepsis, pneumonia and UTI. This time EMS were called for difficulty breathing and they found her oxygen saturation was 60, she was placed on non-rebreather and her oxygen went up to mid 90s Patient is currently intubated and cannot provide information which were obtained from the medical staff, medical records, and sister at bedside who is her guardian. As per sister patient has been admitted to [facility] twice in the last 36 days for pneumonia and UTI with sepsis. Each time ascending to rehab, first time for 10 days and then for 16 days. As per sister they have been contacted earlier and they wanted everything to be done. But now with a want to change her CODE STATUS to DO NOT RESUSCITATE. On admission she was saturating is 6% on room air and she was breathing at respiratory rate of 30 minutes. Her blood pressure was 155/64, later on it dropped to 63/38. And she was bradycardic in the 40s and 50s. Leukocytosis at 14.8 K, hemoglobin 9, platelets 543. Sodium 135, potassium 5.9, creatinine 2.4 , sugar was signed between 300-400. Troponin is elevated at 0.04 and 0.319. LFT unremarkable.UA was suggestive of infection. Chest x-ray shows bilateral pneumothorax with larger on the left side, follow-up chest x-ray showing large right-side pneumothorax, getting worse 03/20/2018 Patient remains intubated in the ICU. Her sugar looks controlled however her hemoglobin this morning dropped to 6.8, she's getting 1 unit of blood transfusion. Heparin was put on hold. Check FOBT Creatinine 2.7. Rest of electrolytes are controlled. Critical care team for the patient's and decrease in the sedation. Nephrology and cardiology are following the patient is on IV fluids and Zosyn and vancomycin is on hold and check in the level 03/21/2018 Patient remains intubated in the ICU. She felt breathing trial today when they decreased her sedation. Has 2 units of blood transfusion for her acute anemia, her hemoglobin was low this morning at 6.6 occult blood in the stool is pending. Blood pressure 109/48, breathing rate at 26. A febrile telemetry somewhat low at 6.0. Calcium gluconate is a provided by the critical care team. Cardiology team evaluated the patient, they recommended continue with supportive care. EEG is pending 03/22/2018 Patient is seen and examined in the ICU today, intubated and sedated. No weaning trial today. She status post blood transfusion. Repeat hemoglobin is 7.0. She is on insulin drip, long-acting insulin was started. Also she has elevated creatinine at 3.29. Repeat calcium is improving at 7.5, magnesium 2.5 phosphorus 3.7. Blood culture is positive for staph while urine cultures positive for Klebsiella and leonela. Patient remains on Zosyn and got dose of vancomycin yesterday. C. diff is negative creatinine prognosis is poor. 03/23/2018 Patient still intubated in the ICU. The sedation holiday has been tried today, patient couldn't move her left hand elevated. Patient is temperature is 98.8. Heart rate in the 50s. Respiratory rate is 26. Blood pressure 102/40. Her hemoglobin is low at 6.3, went up to 7.1. Patient status post blood transfusion she has positive culture with staph in the blood and leonela albicans and Klebsiella in the urine. She remains on broad-spectrum antibiotics. She is an IV fluids. Nephrology team are seeing the patient. If renal function worsens might need hemodialysis as per nephrology team. Critical team input is appreciated. 03/24/2018 pt is still in the ICU intubated and she is managed mainly by the ICU critical care team. pt failed weaning trial , CXR shows bilateral consolidation which are stable. given the poor prognosis in view of prolonged resuscitation time during her arrest outside the hospital , critical care team want to address plan care with the family . pt is off vasopressors currently. 03/25/2018 pt is still in the ICU intubated and she is managed mainly by the ICU critical care team. pt failed weaning trial , CXR shows bilateral consolidation which are stable. given the poor prognosis in view of prolonged resuscitation time during her arrest outside the hospital , critical care team want to address plan care with the family . pt is off vasopressors currently. family are considering comfort care, but they are waiting for her son to arrive by the end of the week. her Hb is 6.8 howevver as per ICU team since the prognosis is very poor they opted not to transfuse instead start iron . my review of systems : n/a Medications are reviewed Objective - Vital Signs Vital signs: Vital Signs Temp 98.6 F 03/25/18 20:00 Pulse 61 03/25/18 20:00 Resp 30 H 03/25/18 20:00 BP 100/47 03/25/18 11:00 Pulse Ox 100 03/25/18 20:00 Intake & Output 03/25/18 03/25/18 03/26/18 06:59 18:59 06:59 Intake Total 1360 2528.365 310 Output Total 1245 925 105 Balance 115 1603.365 205 Weight 106.5 kg 106.5 kg Intake: IV 1000 1060 230 Magnesium Sulfate-D5w Pmx 100 1 gm In Dextrose/Water 1 100ml.bag @ 100 mls/hr IVPB Q1H LEN Rx#: [id number] Piperacillin-Tazobactam 3 100 100 100 .375 gm In Sodium Chloride 0.9% 100 ml @ 25 mls/hr IVPB Q12HR LEN Rx #:[id number] Sodium Chloride 0.9% 1, 800 960 130 000 ml @ 50 mls/hr IV . Q20H LEN Rx#:[id number] Intake, IV Titration 200 158.365 Amount Propofol 1,000 mg In 200 158.365 Empty Bag 1 bag @ Titrate IV .Q0M LEN Rx#: [id number] Tube Feeding 160 680 80 Other 630 Output: Chest Tube Drainage 0 10 Right Lateral Chest 0 10 Drainage 20 Right Upper Lateral Chest 20 Urine 945 715 85 Stool 300 200 Other: Voiding Method Indwelling Catheter Indwelling Catheter Indwelling Catheter ABP, PAP, CO, CI - Last Documented Arterial Blood Pressure 158/53 - Exam -GENERAL: The patient is intubated, not in any acute distress. HEENT: Pupils are round and equally reacting to light. EOMI. No scleral icterus. No conjunctival pallor. Normocephalic, atraumatic. No pharyngeal erythema. No thyromegaly. CARDIOVASCULAR: S1 and S2 present. No murmurs, rubs, or gallops. -PULMONARY: Chest is clear to auscultation, decreased breath sounds bilaterally ABDOMEN: Soft, nontender, nondistended, normoactive bowel sounds. No palpable organomegaly. MUSCULOSKELETAL: No joint swelling or deformity. EXTREMITIES: No cyanosis, clubbing, or pedal edema. NEUROLOGICAL: Gross neurological examination did not reveal any focal deficits. SKIN: No rashes. - Labs CBC & Chem 7: 03/25/18 03:40 03/25/18 03:40 Labs: Abnormal Lab Results - Last 24 Hours (Table) 03/24/18 03/25/18 03/25/18 Range/Units 23:43 03:40 03:40 RBC 2.34 L (3.80-5.40) m/uL Hgb 6.8 L* (11.4-16.0) gm/dL Hct 21.8 L (34.0-46.0) % RDW 17.9 H (11.5-15.5) % Lymphocytes # 0.7 L (1.0-4.8) k/uL ABG pH (7.35-7.45) ABG O2 Saturation (94-97) % Sodium 148 H (137-145) mmol/L Chloride 119 H (98-107) mmol/L BUN 49 H (7-17) mg/dL Creatinine 2.60 H (0.52-1.04) mg/dL Glucose 119 H (74-99) mg/dL POC Glucose (mg/dL) 135 H (75-99) mg/dL Calcium 7.5 L (8.4-10.2) mg/dL 03/25/18 03/25/18 03/25/18 Range/Units 04:45 05:11 12:21 RBC (3.80-5.40) m/uL Hgb (11.4-16.0) gm/dL Hct (34.0-46.0) % RDW (11.5-15.5) % Lymphocytes # (1.0-4.8) k/uL ABG pH 7.30 L (7.35-7.45) ABG O2 Saturation 97.8 H (94-97) % Sodium (137-145) mmol/L Chloride (98-107) mmol/L BUN (7-17) mg/dL Creatinine (0.52-1.04) mg/dL Glucose (74-99) mg/dL POC Glucose (mg/dL) 136 H 128 H (75-99) mg/dL Calcium (8.4-10.2) mg/dL 03/25/18 Range/Units 17:09 RBC (3.80-5.40) m/uL Hgb (11.4-16.0) gm/dL Hct (34.0-46.0) % RDW (11.5-15.5) % Lymphocytes # (1.0-4.8) k/uL ABG pH (7.35-7.45) ABG O2 Saturation (94-97) % Sodium (137-145) mmol/L Chloride (98-107) mmol/L BUN (7-17) mg/dL Creatinine (0.52-1.04) mg/dL Glucose (74-99) mg/dL POC Glucose (mg/dL) 122 H (75-99) mg/dL Calcium (8.4-10.2) mg/dL Microbiology - Last 24 Hours (Table) 03/19/18 03:31 Blood Culture - Final Blood No Growth after 144 hours Assessment and Plan Assessment: Status post cardiac arrest and CPR as per ACL protocol Septic shock, secondary to possible pneumonia and UTI, off pressors currently acute respiratory failure needing intubation acute blood loss anemia with positive FOBT . s/p blood transfusion Bilateral pneumothorax more on the right side with multiple rib fractures. Status post chest tube atrial fibrillation , rate controlled Acute kidney injury Possible anoxic brain injury Hypocalcemia Plan: This is a 73 years old female who presents because of cardiopulmonary arrest and septic shock, mostly secondary to UTI with possible pneumonia, low hemoglobin. Pulmonary/critical care team are following the patient. Cardiology and neurology consult. Continue with antibiotics, IV fluids. Continue pressors as per ICU team. Vent management as per pulmonary and ICU team.Labs and medication were reviewed. Continue same treatment. Continue with symptomatic treatment. Resume home medication. Monitor lytes and vitals. DVT and GI prophylaxis. Further recommendations of the clinical course of the patient DVT prophylaxis: Subcutaneous heparin GI Prophylaxis: Pepcid Prognosis is guarded and very poor
[2018-03-26] MEDS: INSULIN ASPART 100 UNIT/ML 1 ML 10 ML VIAL SQ SCH ×4 (00:54→18:09)
[2018-03-26 00:55] LABS: Glucose,Whole Blood 135 mg/dL (75-99)
[2018-03-26] MEDS: PROPOFOL 1,000 MG in EMPTY BAG 1 BAG IV SCH ×3 (00:55→14:22)
[2018-03-26] MEDS: IPRATROPIUM-ALBUTEROL 3 ML NEB INHALATION SCH ×6 (03:17→23:03)
[2018-03-26] MEDS: NOREPINEPHRINE 16 MG in SODIUM CHLORIDE 0.9% 250 ML IV SCH (03:43)
[2018-03-26 04:28] LABS: ABG Base Excess -5.2 mmol/L; ABG HCO3 22 mmol/L (21-25); ABG Oxygen Saturation 98.5 % (94-97); ABG PCO2 46 mmHg (35-45); ABG PH 7.28 (7.35-7.45); ABG PO2 104 mmHg (83-108); ABG TCO2 23 mmol/L (19-24)
[2018-03-26 05:20] LABS: Glucose,Whole Blood 114 mg/dL (75-99)
--- NOTE | 2018-03-26 07:41 | P.PN ---
Subjective Progress Note Date: 03/26/18 Principal diagnosis: Cardiopulmonary arrest with prolonged resuscitation, UTI, chest wall hematoma Progress note dated 03/24/2018 This is a 73-year-old female who was admitted back on March 19. He was intubated on the same day. She had an van-[id number] cardiac arrest with cardiopulmonary resuscitation and eventual return of spontaneous circulation. According to the EMS sheets and other documentation, her resuscitation phase lasted for 30-45 minutes. This suggests likelihood of significant anoxic brain injury. In addition, she was found to have a UTI and his chest wall hematoma. In addition, on the , which was the day of admission, the patient was found to have a right pneumothorax and a right chest tube was placed. She was placed on some PSV and CPAP yesterday and lasted just a few minutes. She failed miserably on her spontaneous breathing trial. The patient is a DO NOT RESUSCITATE and apparently the family is contemplating comfort measures. She had diffuse anasarca. Currently, she is on the volume assist control mode with a rate of 26, tidal volume 420, FiO2 at 40% to be turned down to 35% and a PEEP of 5. Arterial blood gases show a PaO2 of 121 a PaCO2 of 44 and a pH is 7.44. The blood gases show a very mild metabolic acidosis. She remains on propofol at 30 mics per kilogram per minute a saline IV at 80 mL an hour and vital high protein at 40 with a goal of 40. Chest x-ray shows a right-sided chest tube, some subcutaneous emphysema on the right side, and diffuse bilateral infiltrates. Full problem list includes acute hypoxemic respiratory failure secondary to cardiopulmonary arrest, multiple rib fractures with a right-sided pneumothorax and right-sided chest tube placement, chest wall hematoma, recent hospitalization for pneumonia and sepsis, possible anoxic brain injury, abnormal CT of the brain suggesting evolving CVA/infarct, and acute urinary tract infection secondary to Klebsiella pneumoniae. Progress note dated 03/25/2018 73-year-old female who was admitted back on March 19. The patient had an out -of-hospital cardiopulmonary arrest with prolonged cardiopulmonary resuscitation and eventual return of spontaneous circulation. Her resuscitation phase lasted for 40-45 minutes. We believe that the patient has sustained a significant anoxic brain injury. In addition, she had multiple right rib fractures right chest tube placement for right pneumothorax UTI and chest wall hematoma. The patient's family chooses to move towards comfort measures. Apparently they'll take place today. The patient is currently a DO NOT RESUSCITATE patient. She has done very poorly with her daily eruption of sedation and spontaneous breathing trials. In addition to the above, she has a history of pneumonia, sepsis, and Klebsiella pneumoniae urinary tract infection. CT of the brain suggesting evolving CVA/infarct. I did have a conversation with the yesterday. He is in agreement. Currently, the patient's on the volume assist control mode with a rate of 30, tidal volume 350 , FiO2 35% and PEEP of 5. The patient arterial blood gases show a PaO2 of 88 a PaCO2 of 45 and a pH of 7.3. This is consistent with a mild respiratory and metabolic acidosis. The patient has a saline IV at 80 mL an hour and propofol at 20 mics per kilogram per minute. The patient is receiving tube feeds with vital high protein at 40 with a goal of 40 mL now her. The patient has done poorly with daily eruption of sedation and spontaneous breathing trials. This was shared with the patient's family. Progress note dated 03/26/2018 73-year-old female admitted back on 03/19/2018. She had an unfortunate out of hospital cardiopulmonary arrest with a prolonged cardiopulmonary resuscitation and eventual return of spontaneous circulation. Her resuscitation lasted about 45 minutes. The patient likely sustained significant anoxic brain injury which obviously isn't impeded her ability to improve. In addition, she had multiple right rib fractures and a right chest tube placed for a right pneumothorax, UTI , chest wall hematoma, among other things. The family has chosen comfort care for this patient and apparently that will take place on when one son arrives from out of town. In addition, she has a history of pneumonia, sepsis, and Klebsiella pneumoniae urinary tract infection. CT of the brain suggesting evolving CVA. Currently, she is on the volume assist control mode rate of 30, tidal volume 350, FiO2 35% PEEP of 5. Arterial blood gases show a pO2 104, pCO2 46 and a pH of 7.28. We will DC the vancomycin and Zosyn. She is on a saline IV at 50 mL now her and vital high protein of 40 with a goal of 40. The propofol is running at 40 mics per kilogram per minute. The patient did not have a chest x-ray today. The patient's overall status has been stable overnight. Again, the family has chosen comfort measures for this patient. Apparently this will take place tomorrow. Objective - Vital Signs Vital signs: Vital Signs Temp 98.4 F 03/26/18 04:00 Pulse 57 L 03/26/18 07:00 Resp 30 H 03/26/18 07:00 BP 100/47 03/25/18 11:00 Pulse Ox 97 03/26/18 07:00 Intake & Output 03/25/18 03/26/18 03/26/18 18:59 06:59 18:59 Intake Total 2528.365 2543.922 Output Total 925 725 Balance 4806.483 9219.922 Weight 106.5 kg 108.4 kg Intake: IV 1060 780 Piperacillin-Tazobactam 3 100 100 .375 gm In Sodium Chloride 0.9% 100 ml @ 25 mls/hr IVPB Q12HR LEN Rx #:[id number] Sodium Chloride 0.9% 1, 960 680 000 ml @ 50 mls/hr IV . Q20H LEN Rx#:[id number] Intake, IV Titration 158.365 183.922 Amount Propofol 1,000 mg In 158.365 183.922 Empty Bag 1 bag @ Titrate IV .Q0M LEN Rx#: [id number] Tube Feeding 680 680 Other 630 900 Output: Chest Tube Drainage 10 20 Right Lateral Chest 10 20 Drainage 20 Right Upper Lateral Chest 20 Urine 715 685 Stool 200 Other: Voiding Method Indwelling Catheter Indwelling Catheter ABP, PAP, CO, CI - Last Documented Arterial Blood Pressure 100/46 - Exam No acute distress, sedated on propofol, was orally placed endotracheal tube and NG tube noted. In addition, there is a right-sided chest tube noted. HEENT examination is grossly unremarkable. Mucous membranes are moist. Endotracheal tube is noted. Neck supple. Full range of motion. No adenopathy thyromegaly or neck vein distention. Cardiovascular examination reveals regular rhythm rate. S1-S2 normal. No S3 or S4. No discernible murmur noted. Heart sounds are very distant. Lungs reveal coarse bilateral inspiratory and expiratory rhonchi. No crackles can be appreciated today. Breath sounds are equal bilaterally but diminished throughout. Abdomen is soft, without noted bowel sounds. No masses or tenderness appreciated.. Extremities reveal diffuse anasarca. It is significant. No cyanosis or clubbing. Skin is without rash or lesion. Neurologic examination could not be adequately assessed given the patient's level of sedation. - Labs CBC & Chem 7: 03/25/18 03:40 03/25/18 03:40 Labs: Abnormal Lab Results - Last 24 Hours (Table) 03/25/18 03/25/18 03/26/18 Range/Units 12:21 17:09 00:44 ABG pH (7.35-7.45) ABG pCO2 (35-45) mmHg ABG O2 Saturation (94-97) % POC Glucose (mg/dL) 128 H 122 H 135 H (75-99) mg/dL 03/26/18 03/26/18 Range/Units 04:26 05:09 ABG pH 7.28 L (7.35-7.45) ABG pCO2 46 H (35-45) mmHg ABG O2 Saturation 98.5 H (94-97) % POC Glucose (mg/dL) 114 H (75-99) mg/dL Microbiology - Last 24 Hours (Table) 03/19/18 03:31 Blood Culture - Final Blood No Growth after 144 hours Assessment and Plan Assessment: Assessment Acute hypoxemic respiratory failure secondary to cardiopulmonary arrest, with cardiopulmonary resuscitation and eventual return of spontaneous circulation after a very prolonged to 40-45 minute resuscitation phase. Status post intubation for respiratory failure on March 19. Klebsiella pneumoniae UTI Chest wall hematoma Multiple right rib fractures Right pneumothorax, status post chest tube placement Probable severe severe anoxic brain injury Recent hospitalization for pneumonia and sepsis Brain CT suggesting evolving CVA/infarct Plan: Plan dated 03/24/2018 The patient remains on the mechanical ventilator and yesterday during her daily interuption of sedation as well as her spontaneous breathing trial, she did very poorly lasting only a few minutes on PSV/CPAP. Her chest x-ray shows a right-sided chest tube and diffuse bilateral infiltrates. Overall prognosis is very poor given the fact that she had an [id number]-fibjeefo cardiac arrest with prolonged resuscitation lasting more than 40 minutes. Likelihood of anoxic brain injury is very high. In addition, white count 6.4, hemogram 7.2, hematocrit 21.5, and platelet count normal at 167, 000. Also, sodium and potassium were normal. Chloride 117, CO2 22, anion gap 6, BUN 50 with a creatinine of 2.87. These electrolytes are consistent with a hyperchloremic non -anion gap metabolic acidosis in part related to saline administration and renal failure. Urine sampling was positive for Klebsiella pneumoniae and blood cultures were positive for coag-negative staph, likely a contaminant. Chest x- ray and medications are all reviewed. We will continue to talk to the family about withdrawal of life support and comfort measures. Critical care time 35 minutes Plan dated 03/25/2018 Was taken off sedation, the patient is poorly responsive unresponsive and is very dyssynchronous from mechanical ventilator. Hence, she's placed back on sedation. The plan today was to meet with the family again in family's likely going to move towards comfort measures. She remains on mechanical ventilator. She remains on saline IV and propofol for sedation. Her blood gases have been evaluated. Blood cultures on the were positive for coag-negative Staphylococcus, and urine sampling on March 19 was positive for Klebsiella pneumoniae. In addition, white count is 7, hemoglobin 6.8, hematocrit 21.8 and platelet count 183,000. Sodium 138, potassium 4, chloride is 119, CO2 25 and anion gap is 4. BUN is 49 with a creatinine of 2.60 respectively. Additional recommendations and suggestions are forthcoming. Prognosis is poor. We'll continue to make recommendations. Plan family meeting today. Critical care time 36 minutes. Plan dated 03/26/2018 The patient is a DO NOT RESUSCITATE. Labs x-rays and medications are all reviewed. Apparently the patient will be transitioned to comfort measures tomorrow one son from out of town arrives. The patient remains on the volume assist control mode. Arterial blood gases show a PaO2 of 104 a PaCO2 of 46 and a pH of 7.28. She remains on saline IV at 50 mL an hour and vital high protein at 40 with a goal of 40. In addition, to help her to become more synchronous with the ventilator, she remains on propofol at 40 mics per kilogram per minute. Overall prognosis remains very poor. Her laboratory data is reviewed. Her medications are reviewed. Additional recommendations and suggestions are forthcoming. Critical care time 33 minutes Time with Patient: Greater than 30
[2018-03-26] MEDS: CHLORHEXIDINE GLUCONATE 15 ML CUP MUCOUS MEM SCH ×2 (09:55→21:31)
[2018-03-26] MEDS: PANTOPRAZOLE 40 MG/10 ML VIAL IV SCH (09:55)
[2018-03-26] MEDS: SODIUM FERRIC GLUCONAT-SUCROSE 125 MG in SODIUM CHLORIDE 0.9% 100 ML IVPB SCH (09:56)
[2018-03-26 10:35] VITALS: BP 107/49
[2018-03-26 11:42] LABS: Glucose,Whole Blood 124 mg/dL (75-99)
--- NOTE | 2018-03-26 11:42 | P.PN ---
Subjective Patient is seen in follow-up for acute kidney injury. Renal function is better with creatinine of 2.6 as of yesterday. She continues to have loose bowel movements. She is off all vasopressors. Currently intubated and sedated. She has failed a weaning trial. She is maintained on tube feeds. Urine output about 30-60 mL per hour. Maintained on free water flushes for hyponatremia. Patient is receiving tube feeding. Family is leaning towards comfort measures. They are awaiting arrival of the patient's son. Vital signs are stable. General: The patient appeared well nourished and normally developed. HEENT: Head exam is unremarkable. Neck is without jugular venous distension. Intubated. LUNGS: Breath sounds decreased. HEART: Rate and Rhythm are regular. First and second heart sounds normal. No murmurs, rubs or gallops. ABDOMEN: Abdominal exam reveals normal bowel sounds. Non-tender and non- distended. No evidence of peritonitis. EXTREMITITES: No clubbing, cyanosis, or edema. Objective - Vital Signs Vital signs: Vital Signs Temp 98.4 F 03/26/18 04:00 Pulse 56 L 03/26/18 11:24 Resp 30 H 03/26/18 10:00 BP 107/49 03/26/18 10:00 Pulse Ox 99 03/26/18 10:00 Intake & Output 03/25/18 03/26/18 03/26/18 18:59 06:59 18:59 Intake Total 2528.365 2643.922 660 Output Total 925 725 105 Balance 7217.884 6216.922 555 Weight 106.5 kg 108.4 kg Intake: IV 1060 780 250 Piperacillin-Tazobactam 3 100 100 .375 gm In Sodium Chloride 0.9% 100 ml @ 25 mls/hr IVPB Q12HR LEN Rx #:[id number] Sodium Chloride 0.9% 1, 960 680 150 000 ml @ 50 mls/hr IV . Q20H LEN Rx#:[id number] Sodium Ferric Gluconat- 100 Sucrose 125 mg In Sodium Chloride 0.9% 100 ml @ 100 mls/hr IVPB DAILY LEN Rx#:[id number] Intake, IV Titration 158.365 283.922 Amount Propofol 1,000 mg In 158.365 283.922 Empty Bag 1 bag @ Titrate IV .Q0M LEN Rx#: [id number] Tube Feeding 680 680 110 Other 630 900 300 Output: Chest Tube Drainage 10 20 Right Lateral Chest 10 20 Drainage 20 Right Upper Lateral Chest 20 Urine 715 685 105 Stool 200 Other: Voiding Method Indwelling Catheter Indwelling Catheter Indwelling Catheter ABP, PAP, CO, CI - Last Documented Arterial Blood Pressure 109/40 - Labs CBC & Chem 7: 03/25/18 03:40 03/25/18 03:40 Labs: Abnormal Lab Results - Last 24 Hours (Table) 03/25/18 03/25/18 03/26/18 Range/Units 12:21 17:09 00:44 ABG pH (7.35-7.45) ABG pCO2 (35-45) mmHg ABG O2 Saturation (94-97) % POC Glucose (mg/dL) 128 H 122 H 135 H (75-99) mg/dL 03/26/18 03/26/18 Range/Units 04:26 05:09 ABG pH 7.28 L (7.35-7.45) ABG pCO2 46 H (35-45) mmHg ABG O2 Saturation 98.5 H (94-97) % POC Glucose (mg/dL) 114 H (75-99) mg/dL Assessment and Plan Plan: Assessment: 1. Acute kidney injury secondary to ATN secondary to cardiopulmonary arrest. Creatinine improved at 2.6 as of yesterday. Unknown baseline. 2. UTI. Urine culture positive for Klebsiella and Vibha maintained on antibiotics. 3. Status post cardiopulmonary arrest. 4. Diarrhea. Better. C. diff negative. 5. Anemia status post blood transfusion. Hemoglobin 6.8 today. Iron deficiency noted. 6. Hypotension currently off vasopressors. 7. Hypernatremia secondary to lack of oral water intake. Plan: Maintain tube feeds and free water flushes at current rate. Avoid nephrotoxins. IV Ferrlecit 125 mg 2 doses. Family is leaning toward comfort measures.
[2018-03-26] MEDS: SODIUM CHLORIDE 0.9% 1,000 ML IV SCH (14:23)
--- NOTE | 2018-03-26 15:23 | CDI ---
Last Revision, March 2017 Documentation Clarification Form Date: 03/26/18 From: Blaire Sprague RN, CCDS Admit Date: 03/19/2018 12:05:00 AM Patient Name: Eloise Hathaway Visit Number: [id number] Discharge Date: ATTENTION: The Clinical Documentation Specialists (CDI) and [facility] Coding Staff appreciate your assistance in clarifying documentation. Please respond to the clarification below the line at the bottom and electronically sign. The CDI & [facility] Coding staff will review the response and follow-up if needed. Please note: Queries are made part of the Legal Health Record. If you have any questions, please contact the author of this message via ITS. Katina Nolan, DO A chest wall hematoma is documented in the emergency department clinical impression and further clarification is needed for present of admission indicators. 03/19/18 EMS run report: On exam extensive bruising to both arms and about her abdomen. 03/19/18 Pulmonary (Dr. Fowler) Extremities: Multiple areas of burses and ecchymosis noted in both upper and lower extremities. History/Risk Factors: Atrial Fibrillation, Sepsis, Pneumonia, UTI, Cardiac Arrest, Clinical Indicators: Present via EMS for respiratory distress from a residential. She had subsequent cardiac arrest. In ED she had persistent CPR approximately 40-45 minutes with return of spontaneous circulation. 03/18/18 Chest x-ray: right-side pneumothorax. Extensive soft tissue air Treatment: Monitor Labs, CBC ICU monitoring Intubation/lmechanical ventilation Right chest tube Definition of Present on Admission (POA): A diagnosis present at the time the order for admission to inpatient status was written. For each diagnosis, documentation must be clear to determine if the condition was present at the time of the patients inpatient admission or developed during the hospital stay. Please clarify in an addendum to your progress note as to whether the chest wall hematoma was: Y = Yes, the condition was present at the time of the order for inpatient admission. N = No, the condition was not present at the time of the order for inpatient admission. W = Clinically undetermined if the condition was present at the time of the order for inpatient admission. Please continue to document in an addendum to your progress note in order to capture severity of illness and risk of mortality. Include clinical findings that support your diagnosis. MTDD
[2018-03-26 17:23] LABS: Glucose,Whole Blood 112 mg/dL (75-99)
[2018-03-26] MEDS: INSULIN DETEMIR 100 UNIT/ML 10 ML VIAL SQ SCH (21:31)
--- NOTE | 2018-03-26 22:21 | P.PN ---
Subjective This is a pleasant 73 years old female with past medical history of congestive heart failure and atrial fibrillation. Patient was transferred from [facility] where she was therefore 10 days, recently discharged from the hospital for sepsis, pneumonia and UTI. This time EMS were called for difficulty breathing and they found her oxygen saturation was 60, she was placed on non-rebreather and her oxygen went up to mid 90s Patient is currently intubated and cannot provide information which were obtained from the medical staff, medical records, and sister at bedside who is her guardian. As per sister patient has been admitted to [facility] twice in the last 36 days for pneumonia and UTI with sepsis. Each time ascending to rehab, first time for 10 days and then for 16 days. As per sister they have been contacted earlier and they wanted everything to be done. But now with a want to change her CODE STATUS to DO NOT RESUSCITATE. On admission she was saturating is 6% on room air and she was breathing at respiratory rate of 30 minutes. Her blood pressure was 155/64, later on it dropped to 63/38. And she was bradycardic in the 40s and 50s. Leukocytosis at 14.8 K, hemoglobin 9, platelets 543. Sodium 135, potassium 5.9, creatinine 2.4 , sugar was signed between 300-400. Troponin is elevated at 0.04 and 0.319. LFT unremarkable.UA was suggestive of infection. Chest x-ray shows bilateral pneumothorax with larger on the left side, follow-up chest x-ray showing large right-side pneumothorax, getting worse 03/20/2018 Patient remains intubated in the ICU. Her sugar looks controlled however her hemoglobin this morning dropped to 6.8, she's getting 1 unit of blood transfusion. Heparin was put on hold. Check FOBT Creatinine 2.7. Rest of electrolytes are controlled. Critical care team for the patient's and decrease in the sedation. Nephrology and cardiology are following the patient is on IV fluids and Zosyn and vancomycin is on hold and check in the level 03/21/2018 Patient remains intubated in the ICU. She felt breathing trial today when they decreased her sedation. Has 2 units of blood transfusion for her acute anemia, her hemoglobin was low this morning at 6.6 occult blood in the stool is pending. Blood pressure 109/48, breathing rate at 26. A febrile telemetry somewhat low at 6.0. Calcium gluconate is a provided by the critical care team. Cardiology team evaluated the patient, they recommended continue with supportive care. EEG is pending 03/22/2018 Patient is seen and examined in the ICU today, intubated and sedated. No weaning trial today. She status post blood transfusion. Repeat hemoglobin is 7.0. She is on insulin drip, long-acting insulin was started. Also she has elevated creatinine at 3.29. Repeat calcium is improving at 7.5, magnesium 2.5 phosphorus 3.7. Blood culture is positive for staph while urine cultures positive for Klebsiella and leonela. Patient remains on Zosyn and got dose of vancomycin yesterday. C. diff is negative creatinine prognosis is poor. 03/23/2018 Patient still intubated in the ICU. The sedation holiday has been tried today, patient couldn't move her left hand elevated. Patient is temperature is 98.8. Heart rate in the 50s. Respiratory rate is 26. Blood pressure 102/40. Her hemoglobin is low at 6.3, went up to 7.1. Patient status post blood transfusion she has positive culture with staph in the blood and leonela albicans and Klebsiella in the urine. She remains on broad-spectrum antibiotics. She is an IV fluids. Nephrology team are seeing the patient. If renal function worsens might need hemodialysis as per nephrology team. Critical team input is appreciated. 03/24/2018 pt is still in the ICU intubated and she is managed mainly by the ICU critical care team. pt failed weaning trial , CXR shows bilateral consolidation which are stable. given the poor prognosis in view of prolonged resuscitation time during her arrest outside the hospital , critical care team want to address plan care with the family . pt is off vasopressors currently. 03/25/2018 pt is still in the ICU intubated and she is managed mainly by the ICU critical care team. pt failed weaning trial , CXR shows bilateral consolidation which are stable. given the poor prognosis in view of prolonged resuscitation time during her arrest outside the hospital , critical care team want to address plan care with the family . pt is off vasopressors currently. family are considering comfort care, but they are waiting for her son to arrive by the end of the week. her Hb is 6.8 howevver as per ICU team since the prognosis is very poor they opted not to transfuse instead start iron . my review of systems : n/a Medications are reviewed Objective - Vital Signs Vital signs: Vital Signs Temp 98.8 F 03/26/18 20:00 Pulse 59 L 03/26/18 21:00 Resp 30 H 03/26/18 21:00 BP 107/49 03/26/18 19:00 Pulse Ox 100 03/26/18 21:00 Intake & Output 03/26/18 03/26/18 03/27/18 06:59 18:59 06:59 Intake Total 2643.922 1700 570 Output Total 725 435 90 Balance 7139.546 3836 480 Weight 108.4 kg Intake: IV 780 650 150 Piperacillin-Tazobactam 3 100 .375 gm In Sodium Chloride 0.9% 100 ml @ 25 mls/hr IVPB Q12HR LEN Rx #:[id number] Sodium Chloride 0.9% 1, 680 550 150 000 ml @ 50 mls/hr IV . Q20H LEN Rx#:[id number] Sodium Ferric Gluconat- 100 Sucrose 125 mg In Sodium Chloride 0.9% 100 ml @ 100 mls/hr IVPB DAILY LEN Rx#:[id number] Intake, IV Titration 283.922 100 Amount Propofol 1,000 mg In 283.922 100 Empty Bag 1 bag @ Titrate IV .Q0M LEN Rx#: [id number] Tube Feeding 680 350 120 Other 900 600 300 Output: Chest Tube Drainage 20 Right Lateral Chest 20 Drainage 20 Right Upper Lateral Chest 20 Urine 685 435 90 Other: Voiding Method Indwelling Catheter Indwelling Catheter Indwelling Catheter ABP, PAP, CO, CI - Last Documented Arterial Blood Pressure 105/39 - Exam -GENERAL: The patient is intubated, not in any acute distress. HEENT: Pupils are round and equally reacting to light. EOMI. No scleral icterus. No conjunctival pallor. Normocephalic, atraumatic. No pharyngeal erythema. No thyromegaly. CARDIOVASCULAR: S1 and S2 present. No murmurs, rubs, or gallops. -PULMONARY: Chest is clear to auscultation, decreased breath sounds bilaterally ABDOMEN: Soft, nontender, nondistended, normoactive bowel sounds. No palpable organomegaly. MUSCULOSKELETAL: No joint swelling or deformity. EXTREMITIES: No cyanosis, clubbing, or pedal edema. NEUROLOGICAL: Gross neurological examination did not reveal any focal deficits. SKIN: No rashes. - Labs CBC & Chem 7: 03/25/18 03:40 03/25/18 03:40 Labs: Abnormal Lab Results - Last 24 Hours (Table) 03/26/18 03/26/18 03/26/18 Range/Units 00:44 04:26 05:09 ABG pH 7.28 L (7.35-7.45) ABG pCO2 46 H (35-45) mmHg ABG O2 Saturation 98.5 H (94-97) % POC Glucose (mg/dL) 135 H 114 H (75-99) mg/dL 03/26/18 03/26/18 Range/Units 11:31 17:19 ABG pH (7.35-7.45) ABG pCO2 (35-45) mmHg ABG O2 Saturation (94-97) % POC Glucose (mg/dL) 124 H 112 H (75-99) mg/dL Assessment and Plan Assessment: Status post cardiac arrest and CPR as per ACL protocol Septic shock, secondary to possible pneumonia and UTI, off pressors currently acute respiratory failure needing intubation acute blood loss anemia with positive FOBT . s/p blood transfusion Bilateral pneumothorax more on the right side with multiple rib fractures. Status post chest tube atrial fibrillation , rate controlled Acute kidney injury Possible anoxic brain injury Hypocalcemia Plan: This is a 73 years old female who presents because of cardiopulmonary arrest and septic shock, mostly secondary to UTI with possible pneumonia, low hemoglobin. Pulmonary/critical care team are following the patient. Cardiology and neurology consult. Continue with antibiotics, IV fluids. Continue pressors as per ICU team. Vent management as per pulmonary and ICU team.Labs and medication were reviewed. Continue same treatment. Continue with symptomatic treatment. Resume home medication. Monitor lytes and vitals. DVT and GI prophylaxis. Further recommendations of the clinical course of the patient DVT prophylaxis: Subcutaneous heparin GI Prophylaxis: Pepcid Prognosis is guarded and very poor
[2018-03-26 23:45] LABS: Glucose,Whole Blood 130 mg/dL (75-99)
[2018-03-27 00:14] LABS: Glucose,Whole Blood 121 mg/dL (75-99)
[2018-03-27] MEDS: INSULIN ASPART 100 UNIT/ML 1 ML 10 ML VIAL SQ SCH ×5 (00:15→23:35)
[2018-03-27] MEDS: PROPOFOL 1,000 MG in EMPTY BAG 1 BAG IV SCH ×5 (02:41→23:28)
[2018-03-27] MEDS: IPRATROPIUM-ALBUTEROL 3 ML NEB INHALATION SCH ×6 (03:07→23:31)
[2018-03-27 05:42] LABS: Glucose,Whole Blood 139 mg/dL (75-99)
--- NOTE | 2018-03-27 09:21 | P.PN ---
Subjective Patient is seen in follow-up for acute kidney injury. Renal function is better with creatinine of 2.6 as of 03/25. She is off all vasopressors. Currently intubated and sedated. She has failed a weaning trial. She is maintained on tube feeds. Remains nonoliguric. Maintained on free water flushes for hypernatremia. Patient is receiving tube feeding. Family is leaning towards comfort measures. They are awaiting arrival of the patient's son. No further labs and imaging. Vital signs are stable. General: The patient appeared well nourished and normally developed. HEENT: Head exam is unremarkable. Neck is without jugular venous distension. Intubated. LUNGS: Breath sounds decreased. HEART: Rate and Rhythm are regular. First and second heart sounds normal. No murmurs, rubs or gallops. ABDOMEN: Abdominal exam reveals normal bowel sounds. Non-tender and non- distended. No evidence of peritonitis. EXTREMITITES: No clubbing, cyanosis, or edema. Objective - Vital Signs Vital signs: Vital Signs Temp 98.4 F 03/27/18 00:00 Pulse 59 L 03/27/18 07:40 Resp 30 H 03/27/18 07:00 BP 107/49 03/26/18 19:00 Pulse Ox 97 03/27/18 07:00 Intake & Output 03/26/18 03/27/18 03/27/18 18:59 06:59 18:59 Intake Total 1800 2035.85 50 Output Total 435 610 75 Balance 1365 1425.85 -25 Weight 111.4 kg Intake: IV 650 600 50 Sodium Chloride 0.9% 1, 550 600 50 000 ml @ 50 mls/hr IV . Q20H LEN Rx#:[id number] Sodium Ferric Gluconat- 100 Sucrose 125 mg In Sodium Chloride 0.9% 100 ml @ 100 mls/hr IVPB DAILY LEN Rx#:[id number] Intake, IV Titration 200 95.85 Amount Propofol 1,000 mg In 200 95.85 Empty Bag 1 bag @ Titrate IV .Q0M LEN Rx#: [id number] Tube Feeding 350 440 Other 600 900 Output: Urine 435 610 75 Other: Voiding Method Indwelling Catheter Indwelling Catheter ABP, PAP, CO, CI - Last Documented Arterial Blood Pressure 122/49 - Labs CBC & Chem 7: 03/25/18 03:40 03/25/18 03:40 Labs: Abnormal Lab Results - Last 24 Hours (Table) 03/26/18 03/26/18 03/26/18 Range/Units 11:31 17:19 23:34 POC Glucose (mg/dL) 124 H 112 H 130 H (75-99) mg/dL 03/27/18 03/27/18 Range/Units 00:03 05:30 POC Glucose (mg/dL) 121 H 139 H (75-99) mg/dL Assessment and Plan Plan: Assessment: 1. Acute kidney injury secondary to ATN secondary to cardiopulmonary arrest. Creatinine improved at 2.6 as of 03/25. Unknown baseline. 2. UTI. Urine culture positive for Klebsiella and Vbiha maintained on antibiotics. 3. Status post cardiopulmonary arrest. 4. Diarrhea. Better. C. diff negative. 5. Anemia status post blood transfusion. Hemoglobin 6.8 today. Iron deficiency noted - s/p IV iron. 6. Hypotension currently off vasopressors. 7. Hypernatremia secondary to lack of oral water intake. Plan: Maintain tube feeds and free water flushes at current rate. Avoid nephrotoxins. Family is leaning toward comfort measures - possibly today.
[2018-03-27] MEDS: SODIUM FERRIC GLUCONAT-SUCROSE 125 MG in SODIUM CHLORIDE 0.9% 100 ML IVPB SCH (10:21)
[2018-03-27] MEDS: CHLORHEXIDINE GLUCONATE 15 ML CUP MUCOUS MEM SCH ×2 (10:22→20:13)
[2018-03-27] MEDS: PANTOPRAZOLE 40 MG/10 ML VIAL IV SCH (10:22)
--- NOTE | 2018-03-27 10:27 | P.PN ---
Subjective Progress Note Date: 03/27/18 Principal diagnosis: Cardiopulmonary arrest with prolonged resuscitation, UTI, chest wall hematoma Progress note dated 03/24/2018 This is a 73-year-old female who was admitted back on March 19. He was intubated on the same day. She had an [id number] cardiac arrest with cardiopulmonary resuscitation and eventual return of spontaneous circulation. According to the EMS sheets and other documentation, her resuscitation phase lasted for 30-45 minutes. This suggests likelihood of significant anoxic brain injury. In addition, she was found to have a UTI and his chest wall hematoma. In addition, on the , which was the day of admission, the patient was found to have a right pneumothorax and a right chest tube was placed. She was placed on some PSV and CPAP yesterday and lasted just a few minutes. She failed miserably on her spontaneous breathing trial. The patient is a DO NOT RESUSCITATE and apparently the family is contemplating comfort measures. She had diffuse anasarca. Currently, she is on the volume assist control mode with a rate of 26, tidal volume 420, FiO2 at 40% to be turned down to 35% and a PEEP of 5. Arterial blood gases show a PaO2 of 121 a PaCO2 of 44 and a pH is 7.44. The blood gases show a very mild metabolic acidosis. She remains on propofol at 30 mics per kilogram per minute a saline IV at 80 mL an hour and vital high protein at 40 with a goal of 40. Chest x-ray shows a right-sided chest tube, some subcutaneous emphysema on the right side, and diffuse bilateral infiltrates. Full problem list includes acute hypoxemic respiratory failure secondary to cardiopulmonary arrest, multiple rib fractures with a right-sided pneumothorax and right-sided chest tube placement, chest wall hematoma, recent hospitalization for pneumonia and sepsis, possible anoxic brain injury, abnormal CT of the brain suggesting evolving CVA/infarct, and acute urinary tract infection secondary to Klebsiella pneumoniae. Progress note dated 03/25/2018 73-year-old female who was admitted back on March 19. The patient had an out -of-hospital cardiopulmonary arrest with prolonged cardiopulmonary resuscitation and eventual return of spontaneous circulation. Her resuscitation phase lasted for 40-45 minutes. We believe that the patient has sustained a significant anoxic brain injury. In addition, she had multiple right rib fractures right chest tube placement for right pneumothorax UTI and chest wall hematoma. The patient's family chooses to move towards comfort measures. Apparently they'll take place today. The patient is currently a DO NOT RESUSCITATE patient. She has done very poorly with her daily eruption of sedation and spontaneous breathing trials. In addition to the above, she has a history of pneumonia, sepsis, and Klebsiella pneumoniae urinary tract infection. CT of the brain suggesting evolving CVA/infarct. I did have a conversation with the yesterday. He is in agreement. Currently, the patient's on the volume assist control mode with a rate of 30, tidal volume 350 , FiO2 35% and PEEP of 5. The patient arterial blood gases show a PaO2 of 88 a PaCO2 of 45 and a pH of 7.3. This is consistent with a mild respiratory and metabolic acidosis. The patient has a saline IV at 80 mL an hour and propofol at 20 mics per kilogram per minute. The patient is receiving tube feeds with vital high protein at 40 with a goal of 40 mL now her. The patient has done poorly with daily eruption of sedation and spontaneous breathing trials. This was shared with the patient's family. Progress note dated 03/26/2018 73-year-old female admitted back on 03/19/2018. She had an unfortunate out of hospital cardiopulmonary arrest with a prolonged cardiopulmonary resuscitation and eventual return of spontaneous circulation. Her resuscitation lasted about 45 minutes. The patient likely sustained significant anoxic brain injury which obviously isn't impeded her ability to improve. In addition, she had multiple right rib fractures and a right chest tube placed for a right pneumothorax, UTI , chest wall hematoma, among other things. The family has chosen comfort care for this patient and apparently that will take place on when one son arrives from out of town. In addition, she has a history of pneumonia, sepsis, and Klebsiella pneumoniae urinary tract infection. CT of the brain suggesting evolving CVA. Currently, she is on the volume assist control mode rate of 30, tidal volume 350, FiO2 35% PEEP of 5. Arterial blood gases show a pO2 104, pCO2 46 and a pH of 7.28. We will DC the vancomycin and Zosyn. She is on a saline IV at 50 mL now her and vital high protein of 40 with a goal of 40. The propofol is running at 40 mics per kilogram per minute. The patient did not have a chest x-ray today. The patient's overall status has been stable overnight. Again, the family has chosen comfort measures for this patient. Apparently this will take place tomorrow. Progress note dated 03/27/2018 73-year-old female admitted back on 03/19/2018. She had a [id number] cardiopulmonary arrest with prolonged cardiopulmonary resuscitation with eventual return of spontaneous circulation. The patient's resuscitation lasted about 45 minutes. The patient likely sustained significant anoxic brain injury. The patient also had multiple right rib fractures with right-sided chest tube placement for right pneumothorax, UTI, chest wall hematoma, pneumonia , sepsis, Klebsiella pneumoniae urinary tract infection and evolving CVA per brain scan. The patient has made no progress since she has been here in the patient is a DO NOT RESUSCITATE. The patient's family have talked about making her comfort measures and withdrawing life support and continued delay that decision. The patient continues on the volume assist control mode, rate of 30, tidal volume 350, FiO2 35% and PEEP of 5. Blood gases were not done. There is no chest x-ray or other lab work done in anticipation of comfort orders from the family. The patient remains on propofol at 40 mics per kilogram per minute , a saline IV at 50 mL an hour and tube feeds with vital high protein of 40 with a goal of 40 mL an hour. The patient remains chronically and critically ill and her condition remains unchanged. Objective - Vital Signs Vital signs: Vital Signs Temp 98.4 F 03/27/18 00:00 Pulse 59 L 03/27/18 07:40 Resp 30 H 03/27/18 07:00 BP 107/49 03/26/18 19:00 Pulse Ox 97 03/27/18 07:00 Intake & Output 03/26/18 03/27/18 03/27/18 18:59 06:59 18:59 Intake Total 1800 2035.85 50 Output Total 435 610 75 Balance 1365 1425.85 -25 Weight 111.4 kg Intake: IV 650 600 50 Sodium Chloride 0.9% 1, 550 600 50 000 ml @ 50 mls/hr IV . Q20H LEN Rx#:[id number] Sodium Ferric Gluconat- 100 Sucrose 125 mg In Sodium Chloride 0.9% 100 ml @ 100 mls/hr IVPB DAILY LEN Rx#:[id number] Intake, IV Titration 200 95.85 Amount Propofol 1,000 mg In 200 95.85 Empty Bag 1 bag @ Titrate IV .Q0M LEN Rx#: [id number] Tube Feeding 350 440 Other 600 900 Output: Urine 435 610 75 Other: Voiding Method Indwelling Catheter Indwelling Catheter ABP, PAP, CO, CI - Last Documented Arterial Blood Pressure 122/49 - Exam No acute distress, sedated on propofol, was orally placed endotracheal tube and NG tube noted. In addition, there is a right-sided chest tube noted. HEENT examination is grossly unremarkable. Mucous membranes are moist. Endotracheal tube is noted. Neck supple. Full range of motion. No adenopathy thyromegaly or neck vein distention. Cardiovascular examination reveals regular rhythm rate. S1-S2 normal. No S3 or S4. No discernible murmur noted. Heart sounds are very distant. Lungs reveal coarse inspiratory and expiratory rhonchi. Crackles are noted to be bilaterally. Breath sounds are equal but diminished throughout. Lung examination has changed very little over the last couple of days. Abdomen is soft, without noted bowel sounds. No masses or tenderness appreciated.. Extremities reveal diffuse anasarca. It is significant. No cyanosis or clubbing. Skin is without rash or lesion. Neurologic examination could not be adequately assessed given the patient's level of sedation. - Labs CBC & Chem 7: 03/25/18 03:40 03/25/18 03:40 Labs: Abnormal Lab Results - Last 24 Hours (Table) 03/26/18 03/26/18 03/26/18 Range/Units 11:31 17:19 23:34 POC Glucose (mg/dL) 124 H 112 H 130 H (75-99) mg/dL 03/27/18 03/27/18 Range/Units 00:03 05:30 POC Glucose (mg/dL) 121 H 139 H (75-99) mg/dL Assessment and Plan Assessment: Assessment Acute hypoxemic respiratory failure secondary to cardiopulmonary arrest, with cardiopulmonary resuscitation and eventual return of spontaneous circulation after a very prolonged to 40-45 minute resuscitation phase. Status post intubation for respiratory failure on March 19. Klebsiella pneumoniae UTI Chest wall hematoma Multiple right rib fractures Right pneumothorax, status post chest tube placement Probable severe severe anoxic brain injury Recent hospitalization for pneumonia and sepsis Brain CT suggesting evolving CVA/infarct Plan: Plan dated 03/24/2018 The patient remains on the mechanical ventilator and yesterday during her daily interuption of sedation as well as her spontaneous breathing trial, she did very poorly lasting only a few minutes on PSV/CPAP. Her chest x-ray shows a right-sided chest tube and diffuse bilateral infiltrates. Overall prognosis is very poor given the fact that she had an [id number] cardiac arrest with prolonged resuscitation lasting more than 40 minutes. Likelihood of anoxic brain injury is very high. In addition, white count 6.4, hemogram 7.2, hematocrit 21.5, and platelet count normal at 167, 000. Also, sodium and potassium were normal. Chloride 117, CO2 22, anion gap 6, BUN 50 with a creatinine of 2.87. These electrolytes are consistent with a hyperchloremic non -anion gap metabolic acidosis in part related to saline administration and renal failure. Urine sampling was positive for Klebsiella pneumoniae and blood cultures were positive for coag-negative staph, likely a contaminant. Chest x- ray and medications are all reviewed. We will continue to talk to the family about withdrawal of life support and comfort measures. Critical care time 35 minutes Plan dated 03/25/2018 Was taken off sedation, the patient is poorly responsive unresponsive and is very dyssynchronous from mechanical ventilator. Hence, she's placed back on sedation. The plan today was to meet with the family again in family's likely going to move towards comfort measures. She remains on mechanical ventilator. She remains on saline IV and propofol for sedation. Her blood gases have been evaluated. Blood cultures on the were positive for coag-negative Staphylococcus, and urine sampling on March 19 was positive for Klebsiella pneumoniae. In addition, white count is 7, hemoglobin 6.8, hematocrit 21.8 and platelet count 183,000. Sodium 138, potassium 4, chloride is 119, CO2 25 and anion gap is 4. BUN is 49 with a creatinine of 2.60 respectively. Additional recommendations and suggestions are forthcoming. Prognosis is poor. We'll continue to make recommendations. Plan family meeting today. Critical care time 36 minutes. Plan dated 03/26/2018 The patient is a DO NOT RESUSCITATE. Labs x-rays and medications are all reviewed. Apparently the patient will be transitioned to comfort measures tomorrow one son from out of town arrives. The patient remains on the volume assist control mode. Arterial blood gases show a PaO2 of 104 a PaCO2 of 46 and a pH of 7.28. She remains on saline IV at 50 mL an hour and vital high protein at 40 with a goal of 40. In addition, to help her to become more synchronous with the ventilator, she remains on propofol at 40 mics per kilogram per minute. Overall prognosis remains very poor. Her laboratory data is reviewed. Her medications are reviewed. Additional recommendations and suggestions are forthcoming. Critical care time 33 minutes Plan dated 03/27/2018 The patient is a DO NOT RESUSCITATE and the family does want to make her comfort measures only and withdraw life support. The problem has been that we talk to the family, they continue to delay their decision. Initially she was to say and then today and now not toe Saturday. Anyway, the patient is relatively stable at this point. She has not shown any improvement. X-rays and labs are not being done in anticipation of comfort measure orders from the family. She remains on basic IV and nutrition. No additional recommendations are made. We'll continue to follow. Prognosis is very poor. Critical care time 32 minutes Time with Patient: Greater than 30
--- NOTE | 2018-03-27 10:39 | CDI ---
Last Revision, March 2017 Documentation Clarification Form Date: 03/26/2018 2:45:00 PM From: Blaire Sprague RN, CCDS Admit Date: 03/19/2018 12:05:00 AM Patient Name: Eloise Hathaway Visit Number: [id number] Discharge Date: ATTENTION: The Clinical Documentation Specialists (CDI) and [facility] Coding Staff appreciate your assistance in clarifying documentation. Please respond to the clarification below the line at the bottom and electronically sign. The CDI & [facility] Coding staff will review the response and follow-up if needed. Please note: Queries are made part of the Legal Health Record. If you have any questions, please contact the author of this message via ITS. Katina Smith, DO A chest wall hematoma is documented in the emergency department clinical impression and further clarification is needed for present of admission indicators. 03/19/18 EMS run report: On exam extensive bruising to both arms and about her abdomen. 03/19/18 Pulmonary (Dr. Fowler) Extremities: Multiple areas of burses and ecchymosis noted in both upper and lower extremities. History/Risk Factors: Atrial Fibrillation, Sepsis, Pneumonia, UTI, Cardiac Arrest, Clinical Indicators: Present via EMS for respiratory distress from a detention. She had subsequent cardiac arrest. In ED she had persistent CPR approximately 40-45 minutes with return of spontaneous circulation. 03/18/18 Chest x-ray: right-side pneumothorax. Extensive soft tissue air Treatment: Monitor Labs, CBC ICU monitoring Intubation/lmechanical ventilation Right chest tube Definition of Present on Admission (POA): A diagnosis present at the time the order for admission to inpatient status was written. For each diagnosis, documentation must be clear to determine if the condition was present at the time of the patients inpatient admission or developed during the hospital stay. Please clarify in an addendum to your progress note as to whether the chest wall hematoma was: Y = Yes, the condition was present at the time of the order for inpatient admission. N = No, the condition was not present at the time of the order for inpatient admission. W = Clinically undetermined if the condition was present at the time of the order for inpatient admission. Please continue to document in your progress notes and discharge summary in order to capture severity of illness and risk of mortality. Include clinical findings that support your diagnosis. MTDD
[2018-03-27] MEDS: SODIUM CHLORIDE 0.9% 1,000 ML IV SCH ×4 (11:16→21:30)
[2018-03-27 12:07] LABS: Glucose,Whole Blood 112 mg/dL (75-99)
[2018-03-27 12:30] VITALS: BMI 40.8
--- NOTE | 2018-03-27 14:11 | P.PN ---
Subjective This is a pleasant 73 years old female with past medical history of congestive heart failure and atrial fibrillation. Patient was transferred from [facility] where she was therefore 10 days, recently discharged from the hospital for sepsis, pneumonia and UTI. This time EMS were called for difficulty breathing and they found her oxygen saturation was 60, she was placed on non-rebreather and her oxygen went up to mid 90s Patient is currently intubated and cannot provide information which were obtained from the medical staff, medical records, and sister at bedside who is her guardian. As per sister patient has been admitted to [facility] twice in the last 36 days for pneumonia and UTI with sepsis. Each time ascending to rehab, first time for 10 days and then for 16 days. As per sister they have been contacted earlier and they wanted everything to be done. But now with a want to change her CODE STATUS to DO NOT RESUSCITATE. On admission she was saturating is 6% on room air and she was breathing at respiratory rate of 30 minutes. Her blood pressure was 155/64, later on it dropped to 63/38. And she was bradycardic in the 40s and 50s. Leukocytosis at 14.8 K, hemoglobin 9, platelets 543. Sodium 135, potassium 5.9, creatinine 2.4 , sugar was signed between 300-400. Troponin is elevated at 0.04 and 0.319. LFT unremarkable.UA was suggestive of infection. Chest x-ray shows bilateral pneumothorax with larger on the left side, follow-up chest x-ray showing large right-side pneumothorax, getting worse 03/20/2018 Patient remains intubated in the ICU. Her sugar looks controlled however her hemoglobin this morning dropped to 6.8, she's getting 1 unit of blood transfusion. Heparin was put on hold. Check FOBT Creatinine 2.7. Rest of electrolytes are controlled. Critical care team for the patient's and decrease in the sedation. Nephrology and cardiology are following the patient is on IV fluids and Zosyn and vancomycin is on hold and check in the level 03/21/2018 Patient remains intubated in the ICU. She felt breathing trial today when they decreased her sedation. Has 2 units of blood transfusion for her acute anemia, her hemoglobin was low this morning at 6.6 occult blood in the stool is pending. Blood pressure 109/48, breathing rate at 26. A febrile telemetry somewhat low at 6.0. Calcium gluconate is a provided by the critical care team. Cardiology team evaluated the patient, they recommended continue with supportive care. EEG is pending 03/22/2018 Patient is seen and examined in the ICU today, intubated and sedated. No weaning trial today. She status post blood transfusion. Repeat hemoglobin is 7.0. She is on insulin drip, long-acting insulin was started. Also she has elevated creatinine at 3.29. Repeat calcium is improving at 7.5, magnesium 2.5 phosphorus 3.7. Blood culture is positive for staph while urine cultures positive for Klebsiella and leonela. Patient remains on Zosyn and got dose of vancomycin yesterday. C. diff is negative creatinine prognosis is poor. 03/23/2018 Patient still intubated in the ICU. The sedation holiday has been tried today, patient couldn't move her left hand elevated. Patient is temperature is 98.8. Heart rate in the 50s. Respiratory rate is 26. Blood pressure 102/40. Her hemoglobin is low at 6.3, went up to 7.1. Patient status post blood transfusion she has positive culture with staph in the blood and leonela albicans and Klebsiella in the urine. She remains on broad-spectrum antibiotics. She is an IV fluids. Nephrology team are seeing the patient. If renal function worsens might need hemodialysis as per nephrology team. Critical team input is appreciated. 03/24/2018 pt is still in the ICU intubated and she is managed mainly by the ICU critical care team. pt failed weaning trial , CXR shows bilateral consolidation which are stable. given the poor prognosis in view of prolonged resuscitation time during her arrest outside the hospital , critical care team want to address plan care with the family . pt is off vasopressors currently. 03/25/2018 pt is still in the ICU intubated and she is managed mainly by the ICU critical care team. pt failed weaning trial , CXR shows bilateral consolidation which are stable. given the poor prognosis in view of prolonged resuscitation time during her arrest outside the hospital , critical care team want to address plan care with the family . pt is off vasopressors currently. family are considering comfort care, but they are waiting for her son to arrive by the end of the week. her Hb is 6.8 howevver as per ICU team since the prognosis is very poor they opted not to transfuse instead start iron . 03/27/2018 Patient remains in the ICU intubated, and doesn't show any progress in her mental status and health after a prolonged period of resuscitation and took her during the CPR. I see to discuss the comfort care measures with the family, their final decision is still pending. Blood pressure 153/55. Hemoglobin is 6.8. Elevated creatinine and sodium level. my review of systems : n/a Medications are reviewed Objective - Vital Signs Vital signs: Vital Signs Temp 98.4 F 03/27/18 12:00 Pulse 60 03/27/18 13:00 Resp 30 H 03/27/18 13:00 BP 107/49 03/27/18 11:00 Pulse Ox 100 03/27/18 13:00 Intake & Output 03/26/18 03/27/18 03/27/18 18:59 06:59 18:59 Intake Total 1800 2035.85 674.898 Output Total 052 949 8518 Balance 1365 1425.85 -555.102 Weight 111.4 kg 111.4 kg Intake: IV 650 600 270 Sodium Chloride 0.9% 1, 550 600 170 000 ml @ 20 mls/hr IV . Q24H LEN Rx#:[id number] Sodium Ferric Gluconat- 100 100 Sucrose 125 mg In Sodium Chloride 0.9% 100 ml @ 100 mls/hr IVPB DAILY LEN Rx#:[id number] Intake, IV Titration 200 95.85 104.898 Amount Propofol 1,000 mg In 200 95.85 104.898 Empty Bag 1 bag @ Titrate IV .Q0M LEN Rx#: [id number] Tube Feeding 350 440 240 Other 600 900 60 Output: Urine 435 610 530 Stool 700 Other: Voiding Method Indwelling Catheter Indwelling Catheter Indwelling Catheter ABP, PAP, CO, CI - Last Documented Arterial Blood Pressure 153/55 - Exam -GENERAL: The patient is intubated, not in any acute distress. HEENT: Pupils are round and equally reacting to light. EOMI. No scleral icterus. No conjunctival pallor. Normocephalic, atraumatic. No pharyngeal erythema. No thyromegaly. CARDIOVASCULAR: S1 and S2 present. No murmurs, rubs, or gallops. -PULMONARY: Chest is clear to auscultation, decreased breath sounds bilaterally ABDOMEN: Soft, nontender, nondistended, normoactive bowel sounds. No palpable organomegaly. MUSCULOSKELETAL: No joint swelling or deformity. EXTREMITIES: No cyanosis, clubbing, or pedal edema. NEUROLOGICAL: Gross neurological examination did not reveal any focal deficits. SKIN: No rashes. - Labs CBC & Chem 7: 03/25/18 03:40 03/25/18 03:40 Labs: Abnormal Lab Results - Last 24 Hours (Table) 03/26/18 03/26/18 03/27/18 Range/Units 17:19 23:34 00:03 POC Glucose (mg/dL) 112 H 130 H 121 H (75-99) mg/dL 03/27/18 03/27/18 Range/Units 05:30 11:56 POC Glucose (mg/dL) 139 H 112 H (75-99) mg/dL Assessment and Plan Assessment: Status post cardiac arrest and CPR as per ACL protocol Septic shock, secondary to possible pneumonia and UTI, off pressors currently acute respiratory failure needing intubation acute blood loss anemia with positive FOBT . s/p blood transfusion Bilateral pneumothorax more on the right side with multiple rib fractures. Status post chest tube atrial fibrillation , rate controlled Acute kidney injury Possible anoxic brain injury Hypocalcemia Plan: This is a 73 years old female who presents because of cardiopulmonary arrest and septic shock, mostly secondary to UTI with possible pneumonia, low hemoglobin. Pulmonary/critical care team are following the patient. Cardiology and neurology consult. Continue with antibiotics, IV fluids. Continue pressors as per ICU team. Vent management as per pulmonary and ICU team.Labs and medication were reviewed. Continue same treatment. Continue with symptomatic treatment. Resume home medication. Monitor lytes and vitals. DVT and GI prophylaxis. Further recommendations of the clinical course of the patient DVT prophylaxis: Subcutaneous heparin GI Prophylaxis: Pepcid Prognosis is guarded and very poor
[2018-03-27 18:34] LABS: Glucose,Whole Blood 120 mg/dL (75-99)
[2018-03-27] MEDS: INSULIN DETEMIR 100 UNIT/ML 10 ML VIAL SQ SCH (20:13)
[2018-03-27 23:43] LABS: Glucose,Whole Blood 122 mg/dL (75-99)
[2018-03-28] MEDS: IPRATROPIUM-ALBUTEROL 3 ML NEB INHALATION SCH ×2 (03:11→07:12)
[2018-03-28] MEDS: INSULIN ASPART 100 UNIT/ML 1 ML 10 ML VIAL SQ SCH ×3 (05:15→17:16)
[2018-03-28 05:24] LABS: Glucose,Whole Blood 135 mg/dL (75-99)
--- NOTE | 2018-03-28 07:00 | P.PN ---
Subjective Patient is seen in follow-up for acute kidney injury. Renal function is better with creatinine of 2.6 as of 03/25. She is off all vasopressors. Currently intubated and sedated. She has failed a weaning trial. She is maintained on tube feeds. Remains nonoliguric. Family is leaning towards comfort measures. They are awaiting arrival of the patient's son. No further labs and imaging. Vital signs are stable. General: The patient appeared well nourished and normally developed. HEENT: Head exam is unremarkable. Neck is without jugular venous distension. Intubated. LUNGS: Breath sounds decreased. HEART: Rate and Rhythm are regular. First and second heart sounds normal. No murmurs, rubs or gallops. ABDOMEN: Abdominal exam reveals normal bowel sounds. Non-tender and non- distended. No evidence of peritonitis. EXTREMITITES: No clubbing, cyanosis, or edema. Objective - Vital Signs Vital signs: Vital Signs Temp 99.4 F 03/28/18 00:00 Pulse 65 03/28/18 06:00 Resp 30 H 03/28/18 06:00 BP 107/49 03/28/18 06:00 Pulse Ox 99 03/28/18 06:00 Intake & Output 03/27/18 03/27/18 03/28/18 06:59 18:59 06:59 Intake Total 2035.85 1100.000 930 Output Total 610 1425 585 Balance 1425.85 -325.000 345 Weight 111.4 kg 111.4 kg 110 kg Intake: IV 600 370 260 Sodium Chloride 0.9% 1, 600 270 260 000 ml @ 20 mls/hr IV . Q24H LEN Rx#:[id number] Sodium Ferric Gluconat- 100 Sucrose 125 mg In Sodium Chloride 0.9% 100 ml @ 100 mls/hr IVPB DAILY LEN Rx#:[id number] Intake, IV Titration 95.85 200.000 100 Amount Propofol 1,000 mg In 95.85 200.000 100 Empty Bag 1 bag @ Titrate IV .Q0M LEN Rx#: [id number] Tube Feeding 440 440 480 Other 900 90 90 Output: Urine 610 725 485 Stool 700 100 Other: Voiding Method Indwelling Catheter Indwelling Catheter Indwelling Catheter ABP, PAP, CO, CI - Last Documented Arterial Blood Pressure 146/52 - Labs CBC & Chem 7: 03/25/18 03:40 03/25/18 03:40 Labs: Abnormal Lab Results - Last 24 Hours (Table) 03/27/18 03/27/18 03/27/18 Range/Units 11:56 18:23 23:31 POC Glucose (mg/dL) 112 H 120 H 122 H (75-99) mg/dL 03/28/18 Range/Units 05:13 POC Glucose (mg/dL) 135 H (75-99) mg/dL Assessment and Plan Plan: Assessment: 1. Acute kidney injury secondary to ATN secondary to cardiopulmonary arrest. Creatinine improved at 2.6 as of 03/25. Unknown baseline. 2. UTI. Urine culture positive for Klebsiella and Vibha maintained on antibiotics. 3. Status post cardiopulmonary arrest. 4. Diarrhea. Better. C. diff negative. 5. Anemia status post blood transfusion. Hemoglobin 6.8 today. Iron deficiency noted - s/p IV iron. 6. Hypotension currently off vasopressors. 7. Hypernatremia secondary to lack of oral water intake. Plan: Maintain tube feeds and free water flushes at current rate. Avoid nephrotoxins. Family is leaning toward comfort measures - awaiting son's arrival.
[2018-03-28] MEDS: CHLORHEXIDINE GLUCONATE 15 ML CUP MUCOUS MEM SCH ×2 (09:22→21:42)
--- NOTE | 2018-03-28 10:08 | CDI ---
Last Revision, March 2017 Documentation Clarification Form Date: 03/26/2018 2:45:00 PM From: Blaire Sprague RN, CCDS Admit Date: 03/19/2018 12:05:00 AM Patient Name: Eloise Hathaway Visit Number: [id number] Discharge Date: ATTENTION: The Clinical Documentation Specialists (CDI) and [facility] Coding Staff appreciate your assistance in clarifying documentation. Please respond to the clarification below the line at the bottom and electronically sign. The CDI & [facility] Coding staff will review the response and follow-up if needed. Please note: Queries are made part of the Legal Health Record. If you have any questions, please contact the author of this message via ITS. Katina Smith, DO A chest wall hematoma is documented in the emergency department clinical impression and further clarification is needed for present of admission indicators. 03/19/18 EMS run report: On exam extensive bruising to both arms and about her abdomen. 03/19/18 Pulmonary (Dr. Fowler) Extremities: Multiple areas of burses and ecchymosis noted in both upper and lower extremities. History/Risk Factors: Atrial Fibrillation, Sepsis, Pneumonia, UTI, Cardiac Arrest, Clinical Indicators: Present via EMS for respiratory distress from a detention. She had subsequent cardiac arrest. In ED she had persistent CPR approximately 40-45 minutes with return of spontaneous circulation. 03/18/18 Chest x-ray: right-side pneumothorax. Extensive soft tissue air Treatment: Monitor Labs, CBC ICU monitoring Intubation/lmechanical ventilation Right chest tube Definition of Present on Admission (POA): A diagnosis present at the time the order for admission to inpatient status was written. For each diagnosis, documentation must be clear to determine if the condition was present at the time of the patients inpatient admission or developed during the hospital stay. Please clarify in an addendum to your progress note as to whether the chest wall hematoma was: Y = Yes, the condition was present at the time of the order for inpatient admission. N = No, the condition was not present at the time of the order for inpatient admission. W = Clinically undetermined if the condition was present at the time of the order for inpatient admission. Please document in an addendum to your progress note in order to capture severity of illness and risk of mortality. Include clinical findings that support your diagnosis. MTDD
--- NOTE | 2018-03-28 11:14 | PN ---
PROGRESS NOTE DATE OF SERVICE: 03/28/2018 This is a 73-year-old female admitted back on March 19. She has a history of out-of- hospital cardiopulmonary arrest with prolonged cardiopulmonary resuscitation and eventual return of spontaneous circulation (CPA/CPR/ROSC). Her resuscitation phase lasted about 45 minutes. The patient likely sustained significant profound anoxic brain injury. The patient has not made any improvement while here in the ICU and the family has decided to make her a NO CODE and apparently tomorrow with all family members at the bedside, they are going to move towards comfort measures. In addition to the above, she has a history of multiple right rib fractures, which have been traumatic from the CPR. She had a right chest tube placed for the right-sided pneumothorax caused by the CPR. In addition, she has a history of urinary tract infection, chest wall hematoma, pneumonia, sepsis and Klebsiella pneumoniae urinary tract infection. The CT of the brain shows evolving CVA. She remains on the volume assist-control mode, rate of 30, tidal volume 350, FiO2 35%, PEEP of 5. No blood gases were done in anticipation of her becoming a comfort measures only on Saturday. Chest x- ray apparently shows some mild fluid overload. Propofol is running at 30 mcg/kg per minute, saline IV at 20 mL an hour and tube feeds with Vital high-protein at 40 with a goal of 40 mL an hour. The family has been at the bedside about every day and I had multiple conversations with the family members. They will be willing to move more quickly toward comfort measures, but again they are waiting for apparently a son who is out of town. Currently her condition has not changed at all and has not really changed over the course of 5 days. This current vital signs are reviewed, temperature is 98.2, heart rate is 64, respiratory rate is 30, blood pressure 144/52, and her saturations are 99% on 35% PEEP of 5. Appears in no acute distress. Unresponsive. HEENT examination is grossly unremarkable. There is an orally placed endotracheal tube and NG tube. Neck supple. Full range of motion. No adenopathy or thyromegaly. No neck vein distention. Cardiovascular examination reveals distant heart sounds. S1, S2 normal. Heart rate is 65 beats per minute. No murmur. Lungs reveal coarse inspiratory and expiratory rhonchi. No wheezes or crackles. Breath sounds equal bilaterally. Abdomen is soft. Bowel sounds are heard. Extremities are intact. There is diffuse edema and anasarca. No cyanosis or clubbing. Skin without rash. Neurologic examination is difficult to evaluate because of her sedation, but even off sedation, she is unresponsive. No laboratory data to report. No chest x-ray to report. Her medications are reviewed, currently, she is on Artificial Tears, chlorhexidine, insulin per protocol, Narcan p.r.n., potassium replacement, propofol, and a saline IV at 20 mL an hour. Microbiologic studies show Klebsiella in the urine back on March 19 as well as coag- negative staph in the bloodstream on March 19. ASSESSMENT: 1. The patient is a DO NOT RESUSCITATE patient. The patient's family is wishing to proceed to comfort measures only beginning Saturday. At that point they want to withdraw life support when the whole family members at the bedside. The patient's labs have been reviewed. Chest x-ray has been reviewed. The patient remains on sedation with propofol. The patient's vent settings are stable. Her mental status is not improved even off the sedation. Will continue to follow. Prognosis is guarded/grave. Additional recommendations and suggestions are forthcoming. She is synchronous with ventilator. 2. Critical care time is 33 minutes. MMODL / IJN: [id number] /
[2018-03-28] MEDS: PROPOFOL 1,000 MG in EMPTY BAG 1 BAG IV SCH ×5 (11:55→23:57)
[2018-03-28] MEDS: SODIUM CHLORIDE 0.9% 1,000 ML IV SCH (11:56)
[2018-03-28 12:00] LABS: Glucose,Whole Blood 127 mg/dL (75-99)
[2018-03-28 17:27] LABS: Glucose,Whole Blood 118 mg/dL (75-99)
[2018-03-28] MEDS: INSULIN DETEMIR 100 UNIT/ML 10 ML VIAL SQ SCH (21:49)
[2018-03-28 21:55] LABS: Glucose,Whole Blood 136 mg/dL (75-99)
[2018-03-29] MEDS: INSULIN ASPART 100 UNIT/ML 1 ML 10 ML VIAL SQ SCH ×3 (05:59→13:17)
[2018-03-29] MEDS: SODIUM CHLORIDE 0.9% 1,000 ML IV SCH ×2 (07:20→13:17)
[2018-03-29 07:27] LABS: Glucose,Whole Blood 151 mg/dL (75-99)
--- NOTE | 2018-03-29 08:23 | P.PN ---
Subjective This is a pleasant 73 years old female with past medical history of congestive heart failure and atrial fibrillation. Patient was transferred from shelter where she was therefore 10 days, recently discharged from the hospital for sepsis, pneumonia and UTI. This time EMS were called for difficulty breathing and they found her oxygen saturation was 60, she was placed on non-rebreather and her oxygen went up to mid 90s Patient is currently intubated and cannot provide information which were obtained from the medical staff, medical records, and sister at bedside who is her guardian. As per sister patient has been admitted to [facility] twice in the last 36 days for pneumonia and UTI with sepsis. Each time ascending to rehab, first time for 10 days and then for 16 days. As per sister they have been contacted earlier and they wanted everything to be done. But now with a want to change her CODE STATUS to DO NOT RESUSCITATE. On admission she was saturating is 6% on room air and she was breathing at respiratory rate of 30 minutes. Her blood pressure was 155/64, later on it dropped to 63/38. And she was bradycardic in the 40s and 50s. Leukocytosis at 14.8 K, hemoglobin 9, platelets 543. Sodium 135, potassium 5.9, creatinine 2.4 , sugar was signed between 300-400. Troponin is elevated at 0.04 and 0.319. LFT unremarkable.UA was suggestive of infection. Chest x-ray shows bilateral pneumothorax with larger on the left side, follow-up chest x-ray showing large right-side pneumothorax, getting worse 03/20/2018 Patient remains intubated in the ICU. Her sugar looks controlled however her hemoglobin this morning dropped to 6.8, she's getting 1 unit of blood transfusion. Heparin was put on hold. Check FOBT Creatinine 2.7. Rest of electrolytes are controlled. Critical care team for the patient's and decrease in the sedation. Nephrology and cardiology are following the patient is on IV fluids and Zosyn and vancomycin is on hold and check in the level 03/21/2018 Patient remains intubated in the ICU. She felt breathing trial today when they decreased her sedation. Has 2 units of blood transfusion for her acute anemia, her hemoglobin was low this morning at 6.6 occult blood in the stool is pending. Blood pressure 109/48, breathing rate at 26. A febrile telemetry somewhat low at 6.0. Calcium gluconate is a provided by the critical care team. Cardiology team evaluated the patient, they recommended continue with supportive care. EEG is pending 03/22/2018 Patient is seen and examined in the ICU today, intubated and sedated. No weaning trial today. She status post blood transfusion. Repeat hemoglobin is 7.0. She is on insulin drip, long-acting insulin was started. Also she has elevated creatinine at 3.29. Repeat calcium is improving at 7.5, magnesium 2.5 phosphorus 3.7. Blood culture is positive for staph while urine cultures positive for Klebsiella and leonela. Patient remains on Zosyn and got dose of vancomycin yesterday. C. diff is negative creatinine prognosis is poor. 03/23/2018 Patient still intubated in the ICU. The sedation holiday has been tried today, patient couldn't move her left hand elevated. Patient is temperature is 98.8. Heart rate in the 50s. Respiratory rate is 26. Blood pressure 102/40. Her hemoglobin is low at 6.3, went up to 7.1. Patient status post blood transfusion she has positive culture with staph in the blood and leonela albicans and Klebsiella in the urine. She remains on broad-spectrum antibiotics. She is an IV fluids. Nephrology team are seeing the patient. If renal function worsens might need hemodialysis as per nephrology team. Critical team input is appreciated. 03/24/2018 pt is still in the ICU intubated and she is managed mainly by the ICU critical care team. pt failed weaning trial , CXR shows bilateral consolidation which are stable. given the poor prognosis in view of prolonged resuscitation time during her arrest outside the hospital , critical care team want to address plan care with the family . pt is off vasopressors currently. 03/25/2018 pt is still in the ICU intubated and she is managed mainly by the ICU critical care team. pt failed weaning trial , CXR shows bilateral consolidation which are stable. given the poor prognosis in view of prolonged resuscitation time during her arrest outside the hospital , critical care team want to address plan care with the family . pt is off vasopressors currently. family are considering comfort care, but they are waiting for her son to arrive by the end of the week. her Hb is 6.8 howevver as per ICU team since the prognosis is very poor they opted not to transfuse instead start iron . 03/27/2018 Patient remains in the ICU intubated, and doesn't show any progress in her mental status and health after a prolonged period of resuscitation and took her during the CPR. ICU to discuss the comfort care measures with the family, their final decision is still pending. Blood pressure 153/55. Hemoglobin is 6.8. Elevated creatinine and sodium level. Date of service: 03/28/2018 Patient remains in the ICU intubated, and doesn't show any progress in her mental status and health after a prolonged period of resuscitation and took her during the CPR. ICU team discussed the comfort care measures with the family, their final decision is still pending the son to arrive, BP 107/49. pt remains in the ICU currently and critical care team are following the pt . prognosis is extremely poor. my review of systems : n/a Medications are reviewed Objective - Vital Signs Vital signs: Vital Signs Temp 97.6 F 03/29/18 04:00 Pulse 54 L 03/29/18 05:00 Resp 30 H 03/29/18 05:00 BP 107/49 03/29/18 05:00 Pulse Ox 99 03/29/18 05:00 Intake & Output 03/28/18 03/28/18 03/29/18 06:59 18:59 06:59 Intake Total 930 1306 563.095 Output Total 585 950 620 Balance 345 356 -56.905 Weight 110 kg Intake: IV 260 286 208 0.9 pressure bag 66 48 Sodium Chloride 0.9% 1, 260 220 160 000 ml @ 20 mls/hr IV . Q24H LEN Rx#:[id number] Intake, IV Titration 100 300 195.095 Amount Propofol 1,000 mg In 100 300 195.095 Empty Bag 1 bag @ Titrate IV .Q0M LEN Rx#: [id number] Tube Feeding 480 630 160 Other 90 90 Output: Drainage 0 0 Right Upper Lateral Chest 0 0 Urine 485 600 445 Stool 100 350 175 Other: Voiding Method Indwelling Catheter Indwelling Catheter Indwelling Catheter ABP, PAP, CO, CI - Last Documented Arterial Blood Pressure 123/43 - Exam -GENERAL: The patient is intubated, not in any acute distress. HEENT: Pupils are round and equally reacting to light. EOMI. No scleral icterus. No conjunctival pallor. Normocephalic, atraumatic. No pharyngeal erythema. No thyromegaly. CARDIOVASCULAR: S1 and S2 present. No murmurs, rubs, or gallops. -PULMONARY: Chest is clear to auscultation, decreased breath sounds bilaterally ABDOMEN: Soft, nontender, nondistended, normoactive bowel sounds. No palpable organomegaly. MUSCULOSKELETAL: No joint swelling or deformity. EXTREMITIES: No cyanosis, clubbing, or pedal edema. NEUROLOGICAL: Gross neurological examination did not reveal any focal deficits. SKIN: No rashes. - Labs CBC & Chem 7: 03/25/18 03:40 03/25/18 03:40 Labs: Abnormal Lab Results - Last 24 Hours (Table) 03/28/18 03/28/18 03/28/18 Range/Units 11:49 17:15 21:48 POC Glucose (mg/dL) 127 H 118 H 136 H (75-99) mg/dL Assessment and Plan Assessment: Status post cardiac arrest and CPR as per ACL protocol Septic shock, secondary to possible pneumonia and UTI, off pressors currently acute respiratory failure needing intubation acute blood loss anemia with positive FOBT . s/p blood transfusion Bilateral pneumothorax more on the right side with multiple rib fractures. Status post chest tube atrial fibrillation , rate controlled Acute kidney injury Possible anoxic brain injury Hypocalcemia Plan: This is a 73 years old female who presents because of cardiopulmonary arrest and septic shock, mostly secondary to UTI with possible pneumonia, low hemoglobin. Pulmonary/critical care team are following the patient. Cardiology and neurology consult. Continue with antibiotics, IV fluids. Continue pressors as per ICU team. Vent management as per pulmonary and ICU team.Labs and medication were reviewed. Continue same treatment. Continue with symptomatic treatment. Resume home medication. Monitor lytes and vitals. DVT and GI prophylaxis. Further recommendations of the clinical course of the patient DVT prophylaxis: Subcutaneous heparin GI Prophylaxis: Pepcid Prognosis is guarded and very poor
[2018-03-29] MEDS: CHLORHEXIDINE GLUCONATE 15 ML CUP MUCOUS MEM SCH (09:35)
[2018-03-29 09:44] LABS: Glucose,Whole Blood 140 mg/dL (75-99)
[2018-03-29] MEDS: PROPOFOL 1,000 MG in EMPTY BAG 1 BAG IV SCH ×2 (10:00→13:17)
--- NOTE | 2018-03-29 11:06 | PN ---
PROGRESS NOTE DATE OF SERVICE: 03/29/2018 This is a 73-year-old female who was admitted back on 03/19. She had an out-of- hospital cardiopulmonary arrest with a very prolonged resuscitative phase lasting about 45 minutes. She eventually had return of spontaneous circulation. She unfortunately has sustained a significant anoxic brain injury. The patient is currently on the life support machine. She is on volume assist control, rate of 30, tidal volume 350, FiO2 of 35%, PEEP of 5. Blood gases have not been done. Propofol is running at 60 mcg/kg per minute. She is on 0.9 at KVO and vital high-protein of 40 with a goal of 40. I had a nurse turn off the propofol and the patient is poorly responsive/unresponsive. Other than triggering the ventilator, there is no significant or purposeful activity from the patient. The family does want to move toward comfort measures and was requesting an additional EEG. We will see if we cannot get the vehicle operator technician in here to do that on the patient today. I did have a long talk with the family today. The patient has a history of multiple right rib fractures and also had a right pneumothorax and chest tube placement from the CPR. In addition, she has a urinary tract infection, chest wall hematoma, pneumonia, sepsis and Klebsiella pneumoniae urinary tract infection. CT scan of the brain previously showed an evolving CVA. Her previous EEG showed generalized slowing of the background rhythm, mostly in the theta range and occasionally in the delta range. This was consistent with encephalopathy. It was thought to be moderate in severity. There was no seizure activity noted. Thus far, microbiologic studies of this patient have been negative. Chest x-ray shows a right-sided chest tube. Current vital signs are reviewed. Temperature is 98.7, heart rate about 60, respiratory rate about 29, blood pressure 140/51, saturations are 98%. She is on 35% FiO2 and 5 of PEEP. Appears in no acute distress. She is poorly responsive, unresponsive. She does not respond to any verbal stimuli. She does not have a gag reflex. Does not respond to painful stimuli. She does trigger the ventilator. Pupils are sluggishly reactive. HEENT examination is grossly unremarkable. There is no orally placed endotracheal tube and NG tube. Neck is supple. No adenopathy or thyromegaly. Neck veins are flat. Cardiovascular examination reveals regular rhythm and rate. Heart rate 60. S1, S2 normal. No murmur. Lungs reveal a few scattered rhonchi. Breath sounds equal. No wheezes or crackles. Abdomen is obese. Bowel sounds are heard. Extremities reveal diffuse edema and anasarca. Skin shows some areas of ecchymoses. Neurologic examination is difficult to assess given her sedation and her mental status. She does not move her extremities. She does trigger the ventilator. She does not have a gag reflex. There is no corneal reflexes. It is difficult to determine her dolls eye reflex. There is no new laboratory data or radiographic data to report. ASSESSMENT: 1. Acute hypoxemic respiratory failure secondary to cardiopulmonary arrest with cardiopulmonary resuscitation and eventual return of spontaneous circulation after a prolonged 45 minute resuscitation phase. 2. Initial intubation for respiratory failure and cardiac arrest on March 19. 3. Klebsiella pneumoniae urinary tract infection. 4. Chest wall hematoma. 5. Multiple right rib fractures. 6. Right pneumothorax, traumatic, status post chest tube placement. 7. Anoxic brain injury. 8. Recent hospitalization for pneumonia and sepsis. 9. Brain CT suggesting evolving CVA. PLAN: The plan dated March 29, 2018. The patient was given a holiday off sedation. Her mental status is not changed and her neurologic examination is unchanged. The patient becomes very dyssynchronous with the ventilator when she is off a sedation and the sedation is added back. She continues on tube feeds with Vital high-protein at 40 with a goal of 40. Her recent microbiologic studies are negative. Initially, she did have evidence of Klebsiella pneumoniae in the urine. The patient has not had lab work recently. The family is planning on removing life support later today. They do request a followup EEG. We will see if we cannot get one ordered. I am not hearing back from Neurology or the Primary Service. Overall prognosis remains very poor. Additional recommendations and suggestions are forthcoming. Critical care time is 34 minutes. MMODL / IJN: [id number] /
[2018-03-29 12:09] VITALS: TEMP 96.7
[2018-03-29 13:25] LABS: Glucose,Whole Blood 144 mg/dL (75-99)
--- NOTE | 2018-03-29 14:34 | EEG ---
ELECTROENCEPHALOGRAM REPORT DATE OF EE03/29/2018 REFERRING PHYSICIAN: Dr. Rodriguez and Dr. Evans. CONSULTING INTERPRETING PHYSICIAN: Dr. Nidhi Munguia MD. ELECTROENCEPHALOGRAPHIC EXAMINATION REPORT: INDICATION FOR EXAMINATION: This patient is a 73-year-old female, intubated on the ventilator and unresponsive. Patient with history of anoxic brain injury following cardiac arrest. This is a followup EEG for comparison. AGE: 73. . EEG FINDINGS: A routine 21 channel awake digital EEG recording was accomplished utilizing the 10-20 international system with bipolar and referential montages. The background activity at a sensitivity setting of 7 microvolts reveals very low amplitude, poorly developed and poorly sustained 1-2 hertz activity over the posterior head regions. This posterior rhythm attenuates minimally to eye opening. There is an excessive amount of beta activity seen throughout the entire tracing. Hyperventilation was not performed. Photic stimulation at flash frequencies of 2-30 Hz produced a minimal occipital driving response. No epileptiform discharges were seen. IMPRESSION: This EEG gives evidence of a severe widespread diffuse disturbance in cerebral function. The EEG failed to reveal any focal, lateralized, or epileptiform abnormalities. EEG findings would be compatible with a severe anoxic encephalopathy. EEG was compared to a previous EEG performed on 03/20/2018 and there is significant worsening of the EEG background. Clinical correlation is strongly recommended. MMODL / IJN: [id number] /
[2018-03-29] MEDS ORDERED: ARTIFICIAL TEARS-HYPROMELLOSE DROPS 15 ML BTL BOTH EYES PRN (15:05)
[2018-03-29] MEDS ORDERED: ATROPINE OPHTH SOLN 1% 5ML BTL SUBLINGUAL PRN (15:05)
[2018-03-29 15:13] VITALS: PULSE 50; RESP 28
[2018-03-29] MEDS ORDERED: SCOPOLAMINE 1.5MG/72HR PATCH TRANSDERM SCH (15:15)
[2018-03-29] MEDS ORDERED: MORPHINE SULFATE (100 MG/2 ML) 100 MG in SODIUM CHLORIDE 0.9% 100 ML IV SCH (15:30)
--- NOTE | 2018-03-29 17:58 | P.PN ---
Subjective 73-year-old admitted after cardiopulmonary arrest patient was intubated no significant improvement with aggressive inpatient therapy. Patient did not have any reasonable neurological recovery after aggressive treatment with cardia pulmonary support. Family was discussing about hospice for last 3-4 days subsequently made the addition of hospice patient was subsequently terminally extubated and patient was started on comfort medications including IV morphine drip. I did extensively review the medical chart this is the appropriateness of terminal wean. Patient was followed by my colleague Dr. aly in Dr. Evans. Family present at the bedside Objective - Vital Signs Vital signs: Vital Signs Temp 96.7 F L 03/29/18 12:00 Pulse 50 L 03/29/18 15:00 Resp 28 H 03/29/18 15:00 BP 107/49 03/29/18 07:00 Pulse Ox 97 03/29/18 15:00 Intake & Output 03/28/18 03/29/18 03/29/18 18:59 06:59 18:59 Intake Total 1306 666.095 374 Output Total 950 660 453 Balance 356 6.095 -79 Weight 114.7 kg Intake: IV 286 211 154 0.9 pressure bag 66 51 24 Sodium Chloride 0.9% 1, 220 160 130 000 ml @ 20 mls/hr IV . Q24H LEN Rx#:[id number] Intake, IV Titration 300 295.095 100 Amount Propofol 1,000 mg In 300 295.095 100 Empty Bag 1 bag @ Titrate IV .Q0M LEN Rx#: [id number] Tube Feeding 630 160 120 Other 90 Output: Drainage 0 0 0 Right Upper Lateral Chest 0 0 0 Urine 600 485 278 Stool 350 175 175 Other: Voiding Method Indwelling Catheter Indwelling Catheter Indwelling Catheter ABP, PAP, CO, CI - Last Documented Arterial Blood Pressure 104/35 - Exam PHYSICAL EXAMINATION: GENERAL: Patient is nonresponsive shallow breathing CARDIOVASCULAR: S1 and S2 present. PULMONARY: Rhonchus and gurgling sounds ABDOMEN: Soft, NEUROLOGICAL: Unable to arouse SKIN: No rashes. - Labs CBC & Chem 7: 03/25/18 03:40 03/25/18 03:40 Labs: Abnormal Lab Results - Last 24 Hours (Table) 03/28/18 03/29/18 03/29/18 Range/Units 21:48 07:15 09:33 POC Glucose (mg/dL) 136 H 151 H 140 H (75-99) mg/dL 03/29/18 Range/Units 13:14 POC Glucose (mg/dL) 144 H (75-99) mg/dL Assessment and Plan Plan: Status post cardiac arrest and CPR as per ACL protocol Septic shock, secondary to possible pneumonia and UTI, off pressors currently acute respiratory failure needing intubation Bilateral pneumothorax more on the right side with multiple rib fractures. 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
--- NOTE | 2018-03-30 19:27 | P.DS ---
Providers Date of admission: 03/19/18 00:05 Attending physician: Mae Rodriguez Consults: 03/19/18 00:05 Consult Physician Stat Consulting Provider: Torsten Fowler Consult Reason/Comments: intubation s/p code Do you want consulting provider notified?: Already Contacted 03/19/18 06:40 Consult Physician Routine Consulting Provider: Krystal Odell Consult Reason/Comments: cardiac arrest Do you want consulting provider notified?: Yes 03/19/18 14:19 Consult Physician Urgent Consulting Provider: Acacia Rg Consult Reason/Comments: urinary output Do you want consulting provider notified?: Yes 03/19/18 18:04 Consult Physician Stat Consulting Provider: Alessandro Crocker Consult Reason/Comments: possible anoxic brain injury Do you want consulting provider notified?: Already Contacted Primary care physician: Johnnie Delvalle [facility] Course: Patient was generally extubated subsequently was made comfort care. Patient later in the day shortly after extubation. Please refer to nursing documentation for exact time of Patient Condition at Discharge: Serious Plan - Discharge Summary Discharge Rx Participant: Yes New Discharge Prescriptions: No Action Vit C/E/Zn/Coppr/Lutein/Zeaxan [Preservision Areds 2 Softgel] 1 cap PO BID Pantoprazole Sodium [Protonix] 40 mg PO DAILY Multivitamins, Thera [Multivitamin (formulary)] 1 tab PO HS Insulin Aspart [NovoLOG (formulary)] See Protocol SQ ACHS Montelukast [Singulair] 10 mg PO HS Metoprolol Tartrate [Lopressor] 25 mg PO BID Magnesium Oxide 400 mg PO HS Loratadine [Claritin] 10 mg PO DAILY Lactulose 10 gm PO BID Ipratropium-Albuterol Nebulize [Duoneb 0.5 mg-3 mg/3 ml Soln] 3 ml INHALATION RT-QID guaiFENesin [Mucinex] 1,200 mg PO BID Insulin Detemir [Levemir] 10 unit SQ BID Folic Acid 0.8 mg PO HS Ferrous Sulfate 308 mg PO DAILY Donepezil Hcl 23mg 23 mg PO DAILY DULoxetine HCL [Cymbalta] 20 mg PO DAILY Docusate Oral Soln [Colace Oral Soln] 100 mg PO BID Calcium Carbonate/Vitamin D3 [Calcium 600-Vit D3 400 Caplet] 1 tab PO HS Atorvastatin [Lipitor] 20 mg PO HS Arformoterol Tartrate [Brovana] 15 mcg INHALATION RT-BID Aspirin [Children's Aspirin] 81 mg PO HS Acetaminophen Tab [Tylenol Tab] 650 mg PO Q6H PRN PRN Reason: Pain Rosuvastatin [Crestor] 10 mg PO HS Discharge Medication List Acetaminophen Tab [Tylenol Tab] 650 mg PO Q6H PRN 03/18/18 [History] Arformoterol Tartrate [Brovana] 15 mcg INHALATION RT-BID 03/18/18 [History] Aspirin [Children's Aspirin] 81 mg PO HS 03/18/18 [History] Atorvastatin [Lipitor] 20 mg PO HS 03/18/18 [History] Calcium Carbonate/Vitamin D3 [Calcium 600-Vit D3 400 Caplet] 1 tab PO HS [History] DULoxetine HCL [Cymbalta] 20 mg PO DAILY 03/18/18 [History] Docusate Oral Soln [Colace Oral Soln] 100 mg PO BID 03/18/18 [History] Donepezil Hcl 23mg 23 mg PO DAILY 03/18/18 [History] Ferrous Sulfate 308 mg PO DAILY 03/18/18 [History] Folic Acid 0.8 mg PO HS 03/18/18 [History] Insulin Aspart [NovoLOG (formulary)] See Protocol SQ ACHS 03/18/18 [History] Insulin Detemir [Levemir] 10 unit SQ BID 03/18/18 [History] Ipratropium-Albuterol Nebulize [Duoneb 0.5 mg-3 mg/3 ml Soln] 3 ml INHALATION RT -QID 03/18/18 [History] Lactulose 10 gm PO BID 03/18/18 [History] Loratadine [Claritin] 10 mg PO DAILY 03/18/18 [History] Magnesium Oxide 400 mg PO HS 03/18/18 [History] Metoprolol Tartrate [Lopressor] 25 mg PO BID 03/18/18 [History] Montelukast [Singulair] 10 mg PO HS 03/18/18 [History] Multivitamins, Thera [Multivitamin (formulary)] 1 tab PO HS 03/18/18 [History] Pantoprazole Sodium [Protonix] 40 mg PO DAILY 03/18/18 [History] Rosuvastatin [Crestor] 10 mg PO HS 03/18/18 [History] Vit C/E/Zn/Coppr/Lutein/Zeaxan [Preservision Areds 2 Softgel] 1 cap PO BID 03/18 [History] guaiFENesin [Mucinex] 1,200 mg PO BID 03/18/18 [History] Follow up Appointment(s)/Referral(s): Johnnie Delvalle MD [Primary Care Provider] - 1-2 days Discharge Disposition: - Preliminary Cause of Preliminary Cause of : Probable ventricular arrhythmia leading to cardiopulmonary arrest
--- NOTE | 2018-04-01 12:12 | CDI ---
Last Revision, March 2017 Documentation Clarification Form Date: 04/01/18 From: Shelby Lisa Phone: If you have a question regarding this query, please contact Robina Winslow at [phone] between 8am and 5pm. Admit Date: 03/19/2018 12:05:00 AM Patient Name: Eloise Hathaway Visit Number: [id number] Discharge Date: 03/29/18 ATTENTION: The Clinical Documentation Specialists (CDI) and [facility] Coding Staff appreciate your assistance in clarifying documentation. Please respond to the clarification below the line at the bottom and electronically sign. The CDI & [facility] Coding staff will review the response and follow-up if needed. Please note: Queries are made part of the Legal Health Record. If you have any questions, please contact the author of this message via ITS. Cornelio Dunn MD Past medical history of atrial fibrillation is documented in the history of present illness and past medical history in the ED note, H&P, consult notes and several progress notes. History/Risk Factors: The patient was admitted for sepsis, UTI, possible pneumonia and has a history of CHF. Clinical Indicators: Patient's pulse ran between 90 and 93 on 03/20 and ran in the 40s to 80s the rest of the time. EKG/telemetry: Showed probably junctional rhythm with intraventrecular conduction delay per Dr. Oliveira's consult note. Treatment: Not on any anticoagulation. In your professional opinion, can you please clarify the type of atrial fibrillation, if known? Chronic/Permanent Paroxysmal Persistent Other, please specify Unable to determine Paroxysmal MTDD
--- NOTE | 2018-04-07 16:52 | CDI ---
Documentation Clarification Form Date: 03/26/2018 2:45:00 PM From: Blaire Sprague RN, CCDS Admit Date: 03/19/2018 12:05:00 AM Patient Name: Eloise Hathaway Visit Number: [id number] Discharge Date: 03/29/2018 4:14:00 PM ATTENTION: The Clinical Documentation Specialists (CDI) and [facility] Coding Staff appreciate your assistance in clarifying documentation. Please respond to the clarification below the line at the bottom and electronically sign. The CDI & [facility] Coding staff will review the response and follow-up if needed. Please note: Queries are made part of the Legal Health Record. If you have any questions, please contact the author of this message via ITS. Dr. Katina Dunlap A chest wall hematoma is documented in the emergency department clinical impression and further clarification is needed for present of admission indicators. 03/19/18 EMS run report: On exam extensive bruising to both arms and about her abdomen. 03/19/18 Pulmonary (Dr. Fowler) Extremities: Multiple areas of bruises and ecchymosis noted in both upper and lower extremities. History/Risk Factors: Atrial Fibrillation, Sepsis, Pneumonia, UTI, Cardiac Arrest, Clinical Indicators: Present via EMS for respiratory distress from a alf. She had subsequent cardiac arrest. In ED she had persistent CPR approximately 40-45 minutes with return of spontaneous circulation. 03/18/18 Chest x-ray: right-side pneumothorax. Extensive soft tissue air Monitor Labs, CBC ICU monitoring Intubation/lmechanical ventilation Right chest tube Definition of Present on Admission (POA): A diagnosis present at the time the order for admission to inpatient status was written. For each diagnosis, documentation must be clear to determine if the condition was present at the time of the patients inpatient admission or developed during the hospital stay. Please clarify in an addendum to your progress note as to whether the chest wall hematoma was: Y = Yes, the condition was present at the time of the order for inpatient admission. N = No, the condition was not present at the time of the order for inpatient admission. W = Clinically undetermined if the condition was present at the time of the order for inpatient admission. MTDD
== END 2018-03-29 16:14 | disposition expired | DRG 870 ==
LOC: EC 22:15 → 2SICU 03-19 00:05
PROVIDERS: ADMIT Hospitalist; ATTEND Hospitalist
PROC: 5A12012 Performance of Cardiac Output, Single, Manual (ICD-10-PCS; 2018-03-18)
PROC: 02HV33Z Insertion of Infusion Device into Superior Vena Cava, Percutaneous Approach (ICD-10-PCS; 2018-03-18)
PROC: 03HB33Z Insertion of Infusion Device into Right Radial Artery, Percutaneous Approach (ICD-10-PCS; 2018-03-19)
PROC: 5A1955Z Respiratory Ventilation, Greater than 96 Consecutive Hours (ICD-10-PCS; principal; 2018-03-20)
PROC: 0BH17EZ Insertion of Endotracheal Airway into Trachea, Via Natural or Artificial Opening (ICD-10-PCS; 2018-03-20)
PROC: 30243N1 Transfusion of Nonautologous Red Blood Cells into Central Vein, Percutaneous Approach (ICD-10-PCS; 2018-03-20)
DX: A41.59 Other Gram-negative sepsis (principal); R65.21 Severe sepsis with septic shock; I63.9 Cerebral infarction, unspecified; J18.9 Pneumonia, unspecified organism; J96.01 Acute respiratory failure with hypoxia; N17.0 Acute kidney failure with tubular necrosis; J93.0 Spontaneous tension pneumothorax; S22.41XA Multiple fractures of ribs, right side, initial encounter for closed fracture; N39.0 Urinary tract infection, site not specified; D62 Acute posthemorrhagic anemia; E87.0 Hyperosmolality and hypernatremia; E87.1 Hypo-osmolality and hyponatremia; E87.4 Mixed disorder of acid-base balance; G93.1 Anoxic brain damage, not elsewhere classified; T79.7XXA Traumatic subcutaneous emphysema, initial encounter; S27.0XXA Traumatic pneumothorax, initial encounter; S27.321A Contusion of lung, unilateral, initial encounter; K92.2 Gastrointestinal hemorrhage, unspecified; I50.32 Chronic diastolic (congestive) heart failure; B96.1 Klebsiella pneumoniae [K. pneumoniae] as the cause of diseases classified elsewhere; Z66 Do not resuscitate; Z51.5 Encounter for palliative care; Z93.1 Gastrostomy status; I49.01 Ventricular fibrillation; J98.11 Atelectasis; I48.0 Paroxysmal atrial fibrillation; E11.65 Type 2 diabetes mellitus with hyperglycemia; E61.1 Iron deficiency; E83.51 Hypocalcemia; E87.6 Hypokalemia; I25.2 Old myocardial infarction; I46.9 Cardiac arrest, cause unspecified; K21.9 Gastro-esophageal reflux disease without esophagitis; R19.7 Diarrhea, unspecified; R77.9 Abnormality of plasma protein, unspecified; I46.8 Cardiac arrest due to other underlying condition; X58.XXXA Exposure to other specified factors, initial encounter; S80.12XA Contusion of left lower leg, initial encounter; S80.11XA Contusion of right lower leg, initial encounter; S40.022A Contusion of left upper arm, initial encounter; S40.021A Contusion of right upper arm, initial encounter; Z79.4 Long term (current) use of insulin; Z79.899 Other long term (current) drug therapy; Z79.82 Long term (current) use of aspirin; Z87.01 Personal history of pneumonia (recurrent); Z87.440 Personal history of urinary (tract) infections; Z88.8 Allergy status to other drugs, medicaments and biological substances
CPT/HCPCS: 31500; 32551; 36415; 36556; 36600; 51702; 70450; 71045; 80048; 80053; 80202; 81001; 82009; 82272; 82330; 82550; 82553; 82728; 82805; 83036; 83520; 83540; 83550; 83605; 83735; 83880; 84100; 84132; 84484; 85025; 85027; 85610; 85730; 86850; 86900; 86901; 86920; 87040; 87070; 87077; 87086; 87186; 87205; 87324; 92950; 93005; 93306; 94002; 94003; 94640; 95819; 96360; 96361; 96365; 96368; 99291; 99292